=== PATIENT | female | born 2000 | race African-American/Black ===

== ENCOUNTER 2023-05-05 22:08 | Outpatient (REF) | payer OTHER, SELFPAY | END 2023-05-05 22:09 | disposition home or self-care (01) | LOC: LAB 22:08 | PROVIDERS: Visit Provider Physician Assistant | DX: Z34.93 Encounter for supervision of normal pregnancy, unspecified, third trimester (principal) | CPT/HCPCS: 87081 ==

== ENCOUNTER 2023-05-24 00:56 | Observation (INO) | payer OTHER, SELFPAY ==
[2023-05-24 01:47] VITALS: BP 143/87; PULSE 65; RESP 16; TEMP 35.9
[2023-05-24 01:56] LABS: Bilirubin Urine NEGATIVE (NEGATIVE); Blood Urine NEGATIVE (NEGATIVE); Clarity Urine CLEAR (CLEAR); Color Urine LT. YELLOW (YELLOW); Glucose Urine UA NEGATIVE (NEGATIVE); Ketones Urine NEGATIVE (NEGATIVE); Leukocyte Esterase Urine SMALL (NEGATIVE); Nitrite Urine NEGATIVE (NEGATIVE); Protein Urine NEGATIVE (NEG/TRACE); Specific Gravity Urine <=1.005 (1.005-1.025); Urobilinogen Urine 0.2 EU/dL (0.2-1.0); pH Urine 6.5 (5.0-9.0)
[2023-05-24 02:39] LABS: Urine Microscopic Indicated YES
[2023-05-24 02:41] LABS: Bacteria Urine TRACE #/HPF (NONE SEEN); Mucus Urine NONE SEEN (NONE SEEN); RBC Urine 0-2 #/HPF (0-2); Squamous Epithelial Cell Urine FEW #/LPF (NONE/RARE)
[2023-05-24 02:42] LABS: Cast Seen? NONE SEEN #/LPF (NONE SEEN); Crystals Seen? None Seen #/HPF (None Seen); Trichomonas Urine SEEN (NONE SEEN); Urine Culture Indicated YES
[2023-05-24] MEDS: ACETAMINOPHEN 500 MG TABLET 1000 MG PO (03:27)
[2023-05-24 03:29] LABS: Amphetamine Screen Urine NEGATIVE (NEGATIVE); Barbiturates Screen Urine NEGATIVE (NEGATIVE); Benzodiazepines Screen Urine NEGATIVE (NEGATIVE); Buprenorphine Screen Urine NEGATIVE (NEGATIVE); Cannabinoid Screen Urine POSITIVE (NEGATIVE); Cocaine Screen Urine NEGATIVE (NEGATIVE); Methadone Screen Urine NEGATIVE (NEGATIVE); Methamphetamines Screen Urine NEGATIVE (NEGATIVE); Opiate Screen Urine NEGATIVE (NEGATIVE); Oxycodone Screen Urine NEGATIVE (NEGATIVE); Phencyclidine Screen Urine NEGATIVE (NEGATIVE); Tricyclic Antidepressant Urine NEGATIVE (NEGATIVE)
[2023-05-24] MEDS: LACTATED RINGER'S SOLUTION 1,000 ML 1000 ML IV (03:37)
[2023-05-24 04:02] LABS: Basophils Percent Auto 0.3 % (0.2-2.0); Eosinophils Percent Auto 0.2 % (0.9-7.0); Hematocrit 36.6 % (36.0-48.0); Hemoglobin 11.9 g/dL (12.0-16.0); Immature Granulocytes Abs Auto 0.08 10^3/uL (0.00-0.03); Immature Granulocytes Pct Auto 0.7 % (0.0-0.5); Lymphocytes Absolute Auto 2.5 10^3/uL (1.2-3.8); Lymphocytes Percent Auto 22.7 % (20.5-60.0); Mean Corpuscular HGB Conc 32.5 g/dL (29.9-35.2); Mean Corpuscular Hemoglobin 29.3 pg (26.7-34.0); Mean Corpuscular Volume 90.1 fL (81.0-99.0); Mean Platelet Volume 10.2 fL (9.5-13.5); Monocytes Absolute Auto 0.7 10^3/uL (0.3-0.8); Monocytes Percent Auto 6.6 % (1.7-12.0); Neutrophils Absolute Auto 7.5 10^3/uL (1.4-6.5); Neutrophils Percent Auto 69.5 % (43.0-75.0); Platelet Count 347 10^3/uL (150-450); Red Blood Count 4.06 10^6/uL (4.20-5.40); White Blood Count 10.8 10^3/uL (4.0-11.0)
[2023-05-24 04:10] VITALS: BP 127/88; PULSE 98
[2023-05-24] MEDS: METRONIDAZOLE 250 MG TABLET 500 MG PO (04:50)
== END 2023-05-24 05:10 | disposition home or self-care (01) ==
PROVIDERS: Admitting Provider Obstetrics & Gynecology; Visit Provider Obstetrics & Gynecology
DX: O47.9 False labor, unspecified (principal); Z3A.00 Weeks of gestation of pregnancy not specified
CPT/HCPCS: 36415; 80307; 81003; 81015; 85025; 86850; 86900; 86901; 87086; G0378; G0379

== ENCOUNTER 2023-05-25 04:26 | Inpatient (IN) | payer OTHER, SELFPAY ==
[2023-05-25] VITALS (38 sets, daily range): BP systolic 117–174; BP diastolic 58–115; PULSE 52–109; RESP 16–22; TEMP 35.1–37.1
[2023-05-25] MEDS: 0.9 % SODIUM CHLORIDE 500 ML 1000 ML IV (05:15)
[2023-05-25] MEDS: 0.9 % SODIUM CHLORIDE 1,000 ML 125 ML IV ×2 (05:15→15:22)
[2023-05-25 05:24] LABS: Bilirubin Urine NEGATIVE (NEGATIVE); Blood Urine NEGATIVE (NEGATIVE); Clarity Urine CLEAR (CLEAR); Color Urine YELLOW (YELLOW); Glucose Urine UA NEGATIVE (NEGATIVE); Ketones Urine NEGATIVE (NEGATIVE); Leukocyte Esterase Urine NEGATIVE (NEGATIVE); Nitrite Urine NEGATIVE (NEGATIVE); Protein Urine NEGATIVE (NEG/TRACE); Specific Gravity Urine 1.015 (1.005-1.025)
[2023-05-25 05:28] LABS: Urine Microscopic Indicated NO
[2023-05-25] MEDS: NALBUPHINE HCL 10 MG/ML AMPULE IV ×2 (05:52→13:59)
--- NOTE | 2023-05-25 07:36 | W.PC.ACHO ---
Registration Status: ADM NICK Primary Language: Preferred Language: Report given on maternal and status and SVE Active Medications Generic Name Dose Route Start Last Admin Trade Name Freq PRN Reason Stop Dose Admin Sodium Chloride 1,000 mls @ 125 mls/hr 05/25/23 05:00 05/25/23 05:15 Sodium Chloride 0.9% 1,000 Ml IV 125 mls/hr .Q8H DOUGLAS Administration IV Insertion/Site Date of IV Line Insertion [20g 05/25/23 right Wrist] IV Insertion Time [20g right 05:02 Wrist]
--- NOTE | 2023-05-25 10:15 | PC.NURSE ---
[id number]- Dr. Jiang notified at this time on pt.s cervical exam as well as her demeanor. He would like her to stay for now to be sure she is not in active labor. Pt. given birthing ball at her request to deal with pain and squat as she feels better doing this.
[2023-05-25 12:20] LABS: Hemoglobin 11.8 g/dL (12.0-16.0); Mean Corpuscular HGB Conc 33.7 g/dL (29.9-35.2); Mean Corpuscular Hemoglobin 29.6 pg (26.7-34.0); Mean Corpuscular Volume 87.7 fL (81.0-99.0); Mean Platelet Volume 10.5 fL (9.5-13.5); Platelet Count 340 10^3/uL (150-450); Red Blood Count 3.99 10^6/uL (4.20-5.40); Red Cell Distribution Width 14.1 % (11.0-15.0)
[2023-05-25 12:23] LABS: Amphetamine Screen Urine NEGATIVE (NEGATIVE); Barbiturates Screen Urine NEGATIVE (NEGATIVE); Benzodiazepines Screen Urine NEGATIVE (NEGATIVE); Buprenorphine Screen Urine NEGATIVE (NEGATIVE); Cannabinoid Screen Urine POSITIVE (NEGATIVE); Cocaine Screen Urine NEGATIVE (NEGATIVE); Methadone Screen Urine NEGATIVE (NEGATIVE); Methamphetamines Screen Urine NEGATIVE (NEGATIVE); Opiate Screen Urine NEGATIVE (NEGATIVE); Oxycodone Screen Urine NEGATIVE (NEGATIVE); Phencyclidine Screen Urine NEGATIVE (NEGATIVE); Tricyclic Antidepressant Urine NEGATIVE (NEGATIVE)
[2023-05-25] MEDS: 0.9 % SODIUM CHLORIDE 1,000 ML 1000 ML IV (12:47)
[2023-05-25] MEDS: OXYTOCIN 10 UNIT in 0.9 % SODIUM CHLORIDE 500 ML 6.012 UNIT IV (12:52)
[2023-05-25] MEDS: ONDANSETRON 4 MG RAPDIS TABLET SL (13:06)
[2023-05-25] MEDS: ROPIVACAINE HCL/PF 400 MG/200 ML PREMIX 10 MG EPIDURAL (15:28)
--- NOTE | 2023-05-25 17:42 | PM.OBPRCVD ---
Procedure Intrapartal events: None Induction method: none Delivery augmentation: rupture of membranes and pitocin Delivery monitor: external FHT and external uterine Route of delivery: Laceration description: perineal - 1st degree Estimated blood loss (mL): 200 Anesthesia type: Epidural Disposition: floor Delivery date: 05/25/23 Gender: male presentation: vertex Placental delivery description: Spontaneous cord description: 3 Vessels
[2023-05-25] MEDS: KETOROLAC TROMETHAMINE 30 MG/ML VIAL (17:45)
--- NOTE | 2023-05-25 20:15 | W.PC.ACHO ---
Registration Status: ADM IN Primary Language: Jordanian Preferred Language: [place]ian Active Medications Generic Name Dose Route Start Last Admin Trade Name Freq PRN Reason Stop Dose Admin Acetaminophen/Codeine Phosphate 1 each 05/25/23 17:43 Acetaminophen 300 Mg With Codeine 30 Mg Tablet PO Q4H PRN Moderate Pain Acetaminophen/Codeine Phosphate 2 each 05/25/23 17:43 Acetaminophen 300 Mg With Codeine 30 Mg Tablet PO Q4H PRN Severe Pain Al Hydroxide/Mg Hydroxide 2,400 mg 05/25/23 17:43 Magnesium Hydroxide 2,400 Mg/10 Ml Oral.Susp PO Q6H PRN Dyspepsia Benzocaine/Menthol 1 applic 05/25/23 17:43 Benzocaine/Menthol 85 Gram Bottle TOPICAL DIRECTED PRN Pain Carboprost Tromethamine 250 mcg 05/25/23 11:39 Carboprost Tromethamine 250 Mcg/Ml 1 Ml Vial IM Q15M PRN Bleeding Diphenhydramine HCl 25 mg 05/25/23 14:05 Diphenhydramine Hcl 50 Mg/Ml (1ml) Vial IV Q6H PRN Itching Docusate Sodium 100 mg 05/26/23 09:00 Docusate Sodium 100 Mg Capsule PO BID DOUGLAS Ephedrine Sulfate 5 mg 05/25/23 14:05 Ephedrine Sulfate 50 Mg/Ml Vial IV Q5M PRN Blood Pressure - Low Fentanyl Citrate 100 mcg 05/25/23 14:05 Fentanyl Citrate/Pf 100 Mcg/2 Ml Vial EPIDURAL Q4H PRN Pain Sodium Chloride 1,000 mls @ 125 mls/hr 05/25/23 05:00 05/25/23 15:22 Sodium Chloride 0.9% 1,000 Ml IV 125 mls/hr .Q8H DOUGLAS Administration Sodium Chloride 1,000 mls @ 125 mls/hr 05/25/23 11:45 Sodium Chloride 0.9% 1,000 Ml IV .Q8H DOUGLAS Oxytocin 10 unit/ Sodium 501 mls @ 6.012 mls/hr 05/25/23 11:45 05/25/23 12:52 Chloride IV 2 milliunit/min Q24H DOUGLAS 6.012 mls/hr Administration 2 MILLIUNIT/MIN Ropivacaine/Sodium Chloride 400 mg in 200 mls @ 6 mls/hr 05/25/23 14:15 05/25/23 15:28 Naropin 0.2% 400 Mg/200 Ml Bag EPIDURAL 10 mls/hr Q24H DOUGLAS 10 mls/hr Administration Oxytocin 20 unit/ Sodium 1,002 mls @ 125 mls/hr 05/25/23 17:45 05/25/23 18:05 Chloride IV 05/26/23 01:44 125 mls/hr Q8H DOUGLAS 125 mls/hr Administration Ibuprofen 600 mg 05/25/23 17:43 Ibuprofen 600 Mg Tablet PO Q6H PRN Moderate Pain Lidocaine 5 ml 05/25/23 11:39 Lidocaine Viscous 2% 15 Ml Topical Solution TOPICAL ONCE PRN Pain Lidocaine 1 ml 05/25/23 11:39 Lidocaine Hcl 1% 200 Mg/20 Ml Mdv INJ ONCE PRN Pain Lidocaine 5 ml 05/25/23 14:05 Lidocaine Hcl 2% Pf 100 Mg/5 Ml Vial INJ Q1H PRN Pain Methylergonovine Maleate 0.2 mg 05/25/23 11:39 Methylergonovine Maleate 0.2 Mg/Ml Ampule IM ONCE PRN Uterine Contractility/Contract Methylergonovine Maleate 0.2 mg 05/25/23 11:39 Methylergonovine Maleate 0.2 Mg Tablet PO Q4H PRN Uterine Contractility/Contract Metronidazole 500 mg 05/25/23 21:00 Metronidazole 250 Mg Tablet PO BID [facility] Misoprostol 600 mcg 05/25/23 11:39 Misoprostol 100 Mcg Tablet PO ONCE PRN Uterine Bleeding Misoprostol 800 mcg 05/25/23 11:39 Misoprostol 100 Mcg Tablet SL ONCE PRN Uterine Bleeding Misoprostol 1,000 mcg 05/25/23 11:39 Misoprostol 100 Mcg Tablet TN ONCE PRN Uterine Bleeding Nalbuphine HCl 10 mg 05/25/23 11:39 05/25/23 13:59 Nalbuphine Hcl 10 Mg/Ml Ampule IV 10 mg Q3H PRN Administration Pain Naloxone HCl 0.4 mg 05/25/23 14:05 Naloxone Hcl 0.4 Mg/Ml Vial IV ONCE PRN resp depression Ondansetron HCl 4 mg 05/25/23 11:39 Ondansetron Pf 4 Mg/2 Ml Vial IV Q6H PRN Nausea And Vomiting Ondansetron HCl 4 mg 05/25/23 11:39 05/25/23 13:06 Ondansetron 4 Mg Rapdis Tablet SL 4 mg Q6H PRN Administration Nausea And Vomiting Oxytocin 10 unit 05/25/23 11:39 Oxytocin 100 Unit/10 Ml Vial IM ONCE PRN Uterine Bleeding Senna 17.2 mg 05/25/23 20:00 Sennosides 8.6 Mg Tablet PO QHS PRN Constipation Simethicone 80 mg 05/25/23 17:43 Simethicone 80 Mg Tab.Chew PO QID PRN Abdominal Distention Temazepam 15 mg 05/25/23 20:00 Temazepam 15 Mg Capsule PO BEDTIME PRN Sleep Witch Jackie/Glycerin 1 each 05/25/23 17:43 Glycerin/Witch Jackie 1 Each Jar TOPICAL DIRECTED PRN Pain Diet Category Date Time Status Regular Consistency Diet Diet 05/25/23 Dinner Active Consults Category Date Time Status Consult to Anesthesiology Routine Cons 05/25/23 Ordered Consult to Distributor Sales Manager Routine Cons 05/25/23 Ordered IV Insertion/Site Date of IV Line Insertion [20g 05/25/23 right Wrist] IV Insertion Time [20g right 05:02 Wrist] Neurology Patient orientation (short person,place,time list) Melissa coma scale total score 15 Melissa coma scale total score 15 Melissa coma scale total score 15 Respiratory Lung sounds [Bilateral clear Throughout] Oxygen Delivery Method Room Air Bowels Date of Last Bowel Movement 05/24/23 Catheter Urinary Catheter Date of 05/25/23 Insertion [Urethral] Urinary Catheter Time of 16:30 Insertion [Urethral] Date Urinary Catheter Removed 05/25/23
[2023-05-25] MEDS: METRONIDAZOLE 250 MG TABLET 500 MG PO (21:45)
[2023-05-25] MEDS: IBUPROFEN 600 MG TABLET PO (23:37)
[2023-05-26] VITALS (8 sets, daily range): BP systolic 115–137; BP diastolic 68–79; PULSE 45–59; RESP 14–16; TEMP 36.4–36.7
--- NOTE | 2023-05-26 04:39 | PC.NURSE ---
RN has difficulty getting to latch. Nipples were rolled and colostrum was hand expressed multiple times to get nipples to become erect as they are flat and soft. struggled to maintain a latch. Nipple shield is used to encourage to obtain a latch to feed. Hand out was given. latches at 0420 after attempting to obtain a latch for 15 minutes.
[2023-05-26 07:14] LABS: Basophils Percent Auto 0.1 % (0.2-2.0); Eosinophils Percent Auto 0.1 % (0.9-7.0); Hemoglobin 9.9 g/dL (12.0-16.0); Immature Granulocytes Abs Auto 0.07 10^3/uL (0.00-0.03); Immature Granulocytes Pct Auto 0.5 % (0.0-0.5); Lymphocytes Absolute Auto 2.5 10^3/uL (1.2-3.8); Lymphocytes Percent Auto 17.5 % (20.5-60.0); Mean Corpuscular Hemoglobin 29.5 pg (26.7-34.0); Mean Corpuscular Volume 89.3 fL (81.0-99.0); Mean Platelet Volume 10.7 fL (9.5-13.5); Monocytes Absolute Auto 1.1 10^3/uL (0.3-0.8); Monocytes Percent Auto 7.5 % (1.7-12.0); Neutrophils Absolute Auto 10.6 10^3/uL (1.4-6.5); Neutrophils Percent Auto 74.3 % (43.0-75.0); Platelet Count 299 10^3/uL (150-450); Red Blood Count 3.36 10^6/uL (4.20-5.40); Red Cell Distribution Width 14.5 % (11.0-15.0); White Blood Count 14.2 10^3/uL (4.0-11.0)
[2023-05-26] MEDS: DOCUSATE SODIUM 100 MG CAPSULE PO ×2 (08:07→20:14)
[2023-05-26] MEDS: IBUPROFEN 600 MG TABLET PO ×3 (08:07→20:14)
[2023-05-26] MEDS: METRONIDAZOLE 250 MG TABLET 500 MG PO ×2 (08:07→20:14)
--- NOTE | 2023-05-26 08:52 | PM.OBPN ---
OB - PN: Subj Subjective Patient comments: no complaints [place] status: doing well Exam Constitutional Vital Signs - 24 hr 05/25/23 11:56 05/25/23 13:40 05/25/23 14:06 Temperature Pulse Rate 60 64 60 Respiratory Rate Blood Pressure 148/83 H 139/75 H 144/66 H Blood Pressure [Left Arm] Oxygen Delivery Method 05/25/23 15:28 05/25/23 15:36 05/25/23 15:42 Temperature Pulse Rate 80 86 74 Respiratory Rate Blood Pressure 141/82 H 154/115 H 163/115 H Blood Pressure [Left Arm] Oxygen Delivery Method 05/25/23 15:52 05/25/23 15:57 05/25/23 16:01 Temperature Pulse Rate 93 H 99 H 97 H Respiratory Rate Blood Pressure 157/82 H 161/94 H 151/82 H Blood Pressure [Left Arm] Oxygen Delivery Method 05/25/23 16:06 05/25/23 16:14 05/25/23 16:17 Temperature Pulse Rate 94 H 91 H 74 Respiratory Rate Blood Pressure 142/86 H 141/92 H 128/66 H Blood Pressure [Left Arm] Oxygen Delivery Method 05/25/23 16:21 05/25/23 16:26 05/25/23 16:36 Temperature Pulse Rate 77 65 54 L Respiratory Rate Blood Pressure 147/89 H 161/94 H 172/89 H Blood Pressure [Left Arm] Oxygen Delivery Method 05/25/23 16:47 05/25/23 16:52 05/25/23 17:01 Temperature Pulse Rate 59 L 70 65 Respiratory Rate Blood Pressure 130/59 H 173/90 H 145/90 H Blood Pressure [Left Arm] Oxygen Delivery Method 05/25/23 17:15 05/25/23 17:18 05/25/23 17:26 Temperature Pulse Rate 62 68 109 H Respiratory Rate Blood Pressure 159/95 H 174/98 H 130/92 H Blood Pressure [Left Arm] Oxygen Delivery Method 05/25/23 17:36 05/25/23 17:41 05/25/23 18:01 Temperature Pulse Rate 88 98 H 57 L Respiratory Rate Blood Pressure 150/72 H 153/69 H 144/75 H Blood Pressure [Left Arm] Oxygen Delivery Method 05/25/23 18:13 05/25/23 18:28 05/25/23 18:43 Temperature Pulse Rate 67 68 65 Respiratory Rate Blood Pressure 140/72 H 129/73 H 132/78 H Blood Pressure [Left Arm] Oxygen Delivery Method 05/25/23 19:14 05/25/23 19:28 05/25/23 19:44 Temperature Pulse Rate 54 L 74 67 Respiratory Rate Blood Pressure 139/72 H 142/82 H 136/58 H Blood Pressure [Left Arm] Oxygen Delivery Method 05/25/23 19:59 05/25/23 23:30 05/26/23 03:49 Temperature Pulse Rate 52 L 66 47 L Respiratory Rate Blood Pressure 143/78 H 117/65 115/68 Blood Pressure [Left Arm] Oxygen Delivery Method 05/26/23 07:24 05/25/23 15:36 05/25/23 15:37 Temperature 97.8 F 97.9 F Pulse Rate 45 L Respiratory Rate 22 Blood Pressure 120/79 H Blood Pressure [Left Arm] Oxygen Delivery Method Room Air 05/25/23 18:45 05/25/23 18:00 05/25/23 19:31 Temperature 98 F 98.4 F Pulse Rate 74 Respiratory Rate 18 20 18 Blood Pressure Blood Pressure [Left Arm] 142/82 H Oxygen Delivery Method 05/25/23 23:30 05/25/23 23:30 05/26/23 03:50 Temperature 98.7 F 98.0 F Pulse Rate 66 47 L Respiratory Rate 16 16 16 Blood Pressure Blood Pressure [Left Arm] 117/65 115/68 Oxygen Delivery Method Room Air Room Air 05/26/23 07:35 05/26/23 07:35 Temperature 97.7 F Pulse Rate 45 L Respiratory Rate 16 16 Blood Pressure Blood Pressure [Left Arm] 120/79 H Oxygen Delivery Method Documenting provider has reviewed patient's vital signs: yes Respiratory Common normals: normal respiratory effort and clear to auscultation bilaterally Cardio Common normals: regular rate and regular rhythm GI Common normals: Normal to inspection, nondistended, normoactive bowel sounds present Common normals: no CVA tenderness Extremity Common normals: normal to inspection, no clubbing, cyanosis or edema and no calf tenderness Results Labs Labs: Short CBC 05/25/23 05/26/23 Range/Units 12:11 06:25 WBC 10.0 14.2 H (4.0-11.0) 10^3/uL Hgb 11.8 L 9.9 L (12.0-16.0) g/dL Hct 35.0 L 30.0 L (36.0-48.0) % Plt Count 340 299 (150-450) 10^3/uL OB - PN: A/P Plan - Vaginal Delivery day: 1 Plan: routine care Time Spent with Patient Time: Total time spent is greater than 50% in coordination of care (as documented) at patient's floor/unit and/or counseling patient: Total time spent with greater than 50% in coordination of care (as documented) at patient's floor/unit and/or counseling patient: less than 15 minutes
--- NOTE | 2023-05-26 09:08 | PC.NURSE ---
This promotion writer reviewed all entires from Michael and will be overseeing her care today. Po [place] RN
--- NOTE | 2023-05-26 09:46 | AC.NBHP ---
NB H&P: HPI Single Date H&P Date: 05/26/23 History of Delivery method: spontaneous vaginal delivery Delivery Date: 05/25/23 Delivery Time: 17:23 Reason For Visit: CONTRACTIONS /Intrapartal Event Events: Meconium Stained Fluid Intrapartal Events: None Maternal Health Data Maternal Health : 1 Para: 1 Number of Living Children: 1 Hx # pregnancies: 0 care: good care events: Meconium Stained Fluid Intrapartal events: None Amniotic membrane rupture date: 05/25/23 Amniotic membrane rupture time: 13:24 Single Amniotic mebrance fluid description: Green Delivery method: spontaneous vaginal delivery presentation: vertex Labs HIV results: neg Hepatitis B results: neg Chlamydia results: neg Gonorrhea results: neg Group B strep results: negative - Single Citation Becca Hagen. A proposal for a new method of evaluation of the infant. Curr.Res.Anesth.Analg. 1953;32(4): 260-267 PFS PFS Social History Do you think of yourself as: straight/heterosexual Gender Identity: female Assessment and Plan Assessment and Plan (1) Normal (single liveborn): Plan routine nursery care
--- NOTE | 2023-05-26 10:22 | PC.NURSE ---
reassessment of pain after pain medication. patient states that pain has decreased and she is ambulating independently
--- NOTE | 2023-05-26 15:54 | SWNOTE1 ---
SW met with pt in room. Pt's sister in room as well holding baby, sleeping. Pt does live at home with her mother, father, and brother. This is her first baby. Father of the baby is involved. Pt is and does voice it is going alright. Pt does have everything she needs at home for baby and expresses she has a good support system. Pt was positive for marijuana on admission, and was positive at beginning of on 10/20/2022. Pt does admit to eating gummies during to help with her nausea. She attempted to use a zofran pump but it did not help and she continued to lose weight. Pt does not have her medical marijuana card and she does not plan on using marijuana at discharge. SW did let pt know that SW is mandated reported and SW has to call children services. Pt voices understanding, no questions. DICK called and made report to [facility] CPS. HIPPA form filled out and sent to
--- NOTE | 2023-05-26 19:11 | W.PC.ACHO ---
Registration Status: ADM IN Primary Language: Swazi Preferred Language: Swazi Active Medications Generic Name Dose Route Start Last Admin Trade Name Freq PRN Reason Stop Dose Admin Acetaminophen/Codeine Phosphate 1 each 05/25/23 17:43 Acetaminophen 300 Mg With Codeine 30 Mg Tablet PO Q4H PRN Moderate Pain Acetaminophen/Codeine Phosphate 2 each 05/25/23 17:43 Acetaminophen 300 Mg With Codeine 30 Mg Tablet PO Q4H PRN Severe Pain Al Hydroxide/Mg Hydroxide 2,400 mg 05/25/23 17:43 Magnesium Hydroxide 2,400 Mg/10 Ml Oral.Susp PO Q6H PRN Dyspepsia Benzocaine/Menthol 1 applic 05/25/23 17:43 Benzocaine/Menthol 85 Gram Bottle TOPICAL DIRECTED PRN Pain Carboprost Tromethamine 250 mcg 05/25/23 11:39 Carboprost Tromethamine 250 Mcg/Ml 1 Ml Vial IM 05/26/23 18:00 Q15M PRN Bleeding Docusate Sodium 100 mg 05/26/23 09:00 Docusate Sodium 100 Mg Capsule PO BID DOUGLAS Sodium Chloride 1,000 mls @ 125 mls/hr 05/25/23 05:00 05/25/23 15:22 Sodium Chloride 0.9% 1,000 Ml IV 125 mls/hr .Q8H DOUGLAS Administration Sodium Chloride 1,000 mls @ 125 mls/hr 05/25/23 11:45 Sodium Chloride 0.9% 1,000 Ml IV .Q8H DOUGLAS Ibuprofen 600 mg 05/25/23 17:43 05/25/23 23:37 Ibuprofen 600 Mg Tablet PO 600 mg Q6H PRN Administration Moderate Pain Methylergonovine Maleate 0.2 mg 05/25/23 11:39 Methylergonovine Maleate 0.2 Mg/Ml Ampule IM 05/26/23 18:00 ONCE PRN Uterine Contractility/Contract Methylergonovine Maleate 0.2 mg 05/25/23 11:39 Methylergonovine Maleate 0.2 Mg Tablet PO 05/26/23 18:00 Q4H PRN Uterine Contractility/Contract Metronidazole 500 mg 05/25/23 21:00 05/25/23 21:45 Metronidazole 250 Mg Tablet PO 500 mg BID DOUGLAS Administration Misoprostol 600 mcg 05/25/23 11:39 Misoprostol 100 Mcg Tablet PO 05/26/23 18:00 ONCE PRN Uterine Bleeding Misoprostol 800 mcg 05/25/23 11:39 Misoprostol 100 Mcg Tablet SL 05/26/23 18:00 ONCE PRN Uterine Bleeding Misoprostol 1,000 mcg 05/25/23 11:39 Misoprostol 100 Mcg Tablet MI 05/26/23 18:00 ONCE PRN Uterine Bleeding Ondansetron HCl 4 mg 05/25/23 11:39 Ondansetron Pf 4 Mg/2 Ml Vial IV Q6H PRN Nausea And Vomiting Ondansetron HCl 4 mg 05/25/23 11:39 05/25/23 13:06 Ondansetron 4 Mg Rapdis Tablet SL 4 mg Q6H PRN Administration Nausea And Vomiting Oxytocin 10 unit 05/25/23 11:39 Oxytocin 100 Unit/10 Ml Vial IM 05/26/23 18:00 ONCE PRN Uterine Bleeding Senna 17.2 mg 05/25/23 20:00 Sennosides 8.6 Mg Tablet PO QHS PRN Constipation Simethicone 80 mg 05/25/23 17:43 Simethicone 80 Mg Tab.Chew PO QID PRN Abdominal Distention Temazepam 15 mg 05/25/23 20:00 Temazepam 15 Mg Capsule PO BEDTIME PRN Sleep Witch Jackie/Glycerin 1 each 05/25/23 17:43 Glycerin/Witch Jackie 1 Each Jar TOPICAL DIRECTED PRN Pain Diet Category Date Time Status Regular Consistency Diet Diet 05/25/23 Dinner Active Neurology Patient orientation (short person,place,time list) Blain coma scale total score 15 Melissa coma scale total score 15 Melissa coma scale total score 15 Blain coma scale total score 15 Blain coma scale total score 15 Respiratory Lung sounds [Bilateral clear Throughout] Lung sounds [Bilateral clear Throughout] Oxygen Delivery Method Room Air Oxygen Delivery Method Room Air Oxygen Delivery Method Room Air Bowels Date of Last Bowel Movement 05/24/23 Catheter Urinary Catheter Date of 05/25/23 Insertion [Urethral] Urinary Catheter Time of 16:30 Insertion [Urethral] Date Urinary Catheter Removed 05/25/23
[2023-05-27 00:30] VITALS: BP 146/74; PULSE 60; TEMP 37.1
[2023-05-27] MEDS: IBUPROFEN 600 MG TABLET PO (02:26)
[2023-05-27 06:00] VITALS: BP 139/78; PULSE 48; RESP 16
--- NOTE | 2023-05-27 07:13 | W.PC.ACHO ---
Registration Status: ADM IN Primary Language: [place] Preferred Language: [place] Active Medications Generic Name Dose Route Start Last Admin Trade Name Freq PRN Reason Stop Dose Admin Acetaminophen/Codeine Phosphate 1 each 05/25/23 17:43 Acetaminophen 300 Mg With Codeine 30 Mg Tablet PO Q4H PRN Moderate Pain Acetaminophen/Codeine Phosphate 2 each 05/25/23 17:43 Acetaminophen 300 Mg With Codeine 30 Mg Tablet PO Q4H PRN Severe Pain Al Hydroxide/Mg Hydroxide 2,400 mg 05/25/23 17:43 Magnesium Hydroxide 2,400 Mg/10 Ml Oral.Susp PO Q6H PRN Dyspepsia Benzocaine/Menthol 1 applic 05/25/23 17:43 Benzocaine/Menthol 85 Gram Bottle TOPICAL DIRECTED PRN Pain Docusate Sodium 100 mg 05/26/23 09:00 05/26/23 20:14 Docusate Sodium 100 Mg Capsule PO 100 mg BID DOUGLAS Administration Sodium Chloride 1,000 mls @ 125 mls/hr 05/25/23 05:00 05/25/23 15:22 Sodium Chloride 0.9% 1,000 Ml IV 125 mls/hr .Q8H DOUGLAS Administration Sodium Chloride 1,000 mls @ 125 mls/hr 05/25/23 11:45 Sodium Chloride 0.9% 1,000 Ml IV .Q8H DOUGLAS Ibuprofen 600 mg 05/26/23 08:13 05/27/23 02:26 Ibuprofen 600 Mg Tablet PO 600 mg Q6H PRN Administration Moderate Pain Metronidazole 500 mg 05/25/23 21:00 05/26/23 20:14 Metronidazole 250 Mg Tablet PO 500 mg BID DOUGLAS Administration Ondansetron HCl 4 mg 05/25/23 11:39 Ondansetron Pf 4 Mg/2 Ml Vial IV Q6H PRN Nausea And Vomiting Ondansetron HCl 4 mg 05/25/23 11:39 05/25/23 13:06 Ondansetron 4 Mg Rapdis Tablet SL 4 mg Q6H PRN Administration Nausea And Vomiting Senna 17.2 mg 05/25/23 20:00 Sennosides 8.6 Mg Tablet PO QHS PRN Constipation Simethicone 80 mg 05/25/23 17:43 Simethicone 80 Mg Tab.Chew PO QID PRN Abdominal Distention Temazepam 15 mg 05/25/23 20:00 Temazepam 15 Mg Capsule PO BEDTIME PRN Sleep Witch Jackie/Glycerin 1 each 05/25/23 17:43 Glycerin/Witch Jackie 1 Each Jar TOPICAL DIRECTED PRN Pain Neurology [place] coma scale total score 15 [place] coma scale total score 15 Respiratory Lung sounds [Bilateral clear Throughout] Lung sounds [Bilateral clear Throughout]
--- NOTE | 2023-05-27 07:49 | NUTR.NU ---
awake in bed holding . Plan of care reviewed. verbalizes understandng. D/c instrutctions reviewed, of self and infant. Verbalizes understanding. denies pain or needs at this time.
--- NOTE | 2023-05-27 07:49 | PM.OBPN ---
OB - PN: Subj Subjective Patient comments: no complaints [place] status: doing well and well [place] feeding status: exclusively Exam Narrative Exam Narrative: patient laying on her left side enjoying baby, states she is ready to go home today Constitutional Vital Signs - 24 hr 05/26/23 13:23 05/26/23 15:41 05/27/23 00:30 Temperature 98.7 F Pulse Rate 59 L 54 L 60 Respiratory Rate Blood Pressure 133/78 H 137/71 H 146/74 H Blood Pressure [Left Arm] 05/27/23 06:00 05/26/23 13:25 05/26/23 15:46 Temperature 97.6 F 97.8 F Pulse Rate 48 L 59 L 54 L Respiratory Rate 16 16 14 Blood Pressure 139/78 H Blood Pressure [Left Arm] 133/78 H 137/71 H Documenting provider has reviewed patient's vital signs: yes Common normals: no apparent distress and oriented x3 General appearance: cooperative HENMT Common normals: normocephalic Eye Common normals: PERRL Neck & C-Spine Common normals: full ROM Chest Common normals: inspection of chest normal Respiratory Common normals: normal respiratory effort Auscultation: clear to auscultation bilaterally Cardio Common normals: no JVD, regular rate and regular rhythm Rate: regular rate Rhythm: regular rhythm GI Common normals: Normal to inspection, nondistended, normoactive bowel sounds present Inspection: normal to inspection Auscultation: normoactive bowel sounds Palpation: soft Rectal Exam - Female: deferred Common normals: no CVA tenderness Back & Pelvis Common normals: no CVA tenderness Extremity Common normals: normal to inspection Neuro Common normals: oriented x3 Speech: speech normal Psych Common normals: mental status grossly normal, thought process normal and cooperative OB - PN: A/P Assessment and Plan (1) Normal (single liveborn): Assessment and Plan: assessment negative, plan is to send patient home today with her Plan discharge to home Plan - Vaginal Delivery day: 2 Plan: discharge home and follow up 6 weeks Comment: patient should follow up with dr Jiang in 6 weeks patient should continue Flagyl RX until gone Time Spent with Patient Time: Total time spent is greater than 50% in coordination of care (as documented) at patient's floor/unit and/or counseling patient: Total time spent with greater than 50% in coordination of care (as documented) at patient's floor/unit and/or counseling patient: less than 15 minutes
[2023-05-27 09:25] VITALS: BP 128/63; PULSE 58
== END 2023-05-27 11:15 | disposition home or self-care (01) | DRG 560 ==
PROVIDERS: Admitting Provider Obstetrics & Gynecology; Visit Provider Obstetrics & Gynecology
DX: O99.52 Diseases of the respiratory system complicating childbirth (principal); O99.214 Obesity complicating childbirth; O70.0 First degree perineal laceration during delivery; Z3A.39 39 weeks gestation of pregnancy; Z37.0 Single live birth; J45.20 Mild intermittent asthma, uncomplicated
CPT/HCPCS: 36415; 59050; 59410; 80307; 81003; 81015; 85025; 85027; 86850; 86900; 86901; 87086; 96374; 96375; 96376; G0378; G0379; J2300

== ENCOUNTER 2023-06-25 22:31 | Emergency (ER) | payer OTHER, SELFPAY ==
[2023-06-25 22:39] VITALS: BP 134/88; PULSE 80; RESP 20; TEMP 37.5; O2SAT 97; BMI 35.6
--- NOTE | 2023-06-25 23:25 | ED.ABDPAIN1 ---
HPI - Abdominal Pain General Chief Complaint: Abdominal Pain Stated Complaint: Abdominal Pain Time Seen by Provider: 06/25/23 23:16 Source: patient Mode of arrival: walk-in Limitations: no limitations History of Present Illness HPI narrative: vaginal delivery one month ago. Now presents with suprapubic pain that started yesterday and has increased. Pain worsens with cough. She has asthma and has been coughing up clear phlegm. Denies any vaginal bleeding. No urinary symptoms, fever or nausea. MD elicited complaint: Reports abdominal pain Related Data Previous Rx's Medication Instructions Recorded Dermoplast (with menthol) 20 %-0.5 1 spray topical DIRECTED PRN 05/27/23 % topical aerosol Pain 7 days #56 grams (benzocaine-menthol) docusate sodium 100 mg capsule 100 mg PO BID PRN constipation 30 05/27/23 days #60 caps glycerin-witch evelyn 12.5 %-50 % 1 pad topical DIRECTED PRN Pain 05/27/23 topical pads (A.E.R. Witch Evelyn) 14 days #40 ea ibuprofen 800 mg tablet 800 mg PO Q8H PRN Moderate Pain 30 05/27/23 days #60 tabs Allergies Allergy/AdvReac Type Severity Reaction Status Date / Time Penicillins Allergy Severe Verified 05/26/23 06:55 cephalexin [From Keflex] Allergy Intermediate Verified 05/25/23 20:20 iodine Allergy Intermediate Verified 05/25/23 20:20 Review of Systems ROS Status of ROS 10 or more systems reviewed and unremarkable except as noted in history and below PFSH PFSH Social History Smoking status: Never smoker Do you think of yourself as: straight/heterosexual Gender Identity: female Exam Constitutional Vital Signs, click to edit/add: Last Vital Signs Temp 99.5 F 06/25/23 22:39 Pulse 74 06/25/23 23:52 Resp 20 06/25/23 23:52 BP 134/88 06/25/23 22:39 Pulse Ox 98 06/25/23 23:52 O2 Del Method Room Air 06/25/23 22:39 Common normals: no apparent distress, oriented x3, healthy appearing and alert HENMT Common normals: normocephalic and head/scalp atraumatic Eye Common normals: EOMs intact bilaterally and conjunctivae normal Respiratory Auscultation: wheezes Cardio Common normals: regular rate, regular rhythm, S1 normal heart sound and S2 normal heart sound GI Other: suprapubic mild tenderness. no guarding Extremity Common normals: normal to inspection and full ROM Neuro Common normals: oriented x3, CN's II-XII intact bilaterally, moves all extremities, no focal motor deficits and no sensory deficits noted Psych Appearance: grossly normal Course Vital Signs Vital signs: Vital Signs Temperature 99.5 F 06/25/23 22:39 Pulse Rate 80 06/25/23 22:39 Respiratory Rate 20 06/25/23 22:39 Blood Pressure 134/88 06/25/23 22:39 Pulse Oximetry 97 06/25/23 22:39 Oxygen Delivery Method Room Air 06/25/23 22:39 Temperature 99.5 F 06/25/23 22:39 Pulse Rate 74 06/25/23 23:52 Respiratory Rate 20 06/25/23 23:52 Blood Pressure 134/88 06/25/23 22:39 Pulse Oximetry 98 06/25/23 23:52 Oxygen Delivery Method Room Air 06/25/23 22:39 MDM - Abdominal Pain MDM Narrative Medical decision making narrative: presents with suprapubic pain. CT with evidence of cystitis and UA confirms infection. patient treated with Bactrim ds and discharged home to follow up with her doctor Lab Data Labs: Lab Results 06/25/23 06/25/23 Range/Units 22:15 22:45 WBC 7.2 (4.0-11.0) 10^3/uL RBC 4.30 (4.20-5.40) 10^6/uL Hgb 12.2 (12.0-16.0) g/dL Hct 38.3 (36.0-48.0) % MCV 89.1 (81.0-99.0) fL MCH 28.4 (26.7-34.0) pg MCHC 31.9 (29.9-35.2) g/dL RDW 14.2 (11.0-15.0) % Plt Count 347 (150-450) 10^3/uL MPV 10.3 (9.5-13.5) fL Neut % (Auto) 57.0 (43.0-75.0) % Lymph % (Auto) 32.4 (20.5-60.0) % [place] % (Auto) 7.1 (1.7-12.0) % Eos % (Auto) 2.9 (0.9-7.0) % Baso % (Auto) 0.3 (0.2-2.0) % Neut # (Auto) 4.1 (1.4-6.5) 10^3/uL Lymph # (Auto) 2.3 (1.2-3.8) 10^3/uL [place]itus # (Auto) 0.5 (0.3-0.8) 10^3/uL Eos # (Auto) 0.2 (0.0-0.7) 10^3/uL Baso # (Auto) 0.0 (0.0-0.1) 10^3/uL Abs Immat Gran (auto) 0.02 (0.00-0.03) 10^3/uL Imm/Tot Granulo (auto) 0.3 (0.0-0.5) % Urine Color Lt. yellow (YELLOW) Urine Clarity Clear (CLEAR) Urine pH 6.0 (5.0-9.0) Ur Specific [place] 1.025 (1.005-1.025) Urine Protein Negative (NEG/TRACE) mg/dL Urine Glucose (UA) Negative (NEGATIVE) mg/dL Urine Ketones Negative (NEGATIVE) mg/dL Urine Occult Blood Trace-i (NEGATIVE) Urine Nitrite Negative (NEGATIVE) Urine Bilirubin Negative (NEGATIVE) Urine Urobilinogen 0.2 (0.2-1.0) EU/dL Ur Leukocyte Esterase Moderate A (NEGATIVE) Discharge Plan Discharge Chief Complaint: Abdominal Pain Clinical Impression: Acute cystitis Patient Disposition: Home, Self-Care Prescriptions / Home Meds: No Action Dermoplast (with menthol) 20-0.5 % Aerosol 1 spray topical DIRECTED PRN (Reason: Pain) 7 Days Qty: 56 1RF docusate sodium 100 mg Capsule 100 mg PO BID PRN (Reason: constipation) 30 Days Qty: 60 0RF A.E.R. Witch Evelyn 12.5-50 % Pads, Medicated 1 pad topical DIRECTED PRN (Reason: Pain) 14 Days Qty: 40 0RF ibuprofen 800 mg tablet 800 mg PO Q8H PRN (Reason: Moderate Pain) 30 Days Qty: 60 0RF Instructions: Urinary Tract Infection in Women (ED) Stand Alone Forms: Portal Instructions Referrals: Physician,Non-Staff, MD [Primary Care Provider] - 1 week
--- NOTE | 2023-06-25 23:28 | XR_ITS ---
The [address] [address] Patient Name: SURTHI FUNK MRN: [id number] date: 2000 Sex: F Assigned Patient Location: ER Current Patient Location: ER Accession/Order Number: [id number] Exam Date: 06/25/2023 23:59 Report Date: 06/26/2023 00:42 At the request of: DORON CORONEL Procedure: XR chest 2V EXAM: XR chest 2V HISTORY: cough COMPARISON: Chest x-ray 01/22/2016 TECHNIQUE: Single frontal view chest x-ray FINDINGS: No lung consolidation, large pleural effusions, pneumothorax, or acute bony abnormality. Cardiac size is unremarkable. XR/XR chest 2V IMPRESSION: No radiographic evidence for acute chest abnormality. Electronically authenticated by: AHSAN BROWN Date: 06/26/2023 00:42
[2023-06-25 23:36] LABS: Bilirubin Urine NEGATIVE (NEGATIVE); Blood Urine TRACE-I (NEGATIVE); Clarity Urine CLEAR (CLEAR); Color Urine LT. YELLOW (YELLOW); Glucose Urine UA NEGATIVE (NEGATIVE); Ketones Urine NEGATIVE (NEGATIVE); Leukocyte Esterase Urine MODERATE (NEGATIVE); Nitrite Urine NEGATIVE (NEGATIVE); Protein Urine NEGATIVE (NEG/TRACE); Specific Gravity Urine 1.025 (1.005-1.025); Urobilinogen Urine 0.2 EU/dL (0.2-1.0)
[2023-06-25 23:38] LABS: Basophils Percent Auto 0.3 % (0.2-2.0); Eosinophils Absolute Auto 0.2 10^3/uL (0.0-0.7); Eosinophils Percent Auto 2.9 % (0.9-7.0); Hematocrit 38.3 % (36.0-48.0); Hemoglobin 12.2 g/dL (12.0-16.0); Immature Granulocytes Abs Auto 0.02 10^3/uL (0.00-0.03); Immature Granulocytes Pct Auto 0.3 % (0.0-0.5); Lymphocytes Absolute Auto 2.3 10^3/uL (1.2-3.8); Lymphocytes Percent Auto 32.4 % (20.5-60.0); Mean Corpuscular HGB Conc 31.9 g/dL (29.9-35.2); Mean Corpuscular Hemoglobin 28.4 pg (26.7-34.0); Mean Corpuscular Volume 89.1 fL (81.0-99.0); Mean Platelet Volume 10.3 fL (9.5-13.5); Monocytes Absolute Auto 0.5 10^3/uL (0.3-0.8); Monocytes Percent Auto 7.1 % (1.7-12.0); Neutrophils Absolute Auto 4.1 10^3/uL (1.4-6.5); Platelet Count 347 10^3/uL (150-450); Red Cell Distribution Width 14.2 % (11.0-15.0); White Blood Count 7.2 10^3/uL (4.0-11.0)
[2023-06-25] MEDS: 0.9 % SODIUM CHLORIDE 1,000 ML 999 ML IV (23:46)
[2023-06-25 23:47] LABS: Urine Microscopic Indicated YES
--- NOTE | 2023-06-25 23:48 | CT_ITS ---
The [place] [id number] Patient Name: SRUTHI FUNK MRN: [id number] date: 2000 Sex: F Assigned Patient Location: ER Current Patient Location: ER Accession/Order Number: [id number] Exam Date: 06/25/2023 23:59 Report Date: 06/26/2023 00:54 At the request of: DORON CORONEL Procedure: CT abdomen pelvis wo con EXAM: CT abdomen pelvis wo con HISTORY: suprapubic pain post vag. delivery COMPARISON: 08/02/2012 TECHNIQUE: CT of abdomen and pelvis without intravenous contrast. Dose reduction techniques were achieved by using automated exposure control and/or adjustment of mA and/or kV according to patient size and/or use of iterative reconstruction technique. FINDINGS: Limited evaluation of the viscera/organs and vasculature without intravenous contrast. TUBES AND IMPLANTS: None. LOWER CHEST: Small hiatal hernia ABDOMEN and PELVIS ABDOMINAL WALL AND SOFT TISSUES: Unremarkable. BONES: No suspicious lesions. ARTERIES: Incompletely evaluated. VEINS: Incompletely evaluated. LYMPH NODES: Unremarkable. PERITONEUM/ RETROPERITONEUM: Trace pelvic fluid BOWEL: No obstruction APPENDIX: Unremarkable LIVER: Unremarkable. GALLBLADDER: Unremarkable. BILE DUCTS: Not dilated SPLEEN: Unremarkable. PANCREAS: Unremarkable. ADRENALS: Unremarkable. KIDNEYS/ URETERS: Unremarkable. REPRODUCTIVE ORGANS: Unremarkable URINARY BLADDER: Mild wall thickening of the bladder CT/CT abdomen pelvis wo con IMPRESSION: Mild wall thickening of the bladder, correlate for cystitis. Trace pelvic fluid. Small hiatal hernia. Electronically authenticated by: KELLY RICCI Date: 06/26/2023 00:54
[2023-06-25 23:52] VITALS: PULSE 74; RESP 20; O2SAT 98
[2023-06-25 23:52] LABS: Lactate/Lactic Acid 0.6 mmol/L (0.4-2.0)
[2023-06-25] MEDS: ALBUTEROL SULFATE 2.5 MG/3 ML VIAL NEB IH (23:52)
[2023-06-25 23:55] LABS: Alanine Aminotransferase 29 U/L (14-59); Albumin Globulin Ratio 0.9; Albumin Level 3.7 g/dL (3.4-5.0); Alkaline Phosphatase 104 U/L (46-116); Anion Gap 12.2; Aspartate Amino Transferase 25 U/L (15-37); BUN Creatinine Ratio 10.8; Bilirubin Total 0.3 mg/dL (0.2-1.0); Calcium 8.9 mg/dL (8.5-10.1); Carbon Dioxide 27.6 mmol/L (21.0-32.0); Chloride 105 mmol/L (98-107); Estimated GFR (African America >60 (>=60); Estimated GFR (Non-African Ame >60 (>=60); Globulin 3.9 g/dL; Glucose 84 mg/dL (74-106); Potassium 3.8 mmol/L (3.5-5.1); Sodium 141 mmol/L (136-145); Total Protein 7.6 g/dL (6.4-8.2)
[2023-06-26 00:20] LABS: Bacteria Urine TRACE #/HPF (NONE SEEN); Crystals Seen? None Seen #/HPF (None Seen); Mucus Urine NONE SEEN (NONE SEEN); RBC Urine 0-2 #/HPF (0-2); Squamous Epithelial Cell Urine MANY #/LPF (NONE/RARE)
[2023-06-26 00:21] LABS: Cast Seen? NONE SEEN #/LPF (NONE SEEN); Trichomonas Urine SEEN (NONE SEEN); Urine Culture Indicated YES
[2023-06-26] MEDS: KETOROLAC TROMETHAMINE 30 MG/ML VIAL IVP (00:44)
[2023-06-26] MEDS: SULFAMETHOXAZOLE/TRIMETHOPRIM 800-160 MG TABLET 1 TAB PO (01:32)
== END 2023-06-26 01:35 | disposition home or self-care (01) ==
PROVIDERS: Emergency Provider Internal Medicine
DX: O86.22 Infection of bladder following delivery (principal); N30.90 Cystitis, unspecified without hematuria
CPT/HCPCS: 36415; 71046; 74176; 80053; 81001; 81003; 83605; 85025; 87086; 94640; 96374; 99285

== ENCOUNTER 2023-08-25 11:00 | Outpatient (OUT) | payer OTHER, SELFPAY | END 2023-08-25 11:01 | disposition home or self-care (01) | PROVIDERS: Visit Provider Obstetrics & Gynecology | DX: N92.6 Irregular menstruation, unspecified (principal) | CPT/HCPCS: 36415; 84702 ==

== ENCOUNTER 2023-08-31 18:43 | Outpatient (OUT) | payer OTHER, SELFPAY ==
--- NOTE | 2023-08-31 | US_ITS ---
The [place] [id number] Patient Name: SRUTHI FUNK MRN: [id number] date: 2000 Sex: F Assigned Patient Location: US Current Patient Location: LAB Accession/Order Number: [id number] Exam Date: 08/31/2023 19:43 Report Date: 09/01/2023 22:15 At the request of: PAUL HICKEY Procedure: US OB transvaginal EXAMINATION: US OB transvaginal HISTORY: Missed Menses, N92.6 COMPARISON: No relevant comparison available. FINDINGS: GESTATIONAL SAC: Present and normal appearing. YOLK SAC: Present and normal appearing. POLE: Present and normal appearing. CARDIAC: Present. 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 OVARIES: Right: Not seen. Left: Corpus lutein cyst. CERVIX: 3.6 cm in length and closed. CUL-DE-SAC: Normal. OTHER: None. AGE BY LMP: Unknown LMP [place] BY LMP: AGE BY US CRL: 7 weeks 6 days [place] BY US CRL: 04/12/2024 US/US OB transvaginal IMPRESSION: 1. Single live intrauterine . Electronically authenticated by: BENIGNO DIAZ Date: 09/01/2023 22:15
== END 2023-08-31 18:44 | disposition home or self-care (01) ==
LOC: US 18:43
PROVIDERS: Visit Provider Obstetrics & Gynecology
DX: Z34.91 Encounter for supervision of normal pregnancy, unspecified, first trimester (principal)
CPT/HCPCS: 76817

== ENCOUNTER 2023-12-02 13:55 | Outpatient (OUT) | payer OTHER, SELFPAY ==
--- NOTE | 2023-12-02 14:41 | US_ITS ---
[address] [address] Patient Name: SRUTHI FUNK MRN: [id number] date: 2000 Sex: F Assigned Patient Location: US Current Patient Location: US Accession/Order Number: [id number] Exam Date: 12/02/2023 14:42 Report Date: 12/02/2023 16:12 At the request of: PAUL HICKEY Procedure: US OB anatomy EXAMINATION: US OB anatomy, US OB cervical length HISTORY: ANATOMY COMPARISON: No relevant comparison available. TECHNIQUE: Transabdominal sonographic examination was performed for obstetrical and evaluation. FINDINGS: Number: 1 Heart Rate: 150.0 bpm H.B. /min Amniotic Fluid Volume: Subjectively normal position: Cephalic presentation, longitudinal lie Placental Location: Anterior. Placental edge 10 cm from the internal os Cervix Length: 4.7 cm, closed Normal anatomy: Lateral ventricles, cerebellum, posterior fossa, nose, lips, orbits, four-chamber heart, RVOT, LVOT, diaphragm, stomach, kidneys, abdominal cord insertion, bladder, umbilical arteries, three-vessel cord, spine, extremities BIOMETRY: BPD: 4.8 cm 20 weeks 4 days , 28% HC: 17.7 cm 20 weeks 1 days, 8% AC: 16.5 cm 21 weeks 4 days, 57% FL: 3.6 cm 21 weeks 3 days , 52% EFW:416.7 grams; 15 ounces, 55% FL/AC: 21.9 FL/BPD: 74.6 HC/AC: 1.1 GESTATIONAL AGE: Age by EDC: 21 weeks 1 days Age by current US: 21 weeks 0 days [place] by current US: 04/13/2024 [place] by EDC: 04/12/2024 US/US OB anatomy IMPRESSION: Normal anatomy scan Closed cervix measuring 4.7 cm in length *Reference: [employer] Practice Guideline for the performance of Obstetric Ultrasound Examinations, August 22, 2007. Electronically authenticated by: SIMON GAMEZ Date: 12/02/2023 16:12
--- NOTE | 2023-12-02 14:41 | US_ITS ---
[address] [address] Patient Name: SRUTHI FUNK MRN: [id number] date: 2000 Sex: F Assigned Patient Location: US Current Patient Location: US Accession/Order Number: [id number] Exam Date: 12/02/2023 14:42 Report Date: 12/02/2023 16:12 At the request of: PAUL HICKEY Procedure: US OB cervical length EXAMINATION: US OB anatomy, US OB cervical length HISTORY: ANATOMY COMPARISON: No relevant comparison available. TECHNIQUE: Transabdominal sonographic examination was performed for obstetrical and evaluation. FINDINGS: Number: 1 Heart Rate: 150.0 bpm H.B. /min Amniotic Fluid Volume: Subjectively normal position: Cephalic presentation, longitudinal lie Placental Location: Anterior. Placental edge 10 cm from the internal os Cervix Length: 4.7 cm, closed Normal anatomy: Lateral ventricles, cerebellum, posterior fossa, nose, lips, orbits, four-chamber heart, RVOT, LVOT, diaphragm, stomach, kidneys, abdominal cord insertion, bladder, umbilical arteries, three-vessel cord, spine, extremities BIOMETRY: BPD: 4.8 cm 20 weeks 4 days , 28% HC: 17.7 cm 20 weeks 1 days, 8% AC: 16.5 cm 21 weeks 4 days, 57% FL: 3.6 cm 21 weeks 3 days , 52% EFW:416.7 grams; 15 ounces, 55% FL/AC: 21.9 FL/BPD: 74.6 HC/AC: 1.1 GESTATIONAL AGE: Age by EDC: 21 weeks 1 days Age by current US: 21 weeks 0 days [place] by current US: 04/13/2024 [place] by EDC: 04/12/2024 US/US OB cervical length IMPRESSION: Normal anatomy scan Closed cervix measuring 4.7 cm in length *Reference: [employer] Practice Guideline for the performance of Obstetric Ultrasound Examinations, August 22, 2007. Electronically authenticated by: SIMON GAMEZ Date: 12/02/2023 16:12
== END 2023-12-02 13:56 | disposition home or self-care (01) ==
LOC: US 13:55
PROVIDERS: PCP Family Medicine; Visit Provider Obstetrics & Gynecology
DX: Z36.89 Encounter for other specified antenatal screening (principal); Z3A.21 21 weeks gestation of pregnancy
CPT/HCPCS: 76805; 76817

== ENCOUNTER 2024-01-20 19:02 | Outpatient (REF) | payer OTHER, SELFPAY ==
--- OUTSIDE RECORDS SUMMARY | 2024-01-20 19:08 | XMS_ITS | CCD ---
Author Name Unknown Address [address] [place] [address] Organization [facility] Care Team Providers Care Wood Room Hand Name Role Phone DEIDRE ., DR MILLER Consulting Unavailable DEIDRE ., DR MILLER Attending Unavailable MISC, DR YODER Primary Care Unavailable DEIDRE ., DR MILLER Admitting Unavailable DEIDRE ., DR MILLER Attending Unavailable REQUEST, DR NONE LISTED Primary Care Unavaila ble WEST, DR SIMON Hagen Consulting Unavailable DEIDRE ., DR MILLER Admitting Unavailable DEIDRE ., DR MILLER Consulting Unavailable REQUEST, DR CRAFT LISTED Consulting Unavaila ble DEIDRE ., DR MILLER Consulting Unavailable SONALI ., HEAVEN Attending Unavailable REQUEST, DR CRAFT LISTED Primary Care Unavaila ble SONALI ., HEAVEN Admitting Unavailable ZIEBER, DR BENIGNO Cameron Consulting Unavailable BERNA, DORON Consulting Unavailable BERNA, DORON Attending Unavailable BERNA, DORON Admitting Unavailable REQUEST, DR CRAFT LISTED Primary Care Unavaila ble DEIDRE ., DR MILLER Consulting Unavailable MISC, DR YODER Primary Care Unavailable DEIDRE ., DR MILLER Attending Unavailable DEIDRE ., DR MILLER Admitting Unavailable ZIEBER, DR BENIGNO Cameron Consulting Unavailable DEIDRE ., DR MILLER Admitting Unavailable MISC, DR YODER Primary Care Unavailable DEIDRE ., DR MILLER Attending Unavailable DEIDRE ., DR MILLER Consulting Unavailable DEIDRE ., DR MILLER Admitting Unavailable MISC, DR YODER Primary Care Unavailable DEIDRE ., DR MILLER Consulting Unavailable DEIDRE ., DR MILLER Attending Unavailable DEIDRE ., DR MILLER Admitting Unavailable MISC, DR YODER Primary Care Unavailable DEIDRE ., DR MILLER Consulting Unavailable DEIDRE ., DR MILLER Attending Unavailable DEIDRE ., DR MILLER Admitting Unavailable DEIDRE ., DR MILLER Consulting Unavailable DEIDRE ., DR MILLER Attending Unavailable ZIETHAN, DR BENIGNO Cameron Consulting Unavailable DEIDRE ., DR MILLER Consulting Unavailable [facility] [place] Y[place] Primary Care Unavailable DEIDRE ., DR MILLER Attending Unavailable DEIDRE ., DR MILLER Admitting Unavailable FRIES, NICHOLAS Ap[place] Admitting Unavailable FRIES, NICHOLAS S Attending Unavailable KISHA VARGAS Primary Care Unavailable Monica NAVARRO, Oanh Sutherland Unavailable Tawana Brownlee MD Primary Care Provider OANH ANDERSON Attending Unavailab PAUL Dawkins Attending Unavailable Allergies Allergy Classification Reported Allergen(s) Allergy Type Date of Onset Reaction(s) Facility (1 source) Amoxicillin Drug Allergy 3 [facility] Repository (1 source) Azithromycin Drug Allergy 3 [facility] Repository (1 source) Penicillin Drug Allergy 3 [facility] Repository (3 sources) Azithromycin; Translations: [AZITHROMYCIN] Drug Allergy 9 Unknown [facility] Repository (3 sources) Cephalexin; Translations: [CEPHALEXIN] Drug Allergy 2 Hives [facility] Repository (1 source) Penicillins; Translations: [PENICILLINS] Propensity to adverse reactions to drug (disorder) 7 [facility] Repository (3 sources) IODINATED CONTRAST MEDIA; Translations: [IODINATED CONTRAST MEDIA] Propensity to adverse reactions to drug (disorder) 9 [facility] Repository (2 sources) [facility] Medications Current Medications Medication Drug Class(es) Dates Sig (Normalized) Sig (Original) [id number] 200 actuat albuterol 0.09 mg/actuat metered dose inhaler (2 sources) beta2-Adrenergic Agonist Start: 07-04-2022 take 2 puff(s) by inhalation every four hours as needed ProAir HFA 108 (90 Base) MCG/ACT inhaler INHALE 2 PUFFS INTO THE LUNGS EVERY 4 HOURS NEEDED FOR 30 DAYS 0 07/04/2022 Active carbamide peroxide 65 mg/ml otic solution (2 sources) Start: 12-24-2023 Ear Drops 6.5 % otic solution INSTILL 5 DROPS INTO AFFECTED EAR TWICE A DAY 0 12/24/2023 Active docusate sodium 100 mg oral capsule (2 sources) Start: 05-27-2023 take 1 capsule by mouth in the morning docusate sodium (Colace) 100 MG capsule Take 100 mg by mouth in the morning and 100 mg before bedtime. 0 05/27/2023 Active fluticasone propionate 0.05 mg/actuat metered dose nasal spray (2 sources) Corticosteroid Start: 12-20-2023 take 1 spray(s) nasal route in the morning fluticasone (Flonase) 50 MCG/ACT nasal spray Indications: Post-nasal drainage Administer 1 spray into each nostril in the morning. Shake gently. Before first use, prime pump. After use, clean tip and replace cap.. 16 g 2 12/20/2023 Active MV-Min-Fe Fum-FA-DHA ( 1 PO) (2 sources) MV-Min-Fe Fum-FA-DHA ( 1 PO) Take by mouth 0 Active Problems Active Problems Problem Classification Problem Date Documented Da te Episodic/Chronic Abdominal pain (1 source) Abdominal pain Onset: 11-28-2023 Episodic Asthma (6 sources) Exacerbation of asthma; Translations: [Unspecified asthma with (acute) exacerbation] Onset: 04-20-2023 04-20-2023 Chronic Disorders of teeth and jaw (4 sources) Other specified disorders of teeth and supporting structures; Translations: [Periapical abscess without sinus] Onset: 03-25-2023 Episodic Menstrual disorders (8 sources) Irregular menstruation, unspecified; Translations: [Missed period] Onset: 11-03-2022 Chronic Other complications of (4 sources) Maternal care for excessive growth, third trimester, not applicable or unspecified; Translations: [MAT CARE EXCSS FTL GRTH 3RD TRI UNS] Onset: 04-20-2023 Episodic Other nervous system disorders (2 sources) Chronic pain; Translations: [Other chronic pain] Onset: 04-20-2023 04-20-2023 Chronic Other non-traumatic joint disorders (2 sources) Derangement of right shoulder joint; Translations: [Other specific joint derangements of right shoulder, not elsewhere classified] Onset: 04-20-2023 04-20-2023 Chronic Other non-traumatic joint disorders (1 source) Shoulder pain Onset: 11-28-2023 Episodic Other and delivery including normal (15 sources) Encounter for supervision of normal , unspecified, unspecified trimester; Translations: [Encounter for supervision of normal , unspecified, second trimester] Onset: 10-24-2022 Episodic Other screening for suspected conditions (not mental disorders or infectious disease) (9 sources) Encounter for other screening follow-up; Translations: [Encounter for other screening for genetic and chromosomal anomalies] Onset: 11-07-2022 Episodic Residual codes; unclassified (1 source) 34 weeks gestation of ; Translations: [34 WEEKS GESTATION OF ] Onset: 04-21-2023 Episodic Residual codes; unclassified (1 source) Weeks of gestation of not specified; Translations: [WEEKS GESTATION NOT SPEC] Onset: 03-26-2023 Episodic Unclassified (1 source[facility] ; [facility]ations: [facility] ] Onset: 03-26-2023 Past or Other Problems Problem Classification Problem Date Documented Da te Episodic/Chronic Deficiency and other anemia (2 sources) Anemia; Translations: [Anemia, unspecified] Onset: 04-20-2023 04-20-2023 Episodic Diabetes mellitus without complication (6 sources) Other abnormal glucose; Translations: [Abnormal glucose tolerance test] Onset: 03-17-2023 Episodic Other non-traumatic joint disorders (2 sources) Pain in right shoulder; Translations: [Pain in joint, shoulder region] Onset: 04-20-2023 04-20-2023 Episodic Urinary tract infections (2 sources) Pyelonephritis; Translations: [Tubulo-interstit ial nephritis, not specified as acute or chronic] Onset: 02-09-2019 04-20-2023 Episodic Results Test Name Value Interpretation Reference Range Facility Urinalysis macro (dipstick) panel (U)on 01-06-2024 Bilirubin, UA Negative Negative - 4(70) +++ mg/dL [facility] Blood, UA Negative Negative - 50 Parker/mcL [facility] Clarity, UA Clear [facility] Color, UA Yellow [facility] Glucose, UA Negative Negative - 2000(110) ++++ mg/dL [facility] Interpretation and review of laboratory results Normal [facility] Ketones, UA Negative Negative - 160(16) ++++ mg/dL [facility] Leukocytes, UA Negative Negative - 500+++ Aicha/mcL [facility] Nitrite, UA Negative Negative - Positive [facility] pH, UA 7.5 5 - 9 [facility] Protein, UA Negative Negative - 2000(20) ++++ mg/dL [facility] Spec Grav, UA 1.025 1 - 1.03 [facility] Urobilinogen, UA 0.2 0.2 - 12 mg/dL [facility] US PREG GROWTHon 04-20-2023 US PREG GROWTH EXAMINATION: US PREG GROWTH HISTORY: Large for gestation age fetus COMPARISON: No relevant comparison available. FINDINGS: Heart Rate: 136.0 bpm Amniotic Fluid Volume: 13.7 cm Number: 1.0 Position: Cephalic Maximum Vertical Pocket: 3.3 cm cm 2.8 cm cm 3.6 cm cm 4.0 cm cm BIOMETRY: BPD: 8.5 cm cm; 34 weeks 2 days; 42% HC: 31.4 cmcm; 35 weeks 1 days 29% AC: 30.9 cm cm; 34 weeks 6 days 64% FL: 7.0 cm cm; 35 weeks 5 days; 72.8 % % EFW: 2587.3 grams, 5 lbs. 11 oz., 61% FL/AC: 22.5 FL/BPD: 81.9 HC/AC: 1.0 GESTATIONAL AGE: Age by EDC: 34 weeks 4 days [place] by EDC: 05/28/2023 Age by US: 35 weeks 0 days [place] by US: 05/25/2023 IMPRESSION: Normal interval growth Electronically authenticated by: SIMON GAMEZ Date: 2023-04-20 15:39 Normal [facility] GTT 3 HR PREGon 03-17-2023 Glucose [Mass/Vol] 81 mg/dL Normal 74-[address] [facility] Comment on above: Performed By: #### G TT3P #### [facility] [address] [place] [address] Dr. Makayla Dugan Glucose [Mass/Vol] 159 mg/dL Normal [facility] Comment on above: Performed By: #### G TT3P #### [facility] [address] [address] [address] Makayla Dugan Glucose [Mass/Vol] 127 mg/dL Normal [facility] Comment on above: Performed By: #### G TT3P #### [facility] [address] [address] [address] Makayla Dugan Glucose [Mass/Vol] 100 mg/dL Normal [facility] Comment on above: Performed By: #### G TT3P #### [facility] [address] [place] [address] Dr. Makayla Dugan CBC AUTO DIFFon 02-09-2023 BASO # 0.0 103/ul Normal 0.0-0.1 [facility] Comment on above: Performed By: #### C BC #### [facility] [address] [place] [address] Dr. Makayla Dugan Basophils/100 WBC (Bld) 0.2 % Normal 0.2-2.0 [facility] Comment on above: Performed By: #### C BC #### [facility] [address] [place] [address] Dr. Makayla Dugan EO # 0.1 103/ul Normal 0.0-0.7 [facility] Comment on above: Performed By: #### C BC #### [facility] [address] [place] [address] Dr. Makayla Dugan Eosinophils/100 WBC (Bld) 0.5 % Critically low 0.9-7.0 [facility] Comment on above: Performed By: #### C BC #### [facility] [address] [place] [address] Dr. Makayla Dugan Erythrocyte distribution width (RBC) [Ratio] 13.2 % Normal 11.0-15.0 [facility] Comment on above: Performed By: #### C BC #### [facility] [address] [place] [address] Dr. Makayla Dugan Hematocrit (Bld) [Volume fraction] 32.7 % Critically low 36.0-48.0 [facility] Comment on above: Performed By: #### C BC #### [facility] [address] [place] [address] Dr. Makayla Dugan Hemoglobin (Bld) [Mass/Vol] 10.5 g/dL Critically low 12.0-16.0 [facility] Comment on above: Performed By: #### C BC #### [facility] [address] [place] [address] Dr. Makayla Dugan IG # 0.09 10e3/ul Critically high 0.00-0.03 [facility] Comment on above: Performed By: #### C BC #### [facility] [address] [place] [address] Dr. Makayla Dugan IG % 0.9 % Critically high 0.0-0.5 [facility] Comment on above: Performed By: #### C BC #### [facility] [address] [place] [address] Dr. Makayla Dugan LYMPH # 1.7 103/ul Normal 1.2-3.8 [facility] Comment on above: Performed By: #### C BC #### [facility] [address] [place] [address] Dr. Makayla Dugan Lymphocytes/100 WBC (Bld) 16.6 % Critically low 20.5-60.0 [facility] Comment on above: Performed By: #### C BC #### [facility] [address] [place] [address] Dr. Makayla Dugan MANUAL DIFF REQ NO Normal [facility] Comment on above: Performed By: #### C BC #### [facility] [address] [place] [address] Dr. Makayla Dugan MCH (RBC) [Entitic mass] 29.7 pg Normal 26.7-34.0 [facility] Comment on above: Performed By: #### C BC #### [facility] [address] [place] [address] Dr. Makayla Dugan MCHC (RBC) [Mass/Vol] 32.1 g/dL Normal 29.9-35.2 [facility] Comment on above: Performed By: #### C BC #### [facility] [address] [place] [address] Dr. Makayla Dugan MCV (RBC) [Entitic vol] 92.6 fL Normal 81.0-99.0 [facility] Comment on above: Performed By: #### C BC #### [facility] [address] [place] [address] Dr. Makayla Dugan MONO # 0.5 103/ul Normal 0.3-0.8 [facility] Comment on above: Performed By: #### C BC #### [facility] [address] [place] [address] Dr. Makayla Dugan Monocytes/100 WBC (Bld) 4.8 % Normal 1.7-12.0 [facility] Comment on above: Performed By: #### C BC #### [facility] [address] [place] [address] Dr. Makayla Dugan NEUT # 7.8 103/ul Critically high 1.4-6.5 [facility] Comment on above: Performed By: #### C BC #### [facility] [address] [place] [address] Dr. Makayla Dugan Neutrophils/100 WBC (Bld) 77.0 % Critically high 43.0-75.0 [facility] Comment on above: Performed By: #### C BC #### [facility] [address] [place] [address] Dr. Makayla Dugan Platelet mean volume (Bld) [Entitic vol] 10.7 fL Normal 9.5-13.5 [facility] Comment on above: Performed By: #### C BC #### [facility] [address] [place] [address] Dr. Makayla Dugan PLT 337 103/ul Normal 150-450 [facility] Comment on above: Performed By: #### C BC #### [facility] [address] [place] [address] Dr. Makayla Dugan RBC 3.53 106/ul Critically low 4.20-5.40 [facility] Comment on above: Performed By: #### C BC #### [facility] [address] [place] [address] Dr. Makayla Dugan WBC 10.1 103/ul Normal 4.0-11.0 [facility] Comment on above: Performed By: #### C BC #### [facility] [address] [place], [place] [address] Dr. Makayla Dugan GLUCOSE - 1HRon 02-09-2023 Glucose [Mass/Vol] 153 mg/dL Critically high 74-106 [facility] Comment on above: Performed By: #### G LU1HR #### [facility] [id number] Makayla Dugan US PREG INCOMPLETE ANATOMYon 01-15-2023 US PREG INCOMPLETE ANATOMY EXAMINATION: US PREG INCOMPLETE ANATOMY HISTORY: screening COMPARISON: Ultrasound anatomy 01/05/2023 FINDINGS: Presentation: Breech Placenta: Posterior with lower margin 1.8 cm from os. Heart rate: 147 bpm Cervix: 5.0 cm in length, closed. Anatomy: Questional hypoechoic line within the upper lip/cleft lip. Suboptimal visualization of the four-chamber heart and cardiac outflow tracts due to position. GA: 21 weeks 0 days [place]: 05/28/2023 IMPRESSION: 1. Single live intrauterine 21 weeks, 0 days. 2. Possible cleft lip. Follow-up recommended. 3. Suboptimal evaluation of the four-chamber heart and outflow tracts, due to position. Electronically authenticated by: BENIGNO DIAZ Date: 2023-01-15 15:27 Normal [facility] US PREG ANATOMY SINGLEon US PREG ANATOMY SINGLE EXAMINATION: US PREG ANATOMY SINGLE HISTORY: screening COMPARISON: No relevant comparison available. TECHNIQUE: Transabdominal sonographic examination was performed for obstetrical and evaluation. FINDINGS: Number: 1 Heart Rate: 148.0 bpm H.B. /min Amniotic Fluid Volume: Subjectively normal Placental Location: Posterior with lower margin 0.9 cm from os. Cervix Length: 6 cm , closed. ANATOMY: Normal Structures -cerebellum, choroid plexus, cisterna magna, lateral cerebral ventricles, orbits, midline falx, stomach, kidneys, bladder, umbilical cord insertion into abdomen, three-vessel cord, cervical spine, thoracic spine, lumbar spine, sacral spine, right upper extremity, left upper extremity, right lower extremity, left lower extremity. SUBOPTIMALLY SEEN: Hard palate, four-chamber heart, cardiac outflow tracts. ABNORMALITIES: None BIOMETRY: BPD: 4.7 cm 20 weeks 2 days HC: 17.3 cm 19 weeks 6 days AC: 14.4 cm 19 weeks 5 days FL: 3.5 cm 21 weeks 0 days EFW:341.3 grams; 83% FL/AC: 24.1 FL/BPD: 73.5 HC/AC: 1.2 GESTATIONAL AGE: Age by EDC: 19 weeks 4 days [place] by EDC: 05/28/2023 Age by current US: 20 weeks 2 days [place] by current US: 05/23/2023 IMPRESSION: 1. Single live intrauterine with growth detailed above. 2. Suboptimal visualization of the hard palate, four-chamber heart, cardiac outflow tracts due to position. 3. Low-lying posterior placenta. Electronically authenticated by: BENIGNO DIAZ Date: 2023-01-05 15:19 [facility] PAP ACOG PANEL 2: 21 to 29on 01-04-2023 . . Normal [facility] Comment on above: Performed By: #### [id number] #### [facility] [address] [place] [address] Dr. Makayla Dugan Age Gdln ACOG Testing 22- [facility] Comment on above: Performed By: #### [id number] #### [facility] [address] [address] [address] Makayla Dugan DIAGNOSIS: Comment [facility] Comment on above: Result Comment: NEGA TIVE FOR INTRAEPITHELIAL LESION OR MALIGNANCY. Performed By: #### [id number] #### [facility] [address] [address] [address] Makayla Dugan Methodology: Comment [facility] Comment on above: Result Comment: This liquid based ThinPrep(R) pap test was screened with the use of an image guided system. Performed By: #### [id number] #### [facility] [address] [place] [address] Dr. Makayla Dugan Note: Comment [facility] Comment on above: Result Comment: The Pap smear is a screening test designed to aid in the detection of premalignant and malignant conditions of the uterine cervix. It is not a diagnostic procedure and should not be used as the sole means of detecting cervical cancer. Both false-positive and false-negative reports do occur. . Performed By: #### [id number] #### [facility] [address] [address] [address] Makayla Dugan Performed by: Comment Normal [facility] Comment on above: Result Comment: Odalys Dillard, Tip Cementer (ASCP) Performed By: #### [id number] #### [facility] [address] [place] [address] Dr. Makayla Dugan Reflex Criteria: Comment Normal [facility] Comment on above: Result Comment: The HPV DNA reflex criteria were not met with this specimen result therefore, no HPV testing was performed. . Performed By: #### [id number] #### [facility] [address] [place] [address] Dr. Makayla Dugan Specimen adequacy: Comment Normal [facility] Comment on above: Result Comment: Sati sfactory for evaluation. No endocervical component is identified. Performed By: #### [id number] #### [facility] [address] [place] [address] Dr. Makayla Dugan AFP MATERNAL FOR SPINA BIFID Aon 12-31-2022 AFP MoM 1.30 Normal [facility] Comment on above: Performed By: #### A FPMAT #### [facility] [address] [place] [address] Dr. Makayla Dugan AFP Value 52.2 ng/mL Normal [facility] Comment on above: Performed By: #### A FPMAT #### [facility] [address] [address] [address] Makayla Dugan AFP, Serum for Spina Bifida Report Normal [facility] Comment on above: Performed By: #### A FPMAT #### [facility] [address] [place] [address] Dr. Makayla Dugan Comment Comment [facility] Comment on above: Result Comment: Leonardo Lechuga, Ph.D., [facility] Director . References: Available Upon Request. . Multiples Of Median Cutoffs For AFP Elevations Ruiz 2.5 Black 2.8 IDD 2.0 Twins 4.5 Abbreviation Definitions IDD - Insulin Dep Diabetes OSBR - Open Spina Bifida Risk . For further inquiries contact [facility] at [phone]. . This test was developed and its performance characteristics determined by [employer]. It has not been cleared or approved by the Food and Drug Administration. Performed By: #### A FPMAT #### [facility] [address] [address] [address] Makayla Melton Age Collection Date 18.6 weeks Normal [facility] Comment on above: Performed By: #### A FPMAT #### [facility] [id number] Makayla Dugan Gestat, Age Based on Ultrasound Normal [facility] Comment on above: Result Comment: 18.6 on 12/29/2022 Recalculations are not recommended when gestational dating by LMP and ultrasound are within 10 days. Performed By: #### A FPMAT #### [facility] [address] [place] [address] Dr. Makayla Dugan Insulin Dep Diabetes No Normal [facility] Comment on above: Performed By: #### A FPMAT #### [facility] [address] [place] [address] Dr. Makayla Dugan Interpretation Comment Normal [facility] Comment on above: Result Comment: Inte rpretation: Screen Negative . This result is screen negative for OSB. The AFP MoM calculated is based on the gestational age provided. MS-AFP can identify up to 80% of open neural tube defects. Closed neural tube defects and some open defects may not be detected by this test. This test does not screen for Down Syndrome or Trisomy 18. If screening for Down Syndrome or Trisomy 18 is desired, contact [employer] to discuss available options. The [employer] [employer] recommends amniocentesis be offered to women age 35 and older. Performed By: #### A FPMAT #### [facility] [address] [place] [address] [id number] [address] Makayla Dugan [age] [place] [age] Normal [facility] Comment on above: Performed By: #### A FPMAT #### [facility] [address] [place] [address] Dr. Makayla Dugan Multiple Gestation No Normal [facility] Comment on above: Performed By: #### A FPMAT #### [facility] [address] [place] [address] Dr. Makayla Dugan OSBR Risk 1 [place] [address] Normal [facility] Comment on above: Performed By: #### A FPMAT #### [facility] [address] [place] [address] Dr. Makayla Dugan PDF . Normal [facility] Comment on above: Performed By: #### A FPMAT #### [facility] [address] [place] [address] Dr. Makayla Dugan Race Black [facility] Comment on above: Performed By: #### A FPMAT #### [facility] [address] [place] [address] Dr. Makayla Dugan Test Results: Negative Normal [facility] Comment on above: Performed By: #### A FPMAT #### [facility] [address] [place] [address] Dr. Makayla Dugan CHLAMYDIA/GONOCOCCUS DOMINIC (SW AB/URINE/PAPon 12-31-2022 Chlamydia trachomatis, DOMINIC Negative Normal Negative [facility] Comment on above: Performed By: #### A FPMAT #### [facility] [address] [place] [address] Dr. Makayla Dugan Neisseria gonorrhoeae, DOMINIC Negative Normal Negative [facility] Comment on above: Performed By: #### A FPMAT #### [facility] [address] [place] [address] Dr. Makayla Dugan VAGINITIS/VAGINOSIS DNA PROB Jack 12-30-2022 Tatiana species Negative Normal Negative [facility] Comment on above: Performed By: #### A FPMAT #### [facility] [address] [place] [address] Dr. Makayla Dugan Gardnerella vaginalis Negative Normal Negative [facility] Comment on above: Performed By: #### A FPMAT #### [facility] [address] [place] [address] Dr. Makayla Dugan Trichomonas vaginalis Negative Normal Negative [facility] Comment on above: Performed By: #### A FPMAT #### [facility] [address] [address] [address] Makayla Dugan HEP B SURFACE ANTIGEN SCREEN on 11-04-2022 HBsAg Screen Negative Normal Negative [facility] Comment on above: Performed By: #### H BSANS #### [facility] [address] [address] [address] Makayla Dugan HEPATITIS C VIRUS AB W/ REFL EX QUANTon 11-04-2022 HCV AB <0.1 Normal 0.0-0.9 [facility] Comment on above: Performed By: #### H CVPCRR #### [facility] [address] [place] [address] Dr. Makayla Dugan Interpretation: Comment Normal [facility] Comment on above: Result Comment: Nega tive Not infected with HCV, unless recent infection is suspected or other evidence exists to indicate HCV infection. Performed By: #### H CVPCRR #### [facility] [address] [place] [address] Dr. Makayla Dugan HIV 1 AND 2 WITH REFLEXon HIV Screen 4th Generation wRfx Non-Reactive Normal Non Reactive [facility] Comment on above: Result Comment: HIV Negative HIV-1/HIV-2 antibodies and HIV-1 p24 antigen were NOT detected. There is no laboratory evidence of HIV infection. Performed By: #### A FPMAT #### [facility] [address] [place] [address] Dr. Makayla Dugan RPR QUANTon 11-04-2022 Rapid Plasma Reagin, Quant Non-Reactive Normal NonRea<1:1 [facility] Comment on above: Result Comment: Plea se Note: This test does not meet current guidelines for screening and diagnosis of syphilis. This test is intended for following treatment response in patients being treated for syphilis infection. To screen for syphilis infection, a reflex cascade that includes both RPR and a treponema-specific assay should be utilized, such as Treponema pallidum (Syphilis) Screening Floris (367942) or Rapid Plasma Reagin (RPR) Test With Reflex to Quantitative RPR and Confirmatory Treponema pallidum Antibodies (157649). Performed By: #### R PRQ #### [facility] [address] [place] [address] Dr. Makayla Dugan RUBELLA AB IGGon 11-04-2022 Rubella Antibodies, IgG 1.35 index Normal Immune >0.99 [facility] Comment on above: Result Comment: Non- immune <0.90 Equivocal 0.90 - 0.99 Immune >0.99 Performed By: #### R UBIGG #### [facility] [address] [place] [address] Dr. Makayla Dugan CBC AUTO DIFFon 11-03-2022 BASO # 0.0 103/ul Normal 0.0-0.1 [facility] Comment on above: Performed By: #### C BC #### [facility] [address] [place] [address] Dr. Makayla Dugan Basophils/100 WBC (Bld) 0.3 % Normal 0.2-2.0 [facility] Comment on above: Performed By: #### C BC #### [facility] [address] [place] [address] Dr. Makayla Dugan EO # 0.1 103/ul Normal 0.0-0.7 [facility] Comment on above: Performed By: #### C BC #### [facility] [address] [place] [address] Dr. Makayla Dugan Eosinophils/100 WBC (Bld) 0.9 % Normal 0.9-7.0 [facility] Comment on above: Performed By: #### C BC #### [facility] [address] [place] [address] Dr. Makayla Dugan Erythrocyte distribution width (RBC) [Ratio] 13.1 % Normal 11.0-15.0 [facility] Comment on above: Performed By: #### C BC #### [facility] [address] [place] [address] Dr. Makayla Dugan Hematocrit (Bld) [Volume fraction] 38.8 % Normal 36.0-48.0 [facility] Comment on above: Performed By: #### C BC #### [facility] [address] [address] [address] Makayla Dugan Hemoglobin (Bld) [Mass/Vol] 12.7 g/dL Normal 12.0-16.0 [facility] Comment on above: Performed By: #### C BC #### [facility] [address] [address] [address] Makayla Dugan IG # 0.04 10e3/ul Critically high 0.00-0.03 [facility] Comment on above: Performed By: #### C BC #### [facility] [address] [address] [address] Makayla Dugan IG % 0.6 % Critically high 0.0-0.5 [facility] Comment on above: Performed By: #### C BC #### [facility] [address] [address] [address] Makayla Dugan LYMPH # 1.9 103/ul Normal 1.2-3.8 [facility] Comment on above: Performed By: #### C BC #### [facility] [address] [address] [address] Makayla Dugan Lymphocytes/100 WBC (Bld) 29.8 % Normal 20.5-60.0 [facility] Comment on above: Performed By: #### C BC #### [facility] [address] [address] [address] Makayla Dugan MANUAL DIFF REQ NO Normal [facility] Comment on above: Performed By: #### C BC #### [facility] [address] [address] [address] Makayla Dugan MCH (RBC) [Entitic mass] 29.5 pg Normal 26.7-34.0 [facility] Comment on above: Performed By: #### C BC #### [facility] [address] [address] [address] Makayla Dugan MCHC (RBC) [Mass/Vol] 32.7 g/dL Normal 29.9-35.2 [facility] Comment on above: Performed By: #### C BC #### [facility] [address] [address] [address] Makayla Dugan MCV (RBC) [Entitic vol] 90.2 fL Normal 81.0-99.0 [facility] Comment on above: Performed By: #### C BC #### [facility] [address] [address] [address] Makayla Dugan MONO # 0.4 103/ul Normal 0.3-0.8 [facility] Comment on above: Performed By: #### C BC #### [facility] [address] [place] [address] Dr. Makayla Dugan Monocytes/100 WBC (Bld) 6.3 % Normal 1.7-12.0 [facility] Comment on above: Performed By: #### C BC #### [facility] [address] [place] [address] Dr. Makayla Dugan NEUT # 3.9 103/ul Normal 1.4-6.5 [facility] Comment on above: Performed By: #### C BC #### [facility] [address] [place] [address] Dr. Makayla Dugan Neutrophils/100 WBC (Bld) 62.1 % Normal 43.0-75.0 [facility] Comment on above: Performed By: #### C BC #### [facility] [address] [place] [address] Dr. Makayla Dugan Platelet mean volume (Bld) [Entitic vol] 10.4 fL Normal 9.5-13.5 [facility] Comment on above: Performed By: #### C BC #### [facility] [address] [place] [address] Dr. Makayla Dugan PLT 276 103/ul Normal 150-450 [facility] Comment on above: Performed By: #### C BC #### [facility] [address] [place] [address] Dr. Makayla Dugan RBC 4.30 106/ul Normal 4.20-5.40 [facility] Comment on above: Performed By: #### C BC #### [facility] [address] [place] [address] Dr. Makayla Dugan WBC 6.3 103/ul Normal 4.0-11.0 [facility] Comment on above: Performed By: #### C BC #### [facility] [address] [place] [address] Dr. Makayla Dugan CULTURE URINEon 11-03-2022 CULTURE URINE Culture Observations : MODERATE GROWTH OF MIXED GENITAL MAYKEL. NO POTENTIAL PATHOGENS SEEN. Normal [facility] Comment on above: Performed By: #### A FPMAT #### [facility] [address] [place] [address] Dr. Makayla Dugan GLYCOHEMOGLOBIN A1Con 2021 ADA RECOMMENDATION SEE BELOW Normal [facility] Comment on above: Result Comment: ADA RECOMMENDED LIMIT 4.0 - 6.0 ADA THERAPEUTIC TARGET < 7.0 ACTION SUGGESTED > 7.0 Performed By: #### A FPMAT #### [facility] [address] [place] [address] Dr. Makayla Dugan Glucose [Mass/Vol] 97 mg/dL Normal [facility] Comment on above: Performed By: #### A FPMAT #### [facility] [address] [place] [address] Dr. Makayla Dugan HbA1c (Bld) [Mass fraction] 5.0 % Normal 4.5-6.2 [facility] Comment on above: Performed By: #### A FPMAT #### [facility] [address] [place] [address] Dr. Makayla Dugan LEIA BOX TEST PT SEND OUTo n 11-03-2022 SENT TO REF LAB 11/03/2022 Normal [facility] Comment on above: Performed By: #### G LU1HR #### [facility] [address] [place] [address] Dr. Makayla Dugan TYPE AND SCREENon 11-03-2022 TYPE AND SCREEN Negative Normal [facility] Comment on above: Performed By: #### A FPMAT #### [facility] [address] [place] [address] Dr. Makayla Dugan US PREG TVon 10-20-2022 US PREG TV EXAMINATION: US PREG TV HISTORY: Irregular periods ; positive test COMPARISON: No relevant comparison available. FINDINGS: GESTATIONAL SAC: Present and normal appearing. YOLK SAC: Present and normal appearing. POLE: Present and normal appearing. CARDIAC: Present. UTERUS: Normal size and appearance. OVARIES: Right: Normal. Left: Normal. CERVIX: 4.1 cm in length and closed. CUL-DE-SAC: Normal. OTHER: None. AGE BY LMP: 9 weeks 4 days [place] BY LMP: 05/21/[birth year]23 AGE BY US CRL: 8 weeks 4 days [place] BY US CRL: 05/28/2023 IMPRESSION: 1. Single live intrauterine . Electronically authenticated by: BENIGNO DIAZ Date: 2022-10-20 16:29 Normal [facility] Vital Signs Date Time Vital Sign Value Performing Clinician Facility 01-06-2024 10:04-0500 Body mass index (BMI) [Ratio] 35.51 kg/m2 [employer] Work Phone: [facility] 01-06-2024 10:04-0500 Body weight 107.5 kg [employer] Work Phone: [facility] 01-06-2024 10:04-0500 Diastolic blood pressure 72 mm[Hg] [employer] Work Phone: [facility] 01-06-2024 10:04-0500 Systolic blood pressure 120 mm[Hg] [employer] DO Work Phone: [facility] 12-31-2022 04:06-0500 Body weight 112.[address] PAUL JIANG . [facility] Comment on above: Performed By: #### AFPMAT #### [facility] [address] [place] [address] Dr. Makayla Dugan Encounters Encounter Date Encounter Type Care Provider Facility Start: 01-06-2024 End: 01-06-2024 ambulatory PAUL JIANG Not Available Start: 01-06-2024 End: 01-06-2024 Office outpatient visit 15 minutes Paul Jiang [employer] Work Phone: [facility] Comment on above: Second trimester pre gnancy; Diabetes mellitus screening Start: 12-20-2023 End: 12-21-2023 ambulatory OANH ANDERSON Not Available Start: 12-02-2023 End: 12-02-2023 ambulatory OANH ANDERSON Not Available Start: 11-28-2023 End: 11-28-2023 [facility] Start: 04-20-2023 End: 04-21-[address] PAUL JIANG . Facility:[facility] Start: 03-25-2023 End: 03-25-2023 ambulatory DORON CORONEL Facility:[facility] Start: 03-17-2023 End: 03-18-[address] PAUL JIANG . Facility:[facility] Start: 02-09-2023 End: 02-10-[address] PAUL JIANG . Facility:[facility] Start: 01-15-2023 End: 01-16-[address] PAUL JIANG . Facility:[facility] Start: 01-05-2023 End: 01-06-[address] PAUL JIANG . Facility:[facility] Start: 12-29-2022 End: 12-30-[address] PAUL JIANG . Facility:[facility] Start: 11-03-2022 End: 11-04-[address] PAUL JIANG . Facility:[facility] Start: 10-20-2022 End: 10-21-[address] PAUL JIANG . Facility: Procedures Date Procedure Procedure Detail Performing Clinician Start: 01-06-2024 Urnls dip stick/tabl et rgnt non-auto w/o micrscp Paul Jiang DO Work Phone: Plan of Treatment Date Care Activity Detail Author Start: 01-20-2024 End: 01-20-2024 Patient encounter procedure 01/20/2024 2:30 PM EST Routine [facility] [address] [place] [id number] Heaven Pleitez [facility] [address] [place] [address] [facility] Start: 01-06-2024 End: 01-06-2025 CBC panel - Blood by Automated count CBC Lab Routine Diabetes mellitus screening Expected: 01/06/2024 (Approximate), Expires: 01/06/2025 [facility] Work Phone: Comment on above: Expected: 01/06/2024 (Approximate), Expires: 01/06/2025 Start: 01-06-2024 End: 01-06-2025 Measurement of glucose 1 hour after glucose challenge for glucose tolerance test Glucose tolerance, 1 hour Lab Routine Diabetes mellitus screening Expected: 01/06/2024 (Approximate), Expires: 01/06/2025 [facility] Comment on above: Expected: 01/06/2024 (Approximate), Expires: 01/06/2025 Start: 07-23-2023 Influenza vaccination Influenz a Vaccine (#1) [facility] Immunizations Immunization Date Immunization Notes Care Provider [facility] 08-15-2018 Meningococcal, MCV4, unspecified conjugate formulation(groups A, C, Y and W-135) [facility] [employer] Work Phone: [facility] 08-15-2018 tuberculin skin test ; purified protein derivative solution, intradermal [facility] [employer] Work Phone: [facility] 08-14-2013 tetanus toxoid, redu niurka diphtheria toxoid, and acellular pertussis vaccine, adsorbed Paul Deidre [employer] Work Phone: [facility] 05-19-2005 Diphtheria, tetanus toxoids and acellular pertussis vaccine, and poliovirus vaccine, inactivated [facility] [employer] Work Phone: [facility] 05-19-2005 DTaP-hepatitis B and poliovirus vaccine Paul Deidre [employer] Work Phone: [facility] 05-19-2005 measles, mumps and rubella virus vaccine Paul Deidre [employer] Work Phone: [facility] 05-19-2005 pneumococcal conjuga te vaccine, 7 valent [employer] Work Phone: [facility] 06-28-2002 diphtheria, tetanus toxoids and acellular pertussis vaccine, unspecified formulation Paul [employer] Work Phone: [facility] 06-28-2002 tetanus toxoid, redu niurka diphtheria toxoid, and acellular pertussis vaccine, adsorbed Paul Deidre DO Work Phone: [facility] 06-28-2002 varicella virus vaccine Core y Deidre DO Work Phone: [facility] 02-10-2002 haemophilus influenz ae type b vaccine, conjugate unspecified formulation Paul Deidre DO Work Phone: [facility] 02-10-2002 measles, mumps and rubella virus vaccine Paul Deidre DO Work Phone: [facility] 02-03-2002 measles, mumps and rubella virus vaccine Paul Deidre DO Work Phone: [facility] 2001 hepatitis B vaccine, pediatric or pediatric/adolescent dosage Paul Deidre DO Work Phone: [facility] 2001 pneumococcal conjuga te vaccine, 7 valent Paul Deidre DO Work Phone: [facility] 2001 diphtheria, tetanus toxoids and acellular pertussis vaccine, Haemophilus influenzae type b conjugate, and poliovirus vaccine, inactivated ([id number]) Paul Deidre DO Work Phone: [facility] 2001 diphtheria, tetanus toxoids and acellular pertussis vaccine, unspecified formulation Paul Deidre DO Work Phone: [facility] 2001 haemophilus influenz ae type b vaccine, conjugate unspecified formulation Paul Deidre DO Work Phone: [facility] 2001 pneumococcal conjuga te vaccine, 7 valent Paul Deidre DO Work Phone: [facility] 2001 poliovirus vaccine, unspecified formulation Paul Deidre DO Work Phone: [facility] 2001 diphtheria, tetanus toxoids and acellular pertussis vaccine, Haemophilus influenzae type b conjugate, and poliovirus vaccine, inactivated ([id number]) Paul Deidre DO Work Phone: [facility] 2001 diphtheria, tetanus toxoids and acellular pertussis vaccine, unspecified formulation Paul Deidre DO Work Phone: [facility] 2001 haemophilus influenz ae type b vaccine, conjugate unspecified formulation Paul Deidre DO Work Phone: [facility] 2001 poliovirus vaccine, unspecified formulation Paul Deidre DO Work Phone: [facility] 2001 Diphtheria, tetanus toxoids and acellular pertussis vaccine, and poliovirus vaccine, inactivated Paul Deidre DO Work Phone: [facility] 2001 diphtheria, tetanus toxoids and acellular pertussis vaccine, unspecified formulation Paul Deidre DO Work Phone: [facility] 2001 hepatitis B vaccine, pediatric or pediatric/adolescent dosage Paul Deidre DO Work Phone: [facility] 2001 poliovirus vaccine, inactivated Paul Deidre DO Work Phone: [facility] 2001 diphtheria, tetanus toxoids and acellular pertussis vaccine, Haemophilus influenzae type b conjugate, and poliovirus vaccine, inactivated ([id number]) Paul Deidre DO Work Phone: [facility] 2001 diphtheria, tetanus toxoids and acellular pertussis vaccine, unspecified formulation Paul Deidre DO Work Phone: [facility] 2001 haemophilus influenz ae type b vaccine, conjugate unspecified formulation Paul Deidre DO Work Phone: [facility] 2001 hepatitis B vaccine, pediatric or pediatric/adolescent dosage Paul Deidre DO Work Phone: [facility] 2001 poliovirus vaccine, unspecified formulation Paul Deidre DO Work Phone: [facility] 2001 hepatitis B vaccine, pediatric or pediatric/adolescent dosage Paul Deidre DO Work Phone: [facility] Payers Date Payer Category Payer Medicaid [facility] MEDICAID [facility] MEDICAID [id number] 2023-Present [address] [place] [address] [id number] 2001 Unknown [id number] 2001 Unknown [id number] 2001 Unknown [id number] 2001 Unknown [id number] 2001 Unknown [id number] 2001 Unknown [id number] 2001 Unknown [id number] 2001 Unknown [id number] 2001 Unknown [id number] 2001 Unknown [id number] [id number] 2001 Unknown [id number] [id number] 2001 Unknown [id number] [id number] 2001 Unknown [id number] 1959 Unknown [id number] Unknown [id number] Social History Date Type Detail Facility Start: 08-17-2023 Tobacco smoking stat [facility] Never smoked tobacco [facility] Start: 08-17-2023 Tobacco use and exposure Smokeless t obacco non-user [facility] Start: 01-06-2024 Alcohol intake Lifetime non-d yordy (finding) [facility] Start: 12-20-2023 History of Social function [facility] Start: 12-20-2023 Tobacco use panel [facility] Start: 05-06-2023 Alcohol Comment Caffeine intak e: none, occasional soda [facility] Start: 07-21-2023 [facility] Start: 2001 Sex Assigned At Not on file [facility] History of Present illness Narrative 01-06-2024 Deisi Landa MA - 01/06/2024 9:30 AM EST Note Date & Type Note Facility 01-06-2024 History of Presen t illness Narrative Reason for Appointment: Patient ID: Sruthi Funk is a 23 y.o. female who presents for Routine Visit Patient presents today for Return OB appointment. Current Medications: has a current medication list which includes the following prescription(s): ear drops, docusate sodium, fluticasone, mv-min-fe fum-fa-dha, and proair hfa. Medical History: Active Ambulatory Problems Diagnosis Date Noted Anemia 04/20/2023 Chronic pain 04/20/2023 Acute pain of right shoulder 04/20/2023 Elevated glucose tolerance test 04/20/2023 Encounter for observation of suspected anomaly not found 01/28/2023 Exacerbation of asthma ([facility]/HCC) 04/20/2023 Mild persistent asthma with acute exacerbation ([facility]) 04/20/2023 Internal derangement of right shoulder 04/20/2023 Missed period 04/20/2023 Moderate persistent allergic asthma (CMS/HCC) 04/20/2023 Painful menstrual periods 04/20/2023 Pyelonephritis 02/09/2019 Resolved Ambulatory Problems Diagnosis Date Noted No Resolved Ambulatory Problems Past Medical History: Diagnosis Date Allergic rhinitis Asthma (CMS/[facility]) Bronchitis Neck pain Pneumonia 2014 Tinea pedis, left Family History Problem Relation Name Age of Onset Hypertension Mother No Known Problems Father Social History Tobacco Use Smoking status: Never Smokeless tobacco: Never Substance Use Topics Alcohol use: Never Comment: Caffeine intake: none, occasional soda Drug use: Never Past Surgical History: Procedure Laterality Date [place] GUIDED INJECTION SHOULDER RIGHT Right 11/03/2018 [place] GUIDED INJECTION SHOULDER RIGHT 11/03/2018 MR SHOULDER ARTHROGRAM RIGHT W FL GUIDED INJECTION Right 11/03/2018 MR SHOULDER ARTHROGRAM RIGHT W FL GUIDED INJECTION 11/03/2018 SHOULDER SURGERY Right 12/23/2018 shoulder scope with loose body removal Allergies Allergen Reactions Azithromycin Unknown Cephalexin Hives Iodinated Contrast Media Hives Penicillin G Hives Review of Systems: Review of Systems Objective OBGyn Exam Patient presents today for a routine obstetrics appointment. Patient is currently 26w1d . Patient states she is doing well but has complaints of being tired due to current . Patient has verbalizes frequent movement. labor precautions was discussed/given and patient was instructed to perform kick counts three times a day. Pt has not had her labs done at this time. Pt stated she will have them done and requested the order. Pt was given her 1 hour glucose order to do as well. Pt has no complaints at this time. Follow Up: Patient is to return to office in 4 week for routine OB appointment. Vitals: Estimated body mass index is 35.51 kg/m as calculated from the following: Height as of 03/30/23: 5' 8.5 . Weight as of this encounter: 237 lb. BP: 120/72 No LMP recorded (lmp unknown). Patient is . Assessment/Plan Encounter Diagnoses Name Primary? Second trimester Diabetes mellitus screening Patient presents today for a routine obstetrics appointment. Patient is currently 26w1d . Patient states she is doing well but has complaints of being tired due to current . Patient has verbalizes frequent movement. labor precautions was discussed/given and patient was instructed to perform kick counts three times a day. Follow Up: Patient is to return to office in 2 week for routine OB appointment. Documented by Deisi Landa MA on behalf of: Paul Jiang DO documented in this encounter [facility] Evaluation note Note Date & Type Note Facility Evaluation note Diagnosis Second trimester state, incidental Diabetes mellitus screening Screening for diabetes mellitus documented in this encounter [facility] Summary Purpose Family History No Family History Records FoundNo Family History Records FoundNo Family History Records Found Advance Directives No Advanced Directives Records FoundNo Advanced Directives Records FoundNo Advanced Directives Records Found Additional Source Comments INFORMATION SOURCE (unrecogn ized section and content) DATE CREATED AUTHOR 04/30/2023 [facility] DATE CREATED AUTHOR AUTHOR'S ORGANIZ ATION 11/28/2023 [facility] DATE CREATED AUTHOR AUTHOR'S ORGANIZ ATION 01/08/2024 [facility] EPIC Reason for Visit (unrecogniz ed section and content) Reason Comments Routine Visit Care Teams (unrecognized sec tion and content) [facility] Hand Relationship Specialty Start Date End Date Oanh Anderson NP [address] [place] [address] PCP - [facility] 05/22/23 Tawana Brownlee MD [address] [place] [address] PCP - General Family Medicine 03/30/23 FOR RECORDS PERTAINING TO PATIENTS WHO ARE OR HAVE BEEN ENROLLED IN A CHEMICAL DEPENDENCY/SUBSTANCEABUSE PROGRAM, SOME INFORMATION MAY BE OMITTED. This clinical summary was aggregated from multiple sources. Caution should be exercised in using it in the provision of clinical care. This summary normalizes information from multiple sources, and as a consequence, information in this document may materially change the coding, format and clinical context of patient data. In addition, data may be omitted in some cases. CLINICAL DECISIONS SHOULD BE BASED ON THE PRIMARY CLINICAL RECORDS. [facility] [employer] provides no warranty or guarantee of the accuracy or completeness of information in this document.
[2024-01-26 13:08] LABS: Age Gdln ACOG Testing Note (.); IGP, rfx Aptima HPV ASCU Note (.)
== END 2024-01-20 19:03 | disposition home or self-care (01) ==
LOC: LAB 19:02
PROVIDERS: PCP Family Medicine; Visit Provider Physician Assistant
DX: Z01.419 Encounter for gynecological examination (general) (routine) without abnormal findings (principal)
CPT/HCPCS: G0145

== ENCOUNTER 2024-03-15 20:33 | Outpatient (REF) | payer OTHER, SELFPAY ==
--- OUTSIDE RECORDS SUMMARY | 2024-03-15 20:38 | XMS_ITS | CCD ---
Author Organization [facility] Care Team Providers Care Weatherization Installer Name Role Phone DEIDRE ., DR MILLER Consulting Unavailable DEIDRE ., DR MILLER Attending Unavailable MISC, DR YODER Primary Care Unavailable DEIDRE ., DR MILLER Admitting Unavailable DEIDRE ., DR MILLER Attending Unavailable REQUEST, DR CRAFT LISTED Primary Care Unavaila ble WEST, DR [...] DR MILLER Consulting Unavailable DEIDRE ., DR MLILER Admitting Unavailable MISC, DR YODER Primary Care Unavailable DEIDRE ., DR MILLER Consulting Unavailable DEIDRE ., DR MILLER Attending Unavailable DEIDRE ., DR MILLER Admitting Unavailable MISC, DR YODER Primary Care Unavailable DEIDRE ., DR MILLER Consulting Unavailable DEIDRE ., DR MILLER Attending Unavailable DEIDRE ., DR MILLER Admitting Unavailable DEIDRE ., DR MILLER Consulting Unavailable DEIDRE ., DR MILLER Attending Unavailable ZIEBER, DR BENIGNO Cameron Consulting Unavailable DEIDRE ., DR MILLER Consulting [place]available [facility] [place] Y[place] Primary Care Unavailable DEIDRE ., DR MILLER Attending Unavailable DEIDRE ., DR MILLER Admitting Unavailable Monica GAUGE AND WEIGH MACHINE ADJUSTER, Oanh Sutherland Unavailable Tawana Brownlee MD Primary Care Provider KISHA VARGAS Referring Unavailable KISHA VARGAS Primary Care Unavailable NICHOLAS MONTENEGRO Admitting Unavailable NICHOLAS MONTENEGRO Attending Unavailable KISHA VARGAS Primary Care Unavailable MONICA, OANH Sutherland Attending Unavailab PAUL Dawkins Attending Unavailable HEAVEN LYON Attending Unavailable DEIDRE, PAUL Attending Unavailable HEAVEN LYON Attending Unavailable PAUL JIANG Attending Unavailable Allergies Allergy Classification Reported Allergen(s) Allergy Type Date of Onset Reaction(s) Facility (1 source) Amoxicillin Drug Allergy 3 Repository (1 source) Azithromycin Drug Allergy 3 Repository (1 source) Penicillin Drug Allergy 3 Repository (3 sources) Azithromycin; Translations: [AZITHROMYCIN] Drug Allergy 9 [facility] (3 sources) Cephalexin; Translations: [CEPHALEXIN] Drug Allergy 2 [facility] (2 sources) Penicillin G Drug Allergy 3 [facility] (3 sources) Iodinated Contrast Media; Translations: [IODINATED CONTRAST MEDIA] Drug Allergy 9 [facility] (1 source) Penicillins; Translations: [PENICILLINS] Propensity to adverse reactions to drug (disorder) 7 [facility] Repository Medications Current Medications Medication Drug Class(es) Dates Sig (Normalized) Sig (Original) [id number] 200 actuat albuterol 0.09 mg/actuat metered dose [...] without sinus] Onset: 03-25-2023 Episodic Menstrual disorders (9 sources) Irregular menstruation, unspecified; Translations: [Missed period] Onset: 11-03-2022 Chronic Other complications of (4 sources) Maternal care for excessive growth, third trimester, not applicable or unspecified; Translations: [MAT CARE EXCSS FT GRTH 3RD TRI UNS] Onset: 04-20-2023 Episodic [...] conditions (not mental disorders or infectious disease) (10 sources) Encounter for other screening follow-up; Translations: [Encounter for other screening for genetic and chromosomal anomalies] Onset: 11-07-2022 Episodic Residual codes; unclassified (1 source) 34 weeks gestation of ; Translations: [34 WEEKS GESTATION OF ] Onset: 04-21-2023 Episodic Residual codes; unclassified (1 source) Weeks of gestation of not specified; Translations: [WEEKS GESTATION NOT SPEC] Onset: 03-26-2023 Episodic Unclassified (1 source) [facility] SPCF DIS/COND COMPL ; Translations: [OT SPCF DIS/COND COMPL ] Onset: 03-26-2023 Past or [...] Test Name Value Interpretation Reference Range Facility CBC AND AUTO DIFFon 02-01-20 24 ABSOLUTE BASOPHIL 0.0 X10E9/L Normal 0.0-0.[address] [facility] Comment on above: Performed By: #### C BCA, 1504-0, 5196-1, 78884-3, 38596-2, 8014-3, 00140-2 #### [facility] ([id number]) [address], [address] [place] [address] ABSOLUTE NEUTROPHIL 6.0 X10E9/L Normal 1.5-6.6 [facility] Comment on above: Performed By: #### C BCA, 1504-0, 5196-1, 75472-8, 09372-3, 8014-3, 22420-3 #### [facility] ([id number]) [address], [address] [place] [address] Basophils/100 WBC (Bld) 0.3 % Normal [facility] Comment on above: Performed By: #### C BCA, 1504-0, 5196-1, 25100-3, 70564-8, 4-3, 70633-9 #### [facility] ([id number]) [address], [address] [place] [address] Eosinophils (Bld) [#/Vol] 0.0 10*3/uL Normal 0.0-0.4 [facility] Comment on above: Performed By: #### C BCA, 1504-0, 5196-1, 18480-1, 50797-8, 4-3, 78520-3 #### [facility] ([id number]) [address], [address] [place] [address] Eosinophils/100 WBC (Bld) 0.5 % Normal [facility] Comment on above: Performed By: #### C BCA, 1504-0, 5196-1, 90265-7, 76955-6, 8014-3, 43606-1 #### [facility] ([id number]) [address], [facility] [address] [place] [address] Erythrocyte distribution width (RBC) [Ratio] 13.9 % Normal 11.5-15.0 [facility] Comment on above: Performed By: #### C BCA, 1504-0, 5196-1, 82299-2, 50802-5, 8014-3, 97240-4 #### [facility] ([id number]) [address], [address] [place] [address] Hematocrit (Bld) [Volume fraction] 30.7 % Low 35-47 [facility] Comment on above: Performed By: #### C BCA, 1504-0, 5196-1, 72645-5, 30732-5, 8014-3, 40981-6 #### [facility] ([id number]) [address], [address] [place] [address] Hemoglobin (Bld) [Mass/Vol] 10.4 g/dL Low 11.7-15.5 [facility] Comment on above: Performed By: #### C BCA, 1504-0, 5196-1, 20771-5, 03382-5, 8014-3, 19189-7 #### [facility] ([id number]) [address], [address] [place] [address] Lymphocytes (Bld) [#/Vol] 1.9 10*3/uL Normal 1.0-3.5 [facility] Comment on above: Performed By: #### C BCA, 1504-0, 5196-1, 04910-7, 26660-1, 8014-3, 94899-3 #### [facility] ([id number]) [address], [address] [place] [address] Lymphocytes/100 WBC (Bld) 22.7 % Normal [facility] Comment on above: Performed By: #### Layton BCA, 1504-0, 5196-1, 97291-2, 51706-2, 8014-3, 92972-0 #### [facility] ([id number]) [address] [address] [place] [address] MCH (RBC) [Entitic mass] 30.3 pg Normal 27-34 [facility] Comment on above: Performed By: #### C BCA, 1504-0, 5196-1, 41783-0, 42208-7, 8014-3, 53036-4 #### [facility] ([id number]) [address], [address] [place] [address] MCHC (RBC) [Mass/Vol] 33.8 g/dL Normal 32-36 [facility] Comment on above: Performed By: #### Layton GARDUNO, 1504-0, 5196-1, 37420-8, 22965-6, 8014-3, 74777-2 #### [facility] ([id number]) [address], [facility] [address] [place] [address] MCV (RBC) [Entitic vol] 90 fL Normal 80-100 [facility] Comment on above: Performed By: #### Layton GARDUNO, 1504-0, 5196-1, 77899-3, 52963-5, 8014-3, 80489-1 #### [facility] ([id number]) [address], [address] [place] [address] Monocytes (Bld) [#/Vol] 0.3 10*3/uL Normal 0-0.9 [facility] Comment on above: Performed By: #### Layton BCA, 1504-0, 5196-1, 07924-6, 23882-4, 8014-3, 29103-3 #### [facility] ([id number]) [address], [address] [place] [address] Monocytes/100 WBC (Bld) 4.1 % Normal [facility] Comment on above: Performed By: #### C BCA, 1504-0, 5196-1, 35201-6, 80190-3, 8014-3, 89271-0 #### [facility] ([id number]) [address], [address] [place] [address] Neutrophils/100 WBC (Bld) 72.4 % Normal [facility] Comment on above: Performed By: #### Layton BCA, 1504-0, 5196-1, 39350-4, 16096-4, 8014-3, 34436-8 #### [facility] ([id number]) [address], [address] [place] [address] Platelet mean volume (Bld) [Entitic vol] 8.7 fL Normal 7-12 [facility] Comment on above: Performed By: #### C LAUREEN, 1504-0, 5196-1, 81452-4, 71897-7, 8014-3, 46165-4 #### [facility] ([id number]) [address] [address] [place] [address] Platelets (Bld) [#/Vol] 334 10*3/uL Normal 150-450 [facility] Comment on above: Performed By: #### Layton GARDUNO, 1504-0, 5196-1, 94107-6, 00015-9, 8014-3, 66055-5 #### [facility] ([id number]) [address] [address] [place] [address] RBC COUNT 3.43 X10E12/L Low 3.80-5.20 [facility] Comment on above: Performed By: #### Layton GARDUNO, 1504-0, 5196-1, 57745-4, 87068-2, 8014-3, 78884-7 #### [facility] ([id number]) [address] [address] [place] [address] WBC (Bld) [#/Vol] 8.2 10*3/uL Normal 4.0-11.0 [facility] Comment on above: Performed By: #### Layton BCA, 1504-0, 5196-1, 81975-5, 58666-6, 8014-3, 12326-8 #### [facility] ([id number]) [address] [address] [place] [address] Glucose 1 Hr post 50 g gluco se PO [Mass/Vol]on 03-12-2024 GLU 1H POST 50G LOAD 112 mg/dL Normal 65-139 [facility] Comment on above: Performed By: #### C BCA, 1504-0, 5196-1, 66769-5, 13707-0, 8014-3, 74386-6 #### [facility] ([id number]) [address], [address] [place] [address] HBV surface Ag IA Qlon 01-31 HEPATITIS B SURF AG Negative Normal NEG [facility] Comment on above: Performed By: #### C BCA, 1504-0, 5196-1, 11814-2, 21723-5, 8014-3, 64345-1 #### [facility] ([id number]) [address], [address] [place] [address] HCV Ab IA Qlon 02-01-2024 ANTI HCV W/PCR REFLX Non-Reactive Normal NRCT [facility] Comment on above: Result Comment: If recent infection suspected, recommend repeat testing (>2 months). Srivse-vn-vyrvne ratio is <0.80. Performed By: #### C BCA, 1504-0, 5196-1, 67797-9, 84085-5, 8014-3, 78073-6 #### [facility] ([id number]) [address], [address] [place] [address] HGB A1C (GLYCO-HGB)on 2023 Glucose [Mass/Vol] 94 mg/dL Normal [facility] Comment on above: Performed By: #### C BCA, 1504-0, 5196-1, 66161-2, 09627-2, 8014-3, 13179-4 #### [facility] ([id number]) [address], [address] [place] [address] HbA1c (Bld) [Mass fraction] 4.9 % Normal 4.4-5.6 [facility] Comment on above: Result Comment: NOTE ADA Guidelines Result HgbA1c Normal : less than 5.7 % Prediabetes : 5.7 % to 6.4 % Diabetes : > 6.4 % Use with caution in patients with abnormal hemoglobin variants as the half-life of red blood cells and in vivo glycation rates are affected. Performed By: #### Layton BCA, 1504-0, 5196-1, 92018-1, 95420-3, 8014-3, 53835-6 #### [facility] ([id number]) [address] [facility], [address] [place] [address] HIV 1+2 Ab+HIV1 p24 Ag IA Ql on 02-01-2024 HIV 1 and 2 Ab/Ag Screen Non-Reactive Normal NRCT [facility] Comment on above: Result Comment: This information has been disclosed to you from confidential records protected from disclosure by state law. You shall make no further disclosure of this information without the specific, written and informed release of the individual to whom it pertains, or as otherwise permitted by state law. A general authorization for the release of medical or other information is not sufficient for the purpose of the release of HIV test results or diagnoses. Performed By: #### Layton BCA, 1504-0, 5196-1, 45769-9, 45760-7, 8014-3, 27254-6 #### [facility] ([id number]) [address] [facility], [address] [place] [address] Rubella virus IgG Qn (S)on 0 02-01-2024 RUBELLA IgG 11 IU/mL Normal [facility] Comment on above: Result Comment: Interpretation-------- <8 NEGATIVE-considered Not Immune 8-9 EQUIVOCAL-consider retesting with new specimen >9 POSITIVE-considered Immune Performed By: #### C BCA, 1504-0, 5196-1, 34277-0, 86588-3, 8014-3, 95740-6 #### [facility] ([id number]) [address], [address] [place] [address] T. pallidum IgG+IgM IA Ql (S )on 02-01-2024 Syphilis Total <0.2 Normal 0.0-0.8 [facility] Comment on above: Result Comment: NON REACTIVE No serologic evidence of infection to Treponema pallidum (syphilis). Repeat testing may be considered in patients with suspected acute or primary syphilis in 2 to 4 weeks. Performed By: #### C BCA, 1504-0, 5196-1, 66726-0, 89214-6, 8014-3, 01170-3 #### [facility] ([id number]) [facility], [address] [place] [address] URINE CULTUREon 02-01-2024 Bacteria identified Cx Nom (U) CULTURE RESULTS 10-50,000 ORGANISMS/mL NORMAL UROGENITAL MAYKEL Normal [facility] Comment on above: Performed By: #### 6 30-4 #### [facility] ([id number]) [address] [facility], [address] [address] Urinalysis macro (dipstick) panel (U)on 01-06-2024 Bilirubin, UA Negative Negative - 4(70) +++ mg/dL [facility] Blood, UA Negative Negative - 50 Parker/mcL [facility] Clarity, UA Clear [facility] Color, UA Yellow [facility] Glucose, UA Negative Negative - 2000(110) ++++ mg/dL [facility] Interpretation and review of laboratory results Normal [facility] Ketones, UA Negative Negative - 160(16) ++++ mg/dL [facility] Leukocytes, UA Negative Negative - 500+++ Aicha/mcL [facility] Nitrite, UA Negative Negative - Positive [facility] pH, UA 7.5 5 - 9 [facility] Protein, UA Negative Negative - 2000(20) ++++ mg/dL [facility] Spec Grav, UA 1.025 1 - 1.03 [facility] Urobilinogen, UA 0.2 0.2 - 12 mg/dL [facility] US PREG GROWTHon 04-20-2023 US PREG GROWTH [...] SIMON GAMEZ Date: 2023-04-20 15:[address] [facility] GTT 3 HR PREGon 03-17-2023 Glucose [Mass/Vol] 81 mg/dL Normal 74-106 [facility] Comment on above: Performed By: #### G TT3P #### [facility] [address] [address] [address] Makayla Dugan Glucose [Mass/Vol] 159 mg/dL Normal [facility] Comment on above: Performed By: #### G TT3P #### [facility] [address] [address] [address] Makayla Dugan Glucose [Mass/Vol] 127 mg/dL Normal [facility] Comment on above: Performed By: #### G TT3P #### [facility] [address] [address] [address] Makayla Dugan Glucose [Mass/Vol] 100 mg/dL Normal [facility] Comment on above: Performed By: #### G TT3P #### [facility] [address] [place] [address] Dr. Makayla Dugan CBC AUTO DIFFon 02-09-2023 BASO # 0.0 103/ul Normal 0.0-0.1 Comment on above: Performed By: #### C BC #### [facility] [address] [place] [address] Dr. Makayla Dugna Basophils/100 WBC (Bld) 0.2 % Normal 0.2-2.0 Comment on above: Performed By: #### C BC #### [facility] [address] [place] [address] Dr. Makayla Dugan EO # 0.1 103/ul Normal 0.0-0.7 Comment on above: Performed By: #### C BC #### [facility] [address] [place] [address] Dr. Makayla Dugan Eosinophils/100 WBC (Bld) 0.5 % Critically low 0.9-7.0 Comment on above: Performed By: #### C BC #### [facility] [address] [place] [address] Dr. Makayla Dugan Erythrocyte distribution width (RBC) [Ratio] 13.2 % Normal 11.0-15.0 Comment on above: Performed By: #### C BC #### [facility] [address] [place] [address] Dr. Makayla Dugan Hematocrit (Bld) [Volume fraction] 32.7 % Critically low 36.0-48.0 Comment on above: Performed By: #### C BC #### [facility] [address] [place] [address] Dr. Makayla Dugan Hemoglobin (Bld) [Mass/Vol] 10.5 g/dL Critically low 12.0-16.0 Comment on above: Performed By: #### C BC #### [facility] [address] [place] [address] Dr. Makayla Dugan IG # 0.09 10e3/ul Critically high 0.00-0.03 [facility] Comment on above: Performed By: #### C BC #### [facility] [address] [place] [address] Dr. Makayla Dugan IG % 0.9 % Critically high 0.0-0.5 [facility] Comment on above: Performed By: #### C BC #### [facility] [address] [place] [address] Dr. Makayla Dugan LYMPH # 1.7 103/ul Normal 1.2-3.8 Comment on above: Performed By: #### C BC #### [facility] [address] [place] [address] Dr. Makayla Dugan Lymphocytes/100 WBC (Bld) 16.6 % Critically low 20.5-60.0 Comment on above: Performed By: #### C BC #### [facility] [address] [place] [address] Dr. Makayla Dugan MANUAL DIFF REQ NO Normal [facility] Comment on above: Performed By: #### C BC #### [facility] [address] [place] [address] Dr. Makayla Dugan MCH (RBC) [Entitic mass] 29.7 pg Normal 26.7-34.0 Comment on above: Performed By: #### C BC #### [facility] [address] [place] [address] Dr. Makayla Dugan MCHC (RBC) [Mass/Vol] 32.1 g/dL Normal 29.9-35.2 Comment on above: Performed By: #### C BC #### [facility] [address] [place] [address] Dr. Makayla Dugan MCV (RBC) [Entitic vol] 92.6 fL Normal 81.0-99.0 Comment on above: Performed By: #### C BC #### [facility] [address] [place] [address] Dr. Makayla Dugan MONO # 0.5 103/ul Normal 0.3-0.8 Comment on above: Performed By: #### C BC #### [facility] [address] [address] [address] Makayla Dugan Monocytes/100 WBC (Bld) 4.8 % Normal 1.7-12.0 Comment on above: Performed By: #### C BC #### [facility] [address] [address] [address] Makayla Dugan NEUT # 7.8 103/ul Critically high 1.4-6.5 [facility] Comment on above: Performed By: #### C BC #### [facility] [address] [address] [address] Makayla Dugan Neutrophils/100 WBC (Bld) 77.0 % Critically high 43.0-75.0 Comment on above: Performed By: #### C BC #### [facility] [address] [place] [address] Dr. Makayla Dugan Platelet mean volume (Bld) [Entitic vol] 10.7 fL Normal 9.5-13.5 Comment on above: Performed By: #### C BC #### [facility] [address] [place] [address] Dr. Makayla Dugan PLT 337 103/ul Normal 150-450 Comment on above: Performed By: #### C BC #### [facility] [address] [address] [address] Makayla Dugan RBC 3.53 106/ul Critically low 4.20-5.40 [facility] Comment on above: Performed By: #### C BC #### [facility] [address] [address] [address] Makayla Dugan WBC 10.1 103/ul Normal 4.0-11.0 Comment on above: Performed By: #### C BC #### [facility] [address] [place] [address] Dr. Makayla Dugan GLUCOSE - 1HRon 02-09-2023 Glucose [Mass/Vol] 153 mg/dL Critically high 74-106 [facility] Comment on above: Performed By: #### G LU1 #### [facility] [address] [address] [address] Makayla Dugan US PREG INCOMPLETE ANATOMYon [...] by: BENIGNO DIAZ Date: 2023-01-15 15:27 Normal US PREG ANATOMY SINGLEon US PREG ANATOMY [...] authenticated by: BENIGNO DIAZ Date: 2023-01-05 15:19 [facility] PAP ACOG PANEL 2: 21 to 29on 01-04-2023 . . Normal Comment on above: Performed By: #### 4 [id number] #### [facility] [address] [place] [address] Dr. Makayla Dugan Age Gdln ACOG Testing - [facility] Comment on above: Performed By: #### 4 [id number] #### [facility] [address] [place] [address] Dr. Makayla Dugan DIAGNOSIS: Comment [facility] Comment on above: Result Comment: NEGA TIVE FOR INTRAEPITHELIAL LESION OR MALIGNANCY. Performed By: #### 4 [id number] #### [facility] [address] [place] [address] Dr. Makayla Dugan Methodology: Comment [facility] Comment on above: Result Comment: This liquid based ThinPrep(R) pap test was screened with the use of an image guided system. Performed By: #### 4 [id number] #### [facility] [address] [place] [address] Dr. Makayla Dugan Note: Comment [facility] Comment on above: Result Comment: The Pap smear is a screening test designed to aid in the detection of premalignant and malignant conditions of the uterine cervix. It is not a diagnostic procedure and should not be used as the sole means of detecting cervical cancer. Both false-positive and false-negative reports do occur. . Performed By: #### 4 [id number] #### [facility] [address] [place] [address] Dr. Makayla Dugan Performed by: Comment [facility] Comment on above: Result Comment: Odalys Dillard, Customer Relations Specialist (ASCP) Performed By: #### 4 [id number] #### [facility] [address] [place] [address] Dr. Makayla Dugan Reflex Criteria: Comment Normal [facility] Comment on above: Result Comment: The HPV DNA reflex criteria were not met with this specimen result therefore, no HPV testing was performed. . Performed By: #### 4 [id number] #### [facility] [address] [place] [address] Dr. Makayla Dugan Specimen adequacy: Comment Normal [facility] Comment on above: Result Comment: Sati sfactory for evaluation. No endocervical component is identified. Performed By: #### 4 [id number] #### [facility] [address] [place] [address] Dr. Makayla Dugan AFP MATERNAL FOR SPINA BIFID Aon 12-31-2022 AFP MoM 1.30 Normal Comment on above: Performed By: #### A FPMAT #### [facility] [address] [place] [address] Dr. Makayla Dugan AFP Value 52.2 ng/mL Normal Comment on above: Performed By: #### A FPMAT #### [facility] [address] [place] [address] Dr. Makayla Dugan AFP, Serum for Spina Bifida Report Normal Comment on above: Performed By: #### A FPMAT #### [facility] [address] [place] [address] Dr. Makayla Dugan Comment Comment Normal Comment on above: Result Comment: Leonardo Lechuga, Ph.D., [facility] Director . References: Available Upon Request. . Multiples Of Median Cutoffs For AFP Elevations Ruiz 2.5 Black 2.8 IDD 2.0 Twins 4.5 Abbreviation Definitions IDD - Insulin Dep Diabetes OSBR - Open Spina Bifida Risk . For further inquiries contact [facility] [facility] at [phone]. . This test was developed and its performance characteristics determined by [employer]. It has not been cleared or approved by the Food and Drug Administration. Performed By: #### A FPMAT #### [facility] [address] [address] [address] Makayla Dugan Gest Age Collection Date 18.6 weeks Normal Comment on above: Performed By: #### A FPMAT #### [facility] [address] [address] [address] Makayla Dugan Gestat, Age Based on Ultrasound Normal Comment on above: Result Comment: 18.6 on 12/29/2022 Recalculations are not recommended when gestational dating by LMP and ultrasound are within 10 days. Performed By: #### A FPMAT #### [facility] [address] [address] [address] Makayla Dugan Insulin Dep Diabetes No Normal Comment on above: Performed By: #### A FPMAT #### [facility] [address] [address] [address] Makayla Dugan Interpretation Comment Normal [facility] Comment on above: Result Comment: Inte rpretation: [...] Customer Services to discuss available options. The [employer] recommends amniocentesis be offered to women age 35 and older. Performed By: #### A FPMAT #### [facility] [address] [address] [address] Makayla Dugan [age] [place] [age] Normal [facility] Comment on above: Performed By: #### A FPMAT #### [facility] [address] [address] [address] Makayla Dugan Multiple Gestation No Normal [facility] Comment on above: Performed By: #### A FPMAT #### [facility] [address] [address] [address] Makayla Dugan OSBR Risk 1 [place] 9606 Normal [facility] Comment on above: Performed By: #### A FPMAT #### [facility] [address] [address] [address] Makayla Dugan PDF . Normal [facility] Comment on above: Performed By: #### A FPMAT #### [facility] [address] [place] [address] Dr. Makayla Dugan Race Black Normal Comment on above: Performed By: #### A FPMAT #### [facility] [address] [place] [address] Dr. Makayla Dugan Test Results: Negative Normal [facility] Comment on above: Performed By: #### A FPMAT #### [facility] [address] [place] [address] Dr. Makayla Dugan CHLAMYDIA/GONOCOCCUS DOMINIC ( AB/URINE/PAPon 12-31-2022 Chlamydia trachomatis, DOMINIC Negative Normal Negative Comment on above: Performed By: #### A FPMAT #### [facility] [address] [place] [address] Dr. Makayla Dugan Neisseria gonorrhoeae, DOMINIC Negative Normal Negative Comment on above: Performed By: #### A FPMAT #### [facility] [address] [place] [address] Dr. Makayla Dugan VAGINITIS/VAGINOSIS DNA PROB Jack 12-30-2022 Tatiana species Negative Normal Negative [facility] Comment on above: Performed By: #### A FPMAT #### [facility] [address] [place] [address] Dr. Makayla Dugan Gardnerella vaginalis Negative Normal Negative Comment on above: Performed By: #### A FPMAT #### [facility] [address] [place] [address] Dr. Makayla Dugan Trichomonas vaginalis Negative Normal Negative Comment on above: Performed By: #### A FPMAT #### [facility] [address] [place] [address] Dr. Makayla Dugan HEP B SURFACE ANTIGEN SCREEN on 11-04-2022 HBsAg Screen Negative Normal Negative Comment on above: Performed By: #### H BSANS #### [facility] [address] [place] [address] Dr. Makayla Dugan HEPATITIS C VIRUS AB W/ REFL EX QUANTon 11-04-2022 HCV AB <0.1 Normal 0.0-0.9 Comment on above: Performed By: #### H CVPCRR #### [facility] [address] [place] [address] Dr. Makayla Dugan Interpretation: Comment Normal [facility] Comment on above: Result Comment: Nega tive Not infected with HCV, unless recent infection is suspected or other evidence exists to indicate HCV infection. Performed By: #### H CVPCRR #### [facility] [address] [place] [address] Dr. Makayla Dugan HIV 1 AND 2 WITH REFLEXon HIV Screen 4th Generation wRfx Non-Reactive Normal Non Reactive [facility] Comment on above: Result Comment: HIV Negative HIV-1/HIV-2 antibodies and HIV-1 p24 antigen were NOT detected. There is no laboratory evidence of HIV infection. Performed By: #### A FPMAT #### [facility] [address] [place] [address] Dr. Makayla Dugan RPR QUANTon 11-04-2022 Rapid Plasma Reagin, Quant Non-Reactive Normal NonRea<1:1 Comment on above: Result Comment: Plea se Note: This test does not meet current guidelines for screening and diagnosis of syphilis. This test is intended for following treatment response in patients being treated for syphilis infection. To screen for syphilis infection, a reflex cascade that includes both RPR and a treponema-specific assay should be utilized, such as Treponema pallidum (Syphilis) Screening [place] (697417) or Rapid Plasma Reagin (RPR) Test With Reflex to Quantitative RPR and Confirmatory Treponema pallidum Antibodies (882888). Performed By: #### R PRQ #### [facility] [address] [place] [address] Dr. Makayla Dugan RUBELLA AB IGGon 11-04-2022 Rubella Antibodies, IgG 1.35 index Normal Immune >0.99 Comment on above: Result Comment: Non- immune <0.90 Equivocal 0.90 - 0.99 Immune >0.99 Performed By: #### R UBIGG #### [facility] [address] [place] [address] Dr. Makayla Dugan CBC AUTO DIFFon 11-03-2022 BASO # 0.0 103/ul Normal 0.0-0.1 Comment on above: Performed By: #### C BC #### [facility] [address] [place] [address] Dr. Makayla Dugan Basophils/100 WBC (Bld) 0.3 % Normal 0.2-2.0 Comment on above: Performed By: #### C BC #### [facility] [address] [place] [address] Dr. Makayla Dugan EO # 0.1 103/ul Normal 0.0-0.7 Comment on above: Performed By: #### C BC #### [facility] [address] [place] [address] Dr. Makayla Dugan Eosinophils/100 WBC (Bld) 0.9 % Normal 0.9-7.0 Comment on above: Performed By: #### C BC #### [facility] [address] [place] [address] Dr. Makayla Dugan Erythrocyte distribution width (RBC) [Ratio] 13.1 % Normal 11.0-15.0 Comment on above: Performed By: #### C BC #### [facility] [address] [place] [address] Dr. Makayla Dugan Hematocrit (Bld) [Volume fraction] 38.8 % Normal 36.0-48.0 Comment on above: Performed By: #### C BC #### [facility] [address] [place] [address] Dr. Makayla Dugan Hemoglobin (Bld) [Mass/Vol] 12.7 g/dL Normal 12.0-16.0 Comment on above: Performed By: #### C BC #### [facility] [address] [address] [address] Makayla Dugan IG # 0.04 10e3/ul Critically high 0.00-0.03 [facility] Comment on above: Performed By: #### C BC #### [facility] [address] [address] [address] Makayla Dugan IG % 0.6 % Critically high 0.0-0.5 [facility] Comment on above: Performed By: #### C BC #### [facility] [address] [place] [address] Dr. Makayla Dugan LYMPH # 1.9 103/ul Normal 1.2-3.8 Comment on above: Performed By: #### C BC #### [facility] [address] [place] [address] Dr. Makayla Dugan Lymphocytes/100 WBC (Bld) 29.8 % Normal 20.5-60.0 Comment on above: Performed By: #### C BC #### [facility] [address] [place] [address] Dr. Makayla Dugan MANUAL DIFF REQ NO Normal [facility] Comment on above: Performed By: #### C BC #### [facility] [address] [place] [address] Dr. Makayla Dugan MCH (RBC) [Entitic mass] 29.5 pg Normal 26.7-34.0 Comment on above: Performed By: #### C BC #### [facility] [address] [place] [address] Dr. Makayla Dugan MCHC (RBC) [Mass/Vol] 32.7 g/dL Normal 29.9-35.2 Comment on above: Performed By: #### C BC #### [facility] [address] [place] [address] Dr. Makayla Dugan MCV (RBC) [Entitic vol] 90.2 fL Normal 81.0-99.0 Comment on above: Performed By: #### C BC #### [facility] [address] [place] [address] Dr. Makayla Dugan MONO # 0.4 103/ul Normal 0.3-0.[address] [facility] Comment on above: Performed By: #### C BC #### [facility] [address] [place] [address] Dr. Makayla Dugan Monocytes/100 WBC (Bld) 6.3 % Normal 1.7-12.[address] [facility] Comment on above: Performed By: #### C BC #### [facility] [address] [place] [address] Dr. Makayla Dugan NEUT # 3.9 103/ul Normal 1.4-6.[address] [facility] Comment on above: Performed By: #### C BC #### [facility] [address] [place] [address] Dr. Makayla Dugan Neutrophils/100 WBC (Bld) 62.1 % Normal 43.0-75.[address] [facility] Comment on above: Performed By: #### C BC #### [facility] [address] [place] [address] Dr. Makayla Dugan Platelet mean volume (Bld) [Entitic vol] 10.4 fL Normal 9.5-13.[address] [facility] Comment on above: Performed By: #### C BC #### [facility] [address] [place] [address] Dr. Makayla Dugan PLT 276 103/ul Normal 150-[address] [facility] Comment on above: Performed By: #### C BC #### [facility] [address] [place] [address] Dr. Makayla Dugan RBC 4.30 106/ul Normal 4.20-5.[address] [facility] Comment on above: Performed By: #### C BC #### [facility] [address] [place] [address] Dr. Makayla Dugan WBC 6.3 103/ul Normal 4.0-11.[address] [facility] Comment on above: Performed By: #### C BC #### [facility] [address] [place] [address] Dr. Makayla Dugan CULTURE URINEon 11-03-2022 CULTURE URINE Culture Observations : MODERATE GROWTH OF MIXED GENITAL MAYKEL. NO POTENTIAL PATHOGENS SEEN. Normal [facility] Comment on above: Performed By: #### A FPMAT #### [facility] [address] [address] [address] Makayla Dugan GLYCOHEMOGLOBIN A1Con 2021 ADA RECOMMENDATION SEE BELOW Normal [facility] Comment on above: Result Comment: ADA RECOMMENDED LIMIT 4.0 - 6.0 ADA THERAPEUTIC TARGET < 7.0 ACTION SUGGESTED > 7.0 Performed By: #### A FPMAT #### [facility] [address] [address] [address] Makayla Dugan Glucose [Mass/Vol] 97 mg/dL Normal [facility] Comment on above: Performed By: #### A FPMAT #### [facility] [address] [place] [address] Dr. Makayla Dugan HbA1c (Bld) [Mass fraction] 5.0 % Normal 4.5-6.2 Comment on above: Performed By: #### A FPMAT #### [facility] [address] [address] [address] Maakyla Dugan LEIA BOX TEST PT SEND OUTo n 11-03-2022 SENT TO REF LAB 11/03/2022 Normal [facility] Comment on above: Performed By: #### G LU1HR #### [facility] [address] [place] [address] Dr. Makayla Dugan TYPE AND SCREENon 11-03-2022 TYPE AND SCREEN Negative Normal [facility] Comment on above: Performed By: #### A FPMAT #### [facility] [address] [place] [address] Dr. Makayla Dugan US PREG TVon 10-20-2022 [...] by: BENIGNO DIAZ Date: 2022-10-20 16:29 Normal Vital Signs Date Time Vital Sign Value Performing Clinician Facility 01-06-2024 10:04-0500 Body mass index (BMI) [Ratio] 35.51 kg/m2 Paul Deidre DO Work Phone: [facility] 01-06-2024 10:04-0500 Body weight 107.5 kg Paul Deidre DO Work Phone: [facility] 01-06-2024 10:04-0500 Diastolic blood pressure 72 mm[Hg] Paul Deidre DO Work Phone: [facility] 01-06-2024 10:04-0500 Systolic blood pressure 120 mm[Hg] Paul Deidre DO Work Phone: [facility] 12-31-2022 04:06-0500 Body weight 112.[address] PAUL JIANG . [facility] Comment on above: Performed By: #### AFPMAT #### [facility] [address] [place] [address] Dr. Makayla Dugan Encounters Encounter Date Encounter Type Care Provider Facility Start: 03-08-2024 End: 03-08-2024 ambulatory PAUL DEIDRE Not Available Start: 02-23-2024 End: 02-23-2024 ambulatory HEAVEN LYON Not Available Start: 02-09-2024 End: 02-09-2024 ambulatory PAUL DEIDRE Not Available Start: 02-01-2024 End: 2024 ambulatory KISHAMEGHAN VARGAS [facility] Start: 01-20-2024 End: 01-20-2024 ambulatory HEAVEN LYON Not Available Start: 01-06-2024 End: 01-06-2024 ambulatory PAUL DEIDRE Not Available Start: 01-06-2024 End: 01-06-2024 Office outpatient visit 15 minutes Paul Jinag DO Work Phone: [facility] Comment on above: Second trimester pre gnancy; Diabetes mellitus screening Start: 12-20-2023 End: 12-21-2023 ambulatory OANH ANDERSON Not Available Start: 12-02-2023 End: 12-02-2023 ambulatory OANH ANDERSON Not Available Start: 11-28-2023 End: 11-28-2023 ambulatory NICHOLAS MONTENEGRO [facility] Start: 04-20-2023 End: 04-21-[address] [...] End: 12-30-[address] PAUL JIANG . Facility: Start: 11-03-2022 End: 11-04-[address] PAUL [...] Routine [facility] [address] [place] [id number] Heaven Lyon, [place] [address] [place] [address] [facility] Start: 01-06-2024 End: 01-06-2025 CBC panel [...] Immunization Date Immunization Notes Care Provider [facility] 08-15-2018 Meningococcal, MCV4, unspecified conjugate formulation(groups A, C, Y and W-135) [facility] DO Work Phone: [facility] 08-15-2018 tuberculin skin test ; purified protein derivative solution, intradermal [facility] DO Work Phone: [facility] 08-14-2013 tetanus toxoid, redu niurka diphtheria toxoid, and acellular pertussis vaccine, adsorbed [facility] DO Work Phone: [facility] 05-19-2005 Diphtheria, tetanus toxoids and acellular pertussis vaccine, and poliovirus vaccine, inactivated [facility] DO Work Phone: [facility] 05-19-2005 DTaP-hepatitis B and poliovirus vaccine [facility] DO Work Phone: [facility] 05-19-2005 measles, mumps and rubella virus [facility] 05-19-2005 pneumococcal conjuga te vaccine, 7 valent Paul [...] type b conjugate, and poliovirus vaccine, inactivated (EXsO-Mgt-EOX) Paul Deidre DO Work Phone: [facility] [...] type b conjugate, and poliovirus vaccine, inactivated (VBgL-Tlp-AFN) Paul Deidre DO Work Phone: [facility] [...] type b conjugate, and poliovirus vaccine, inactivated (DCaC-Oqx-TYT) Paul Deidre DO Work Phone: [facility] [...] unspecified formulation Paul Deidre DO Work Phone: [facility] 2001 hepatitis B vaccine, pediatric or pediatric/adolescent dosage Paul Jiagn DO Work Phone: [facility] Payers Date Payer Category Payer Medicaid [employer] [place] [employer] [id number] 2023-Present [address] [place] [address] [id number] 2001 Unknown [id number] [id number]3 2001 Unknown [id number] 2.16.840.1.738058.3.579.2.593 2001 Unknown [id number] 2.16.840.1.133491.3.579.2.593 2001 Unknown [id number] 2.16.840.1.878393.3.579.2.593 2001 Unknown [id number] 2.16.840.1.367882.3.579.2.593 2001 Unknown [id number] 2.16.840.1.429240.3.579.2.593 2001 Unknown [id number] 2.16.840.1.912873.3.579.2.593 2001 Unknown [id number] 2.16.840.1.526620.3.579.2.593 2001 Unknown [id number] 2.16.840.1.433086.3.579.2.593 2001 Unknown [id number] 2.16.840.1.218417.3.579.2.1286 2001 Unknown [id number] 2.16.840.1.911095.3.579.2.1286 2001 Unknown [id number] 2.16.840.1.966786.3.579.2.1259 2001 Unknown [id number] 2.16.840.1.076782.3.579.2.9 2001 Unknown [id number] 2.16.840.1.899163.3.579.2.9 2001 Unknown [id number] 2.16.840.1.551578.3.579.2.1258 2001 Unknown [id number] 2.16.840.1.161675.3.579.2.9 2001 Unknown [id number] 2.16.840.1.890589.3.579.2.9 2001 Unknown [id number] 2.16.840.1.874495.3.579.2.1259 1959 Unknown [id number] Unknown [id number] 2.16.840.1.226669.3.579.2.593 Social History Date Type Detail Facility Start: 08-17-2023 Tobacco smoking stat [facility] Never smoked tobacco [facility] Start: 08-17-2023 [...] anomaly not found 01/28/2023 Exacerbation of asthma ([facility]) 04/20/2023 Mild persistent asthma with acute exacerbation ([facility]) 04/20/2023 Internal derangement of right shoulder 04/20/2023 Missed period 04/20/2023 Moderate persistent allergic asthma ([facility]) 04/20/2023 Painful menstrual periods 04/20/2023 Pyelonephritis 02/09/2019 Resolved Ambulatory Problems Diagnosis Date Noted No Resolved Ambulatory Problems Past Medical History: Diagnosis Date Allergic rhinitis Asthma ([facility]) Bronchitis Neck pain Pneumonia 2014 Tinea [...] section and content) DATE CREATED AUTHOR 04/30/2023 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 [facility] [employer] [facility]. provides no warranty or guarantee of the accuracy or completeness of information in this document.
== END 2024-03-15 20:34 | disposition home or self-care (01) ==
LOC: LAB 20:33
PROVIDERS: PCP Family Medicine; Visit Provider Physician Assistant
DX: Z34.93 Encounter for supervision of normal pregnancy, unspecified, third trimester (principal)
CPT/HCPCS: 87081

== ENCOUNTER 2024-03-22 10:18 | Outpatient (OUT) | payer OTHER, SELFPAY ==
--- NOTE | 2024-03-22 10:21 | US_ITS ---
[address] [address] Patient Name: SRUTHI FUNK MRN: [id number] date: 2000 Sex: F Assigned Patient Location: [facility] Current Patient Location: [facility] Accession/Order Number: [id number] Exam Date: 03/22/2024 10:21 Report Date: 03/22/2024 10:52 At the request of: PAUL HICKEY Procedure: US OB growth EXAMINATION: US OB growth HISTORY: LGA COMPARISON: 12/02/2023 FINDINGS: Heart Rate: 138.0 bpm Amniotic Fluid Volume: 10.2 cm Number: 1.0 Position: cephalic presentation, longitudinal lie Maximum Vertical Pocket: 2.2 cm cm 3.8 cm cm 2.1 cm cm 2.1 cm cm BIOMETRY: BPD: 8.2 cm cm; 33 weeks 0 days; less than 3% HC: 31.1 cmcm; 34 weeks 5 days , less than 3% AC: 31.6 cm cm; 35 weeks 4 days, 22% FL: 6.8 cm cm; 35 weeks 0 days; 8.4 % % EFW: 2573.1 grams, 5 lbs. 11 oz., 12% FL/AC: 21.6 FL/BPD: 83.2 HC/AC: 1.0 GESTATIONAL AGE: Age by EDC: 37 weeks 0 days [place] by EDC: 04/12/2024 Age by US: 34 weeks 4 days [place] by US: 04/29/2024 US/US OB growth IMPRESSION: BPD and head circumference less than the 3rd percentile Estimated weight at the 12th percentile Electronically authenticated by: SIMON GAMEZ Date: 03/22/2024 10:52
== END 2024-03-22 10:19 | disposition home or self-care (01) ==
LOC: NOMS 10:18
PROVIDERS: PCP Family Medicine; Visit Provider Obstetrics & Gynecology
DX: O36.63X0 Maternal care for excessive fetal growth, third trimester, not applicable or unspecified (principal); Z3A.34 34 weeks gestation of pregnancy
CPT/HCPCS: 76816

== ENCOUNTER 2024-03-27 07:05 | Outpatient (OUT) | payer OTHER, SELFPAY ==
--- OUTSIDE RECORDS SUMMARY | 2024-03-27 07:08 | XMS_ITS | CCD ---
Author Organization [facility] Care Team Providers Care Card Scraper Name Role Phone DEIDRE ., DR MILLER [...] ZIEBER, DR BENIGNO Cameron Consulting Unavailable BERNA, DROON Consulting Unavailable BERNA, DORON Attending Unavailable BERNA, [...] YODER Primary Care Unavailable DEIDRE ., DR MILELR Consulting Unavailable DEIDRE ., DR MILLER Attending Unavailable DEIDRE ., DR MILLER Admitting Unavailable MISC, DR YODER Primary Care Unavailable DEIDRE ., DR MILLER Consulting Unavailable DEIDRE ., DR MILLER Attending Unavailable DEIDRE ., DR MILLER Admitting Unavailable DEIDRE ., DR MILLER Consulting Unavailable DEIDRE ., DR MILLER Attending Unavailable ZIEBER, DR BENIGNO Cameron Consulting Unavailable DEIDRE ., DR MILLER Consulting Unavailable [facility], DR YODER Primary Care Unavailable DEIDRE ., DR MILLER Attending Unavailable DEIDRE ., DR MILLER Admitting Unavailable Monica ELECTRONIC SPECIALIST, Oanh A Unavailable Tawana Brownlee MD Primary Care Provider KISHA VARGAS Referring Unavailable KISHA VARGAS Primary Care Unavailable NICHOLAS MONTENEGRO Admitting Unavailable ROSSY MONTENEGROHLLUIS [place] Attending Unavailable KISHA VARGAS Primary Care Unavailable MONICA, OANH Sutherland Attending Unavailab le DEIDRE, PAUL Attending Unavailable SONALI, HEAVEN Attending Unavailable DEIDRE, PAUL Attending Unavailable SONALI, HEAVEN Attending Unavailable DEIDRE, PAUL Attending Unavailable SONALI, HEAVEN Attending Unavailable DEIDRE, PAUL Attending Unavailable Allergies Allergy Classification Reported Allergen(s) Allergy Type Date of Onset Reaction(s) Facility (1 source) Amoxicillin Drug Allergy 3 [facility]ository (1 source) Azithromycin Drug Allergy 3 [facility] (1 source) Penicillin Drug Allergy 3 [facility] (3 sources) Azithromycin; Translations: [AZITHROMYCIN] Drug Allergy 9 [facility] (3 sources) Cephalexin; Translations: [CEPHALEXIN] Drug Allergy 2 [facility] (2 sources) Penicillin G Drug Allergy 3 [facility] (3 sources) Iodinated Contrast Media; Translations: [IODINATED CONTRAST MEDIA] Drug Allergy 9 [facility] (1 source) Penicillins; Translations: [PENICILLINS] Propensity to adverse reactions to drug (disorder) 7 [facility] Repository Medications Current Medications Medication Drug Class(es) Dates Sig (Normalized) Sig (Original) [id number] 200 actuat albuterol 0.09 mg/actuat metered dose [...] SPEC] Onset: 03-26-2023 Episodic [facility] (1 [facility] ; Translations: [facility] ] Onset: 03-26-2023 Past or [...] ABSOLUTE BASOPHIL 0.0 X10E9/L Normal 0.0-0.2 [facility] Comment on above: Performed By: #### C BCA, 1504-0, 5196-1, 47909-9, 99365-6, 8014-3, 48288-2 #### [facility] ([id number]) [address], [address] [place] [address] ABSOLUTE NEUTROPHIL 6.0 X10E9/L Normal 1.5-6.6 [facility] Comment on above: Performed By: #### Layton GARDUNO, 1504-0, 5196-1, 00940-0, 71877-0, 8014-3, 75162-4 #### [facility] ([id number]) [address], [address] [place] [address] Basophils/100 WBC (Bld) 0.3 % Normal [facility] Comment on above: Performed By: #### C LAUREEN, 1504-0, 5196-1, 04310-5, 89499-0, 8014-3, 67302-1 #### [facility] ([id number]) [address], [address] [place] [address] Eosinophils (Bld) [#/Vol] 0.0 10*3/uL Normal 0.0-0.4 [facility] Comment on above: Performed By: #### C LAUREEN, 1504-0, 5196-1, 69621-5, 64086-8, 8014-3, 41130-9 #### [facility] ([id number]) [address], [address] [place] [address] Eosinophils/100 WBC (Bld) 0.5 % Normal [facility] Comment on above: Performed By: #### C BCA, 1504-0, 5196-1, 55741-8, 39040-4, 8014-3, 47635-9 #### [facility] ([id number]) [address], [address] [place] [address] Erythrocyte distribution width (RBC) [Ratio] 13.9 % Normal 11.5-15.0 [facility] Comment on above: Performed By: #### Layton BCA, 1504-0, 5196-1, 32375-6, 84768-0, 8014-3, 39309-0 #### [facility] ([id number]) [address], [facility] [address] [place] [address] Hematocrit (Bld) [Volume fraction] 30.7 % Low 35-47 [facility] Comment on above: Performed By: #### Layton BCA, 1504-0, 5196-1, 17733-1, 61986-8, 8014-3, 94028-7 #### [facility] ([id number]) [address], [facility] [address] [place] [address] Hemoglobin (Bld) [Mass/Vol] 10.4 g/dL Low 11.7-15.5 [facility] Comment on above: Performed By: #### Layton BCA, 1504-0, 5196-1, 01651-7, 60529-8, 8014-3, 13710-6 #### [facility] ([id number]) [address] [address] [place] [address] Lymphocytes (Bld) [#/Vol] 1.9 10*3/uL Normal 1.0-3.5 [facility] Comment on above: Performed By: #### C BCA, 1504-0, 5196-1, 24299-7, 16414-8, 8014-3, 51194-6 #### [facility] ([id number]) [address], [facility] [address] [place] [address] Lymphocytes/100 WBC (Bld) 22.7 % Normal [facility] Comment on above: Performed By: #### C BCA, 1504-0, 5196-1, 04255-4, 07969-0, 8014-3, 23809-5 #### [facility] ([id number]) [address] [address] [place] [address] MCH (RBC) [Entitic mass] 30.3 pg Normal 27-34 [facility] Comment on above: Performed By: #### Layton GARDUNO, 1504-0, 5196-1, 12210-3, 09021-8, 8014-3, 89270-7 #### [facility] ([id number]) [address], [address] [place] [address] MCHC (RBC) [Mass/Vol] 33.8 g/dL Normal 32-36 [facility] Comment on above: Performed By: #### Layton BCA, 1504-0, 5196-1, 54764-5, 14704-0, 8014-3, 44723-3 #### [facility] ([id number]) [address], [facility] [address] [place] [address] MCV (RBC) [Entitic vol] 90 fL Normal 80-100 [facility] Comment on above: Performed By: #### Layton GARDUNO, 1504-0, 5196-1, 44860-7, 76575-9, 8014-3, 93170-7 #### [facility] ([id number]) [address], [address] [place] [address] Monocytes (Bld) [#/Vol] 0.3 10*3/uL Normal 0-0.9 [facility] Comment on above: Performed By: #### Layton BCA, 1504-0, 5196-1, 93875-3, 27537-2, 8014-3, 99050-1 #### [facility] ([id number]) [address], [address] [place] [address] Monocytes/100 WBC (Bld) 4.1 % Normal [facility] Comment on above: Performed By: #### Layton BCA, 1504-0, 5196-1, 50766-7, 76321-6, 8014-3, 35098-5 #### [facility] ([id number]) [address], [address] [place] [address] Neutrophils/100 WBC (Bld) 72.4 % Normal [facility] Comment on above: Performed By: #### Layton GARDUNO, 1504-0, 5196-1, 11454-8, 06839-8, 8014-3, 49355-0 #### [facility] ([id number]) [address], [address] [place] [address] Platelet mean volume (Bld) [Entitic vol] 8.7 fL Normal 7-12 [facility] Comment on above: Performed By: #### Layton GARDUNO, 1504-0, 5196-1, 10574-0, 04211-6, 8014-3, 72923-8 #### [facility] ([id number]) [address], [facility] [address] [place] [address] Platelets (Bld) [#/Vol] 334 10*3/uL Normal 150-450 [facility] Comment on above: Performed By: #### Layton GARDUNO, 1504-0, 5196-1, 70724-5, 66807-4, 8014-3, 39167-8 #### [facility] ([id number]) [address], [address] [place] [address] RBC COUNT 3.43 X10E12/L Low 3.80-5.20 [facility] Comment on above: Performed By: #### Layton GARDUNO, 1504-0, 5196-1, 52429-4, 20801-4, 8014-3, 96174-1 #### [facility] ([id number]) [address], [address] [place] [address] WBC (Bld) [#/Vol] 8.2 10*3/uL Normal 4.0-11.0 [facility] Comment on above: Performed By: #### Layton GARDUNO, 1504-0, 5196-1, 56505-6, 96193-9, 8014-3, 28988-8 #### [facility] ([id number]) [address] [place] [address] Glucose 1 Hr post 50 g gluco se PO [Mass/Vol]on 02-01-2024 GLU 1H POST 50G LOAD 112 mg/dL Normal 65-139 [facility] Comment on above: Performed By: #### C BCA, 1504-0, 5196-1, 90953-7, 04571-8, 8014-3, 37903-1 #### [facility] ([id number]) [address], [address] [place] [address] HBV surface Ag IA Qlon 01-31 HEPATITIS B SURF AG Negative Normal NEG [facility] Comment on above: Performed By: #### C LAUREEN, 1504-0, 5196-1, 94763-7, 00206-9, 8014-3, 02278-7 #### [facility] ([id number]) [address], [address] [place] [address] HCV Ab IA Qlon 02-01-2024 ANTI HCV W/PCR REFLX Non-Reactive Normal NRCT Pr [facility] Comment on above: Result Comment: If recent infection suspected, recommend repeat testing (>2 months). Hesuzl-dh-ywcmqj ratio is <0.80. Performed By: #### C BCA, 1504-0, 5196-1, 00924-5, 31382-4, 8014-3, 81272-9 #### [facility] ([id number]) [address], [address] [place] [address] HGB A1C (GLYCO-HGB)on 2023 Glucose [Mass/Vol] 94 mg/dL Normal [facility] Comment on above: Performed By: #### C BCA, 1504-0, 5196-1, 07783-4, 97360-9, 8014-3, 12026-2 #### [facility] ([id number]) [address], [address] [place] [address] HbA1c (Bld) [Mass fraction] 4.9 % Normal 4.4-5.6 [facility] Comment on above: Result Comment: NOTE ADA Guidelines Result HgbA1c Normal : less than 5.7 % Prediabetes : 5.7 % to 6.4 % Diabetes : > 6.4 % Use with caution in patients with abnormal hemoglobin variants as the half-life of red blood cells and in vivo glycation rates are affected. Performed By: #### C BCA, 1504-0, 5196-1, 14285-5, 93805-8, 8014-3, 82414-9 #### [facility] ([id number]) [address] [place] [address], [address] [place] [address] HIV 1+2 Ab+HIV1 p24 Ag IA Ql on 02-01-2024 HIV 1 and 2 Ab/Ag Screen Non-Reactive Normal NRCT [facility] Comment on above: Result Comment: This information [...] Performed By: #### Layton BCA, 1504-0, 5196-1, 82245-6, 81899-2, 8014-3, 32800-3 #### [facility] ([id number]) [address] [place] [address], [address] [place] [address] Rubella virus IgG Qn (S)on 0 02-01-2024 RUBELLA IgG 11 IU/mL Normal [facility] Comment on above: Result Comment: Interpretation-------- <8 NEGATIVE-considered Not Immune 8-9 EQUIVOCAL-consider retesting with new specimen >9 POSITIVE-considered Immune Performed By: #### C BCA, 1504-0, 5196-1, 12630-4, 64587-4, 8014-3, 61113-9 #### [facility] ([id number]) [address], [address] [place] [address] T. pallidum IgG+IgM IA Ql (S )on 02-01-2024 Syphilis Total <0.2 Normal 0.0-0.8 [facility] Comment on above: Result Comment: NON REACTIVE No serologic evidence of infection to Treponema pallidum (syphilis). Repeat testing may be considered in patients with suspected acute or primary syphilis in 2 to 4 weeks. Performed By: #### C LAUREEN, 1504-0, 5196-1, 61222-4, 06014-6, 8014-3, 17767-0 #### [facility] ([id number]) [address], [address] [place] [address] URINE CULTUREon 02-01-2024 Bacteria identified Cx Nom (U) CULTURE RESULTS 10-50,000 ORGANISMS/mL NORMAL UROGENITAL MAYKEL Normal [facility] Comment on above: Performed By: #### 6 30-4 #### [facility] ([id number]) [address], [address] [place] [address] Urinalysis macro (dipstick) panel (U)on 01-06-2024 Bilirubin, UA Negative Negative - 4(70) +++ mg/dL [facility] Blood, UA Negative Negative - 50 Parker/mcL [facility] Clarity, UA Clear [facility] Color, UA Yellow [facility] Glucose, UA Negative Negative - 2000(110) ++++ mg/dL [facility] Interpretation and review of laboratory results Normal [facility] Ketones, UA Negative Negative - 160(16) ++++ mg/dL [facility] Leukocytes, UA Negative Negative - 500+++ Aicha/mcL [facility] Nitrite, UA Negative Negative - Positive [facility] pH, UA 7.5 5 - 9 [facility] Protein, UA Negative Negative - 1999(20) ++++ mg/dL [facility] Spec Grav, UA 1.025 1 - 1.03 [facility] Urobilinogen, UA 0.2 0.2 - 12 mg/dL [facility] US PREG GROWTHon 04-20-2023 US PREG GROWTH [...] SIMON GAMEZ Date: 2023-04-20 15:39 Normal [facility] GTT 3 HR PREGon 03-17-2023 Glucose [Mass/Vol] 81 mg/dL Normal 74-106 [facility] Comment on above: Performed By: #### G TT3P #### [facility] [address] [place] [address] Dr. Makayla Dugan Glucose [Mass/Vol] 159 mg/dL Normal [facility] Comment on above: Performed By: #### G TT3P #### [facility] [address] [address] [address] Makayla Dugan Glucose [Mass/Vol] 127 mg/dL Normal [facility] Comment on above: Performed By: #### G TT3P #### [facility] [address] [address] [address] Makayla Dugan Glucose [Mass/Vol] 100 mg/dL Normal [facility] Comment on above: Performed By: #### G TT3P #### [facility] [address] [place] [address] Dr. Makayla Dugan CBC AUTO DIFFon 02-09-2023 BASO # 0.0 103/ul Normal 0.0-0.1 [facility] Comment on above: Performed By: #### C BC #### [facility] [address] [place] [address] Dr. Makayla Dugan Basophils/100 WBC (Bld) 0.2 % Normal 0.2-2.0 [facility] Comment on above: Performed By: #### C BC #### [facility] [address] [place] [address] Dr. Makayla Dugan EO # 0.1 103/ul Normal 0.0-0.7 [facility] Comment on above: Performed By: #### C BC #### [facility] [address] [place] [address] Dr. Makayla Dugan Eosinophils/100 WBC (Bld) 0.5 % Critically low 0.9-7.0 [facility] Comment on above: Performed By: #### C BC #### [facility] [address] [place] [address] Dr. Makayla Dugan Erythrocyte distribution width (RBC) [Ratio] 13.2 % Normal 11.0-15.0 [facility] Comment on above: Performed By: #### C BC #### [facility] [address] [place] [address] Dr. Makayla Dugan Hematocrit (Bld) [Volume fraction] 32.7 % Critically low 36.0-48.0 [facility] Comment on above: Performed By: #### C BC #### [facility] [address] [place] [address] Dr. Makayla Dugan Hemoglobin (Bld) [Mass/Vol] 10.5 g/dL Critically low 12.0-16.0 [facility] Comment on above: Performed By: #### C BC #### [facility] [address] [place] [address] Dr. Makayla Dugan IG # 0.09 10e3/ul Critically high 0.00-0.03 [facility] Comment on above: Performed By: #### C BC #### [facility] [address] [place] [address] Dr. Makayla Dugan IG % 0.9 % Critically high 0.0-0.5 [facility] Comment on above: Performed By: #### C BC #### [facility] [address] [place] [address] Dr. Makayla Dugan LYMPH # 1.7 103/ul Normal 1.2-3.8 [facility] Comment on above: Performed By: #### C BC #### [facility] [address] [place] [address] Dr. Makayla Dugan Lymphocytes/100 WBC (Bld) 16.6 % Critically low 20.5-60.0 [facility] Comment on above: Performed By: #### C BC #### [facility] [address] [place] [address] Dr. Makayla Dugan MANUAL DIFF REQ NO Normal [facility] Comment on above: Performed By: #### C BC #### [facility] [address] [place] [address] Dr. Makayla Dugan MCH (RBC) [Entitic mass] 29.7 pg Normal 26.7-34.0 [facility] Comment on above: Performed By: #### C BC #### [facility] [address] [place] [address] Dr. Makayla Dugan MCHC (RBC) [Mass/Vol] 32.1 g/dL Normal 29.9-35.2 [facility] Comment on above: Performed By: #### C BC #### [facility] [address] [place] [address] Dr. Makayla Dugan MCV (RBC) [Entitic vol] 92.6 fL Normal 81.0-99.0 [facility] Comment on above: Performed By: #### C BC #### [facility] [address] [place] [address] Dr. Makayla Dugan MONO # 0.5 103/ul Normal 0.3-0.8 [facility] Comment on above: Performed By: #### C BC #### [facility] [address] [place] [address] Dr. Makayla Dugan Monocytes/100 WBC (Bld) 4.8 % Normal 1.7-12.0 [facility] Comment on above: Performed By: #### C BC #### [facility] [address] [place] [address] Dr. Makayla Dugan NEUT # 7.8 103/ul Critically high 1.4-6.5 [facility] Comment on above: Performed By: #### C BC #### [facility] [address] [place] [address] Dr. Makayla Dugan Neutrophils/100 WBC (Bld) 77.0 % Critically high 43.0-75.0 [facility] Comment on above: Performed By: #### C BC #### [facility] [address] [place] [address] Dr. Makayla Dugan Platelet mean volume (Bld) [Entitic vol] 10.7 fL Normal 9.5-13.5 [facility] Comment on above: Performed By: #### C BC #### [facility] [address] [place] [address] Dr. Makayla Dugan PLT 337 103/ul Normal 150-450 [facility] Comment on above: Performed By: #### C BC #### [facility] [address] [place] [address] Dr. Makayla Dugan RBC 3.53 106/ul Critically low 4.20-5.40 [facility] Comment on above: Performed By: #### C BC #### [facility] [address] [place] [address] Dr. Makayla Dugan WBC 10.1 103/ul Normal 4.0-11.0 [facility] Comment on above: Performed By: #### C BC #### [facility] [address] [place] [address] Dr. Makayla Dugan GLUCOSE - 1HRon 03-21-2023 Glucose [Mass/Vol] 153 mg/dL Critically high 74-106 [facility] Comment on above: Performed By: #### G [facility] #### [facility] [address] [place] [address] Dr. Makayla Dugan US PREG INCOMPLETE ANATOMYon [...] by: BENIGNO DIAZ Date: 2023-01-15 15:27 Normal [facility] US PREG ANATOMY SINGLEon US PREG ANATOMY [...] authenticated by: BENIGNO DIAZ Date: 2023-01-05 15:19 [facility] PAP ACOG PANEL 2: 21 to 29on 01-04-2023 . . Normal [facility] Comment on above: Performed By: #### [id number] #### [facility] [address] [place] [address] Dr. Makayla Dugan Age Gdln ACOG Testing - [facility] Comment on above: Performed By: #### 4 [id number] #### [facility] [address] [place] [address] Dr. Makayla Dugan DIAGNOSIS: Comment [facility] Comment on above: Result Comment: NEGA TIVE FOR INTRAEPITHELIAL LESION OR MALIGNANCY. Performed By: #### 4 [id number] #### [facility] [address] [place] [address] Dr. Makayla Dugan Methodology: Comment [facility] Comment on above: Result Comment: This liquid based ThinPrep(R) pap test was screened with the use of an image guided system. Performed By: #### 4 [id number] #### [facility] [address] [place] [address] Dr. Makayla Dugan Note: Comment [facility] Comment on above: Result Comment: The Pap smear is a screening test designed to aid in the detection of premalignant and malignant conditions of the uterine cervix. It is not a diagnostic procedure and should not be used as the sole means of detecting cervical cancer. Both false-positive and false-negative reports do occur. . Performed By: #### 4 [id number] #### [facility] [address] [place] [address] Dr. Makayla Dugan Performed by: Comment [facility] Comment on above: Result Comment: Odalys Dillard, Proposal Manager (ASCP) Performed By: #### 4 [id number] #### [facility] [address] [place] [address] Dr. Makayla Dugan Reflex Criteria: Comment Normal [facility] Comment on above: Result Comment: The HPV DNA reflex criteria were not met with this specimen result therefore, no HPV testing was performed. . Performed By: #### 4 [id number] #### [facility] [address] [address] [address] Makayla Dugan Specimen adequacy: Comment Normal [facility] Comment on above: Result Comment: Sati sfactory for evaluation. No endocervical component is identified. Performed By: #### 4 [id number] #### [facility] [address] [place] [address] Dr. Makayla Dugan AFP MATERNAL FOR SPINA BIFID Aon 12-31-2022 AFP MoM 1.30 Normal [facility] Comment on above: Performed By: #### A FPMAT #### [facility] [address] [place] [address] Dr. Makayla Dugan AFP Value 52.2 ng/mL Normal [facility] Comment on above: Performed By: #### A FPMAT #### [facility] [address] [place] [address] Dr. Makayla Dugan AFP, Serum for Spina Bifida Report Normal [facility] Comment on above: Performed By: #### A FPMAT #### [facility] [address] [place] [address] Dr. Makayla Dugan Comment Comment Normal [facility] Comment on above: Result Comment: Leonardo Lechuga, Ph.D., [facility] Director . References: Available Upon Request. . Multiples Of Median Cutoffs For AFP Elevations Ruiz 2.5 Black 2.8 IDD 2.0 Twins 4.5 Abbreviation Definitions IDD - Insulin Dep Diabetes OSBR - Open Spina Bifida Risk . For further inquiries contact [employer] at [phone]. . This test was developed and its performance characteristics determined by [email or web address]. It has not been cleared or approved by the Food and Drug Administration. Performed By: #### A FPMAT #### [facility] [address] [address] [address] Makayla Dugan Gest Age Collection Date 18.6 weeks Normal [facility] Comment on above: Performed By: #### A FPMAT #### [facility] [address] [place] [address] Dr. Makayla Dugan Gestat, Age Based on Ultrasound Normal [facility] Comment on above: Result Comment: 18.6 on 12/29/2022 Recalculations are not recommended when gestational dating by LMP and ultrasound are within 10 days. Performed By: #### A FPMAT #### [facility] [address] [place] [address] Dr. Makayla Dugan Insulin Dep Diabetes No Normal [facility] Comment on above: Performed By: #### A FPMAT #### [facility] [address] [place] [address] Dr. Makayla Dugan Interpretation Comment Normal [facility] Comment on above: Result Comment: Inte [...] Customer Services to discuss available options. The [employer] recommends amniocentesis be offered to women age 35 and older. Performed By: #### A FPMAT #### [facility] [address] [place] [address] Dr. Makayla Dugan [age] Normal [facility] Comment on above: Performed By: #### A FPMAT #### [facility] [address] [place] [address] Dr. Makayla Dugan Multiple Gestation No Normal [facility] Comment on above: Performed By: #### A FPMAT #### [facility] [address] [place] [address] Dr. Makayla Dugan OSBR Risk 1 [place] [address] Normal [facility] Comment on above: Performed By: #### A FPMAT #### [facility] [address] [place] [address] Dr. Makayla Dugan PDF . Normal [facility] Comment on above: Performed By: #### A FPMAT #### [facility] [address] [place] [address] Dr. Makayla Dugan Race Black Normal [facility] Comment on above: Performed By: #### A FPMAT #### [facility] [address] [place] [address] Dr. Makayla Dugan Test Results: Negative Normal [facility] Comment on above: Performed By: #### A FPMAT #### [facility] [address] [place] [address] Dr. Makayla Dugan CHLAMYDIA/GONOCOCCUS DOMINIC (SW AB/URINE/PAPon 12-31-2022 Chlamydia trachomatis, DOMINIC Negative Normal Negative [facility] Comment on above: Performed By: #### A FPMAT #### [facility] [address] [place] [address] Dr. Makayla Dugan Neisseria gonorrhoeae, DOMINIC Negative Normal Negative [facility] Comment on above: Performed By: #### A FPMAT #### [facility] [address] [place] [address] Dr. Makayla Dugan VAGINITIS/VAGINOSIS DNA PROB Jack 12-30-2022 Tatiana species Negative Normal Negative [facility] Comment on above: Performed By: #### A FPMAT #### [facility] [address] [place] [address] Dr. Makayla Dugan Gardnerella vaginalis Negative Normal Negative [facility] Comment on above: Performed By: #### A FPMAT #### [facility] [address] [place] [address] Dr. Makayla Dugan Trichomonas vaginalis Negative Normal Negative [facility] Comment on above: Performed By: #### A FPMAT #### [facility] [address] [place] [address] Dr. Makayla Dugan HEP B SURFACE ANTIGEN SCREEN on 11-04-2022 HBsAg Screen Negative Normal Negative [facility] Comment on above: Performed By: #### H BSANS #### [facility] [address] [place] [address] Dr. Makayla Dugan HEPATITIS C VIRUS AB W/ REFL EX QUANTon 11-04-2022 HCV AB <0.1 Normal 0.0-0.9 [facility] Comment on above: Performed By: #### H CVPCRR #### [facility] [address] [place] [address] Dr. Makayla Dugan Interpretation: Comment Normal [facility] Comment on above: Result Comment: Nega tive Not infected with HCV, unless recent infection is suspected or other evidence exists to indicate HCV infection. Performed By: #### H CVPCRR #### [facility] [address] [place] [address] Dr. Makayla Dugan HIV 1 AND 2 WITH REFLEXon HIV Screen 4th Generation wRfx Non-Reactive Normal Non Reactive [facility] Comment on above: Result Comment: HIV Negative HIV-1/HIV-2 antibodies and HIV-1 p24 antigen were NOT detected. There is no laboratory evidence of HIV infection. Performed By: #### A FPMAT #### [facility] [address] [place] [address] Dr. Makayla Dugan RPR QUANTon 11-04-2022 Rapid Plasma Reagin, Quant Non-Reactive Normal NonRea<1:1 [facility] Comment on above: Result Comment: Plea se Note: This test does not meet current guidelines for screening and diagnosis of syphilis. This test is intended for following treatment response in patients being treated for syphilis infection. To screen for syphilis infection, a reflex cascade that includes both RPR and a treponema-specific assay should be utilized, such as Treponema pallidum (Syphilis) Screening [place] (393333) or Rapid Plasma Reagin (RPR) Test With Reflex to Quantitative RPR and Confirmatory Treponema pallidum Antibodies (622908). Performed By: #### R PRQ #### [facility] [address] [place] [address] Dr. Makayla Dugan RUBELLA AB IGGon 11-04-2022 Rubella Antibodies, IgG 1.35 index Normal Immune >0.99 [facility] Comment on above: Result Comment: Non- immune <0.90 Equivocal 0.90 - 0.99 Immune >0.99 Performed By: #### R UBIGG #### [facility] [address] [place] [address] Dr. Makayla Dugan CBC AUTO DIFFon 11-03-2022 BASO # 0.0 103/ul Normal 0.0-0.1 [facility] Comment on above: Performed By: #### C BC #### [facility] [address] [place] [address] Dr. Makayla Dugan Basophils/100 WBC (Bld) 0.3 % Normal 0.2-2.0 [facility] Comment on above: Performed By: #### C BC #### [facility] [address] [place] [address] Dr. Makayla Dugan EO # 0.1 103/ul Normal 0.0-0.7 [facility] Comment on above: Performed By: #### C BC #### [facility] [address] [place] [address] Dr. Makayla Dugan Eosinophils/100 WBC (Bld) 0.9 % Normal 0.9-7.0 [facility] Comment on above: Performed By: #### C BC #### [facility] [address] [place] [address] Dr. Makayla Dugan Erythrocyte distribution width (RBC) [Ratio] 13.1 % Normal 11.0-15.0 [facility] Comment on above: Performed By: #### C BC #### [facility] [address] [place] [address] Dr. Makayla Dugan Hematocrit (Bld) [Volume fraction] 38.8 % Normal 36.0-48.0 [facility] Comment on above: Performed By: #### C BC #### [facility] [address] [place] [address] Dr. Makayla Dugan Hemoglobin (Bld) [Mass/Vol] 12.7 g/dL Normal 12.0-16.0 [facility] Comment on above: Performed By: #### C BC #### [facility] [address] [address] [address] Makayla Dugan IG # 0.04 10e3/ul Critically high 0.00-0.03 [facility] Comment on above: Performed By: #### C BC #### [facility] [address] [address] [address] Makayla Dugan IG % 0.6 % Critically high 0.0-0.5 [facility] Comment on above: Performed By: #### C BC #### [facility] [address] [address] [address] Makayla Dugan LYMPH # 1.9 103/ul Normal 1.2-3.8 [facility] Comment on above: Performed By: #### C BC #### [facility] [address] [place] [address] Dr. Makayla Dugan Lymphocytes/100 WBC (Bld) 29.8 % Normal 20.5-60.0 [facility] Comment on above: Performed By: #### C BC #### [facility] [address] [place] [address] Dr. Makayla Dugan MANUAL DIFF REQ NO Normal [facility] Comment on above: Performed By: #### C BC #### [facility] [address] [place] [address] Dr. Makayla Dugan MCH (RBC) [Entitic mass] 29.5 pg Normal 26.7-34.0 [facility] Comment on above: Performed By: #### C BC #### [facility] [address] [place] [address] Dr. Makayla Dugan MCHC (RBC) [Mass/Vol] 32.7 g/dL Normal 29.9-35.2 [facility] Comment on above: Performed By: #### C BC #### [facility] [address] [place] [address] Dr. Makayla Dugan MCV (RBC) [Entitic vol] 90.2 fL Normal 81.0-99.0 [facility] Comment on above: Performed By: #### C BC #### [facility] [address] [place] [address] Dr. Makayla Dugan MONO # 0.4 103/ul Normal 0.3-0.8 [facility] Comment on above: Performed By: #### C BC #### [facility] [address] [place] [address] Dr. Makayla Dugan Monocytes/100 WBC (Bld) 6.3 % Normal 1.7-12.0 [facility] Comment on above: Performed By: #### C BC #### [facility] [address] [place] [address] Dr. Makayla Dugan NEUT # 3.9 103/ul Normal 1.4-6.5 [facility] Comment on above: Performed By: #### C BC #### [facility] [address] [place] [address] Dr. Makayla Dugan Neutrophils/100 WBC (Bld) 62.1 % Normal 43.0-75.0 [facility] Comment on above: Performed By: #### C BC #### [facility] [address] [place] [address] Dr. Makayla Dugan Platelet mean volume (Bld) [Entitic vol] 10.4 fL Normal 9.5-13.5 [facility] Comment on above: Performed By: #### C BC #### [facility] [address] [place] [address] Dr. Makayla Dugan PLT 276 103/ul Normal 150-450 [facility] Comment on above: Performed By: #### C BC #### [facility] [address] [place] [address] Dr. Makayla Dugan RBC 4.30 106/ul Normal 4.20-5.40 [facility] Comment on above: Performed By: #### C BC #### [facility] [address] [place] [address] Dr. Makayla Dugan WBC 6.3 103/ul Normal 4.0-11.0 [facility] Comment on above: Performed By: #### C BC #### [facility] [address] [place] [address] Dr. Makayla Dugan CULTURE URINEon 11-03-2022 CULTURE URINE Culture Observations : MODERATE GROWTH OF MIXED GENITAL MAYKEL. NO POTENTIAL PATHOGENS SEEN. Normal [facility] Comment on above: Performed By: #### A FPMAT #### [facility] [address] [place] [address] Dr. Makayla Dugan GLYCOHEMOGLOBIN A1Con 2021 ADA RECOMMENDATION SEE BELOW Normal [facility] Comment on above: Result Comment: ADA RECOMMENDED LIMIT 4.0 - 6.0 ADA THERAPEUTIC TARGET < 7.0 ACTION SUGGESTED > 7.0 Performed By: #### A FPMAT #### [facility] [address] [place] [address] Dr. Makayla Dugan Glucose [Mass/Vol] 97 mg/dL Normal [facility] Comment on above: Performed By: #### A FPMAT #### [facility] [address] [place] [address] Dr. Makayla Dugan HbA1c (Bld) [Mass fraction] 5.0 % Normal 4.5-6.2 [facility] Comment on above: Performed By: #### A FPMAT #### [facility] [address] [place] [address] Dr. Makayla Dugan LEIA BOX TEST PT SEND OUTo n 11-03-2022 SENT TO REF LAB 11/03/2022 Normal [facility] Comment on above: Performed By: #### G LU1HR #### [facility] [address] [place] [address] Dr. Makayla Dugan TYPE AND SCREENon 11-03-2022 TYPE AND SCREEN Negative Normal [facility] Comment on above: Performed By: #### A FPMAT #### [facility] [address] [place] [address] Dr. Makayla Dugan US PREG TVon 10-20-2022 [...] by: BENIGNO DIAZ Date: 2022-10-20 16:29 Normal [facility] Vital Signs Date Time Vital Sign Value Performing Clinician Facility 01-06-2024 10:04-0500 Body mass index (BMI) [Ratio] 35.51 kg/m2 Paul Deidre DO Work Phone: [facility] 01-06-2024 10:04-0500 Body weight 107.5 kg Paul Deidre DO Work Phone: [facility] 01-06-2024 10:04-0500 Diastolic blood pressure 72 mm[Hg] Paul Deidre DO Work Phone: [facility] 01-06-2024 10:04-0500 Systolic blood pressure 120 mm[Hg] Paul Deidre DO Work Phone: [facility] 12-31-2022 04:06-0500 Body weight 112.[address] PAUL JIANG . [facility] Comment on above: Performed By: #### AFPMAT #### [facility] [address] [place] [address] Dr. Makayla Dugan Encounters Encounter Date Encounter Type Care Provider Facility Start: 03-22-2024 End: 03-22-2024 ambulatory PAUL DEIDRE Not Available Start: 03-15-2024 End: 03-15-2024 ambulatory HEAVEN LYON Not Available Start: 03-08-2024 End: 03-08-2024 ambulatory PAUL DEIDRE Not Available Start: 02-23-2024 End: 02-23-2024 ambulatory HEAVEN SONALI Not Available Start: 02-09-2024 End: 02-09-2024 ambulatory PAUL DEIDRE Not Available Start: 02-01-2024 End: 2024 ambulatory [facility] Start: 01-20-2024 End: 01-20-2024 ambulatory HEAVEN LYON Not Available Start: 01-06-2024 End: 01-06-2024 ambulatory PAUL JIANG Not Available Start: 01-06-2024 End: 01-06-2024 Office outpatient visit 15 minutes Paul Jiang DO Work Phone: [facility] Comment on above: Second trimester pre gnancy; Diabetes mellitus screening Start: 12-20-2023 End: 12-21-2023 ambulatory OANH ANDERSON Not Available Start: 12-02-2023 End: 12-02-2023 ambulatory OANH ANDERSON Not Available Start: 11-28-2023 End: 11-28-2023 ambulatory NICHOLAS MONTENEGRO [facility] Start: 04-20-2023 End: 04-21-[address] PAUL JIANG . Facility: Start: 03-25-2023 End: 03-25-2023 ambulatory DORON CORONEL Facility:[facility] Start: 03-17-2023 End: 03-18-[address] PAUL JIANG . Facility:[facility] Start: 02-09-2023 End: 02-10-[address] PAUL JIANG . Facility: Start: 01-15-2023 End: 01-16-[address] PAUL [...] encounter procedure 01/20/2024 2:30 PM EST Routine [facility] [address] [place] [address] Heaven Lyon PA [address] [place] [address] [facility] Start: 01-06-2024 End: 01-06-2025 CBC panel - Blood by Automated count CBC Lab Routine Diabetes mellitus screening Expected: 01/06/2024 (Approximate), Expires: 01/06/2025 [facility] Work Phone: Comment on above: Expected: 01/06/2024 (Approximate), Expires: 01/06/2025 Start: 01-06-2024 End: 01-06-2025 Measurement of glucose 1 hour after glucose challenge for glucose tolerance test Glucose tolerance, 1 hour Lab Routine Diabetes mellitus screening Expected: 01/06/2024 (Approximate), Expires: 01/06/2025 [facility] Comment on above: Expected: 01/06/2024 (Approximate), Expires: 01/06/2025 Start: 07-23-2023 Influenza vaccination Influenz a Vaccine (#1) [facility] Immunizations Immunization Date Immunization Notes Care Provider [facility] 08-15-2018 Meningococcal, MCV4, unspecified conjugate formulation(groups A, C, Y and W-135) [employer] Work Phone: [facility] 08-15-2018 tuberculin skin test ; purified protein derivative [facility], [facility]radermal [facility] 08-14-2013 tetanus toxoid, redu niurka diphtheria toxoid, and acellular pertussis vaccine, adsorbed [employer] Work Phone: [facility] 05-19-2005 Diphtheria, tetanus toxoids and acellular pertussis vaccine, and poliovirus vaccine, inactivated Paul [employer] DO Work Phone: [facility] 05-19-2005 DTaP-hepatitis B and poliovirus vaccine [employer] Work Phone: [facility] 05-19-2005 measles, mumps and rubella virus vaccine Paul Deidre DO Work Phone: [facility] 05-19-2005 pneumococcal conjuga te vaccine, 7 valent Paul Deidre DO Work Phone: [facility] 06-28-2002 diphtheria, tetanus toxoids and acellular pertussis vaccine, unspecified formulation Paul Deidre DO Work Phone: [facility] 06-28-2002 tetanus toxoid, redu niurka diphtheria toxoid, and acellular pertussis vaccine, adsorbed Paul Deidre DO Work Phone: [facility] 06-28-2002 varicella virus vaccine Core y Deidre DO Work Phone: [facility] 02-10-2002 haemophilus influenz ae type b vaccine, conjugate unspecified formulation Paul Deidre DO Work Phone: [facility] 02-10-2002 measles, mumps and rubella virus vaccine Paul Deidre DO Work Phone: [facility] 02-03-2002 measles, mumps and rubella virus vaccine Paul Deidre DO Work Phone: [facility] 2001 hepatitis B vaccine, pediatric or pediatric/adolescent dosage Paul Deidre DO Work Phone: [facility] 2001 pneumococcal conjuga te vaccine, 7 valent Paul Deidre DO Work Phone: [facility] 2001 diphtheria, tetanus toxoids and acellular pertussis vaccine, Haemophilus influenzae type b conjugate, and poliovirus vaccine, inactivated ([id number]) Paul Deidre DO Work Phone: [facility] 2001 diphtheria, tetanus toxoids and acellular pertussis vaccine, unspecified formulation Paul Deidre DO Work Phone: [facility] 2001 haemophilus influenz ae type b vaccine, conjugate unspecified formulation Paul Deidre DO Work Phone: [facility] 2001 pneumococcal conjuga te vaccine, 7 valent Paul Deidre DO Work Phone: [facility] 2001 poliovirus vaccine, unspecified formulation Palu Deidre DO Work Phone: [facility] 2001 diphtheria, tetanus toxoids and acellular pertussis vaccine, Haemophilus influenzae type b conjugate, and poliovirus vaccine, inactivated ([id number]) Paul Deidre DO Work Phone: [facility] 2001 diphtheria, tetanus toxoids and acellular pertussis vaccine, unspecified formulation Paul Deidre DO Work Phone: [facility] 2001 haemophilus influenz ae type b vaccine, conjugate unspecified formulation Paul Deidre DO Work Phone: [facility] 2001 poliovirus vaccine, unspecified formulation Paul Deidre DO Work Phone: [facility] 2001 Diphtheria, tetanus toxoids and acellular pertussis vaccine, and poliovirus vaccine, inactivated Paul Deidre DO Work Phone: [facility] 2001 diphtheria, tetanus toxoids and acellular pertussis vaccine, unspecified formulation Paul Deidre DO Work Phone: [facility] 2001 hepatitis B vaccine, pediatric or pediatric/adolescent dosage Paul Deidre DO Work Phone: [facility] 2001 poliovirus vaccine, inactivated Paul Deidre DO Work Phone: [facility] 2001 diphtheria, tetanus toxoids and acellular pertussis vaccine, Haemophilus influenzae type b conjugate, and poliovirus vaccine, inactivated ([id number]) Paul Deidre DO Work Phone: [facility] 2001 diphtheria, tetanus toxoids and acellular pertussis vaccine, unspecified formulation Paul Deidre DO Work Phone: [facility] 2001 haemophilus influenz ae type b vaccine, conjugate unspecified formulation Paul Deidre DO Work Phone: [facility] 2001 hepatitis B vaccine, pediatric or pediatric/adolescent dosage Paul Deidre DO Work Phone: [facility] 2001 poliovirus vaccine, unspecified formulation Paul Deidre DO Work Phone: [facility] 2001 hepatitis B vaccine, pediatric or pediatric/adolescent dosage Paul Deidre DO Work Phone: [facility] Healthcare Payers Date Payer Category Payer Medicaid [employer] [place] [employer] [id number] 2023-Present [address] [place] [address] [id number] 2001 Unknown [id number] 2001 Unknown [id number] [id number]3 2001 Unknown [id number] 2.16.840.1.591043.3.579.2.593 2001 Unknown [id number] 2.16.840.1.364195.3.579.2.593 2001 Unknown [id number] 2.16.840.1.209633.3.579.2.593 2001 Unknown [id number] 2.16.840.1.413796.3.579.2.593 2001 Unknown [id number] 2.16.840.1.366756.3.579.2.593 2001 Unknown [id number] 2.16.840.1.192411.3.579.2.593 2001 Unknown [id number] 2.16.840.1.523551.3.579.2.593 2001 Unknown [id number] 2.16.840.1.368858.3.579.2.1286 2001 Unknown [id number] 2.16.840.1.931893.3.579.2.1286 2001 Unknown [id number] 2.16.840.1.112666.3.579.2.1259 2001 Unknown [id number] 2.16.840.1.152803.3.579.2.9 2001 Unknown [id number] 2.16.840.1.925916.3.579.2.9 2001 Unknown [id number] 2.16.840.1.255341.3.579.2.9 2001 Unknown [id number] 2.16.840.1.511533.3.579.2.9 2001 Unknown [id number] 2.16.840.1.364572.3.579.2.9 2001 Unknown [id number] 2.16.840.1.523527.3.579.2.9 2001 Unknown [id number] 2.16.840.1.854916.3.579.2.9 2001 Unknown [id number] 2.16.840.1.753137.3.579.2.1259 1959 Unknown [id number] Unknown [id number] 2.16.840.1.978862.3.579.2.593 Social History Date Type Detail Facility Start: 08-17-2023 Tobacco smoking stat [facility] Never smoked tobacco [facility] Start: 08-17-2023 Tobacco use and exposure Smokeless t obacco non-user [facility] Start: 01-06-2024 Alcohol intake Lifetime non-d yordy (finding) [facility] Start: 12-20-2023 History of Social function [facility] Start: 12-20-2023 Tobacco use panel [facility] Start: 05-06-2023 Alcohol Comment Caffeine intak e: none, occasional soda [facility] Start: 08-30-2023 [facility] Start: 2000 Sex Assigned [...] anomaly not found 01/28/2023 Exacerbation of asthma ([facility]) 04/20/2023 Mild persistent asthma with acute exacerbation ([facility]) 04/20/2023 Internal derangement of right shoulder 04/20/2023 Missed period 04/20/2023 Moderate persistent allergic asthma (CMS/HCC) 04/20/2023 Painful menstrual periods 04/20/2023 Pyelonephritis 02/09/2019 Resolved Ambulatory Problems Diagnosis Date Noted No Resolved Ambulatory Problems Past Medical History: Diagnosis Date Allergic rhinitis Asthma ([facility]) Bronchitis Neck pain Pneumonia 2014 Tinea pedis, [...] and content) DATE CREATED AUTHOR 04/30/2023 [facility] DATE CREATED AUTHOR AUTHOR'S ORGANIZ ATION 2024 [facility] DATE CREATED AUTHOR AUTHOR'S ORGANIZ ATION 03/23/2024 [facility] EPIC Reason for Visit (unrecogniz ed section and content) Reason Comments Routine Visit Care Teams (unrecognized sec tion and content) 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 [facility] Content Syndicate: [employer] provides no warranty or guarantee of the accuracy or completeness of information in this document.
--- NOTE | 2024-03-27 11:05 | US_ITS ---
[address] [address] Patient Name: SRUTHI FUNK MRN: [id number] date: 2000 Sex: F Assigned Patient Location: [facility] Current Patient Location: Accession/Order Number: [id number] Exam Date: 03/27/2024 11:09 Report Date: 03/27/2024 12:21 At the request of: PAUL HICKEY Procedure: US OB BPP w non-stress EXAMINATION: US OB BPP w non-stress HISTORY: SGA P05.10 COMPARISON: 03/22/2024 TECHNIQUE: Ultrasound biophysical profile was performed in the radiology department. FINDINGS: BREATHING MOVEMENTS: 2.0 GROSS BODY MOVEMENTS: 2.0 TONE: 2.0 QUALITATIVE AMNIOTIC FLUID VOLUME: 2.0 PRESENTATION: CEPHALIC HEART RATE: 136.4 bpm H.B./min AMNIOTIC FLUID VOLUME: 17.5 cm cm GESTATIONAL AGE: 37 weeks 5 days CONCLUSION: Total biophysical profile score: 8.0 Electronically authenticated by: SIMON GAMEZ Date: 03/27/2024 12:21
[2024-03-27 11:35] VITALS: BP 124/68; PULSE 64
== END 2024-03-27 12:01 | disposition home or self-care (01) ==
LOC: US 07:05 → FBC 11:04
PROVIDERS: PCP Family Medicine; Visit Provider Obstetrics & Gynecology
DX: O26.843 Uterine size-date discrepancy, third trimester (principal); Z3A.37 37 weeks gestation of pregnancy
CPT/HCPCS: 76818

== ENCOUNTER 2024-03-30 07:20 | Outpatient (OUT) | payer OTHER, SELFPAY ==
--- OUTSIDE RECORDS SUMMARY | 2024-03-30 07:42 | XMS_ITS | CCD ---
Author Organization [facility] Care Team Providers Care Wastewater Project Manager Name Role Phone DEIDRE ., DR MILLER [...] Unavailable DEIDRE ., DR MILLER Consulting Unavailable [facility] [place] YODER Primary Care Unavailable DEIDRE ., DR MILLER Attending Unavailable DEIDRE ., DR MILLER Admitting Unavailable Monica SERVICE REPRESENTATIVE, Oanh A Unavailable Tawana Brownlee MD Primary [...] (1 source) Amoxicillin Drug Allergy 3 [facility]ository (1 source) Azithromycin Drug Allergy 3 [facility] (1 source) Penicillin Drug Allergy 3 [facility] (3 sources) Azithromycin; Translations: [AZITHROMYCIN] Drug Allergy 9 [facility] (3 sources) Cephalexin; Translations: [CEPHALEXIN] Drug Allergy 2 [facility] (2 sources) Penicillin G Drug Allergy 3 [facility] (3 sources) Iodinated Contrast Media; Translations: [IODINATED CONTRAST MEDIA] Drug Allergy 9 [facility] (1 source) Penicillins; Translations: [PENICILLINS] Propensity to adverse reactions to drug (disorder) 7 [facility] Repository Medications Current Medications Medication Drug Class(es) Dates Sig (Normalized) Sig (Original) [id number] 200 actuat albuterol 0.09 mg/actuat metered dose [...] SPEC] Onset: 03-26-2023 Episodic Unclassified (1 source) [facility] ; Translations: [[facility] ] Onset: 03-26-2023 Past or [...] ABSOLUTE BASOPHIL 0.0 X10E9/L Normal 0.0-0.2 [facility] Comment on above: Performed By: #### C BCA, 1504-0, 5196-1, 44074-6, 39241-1, 8014-3, 78658-7 #### [facility] ([id number]) [address], [address] [place] [address] ABSOLUTE NEUTROPHIL 6.0 X10E9/L Normal 1.5-6.6 [facility] Comment on above: Performed By: #### Layton GARDUNO, 1504-0, 5196-1, 47968-3, 60325-1, 8014-3, 14206-1 #### [facility] ([id number]) [address], [address] [place] [address] Basophils/100 WBC (Bld) 0.3 % Normal [facility] Comment on above: Performed By: #### C LAUREEN, 1504-0, 5196-1, 84732-9, 46227-7, 8014-3, 84322-1 #### [facility] ([id number]) [address], [address] [place] [address] Eosinophils (Bld) [#/Vol] 0.0 10*3/uL Normal 0.0-0.4 [facility] Comment on above: Performed By: #### C LAUREEN, 1504-0, 5196-1, 33605-2, 30483-2, 8014-3, 37617-7 #### [facility] ([id number]) [address], [address] [place] [address] Eosinophils/100 WBC (Bld) 0.5 % Normal [facility] Comment on above: Performed By: #### C BCA, 1504-0, 5196-1, 41392-1, 06432-2, 8014-3, 99346-9 #### [facility] ([id number]) [address], [address] [place] [address] Erythrocyte distribution width (RBC) [Ratio] 13.9 % Normal 11.5-15.0 [facility] Comment on above: Performed By: #### Layton BCA, 1504-0, 5196-1, 57126-0, 08564-6, 8014-3, 78205-6 #### [facility] ([id number]) [address], [facility] [address] [place] [address] Hematocrit (Bld) [Volume fraction] 30.7 % Low 35-47 [facility] Comment on above: Performed By: #### Layton BCA, 1504-0, 5196-1, 60066-7, 81106-4, 8014-3, 17511-0 #### [facility] ([id number]) [address], [facility] [address] [place] [address] Hemoglobin (Bld) [Mass/Vol] 10.4 g/dL Low 11.7-15.5 [facility] Comment on above: Performed By: #### Layton BCA, 1504-0, 5196-1, 19144-6, 54897-7, 8014-3, 29459-7 #### [facility] ([id number]) [address] [address] [place] [address] Lymphocytes (Bld) [#/Vol] 1.9 10*3/uL Normal 1.0-3.5 [facility] Comment on above: Performed By: #### C BCA, 1504-0, 5196-1, 69176-1, 63071-6, 8014-3, 48239-2 #### [facility] ([id number]) [address], [facility] [address] [place] [address] Lymphocytes/100 WBC (Bld) 22.7 % Normal [facility] Comment on above: Performed By: #### C BCA, 1504-0, 5196-1, 39693-2, 13593-2, 8014-3, 74606-0 #### [facility] ([id number]) [address] [address] [place] [address] MCH (RBC) [Entitic mass] 30.3 pg Normal 27-34 [facility] Comment on above: Performed By: #### Layton GARDUNO, 1504-0, 5196-1, 50366-2, 36795-1, 8014-3, 58275-6 #### [facility] ([id number]) [address], [address] [place] [address] MCHC (RBC) [Mass/Vol] 33.8 g/dL Normal 32-36 [facility] Comment on above: Performed By: #### Layton BCA, 1504-0, 5196-1, 64502-2, 19109-7, 8014-3, 24223-9 #### [facility] ([id number]) [address], [facility] [address] [place] [address] MCV (RBC) [Entitic vol] 90 fL Normal 80-100 [facility] Comment on above: Performed By: #### Layton GARDUNO, 1504-0, 5196-1, 23557-8, 55155-6, 8014-3, 90272-5 #### [facility] ([id number]) [address], [address] [place] [address] Monocytes (Bld) [#/Vol] 0.3 10*3/uL Normal 0-0.9 [facility] Comment on above: Performed By: #### Layton BCA, 1504-0, 5196-1, 50493-2, 77020-1, 8014-3, 22607-2 #### [facility] ([id number]) [address], [address] [place] [address] Monocytes/100 WBC (Bld) 4.1 % Normal [facility] Comment on above: Performed By: #### Layton BCA, 1504-0, 5196-1, 82776-2, 76440-1, 8014-3, 19995-1 #### [facility] ([id number]) [address], [address] [place] [address] Neutrophils/100 WBC (Bld) 72.4 % Normal [facility] Comment on above: Performed By: #### Layton GARDUNO, 1504-0, 5196-1, 66231-4, 77804-2, 8014-3, 97469-9 #### [facility] ([id number]) [address], [address] [place] [address] Platelet mean volume (Bld) [Entitic vol] 8.7 fL Normal 7-12 [facility] Comment on above: Performed By: #### Layton GARDUNO, 1504-0, 5196-1, 45249-1, 18427-4, 8014-3, 67092-3 #### [facility] ([id number]) [address], [facility] [address] [place] [address] Platelets (Bld) [#/Vol] 334 10*3/uL Normal 150-450 [facility] Comment on above: Performed By: #### Layton GARDUNO, 1504-0, 5196-1, 54325-3, 83144-6, 8014-3, 41766-5 #### [facility] ([id number]) [address], [address] [place] [address] RBC COUNT 3.43 X10E12/L Low 3.80-5.20 [facility] Comment on above: Performed By: #### Layton GARDUNO, 1504-0, 5196-1, 79559-6, 93695-3, 8014-3, 27029-0 #### [facility] ([id number]) [address], [address] [place] [address] WBC (Bld) [#/Vol] 8.2 10*3/uL Normal 4.0-11.0 [facility] Comment on above: Performed By: #### Layton GARDUNO, 1504-0, 5196-1, 64262-2, 80890-4, 8014-3, 89124-8 #### [facility] ([id number]) [address], [address] [place] [address] Glucose 1 Hr post 50 g gluco se PO [Mass/Vol]on 02-01-2024 GLU 1H POST 50G LOAD 112 mg/dL Normal 65-139 [facility] Comment on above: Performed By: #### C BCA, 1504-0, 5196-1, 63785-6, 41559-1, 8014-3, 94592-1 #### [facility] ([id number]) [address], [address] [place] [address] HBV surface Ag IA Qlon 01-31 HEPATITIS B SURF AG Negative Normal NEG [facility] Comment on above: Performed By: #### C LAUREEN, 1504-0, 5196-1, 15600-0, 59451-9, 8014-3, 67303-6 #### [facility] ([id number]) [address], [address] [place] [address] HCV Ab IA Qlon 02-01-2024 ANTI HCV W/PCR REFLX Non-Reactive Normal NRCT Pr [facility] Comment on above: Result Comment: If recent infection suspected, recommend repeat testing (>2 months). Nkaelv-kf-gbntrv ratio is <0.80. Performed By: #### C BCA, 1504-0, 5196-1, 98456-4, 87419-3, 8014-3, 97249-5 #### [facility] ([id number]) [address], [address] [place] [address] HGB A1C (GLYCO-HGB)on 2023 Glucose [Mass/Vol] 94 mg/dL Normal [facility] Comment on above: Performed By: #### C BCA, 1504-0, 5196-1, 84667-0, 86671-9, 8014-3, 57831-0 #### [facility] ([id number]) [address], [address] [place] [address] HbA1c (Bld) [Mass fraction] 4.9 % Normal 4.4-5.6 [facility] Comment on above: Result Comment: NOTE ADA Guidelines Result HgbA1c Normal : less than 5.7 % Prediabetes : 5.7 % to 6.4 % Diabetes : > 6.4 % Use with caution in patients with abnormal hemoglobin variants as the half-life of red blood cells and in vivo glycation rates are affected. Performed By: #### C BCA, 1504-0, 5196-1, 18879-8, 60883-9, 8014-3, 32120-5 #### [facility] ([id number]) [address] [place] [address], [address] [place] [address] HIV 1+2 Ab+HIV1 p24 Ag IA Ql on 02-01-2024 HIV 1 and 2 Ab/Ag Screen Non-Reactive Normal NRCT [facility] Comment on above: Result Comment: This information [...] Performed By: #### Layton BCA, 1504-0, 5196-1, 16309-0, 44463-7, 8014-3, 40075-5 #### [facility] ([id number]) [address] [place] [address], [address] [place] [address] Rubella virus IgG Qn (S)on 0 02-01-2024 RUBELLA IgG 11 IU/mL Normal [facility] Comment on above: Result Comment: Interpretation-------- <8 NEGATIVE-considered Not Immune 8-9 EQUIVOCAL-consider retesting with new specimen >9 POSITIVE-considered Immune Performed By: #### C BCA, 1504-0, 5196-1, 89676-5, 08158-2, 8014-3, 51157-8 #### [facility] ([id number]) [address], [address] [place] [address] T. pallidum IgG+IgM IA Ql (S )on 02-01-2024 Syphilis Total <0.2 Normal 0.0-0.8 [facility] Comment on above: Result Comment: NON REACTIVE No serologic evidence of infection to Treponema pallidum (syphilis). Repeat testing may be considered in patients with suspected acute or primary syphilis in 2 to 4 weeks. Performed By: #### C LAUREEN, 1504-0, 5196-1, 43752-9, 33353-7, 8014-3, 54043-9 #### [facility] ([id number]) [address], [address] [place] [address] URINE CULTUREon 02-01-2024 Bacteria identified Cx Nom (U) CULTURE RESULTS 10-50,000 ORGANISMS/mL NORMAL UROGENITAL MAYKEL Normal [facility] Comment on above: Performed By: #### 6 30-4 #### [facility] ([id number]) [address], [address] [place] [address] Urinalysis macro (dipstick) panel (U)on 01-06-2024 Bilirubin, UA Negative Negative - 4(70) +++ mg/dL [facility] Blood, UA Negative Negative - 50 Parker/mcL [facility] Clarity, UA Clear [facility] Color, UA Yellow [facility] Glucose, UA Negative Negative - 2000(110) ++++ mg/dL [facility] Interpretation and review of laboratory results Normal [facility] Ketones, UA Negative Negative - 160(16) ++++ mg/dL [facility] Leukocytes, UA Negative Negative - 500+++ Aicha/mcL [facility] Nitrite, UA Negative Negative - Positive [facility] pH, UA 7.5 5 - 9 [facility] Protein, UA Negative Negative - 1999(20) ++++ mg/dL [facility] Spec Grav, UA 1.025 1 - 1.03 [facility] Urobilinogen, UA 0.2 0.2 - 12 mg/dL [facility] US PREG GROWTHon 04-20-2023 US PREG GROWTH [...] SIMON GAMEZ Date: 2023-04-20 15:39 Normal [facility] GTT 3 HR PREGon 03-17-2023 Glucose [Mass/Vol] 81 mg/dL Normal 74-[address] [facility] Comment on above: Performed By: #### G TT3P #### [facility] [address] [place] [address] Dr. Makayla Dugan Glucose [Mass/Vol] 159 mg/dL Normal [facility] Comment on above: Performed By: #### G TT3P #### [facility] [address] [address] [address] Makayla Dugan Glucose [Mass/Vol] 127 mg/dL Normal [facility] Comment on above: Performed By: #### G TT3P #### [facility] [address] [address] [address] Makayla Dugan Glucose [Mass/Vol] 100 mg/dL Normal [facility] Comment on above: Performed By: #### G TT3P #### [facility] [address] [place] [address] Dr. Makayla Dugan CBC AUTO DIFFon 02-09-2023 BASO # 0.0 103/ul Normal 0.0-0.1 [facility] Comment on above: Performed By: #### C BC #### [facility] [address] [place] [address] Dr. Makayla Dugan Basophils/100 WBC (Bld) 0.2 % Normal 0.2-2.0 [facility] Comment on above: Performed By: #### C BC #### [facility] [address] [place] [address] Dr. Makayla Dugan EO # 0.1 103/ul Normal 0.0-0.7 [facility] Comment on above: Performed By: #### C BC #### [facility] [address] [place] [address] Dr. Makayla Dugan Eosinophils/100 WBC (Bld) 0.5 % Critically low 0.9-7.0 [facility] Comment on above: Performed By: #### C BC #### [facility] [address] [place] [address] Dr. Makayla Dugan Erythrocyte distribution width (RBC) [Ratio] 13.2 % Normal 11.0-15.0 [facility] Comment on above: Performed By: #### C BC #### [facility] [address] [place] [address] Dr. Makayla Dugan Hematocrit (Bld) [Volume fraction] 32.7 % Critically low 36.0-48.0 [facility] Comment on above: Performed By: #### C BC #### [facility] [address] [place] [address] Dr. Makayla Dugan Hemoglobin (Bld) [Mass/Vol] 10.5 g/dL Critically low 12.0-16.0 [facility] Comment on above: Performed By: #### C BC #### [facility] [address] [place] [address] Dr. Makayla Dugan IG # 0.09 10e3/ul Critically high 0.00-0.03 [facility] Comment on above: Performed By: #### C BC #### [facility] [address] [place] [address] Dr. Makayla Dugan IG % 0.9 % Critically high 0.0-0.5 [facility] Comment on above: Performed By: #### C BC #### [facility] [address] [place] [address] Dr. Makayla Dugan LYMPH # 1.7 103/ul Normal 1.2-3.8 [facility] Comment on above: Performed By: #### C BC #### [facility] [address] [place] [address] Dr. Makayla Dugan Lymphocytes/100 WBC (Bld) 16.6 % Critically low 20.5-60.0 [facility] Comment on above: Performed By: #### C BC #### [facility] [address] [place] [address] Dr. Makayla Dugan MANUAL DIFF REQ NO Normal [facility] Comment on above: Performed By: #### C BC #### [facility] [address] [place] [address] Dr. Makayla Dugan MCH (RBC) [Entitic mass] 29.7 pg Normal 26.7-34.0 [facility] Comment on above: Performed By: #### C BC #### [facility] [address] [place] [address] Dr. Makayla Dugan MCHC (RBC) [Mass/Vol] 32.1 g/dL Normal 29.9-35.2 [facility] Comment on above: Performed By: #### C BC #### [facility] [address] [place] [address] Dr. Makayla Dugan MCV (RBC) [Entitic vol] 92.6 fL Normal 81.0-99.0 [facility] Comment on above: Performed By: #### C BC #### [facility] [address] [place] [address] Dr. Makayla Dugan MONO # 0.5 103/ul Normal 0.3-0.8 [facility] Comment on above: Performed By: #### C BC #### [facility] [address] [place] [address] Dr. Makayla Dugan Monocytes/100 WBC (Bld) 4.8 % Normal 1.7-12.0 [facility] Comment on above: Performed By: #### C BC #### [facility] [address] [place] [address] Dr. Makayla Dugan NEUT # 7.8 103/ul Critically high 1.4-6.5 [facility] Comment on above: Performed By: #### C BC #### [facility] [address] [place] [address] Dr. Makayla Dugan Neutrophils/100 WBC (Bld) 77.0 % Critically high 43.0-75.0 [facility] Comment on above: Performed By: #### C BC #### [facility] [address] [place] [address] Dr. Makayla Dugan Platelet mean volume (Bld) [Entitic vol] 10.7 fL Normal 9.5-13.5 [facility] Comment on above: Performed By: #### C BC #### [facility] [address] [place] [address] Dr. Makayla Dugan PLT 337 103/ul Normal 150-450 [facility] Comment on above: Performed By: #### C BC #### [facility] [address] [place] [address] Dr. Makayla Dugan RBC 3.53 106/ul Critically low 4.20-5.40 [facility] Comment on above: Performed By: #### C BC #### [facility] [address] [place] [address] Dr. Makayla Dugan WBC 10.1 103/ul Normal 4.0-11.0 [facility] Comment on above: Performed By: #### C BC #### [facility] [address] [place] [address] Dr. Makayla Dugan GLUCOSE - 1HRon 03-21-2023 Glucose [Mass/Vol] 153 mg/dL Critically high 74-106 [facility] Comment on above: Performed By: #### G [facility] #### [facility] [address] [place] [address] Dr. Makayla Dugan US PREG INCOMPLETE ANATOMYon [...] by: BENIGNO DIAZ Date: 2023-01-15 15:27 Normal [facility] US PREG ANATOMY SINGLEon US PREG ANATOMY [...] authenticated by: BENIGNO DIAZ Date: 2023-01-05 15:19 [facility] PAP ACOG PANEL 2: 21 to 29on 01-04-2023 . . Normal [facility] Comment on above: Performed By: #### 4 [id number] #### [facility] [address] [place] [address] Dr. Makayla Dugan Age Gdln ACOG Testing - [facility] Comment on above: Performed By: #### 4 [id number] #### [facility] [address] [place] [address] Dr. Makayla Dugan DIAGNOSIS: Comment [facility] Comment on above: Result Comment: NEGA TIVE FOR INTRAEPITHELIAL LESION OR MALIGNANCY. Performed By: #### 4 [id number] #### [facility] [address] [place] [address] Dr. Makayla Dugan Methodology: Comment [facility] Comment on above: Result Comment: This liquid based ThinPrep(R) pap test was screened with the use of an image guided system. Performed By: #### 4 [id number] #### [facility] [address] [place] [address] Dr. Makayla Dugan Note: Comment [facility] Comment on above: Result Comment: The Pap smear is a screening test designed to aid in the detection of premalignant and malignant conditions of the uterine cervix. It is not a diagnostic procedure and should not be used as the sole means of detecting cervical cancer. Both false-positive and false-negative reports do occur. . Performed By: #### 4 [id number] #### [facility] [address] [place] [address] Dr. Makayla Dugan Performed by: Comment [facility] Comment on above: Result Comment: Odalys Dillard, Adapted Physical Education Aide (ASCP) Performed By: #### 4 [id number] #### [facility] [address] [place] [address] Dr. Makayla Dugan Reflex Criteria: Comment Normal [facility] Comment on above: Result Comment: The HPV DNA reflex criteria were not met with this specimen result therefore, no HPV testing was performed. . Performed By: #### 4 [id number] #### [facility] [address] [address] [address] Makayla Dugan Specimen adequacy: Comment Normal [facility] Comment on above: Result Comment: Sati sfactory for evaluation. No endocervical component is identified. Performed By: #### 4 [id number] #### [facility] [address] [place] [address] Dr. Makayla Dugan AFP MATERNAL FOR SPINA BIFID Aon 12-31-2022 AFP MoM 1.30 Normal [facility] Comment on above: Performed By: #### A FPMAT #### [facility] [address] [place] [address] Dr. Makayla Dugan AFP Value 52.2 ng/mL Normal [facility] Comment on above: Performed By: #### A FPMAT #### [facility] [address] [place] [address] Dr. Makayla Dugan AFP, Serum for Spina Bifida Report Normal [facility] Comment on above: Performed By: #### A FPMAT #### [facility] [address] [place] [address] Dr. Makayla Dugan Comment Comment Normal [facility] Comment on above: Result Comment: Leonardo Lechuga, Ph.D., [facility] Director . References: Available Upon Request. . Multiples Of Median Cutoffs For AFP Elevations Ruiz 2.5 Black 2.8 IDD 2.0 Twins 4.5 Abbreviation Definitions IDD - Insulin Dep Diabetes OSBR - Open Spina Bifida Risk . For further inquiries contact [employer] at [phone]. . This test was developed and its performance characteristics determined by [employer]. It has not been cleared or approved by the Food and Drug Administration. Performed By: #### A FPMAT #### [facility] [address] [address] [address] Makayla Dugan Gest Age Collection Date 18.6 weeks Normal [facility] Comment on above: Performed By: #### A FPMAT #### [facility] [address] [place] [address] Dr. Makayla Dugan Gestat, Age Based on Ultrasound Normal [facility] Comment on above: Result Comment: 18.6 on 12/29/2022 Recalculations are not recommended when gestational dating by LMP and ultrasound are within 10 days. Performed By: #### A FPMAT #### [facility] [address] [place] [address] Dr. Makayla Dugan Insulin Dep Diabetes No Normal [facility] Comment on above: Performed By: #### A FPMAT #### [facility] [address] [place] [address] Dr. Makayla Dugan Interpretation Comment Normal [facility] Comment on above: Result Comment: Inte rpretation: [...] Customer Services to discuss available options. The [employer] recommends amniocentesis be offered to women age 35 and older. Performed By: #### A FPMAT #### [facility] [address] [place] [address] Dr. Makayla Dugan [age][place] [age] Normal [facility] Comment on above: Performed By: #### A FPMAT #### [facility] [address] [place] [address] Dr. Makayla Dugan Multiple Gestation No Normal [facility] Comment on above: Performed By: #### A FPMAT #### [facility] [address] [place] [address] Dr. Makayla Dugan OSBR Risk 1 [place] [id number] Normal [facility] Comment on above: Performed By: #### A FPMAT #### [facility] [address] [place] [address] Dr. Makayla Dugan PDF . Normal [facility] Comment on above: Performed By: #### A FPMAT #### [facility] [address] [place] [address] Dr. Makayla Dugan Race Black Normal [facility] Comment on above: Performed By: #### A FPMAT #### [facility] [address] [place] [address] Dr. Makayla Dugan Test Results: Negative Normal [facility] Comment on above: Performed By: #### A FPMAT #### [facility] [address] [place] [address] Dr. Makayla Dugan CHLAMYDIA/GONOCOCCUS DOMINIC (SW AB/URINE/PAPon 12-31-2022 Chlamydia trachomatis, DOMINIC Negative Normal Negative [facility] Comment on above: Performed By: #### A FPMAT #### [facility] [address] [place] [address] Dr. Makayla Dugan Neisseria gonorrhoeae, DOMINIC Negative Normal Negative [facility] Comment on above: Performed By: #### A FPMAT #### [facility] [address] [place] [address] Dr. Makayla Dugan VAGINITIS/VAGINOSIS DNA PROB Jack 12-30-2022 Tatiana species Negative Normal Negative [facility] Comment on above: Performed By: #### A FPMAT #### [facility] [address] [place] [address] Dr. Makayla Dugan Gardnerella vaginalis Negative Normal Negative [facility] Comment on above: Performed By: #### A FPMAT #### [facility] [address] [place] [address] Dr. Makayla Dugan Trichomonas vaginalis Negative Normal Negative [facility] Comment on above: Performed By: #### A FPMAT #### [facility] [address] [place] [address] Dr. Makayla Dugan HEP B SURFACE ANTIGEN SCREEN on 11-04-2022 HBsAg Screen Negative Normal Negative [facility] Comment on above: Performed By: #### H BSANS #### [facility] [address] [place] [address] Dr. Makayla Dugan HEPATITIS C VIRUS AB W/ REFL EX QUANTon 11-04-2022 HCV AB <0.1 Normal 0.0-0.9 [facility] Comment on above: Performed By: #### H CVPCRR #### [facility] [address] [place] [address] Dr. Makayla Dugan Interpretation: Comment Normal [facility] Comment on above: Result Comment: Nega tive Not infected with HCV, unless recent infection is suspected or other evidence exists to indicate HCV infection. Performed By: #### H CVPCRR #### [facility] [address] [place] [address] Dr. Makayla Dugan HIV 1 AND 2 WITH REFLEXon HIV Screen 4th Generation wRfx Non-Reactive Normal Non Reactive [facility] Comment on above: Result Comment: HIV Negative HIV-1/HIV-2 antibodies and HIV-1 p24 antigen were NOT detected. There is no laboratory evidence of HIV infection. Performed By: #### A FPMAT #### [facility] [address] [place] [address] Dr. Makayla Dugan RPR QUANTon 11-04-2022 Rapid Plasma Reagin, Quant Non-Reactive Normal NonRea<1:1 [facility] Comment on above: Result Comment: Plea se Note: This test does not meet current guidelines for screening and diagnosis of syphilis. This test is intended for following treatment response in patients being treated for syphilis infection. To screen for syphilis infection, a reflex cascade that includes both RPR and a treponema-specific assay should be utilized, such as Treponema pallidum (Syphilis) Screening [place] (375868) or Rapid Plasma Reagin (RPR) Test With Reflex to Quantitative RPR and Confirmatory Treponema pallidum Antibodies (562748). Performed By: #### R PRQ #### [facility] [address] [place] [address] Dr. Makayla Dugan RUBELLA AB IGGon 11-04-2022 Rubella Antibodies, IgG 1.35 index Normal Immune >0.99 [facility] Comment on above: Result Comment: Non- immune <0.90 Equivocal 0.90 - 0.99 Immune >0.99 Performed By: #### R UBIGG #### [facility] [address] [place] [address] Dr. Makayla Dugan CBC AUTO DIFFon 11-03-2022 BASO # 0.0 103/ul Normal 0.0-0.1 [facility] Comment on above: Performed By: #### C BC #### [facility] [address] [place] [address] Dr. Makayla Dugan Basophils/100 WBC (Bld) 0.3 % Normal 0.2-2.0 [facility] Comment on above: Performed By: #### C BC #### [facility] [address] [place] [address] Dr. Makayla Dugan EO # 0.1 103/ul Normal 0.0-0.7 [facility] Comment on above: Performed By: #### C BC #### [facility] [address] [place] [address] Dr. Makayla Dugan Eosinophils/100 WBC (Bld) 0.9 % Normal 0.9-7.0 [facility] Comment on above: Performed By: #### C BC #### [facility] [address] [place] [address] Dr. Makayla Dugan Erythrocyte distribution width (RBC) [Ratio] 13.1 % Normal 11.0-15.0 [facility] Comment on above: Performed By: #### C BC #### [facility] [address] [place] [address] Dr. Makayla Dugan Hematocrit (Bld) [Volume fraction] 38.8 % Normal 36.0-48.0 [facility] Comment on above: Performed By: #### C BC #### [facility] [address] [place] [address] Dr. Makayla Dugan Hemoglobin (Bld) [Mass/Vol] 12.7 g/dL Normal 12.0-16.0 [facility] Comment on above: Performed By: #### C BC #### [facility] [address] [address] [address] Makayla Dugan IG # 0.04 10e3/ul Critically high 0.00-0.03 [facility] Comment on above: Performed By: #### C BC #### [facility] [address] [address] [address] Makayla Dugan IG % 0.6 % Critically high 0.0-0.5 [facility] Comment on above: Performed By: #### C BC #### [facility] [address] [address] [address] Makayla Dugan LYMPH # 1.9 103/ul Normal 1.2-3.8 [facility] Comment on above: Performed By: #### C BC #### [facility] [address] [place] [address] Dr. Makayla Dugan Lymphocytes/100 WBC (Bld) 29.8 % Normal 20.5-60.0 [facility] Comment on above: Performed By: #### C BC #### [facility] [address] [place] [address] Dr. Makayla Dugan MANUAL DIFF REQ NO Normal [facility] Comment on above: Performed By: #### C BC #### [facility] [address] [place] [address] Dr. Makayla Dugan MCH (RBC) [Entitic mass] 29.5 pg Normal 26.7-34.0 [facility] Comment on above: Performed By: #### C BC #### [facility] [address] [place] [address] Dr. Makayla Dugan MCHC (RBC) [Mass/Vol] 32.7 g/dL Normal 29.9-35.2 [facility] Comment on above: Performed By: #### C BC #### [facility] [address] [place] [address] Dr. Makayla Dugan MCV (RBC) [Entitic vol] 90.2 fL Normal 81.0-99.0 [facility] Comment on above: Performed By: #### C BC #### [facility] [address] [place] [address] Dr. Makayla Dugan MONO # 0.4 103/ul Normal 0.3-0.8 [facility] Comment on above: Performed By: #### C BC #### [facility] [address] [place] [address] Dr. Makayla Dugan Monocytes/100 WBC (Bld) 6.3 % Normal 1.7-12.0 [facility] Comment on above: Performed By: #### C BC #### [facility] [address] [place] [address] Dr. Makayla Dugan NEUT # 3.9 103/ul Normal 1.4-6.5 [facility] Comment on above: Performed By: #### C BC #### [facility] [address] [place] [address] Dr. Makayla Dugan Neutrophils/100 WBC (Bld) 62.1 % Normal 43.0-75.0 [facility] Comment on above: Performed By: #### C BC #### [facility] [address] [place] [address] Dr. Makayla Dugan Platelet mean volume (Bld) [Entitic vol] 10.4 fL Normal 9.5-13.5 [facility] Comment on above: Performed By: #### C BC #### [facility] [address] [place] [address] Dr. Makayla Dugan PLT 276 103/ul Normal 150-450 [facility] Comment on above: Performed By: #### C BC #### [facility] [address] [place] [address] Dr. Makayla Dugan RBC 4.30 106/ul Normal 4.20-5.40 [facility] Comment on above: Performed By: #### C BC #### [facility] [address] [place] [address] Dr. Makayla Dugan WBC 6.3 103/ul Normal 4.0-11.0 [facility] Comment on above: Performed By: #### C BC #### [facility] [address] [place] [address] Dr. Makayla Dugan CULTURE URINEon 11-03-2022 CULTURE URINE Culture Observations : MODERATE GROWTH OF MIXED GENITAL MAYKEL. NO POTENTIAL PATHOGENS SEEN. Normal [facility] Comment on above: Performed By: #### A FPMAT #### [facility] [address] [place] [address] Dr. Makayla Dugan GLYCOHEMOGLOBIN A1Con 2021 ADA RECOMMENDATION SEE BELOW Normal [facility] Comment on above: Result Comment: ADA RECOMMENDED LIMIT 4.0 - 6.0 ADA THERAPEUTIC TARGET < 7.0 ACTION SUGGESTED > 7.0 Performed By: #### A FPMAT #### [facility] [address] [place] [address] Dr. Makayla Dugan Glucose [Mass/Vol] 97 mg/dL Normal [facility] Comment on above: Performed By: #### A FPMAT #### [facility] [address] [place] [address] Dr. Makayla Dugan HbA1c (Bld) [Mass fraction] 5.0 % Normal 4.5-6.2 [facility] Comment on above: Performed By: #### A FPMAT #### [facility] [address] [place] [address] Dr. Makayla Dugan LEIA BOX TEST PT SEND OUTo n 11-03-2022 SENT TO REF LAB 11/03/2022 Normal [facility] Comment on above: Performed By: #### G LU1HR #### [facility] [address] [place] [address] Dr. Makayla Dugan TYPE AND SCREENon 11-03-2022 TYPE AND SCREEN Negative Normal [facility] Comment on above: Performed By: #### A FPMAT #### [facility] [address] [place] [address] Dr. Makayla Dugan US PREG TVon 10-20-2022 [...] by: BENIGNO DIAZ Date: 2022-10-20 16:29 Normal [facility] Vital Signs Date Time Vital Sign Value Performing Clinician Facility 01-06-2024 10:04-0500 Body mass index (BMI) [Ratio] 35.51 kg/m2 Paul Deidre DO Work Phone: [facility] 01-06-2024 10:04-0500 Body weight 107.5 kg Paul Deidre DO Work Phone: [facility] 01-06-2024 10:04-0500 Diastolic blood pressure 72 mm[Hg] Paul Deidre DO Work Phone: [facility] 01-06-2024 10:04-0500 Systolic blood pressure 120 mm[Hg] Paul Deidre DO Work Phone: [facility] 12-31-2022 04:06-0500 Body weight 112.[address] PAUL JIANG . [facility] Comment on above: Performed By: #### AFPMAT #### [facility] [address] [place] [address] Dr. Makayla Dugan Encounters Encounter Date Encounter [...] Start: 11-28-2023 End: 11-28-2023 ambulatory NICHOLAS MONTENEGRO [facility] Start: 04-20-2023 End: 04-21-[address] PAUL [...] encounter procedure 01/20/2024 2:30 PM EST Routine [facility] [address] [place] [address] [place] [address] [place] [address] [facility] Start: 01-06-2024 End: 01-06-2025 CBC panel - Blood by Automated count CBC Lab Routine Diabetes mellitus screening Expected: 01/06/2024 (Approximate), Expires: 01/06/2025 [facility] Work Phone: Comment on above: Expected: 01/06/2024 (Approximate), Expires: 01/06/2025 Start: 01-06-2024 End: 01-06-2025 Measurement of glucose 1 hour after glucose challenge for glucose tolerance test Glucose tolerance, 1 hour Lab Routine Diabetes mellitus screening Expected: 01/06/2024 (Approximate), Expires: 01/06/2025 [facility] Comment on above: Expected: 01/06/2024 (Approximate), Expires: 01/06/2025 Start: 07-23-2023 Influenza vaccination Influenz a Vaccine (#1) [facility] Immunizations Immunization Date Immunization Notes Care Provider Fa [facility] 08-15-2018 Meningococcal, MCV4, unspecified conjugate formulation(groups A, C, Y and W-135) [employer] Work Phone: [facility] 08-15-2018 tuberculin skin test ; purified protein derivative solution, [facility]rad[facility] 08-14-2013 tetanus toxoid, redu niurka diphtheria toxoid, and acellular pertussis vaccine, adsorbed [employer] Work Phone: [facility] 05-19-2005 Diphtheria, tetanus toxoids and acellular pertussis vaccine, and poliovirus vaccine, inactivated Paul [employer] DO Work Phone: [facility] 05-19-2005 DTaP-hepatitis B and poliovirus vaccine Paul [employer] Work Phone: [facility] 05-19-2005 measles, mumps and rubella virus vaccine Paul Deidre DO Work Phone: [facility] 05-19-2005 pneumococcal conjuga te vaccine, 7 valent Paul Deidre DO Work Phone: [facility] 06-28-2002 diphtheria, tetanus toxoids and acellular pertussis vaccine, unspecified formulation Paul Deidre DO Work Phone: [facility] 06-28-2002 tetanus toxoid, redu niurka diphtheria toxoid, and acellular pertussis vaccine, adsorbed Paul Deidre DO Work Phone: [facility] 06-28-2002 varicella virus vaccine [employer] Deidre DO Work Phone: [facility] 02-10-2002 haemophilus influenz ae type b vaccine, conjugate unspecified formulation Paul Deidre DO Work Phone: [facility] 02-10-2002 measles, mumps and rubella virus vaccine Paul Deidre DO Work Phone: [facility] 02-03-2002 measles, mumps and rubella virus vaccine Paul Deidre DO Work Phone: [facility] 2001 hepatitis B vaccine, pediatric or pediatric/adolescent dosage Paul Edidre DO Work Phone: [facility] 2001 pneumococcal conjuga te vaccine, 7 valent Paul Deidre DO Work Phone: [facility] 2001 diphtheria, tetanus toxoids and acellular pertussis vaccine, Haemophilus influenzae type b conjugate, and poliovirus vaccine, inactivated ([id number]) Paul Deidre DO Work Phone: [facility] 2001 diphtheria, tetanus toxoids and acellular pertussis vaccine, unspecified formulation Paul Deidre DO Work Phone: [facility] 2001 haemophilus influenz ae type b vaccine, conjugate unspecified formulation Paul Deidre DO Work Phone: [facility] 2001 pneumococcal conjuga te vaccine, 7 valent Paul Deidre DO Work Phone: [facility] 2001 poliovirus vaccine, unspecified formulation Paul Deidre DO Work Phone: [facility] 2001 diphtheria, tetanus toxoids and acellular pertussis vaccine, Haemophilus influenzae type b conjugate, and poliovirus vaccine, inactivated ([id number]) Paul Deidre DO Work Phone: [facility] 2001 diphtheria, tetanus toxoids and acellular pertussis vaccine, unspecified formulation Paul Deidre DO Work Phone: [facility] 2001 haemophilus influenz ae type b vaccine, conjugate unspecified formulation Paul Deidre DO Work Phone: [facility] 2001 poliovirus vaccine, unspecified formulation Paul Deidre DO Work Phone: [facility] 2001 Diphtheria, tetanus toxoids and acellular pertussis vaccine, and poliovirus vaccine, inactivated Paul Deidre DO Work Phone: [facility] 2001 diphtheria, tetanus toxoids and acellular pertussis vaccine, unspecified formulation Paul Deidre DO Work Phone: [facility] 2001 hepatitis B vaccine, pediatric or pediatric/adolescent dosage Paul Deidre DO Work Phone: [facility] 2001 poliovirus vaccine, inactivated Paul Deidre DO Work Phone: [facility] 2001 diphtheria, tetanus toxoids and acellular pertussis vaccine, Haemophilus influenzae type b conjugate, and poliovirus vaccine, inactivated ([id number]) Paul Deidre DO Work Phone: [facility] 2001 diphtheria, tetanus toxoids and acellular pertussis vaccine, unspecified formulation Paul Deidre DO Work Phone: [facility] 2001 haemophilus influenz ae type b vaccine, conjugate unspecified formulation Paul Deidre DO Work Phone: [facility] 2001 hepatitis B vaccine, pediatric or pediatric/adolescent dosage Paul Deidre DO Work Phone: [facility] 2001 poliovirus vaccine, unspecified formulation Paul Deidre DO Work Phone: [facility] 2001 hepatitis B vaccine, pediatric or pediatric/adolescent dosage Paul Deidre DO Work Phone: [facility] Payers Date Payer Category Payer Medicaid [employer] [place] [employer] [id number] 2023-Present [address] [place] [address] [id number] 2001 Unknown [id number] 2001 Unknown [id number] 2.16.840.1.710212.3.579.2.593 2001 Unknown [id number] 2.16.840.1.821529.3.579.2.593 2001 Unknown [id number] 2.16.840.1.121132.3.579.2.593 2001 Unknown [id number] 2.16.840.1.023795.3.579.2.593 2001 Unknown [id number] 2.16.840.1.305419.3.579.2.593 2001 Unknown [id number] 2.16.840.1.739494.3.579.2.593 2001 Unknown [id number] 2.16.840.1.076351.3.579.2.593 2001 Unknown [id number] 2.16.840.1.559775.3.579.2.593 2001 Unknown [id number] 2.16.840.1.628983.3.579.2.1286 2001 Unknown [id number] 2.16.840.1.690851.3.579.2.1286 2001 Unknown [id number] 2.16.840.1.813606.3.579.2.1259 2001 Unknown [id number] 2.16.840.1.658164.3.579.2.9 2001 Unknown [id number] 2.16.840.1.501807.3.579.2.9 2001 Unknown [id number] 2.16.840.1.113259.3.579.2.9 2001 Unknown [id number] 2.16.840.1.659787.3.579.2.9 2001 Unknown [id number] 2.16.840.1.907789.3.579.2.9 2001 Unknown [id number] 2.16.840.1.357061.3.579.2.9 2001 Unknown [id number] 2.16.840.1.669919.3.579.2.9 2001 Unknown [id number] 2.16.840.1.901548.3.579.2.1259 1959 Unknown [id number] Unknown [id number] 2.16.840.1.028514.3.579.2.593 Social History Date Type Detail Facility Start: 08-17-2023 Tobacco smoking stat [facility] Never smoked tobacco [facility] Start: [...] anomaly not found 01/28/2023 Exacerbation of asthma ([facility]) 04/20/2023 Mild persistent asthma with acute exacerbation ([facility]) 04/20/2023 Internal derangement of right shoulder 04/20/2023 Missed period 04/20/2023 Moderate persistent allergic asthma (CMS/HCC) 04/20/2023 Painful menstrual periods 04/20/2023 Pyelonephritis 02/09/2019 Resolved Ambulatory Problems Diagnosis Date Noted No Resolved Ambulatory Problems Past Medical History: Diagnosis Date Allergic rhinitis Asthma ([facility]) Bronchitis Neck pain Pneumonia [...] and content) DATE CREATED AUTHOR 04/30/2023 [facility] DATE CREATED AUTHOR AUTHOR'S ORGANIZ ATION 2024 [facility] DATE CREATED AUTHOR AUTHOR'S ORGANIZ ATION 03/23/2024 [facility] EPIC Reason for Visit (unrecogniz ed section and content) Reason Comments Routine Visit Care Teams (unrecognized sec tion and content) Waste[employer] 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 [facility] [employer] provides no warranty or guarantee of the accuracy or completeness of information in this document.
[2024-03-30 18:46] VITALS: BP 120/63; PULSE 63
== END 2024-03-30 20:05 | disposition home or self-care (01) ==
LOC: FBCO 07:40 → FBC 18:38
PROVIDERS: PCP Family Medicine; Visit Provider Obstetrics & Gynecology
DX: O36.5930 Maternal care for other known or suspected poor fetal growth, third trimester, not applicable or unspecified (principal)
CPT/HCPCS: 59025

== ENCOUNTER 2024-04-10 07:04 | Inpatient (IN) | payer OTHER, SELFPAY ==
[2024-04-10] VITALS (37 sets, daily range): BP systolic 111–140; BP diastolic 55–90; PULSE 48–148; TEMP 36.2–37.2
--- OUTSIDE RECORDS SUMMARY | 2024-04-10 07:07 | XMS_ITS | CCD ---
Author Organization [facility] Care Team Providers [employer] Sales Consultant Name Role Phone DEIDRE ., DR MILLER [...] Unavailable DEIDRE ., DR MILLER Consulting Unavailable [facility] [place] Primary Care Unavailable DEIDRE ., DR MILLER Attending Unavailable DEIDRE ., DR MILLER Admitting Unavailable Monica INSURANCE SALESMAN, Oanh A Unavailable Tawana Brownlee MD Primary Care Provider KISHA VARGAS Referring Unavailable KISHA VARGAS Primary Care Unavailable NICHOLAS MONTENEGRO Admitting Unavailable ROSSY MONTENEGROHLLUIS [place] Attending Unavailable KISHA VARGAS Primary Care Unavailable MONICA, OANH Sutherland Attending Unavailab le DEIDRE, APUL Attending Unavailable SONALI, HEAVEN Attending Unavailable DEIDRE, PAUL Attending Unavailable SONALI, HAEVEN Attending Unavailable DEIDRE, PAUL Attending Unavailable SONALI, HEAVEN Attending Unavailable DEIDRE, PAUL Attending Unavailable Allergies Allergy Classification Reported Allergen(s) Allergy Type Date of Onset Reaction(s) Facility (1 source) Amoxicillin Drug Allergy 3 [facility] (1 source) Azithromycin Drug Allergy 3 [facility] (1 source) Penicillin Drug Allergy 3 [facility] (3 sources) Azithromycin; Translations: [AZITHROMYCIN] Drug Allergy 9 [facility] (3 sources) Cephalexin; Translations: [CEPHALEXIN] Drug Allergy 2 [facility] (2 sources) Penicillin G Drug Allergy 3 [facility] (3 sources) Iodinated Contrast Media; Translations: [IODINATED CONTRAST MEDIA] Drug Allergy 9 [facility] (1 source) Penicillins; Translations: [PENICILLINS] Propensity to adverse reactions to drug (disorder) 7 [facility] Medications Current Medications Medication Drug Class(es) Dates Sig (Normalized) Sig (Original) [id number] 200 actuat albuterol 0.09 mg/actuat metered dose [...] SPEC] Onset: 03-26-2023 Episodic Unclassified (1 source[facility] ; [facility]ations: [facility] ] Onset: 03-26-2023 Past [...] ABSOLUTE BASOPHIL 0.0 X10E9/L Normal 0.0-0.2 [facility] Comment on above: Performed By: #### C BCA, 1504-0, 5196-1, 31260-9, 35181-0, 8014-3, 37022-3 #### [facility] ([id number]) [address], [address] [place] [address] ABSOLUTE NEUTROPHIL 6.0 X10E9/L Normal 1.5-6.6 [facility] Comment on above: Performed By: #### Layton GARDUNO, 1504-0, 5196-1, 01907-4, 09635-8, 8014-3, 13163-3 #### [facility] ([id number]) [address], [address] [place] [address] Basophils/100 WBC (Bld) 0.3 % Normal [facility] Comment on above: Performed By: #### C LAUREEN, 1504-0, 5196-1, 58452-9, 58822-5, 8014-3, 47152-2 #### [facility] ([id number]) [address], [address] [place] [address] Eosinophils (Bld) [#/Vol] 0.0 10*3/uL Normal 0.0-0.4 [facility] Comment on above: Performed By: #### C LAUREEN, 1504-0, 5196-1, 19363-1, 56728-5, 8014-3, 20026-4 #### [facility] ([id number]) [address], [address] [place] [address] Eosinophils/100 WBC (Bld) 0.5 % Normal [facility] Comment on above: Performed By: #### C BCA, 1504-0, 5196-1, 53388-5, 40728-5, 8014-3, 29801-1 #### [facility] ([id number]) [address], [address] [place] [address] Erythrocyte distribution width (RBC) [Ratio] 13.9 % Normal 11.5-15.0 [facility] Comment on above: Performed By: #### Layton BCA, 1504-0, 5196-1, 84316-9, 52556-0, 8014-3, 25042-5 #### [facility] ([id number]) [address], [facility] [address] [place] [address] Hematocrit (Bld) [Volume fraction] 30.7 % Low 35-47 [facility] Comment on above: Performed By: #### Layton BCA, 1504-0, 5196-1, 20875-1, 55058-9, 8014-3, 05188-4 #### [facility] ([id number]) [address], [facility] [address] [place] [address] Hemoglobin (Bld) [Mass/Vol] 10.4 g/dL Low 11.7-15.5 [facility] Comment on above: Performed By: #### Layton BCA, 1504-0, 5196-1, 67091-6, 57993-0, 8014-3, 19524-2 #### [facility] ([id number]) [address] [address] [place] [address] Lymphocytes (Bld) [#/Vol] 1.9 10*3/uL Normal 1.0-3.5 [facility] Comment on above: Performed By: #### C BCA, 1504-0, 5196-1, 83629-1, 05626-6, 8014-3, 39279-7 #### [facility] ([id number]) [address], [facility] [address] [place] [address] Lymphocytes/100 WBC (Bld) 22.7 % Normal [facility] Comment on above: Performed By: #### C BCA, 1504-0, 5196-1, 97072-5, 41021-6, 8014-3, 42218-9 #### [facility] ([id number]) [address] [address] [place] [address] MCH (RBC) [Entitic mass] 30.3 pg Normal 27-34 [facility] Comment on above: Performed By: #### Layton GARDUNO, 1504-0, 5196-1, 41839-1, 65866-5, 8014-3, 65464-4 #### [facility] ([id number]) [address], [address] [place] [address] MCHC (RBC) [Mass/Vol] 33.8 g/dL Normal 32-36 [facility] Comment on above: Performed By: #### Layton BCA, 1504-0, 5196-1, 62829-8, 65369-8, 8014-3, 08980-9 #### [facility] ([id number]) [address], [facility] [address] [place] [address] MCV (RBC) [Entitic vol] 90 fL Normal 80-100 [facility] Comment on above: Performed By: #### Layton GARDUNO, 1504-0, 5196-1, 49291-6, 86700-6, 8014-3, 47893-1 #### [facility] ([id number]) [address], [address] [place] [address] Monocytes (Bld) [#/Vol] 0.3 10*3/uL Normal 0-0.9 [facility] Comment on above: Performed By: #### Layton BCA, 1504-0, 5196-1, 69628-7, 22902-4, 8014-3, 57090-7 #### [facility] ([id number]) [address], [address] [place] [address] Monocytes/100 WBC (Bld) 4.1 % Normal [facility] Comment on above: Performed By: #### Layton BCA, 1504-0, 5196-1, 50534-7, 47768-5, 8014-3, 59371-9 #### [facility] ([id number]) [address] [place] [address] Neutrophils/100 WBC (Bld) 72.4 % Normal [facility] Comment on above: Performed By: #### Layton GARDUNO, 1504-0, 5196-1, 60160-4, 79170-2, 8014-3, 09616-3 #### [facility] ([id number]) [address], [address] [place] [address] Platelet mean volume (Bld) [Entitic vol] 8.7 fL Normal 7-12 [facility] Comment on above: Performed By: #### Layton GARDUNO, 1504-0, 5196-1, 74792-0, 66494-6, 8014-3, 03008-7 #### [facility] ([id number]) [address], [facility] [address] [place] [address] Platelets (Bld) [#/Vol] 334 10*3/uL Normal 150-450 [facility] Comment on above: Performed By: #### Layton GARDUNO, 1504-0, 5196-1, 85840-1, 09373-0, 8014-3, 86946-9 #### [facility] ([id number]) [address], [address] [place] [address] RBC COUNT 3.43 X10E12/L Low 3.80-5.20 [facility] Comment on above: Performed By: #### Layton GARDUNO, 1504-0, 5196-1, 21686-9, 18967-9, 8014-3, 62369-3 #### [facility] ([id number]) [address] [place] [address] WBC (Bld) [#/Vol] 8.2 10*3/uL Normal 4.0-11.0 [facility] Comment on above: Performed By: #### Layton GARDUNO, 1504-0, 5196-1, 41972-1, 53088-4, 8014-3, 48937-5 #### [facility] ([id number]) [address] [place] [address] Glucose 1 Hr post 50 g gluco se PO [Mass/Vol]on 02-01-2024 GLU 1H POST 50G LOAD 112 mg/dL Normal 65-139 [facility] Comment on above: Performed By: #### C BCA, 1504-0, 5196-1, 64035-1, 12238-7, 8014-3, 77688-7 #### [facility] ([id number]) [address] [place] [address] HBV surface Ag IA Qlon 01-31 HEPATITIS B SURF AG Negative Normal NEG [facility] Comment on above: Performed By: #### C LAUREEN, 1504-0, 5196-1, 73273-5, 73834-0, 8014-3, 06125-9 #### [facility] ([id number]) [address] [place] [address] HCV Ab IA Qlon 02-01-2024 ANTI HCV W/PCR REFLX Non-Reactive Normal NRCT [facility] Comment on above: Result Comment: If recent infection suspected, recommend repeat testing (>2 months). Rgktay-lr-ssaavb ratio is <0.80. Performed By: #### C BCA, 1504-0, 5196-1, 45320-9, 90040-7, 8014-3, 11534-3 #### [facility] ([id number]) [address] [place] [address] HGB A1C (GLYCO-HGB)on 2023 Glucose [Mass/Vol] 94 mg/dL Normal [facility] Comment on above: Performed By: #### C BCA, 1504-0, 5196-1, 61559-9, 07901-2, 8014-3, 67903-8 #### [facility] ([id number]) [address] [place] [address] HbA1c (Bld) [Mass fraction] 4.9 % Normal 4.4-5.6 [facility] Comment on above: Result Comment: NOTE ADA Guidelines Result HgbA1c Normal : less than 5.7 % Prediabetes : 5.7 % to 6.4 % Diabetes : > 6.4 % Use with caution in patients with abnormal hemoglobin variants as the half-life of red blood cells and in vivo glycation rates are affected. Performed By: #### C BCA, 1504-0, 5196-1, 85867-3, 61157-5, 8014-3, 55574-5 #### [facility] ([id number]) [address] [place] [address], [address] [place] [address] HIV 1+2 Ab+HIV1 p24 Ag IA Ql on 02-01-2024 HIV 1 and 2 Ab/Ag Screen Non-Reactive Normal NRCT [facility] Comment on above: Result Comment: This [...] Performed By: #### Layton BCA, 1504-0, 5196-1, 20164-2, 08453-4, 8014-3, 94277-3 #### [facility] ([id number]) [address] [place] [address], [address] [place] [address] Rubella virus IgG Qn (S)on 0 02-01-2024 RUBELLA IgG 11 IU/mL Normal [facility] Comment on above: Result Comment: Interpretation-------- <8 NEGATIVE-considered Not Immune 8-9 EQUIVOCAL-consider retesting with new specimen >9 POSITIVE-considered Immune Performed By: #### C BCA, 1504-0, 5196-1, 85405-7, 91366-0, 8014-3, 89519-7 #### [facility] ([id number]) [address] [place] [address] T. pallidum IgG+IgM IA Ql (S )on 02-01-2024 Syphilis Total <0.2 Normal 0.0-0.8 [facility] Comment on above: Result Comment: NON REACTIVE No serologic evidence of infection to Treponema pallidum (syphilis). Repeat testing may be considered in patients with suspected acute or primary syphilis in 2 to 4 weeks. Performed By: #### C LAUREEN, 1504-0, 5196-1, 35967-8, 46479-5, 8014-3, 17092-7 #### [facility] ([id number]) [address] [place] [address] URINE CULTUREon 02-01-2024 Bacteria identified Cx Nom (U) CULTURE RESULTS 10-50,000 ORGANISMS/mL NORMAL UROGENITAL MAYKEL Normal [facility] Comment on above: Performed By: #### 6 30-4 #### [facility] ([id number]) [address] [place] [address] Urinalysis macro (dipstick) panel (U)on 01-06-2024 Bilirubin, UA Negative Negative - 4(70) +++ mg/dL [facility] Blood, UA Negative Negative - 50 Parker/mcL [facility] Clarity, UA Clear [facility] Color, UA Yellow [facility] Glucose, UA Negative Negative - 2000(110) ++++ mg/dL [facility] Interpretation and review of laboratory results Normal [facility] Ketones, UA Negative Negative - 160(16) ++++ mg/dL [facility] Leukocytes, UA Negative Negative - 500+++ Aicha/mcL [facility] Nitrite, UA Negative Negative - Positive [facility] pH, UA 7.5 5 - 9 [facility] Protein, UA Negative Negative - 1999(20) ++++ mg/dL [facility] Spec Grav, UA 1.025 1 - 1.03 [facility] Urobilinogen, UA 0.2 0.2 - 12 mg/dL [facility] US PREG GROWTHon 04-20-2023 US PREG GROWTH [...] SIMON GAMEZ Date: 2023-04-20 15:39 Normal [facility] GTT 3 HR PREGon 03-17-2023 Glucose [Mass/Vol] 81 mg/dL Normal 74-106 [facility] Comment on above: Performed By: #### G TT3P #### [facility] [address] [place] [address] Dr. Makayla Dugan Glucose [Mass/Vol] 159 mg/dL Normal [facility] Comment on above: Performed By: #### G TT3P #### [facility] [address] [address] [address] Makayla Dugan Glucose [Mass/Vol] 127 mg/dL Normal [facility] Comment on above: Performed By: #### G TT3P #### [facility] [address] [address] [address] Makayla Dugan Glucose [Mass/Vol] 100 mg/dL Normal [facility] Comment on above: Performed By: #### G TT3P #### [facility] [address] [place] [address] Dr. Makayla Dugan CBC AUTO DIFFon 02-09-2023 BASO # 0.0 103/ul Normal 0.0-0.1 [facility] Comment on above: Performed By: #### C BC #### [facility] [address] [place] [address] Dr. Makayla Dugan Basophils/100 WBC (Bld) 0.2 % Normal 0.2-2.0 [facility] Comment on above: Performed By: #### C BC #### [facility] [address] [place] [address] Dr. Makayla Dugan EO # 0.1 103/ul Normal 0.0-0.7 [facility] Comment on above: Performed By: #### C BC #### [facility] [address] [place] [address] Dr. Makayla Dugan Eosinophils/100 WBC (Bld) 0.5 % Critically low 0.9-7.0 [facility] Comment on above: Performed By: #### C BC #### [facility] [address] [place] [address] Dr. Makayla Dugan Erythrocyte distribution width (RBC) [Ratio] 13.2 % Normal 11.0-15.0 [facility] Comment on above: Performed By: #### C BC #### [facility] [address] [place] [address] Dr. Makayla Dugan Hematocrit (Bld) [Volume fraction] 32.7 % Critically low 36.0-48.0 [facility] Comment on above: Performed By: #### C BC #### [facility] [address] [place] [address] Dr. Makayla Dugan Hemoglobin (Bld) [Mass/Vol] 10.5 g/dL Critically low 12.0-16.0 [facility] Comment on above: Performed By: #### C BC #### [facility] [address] [place] [address] Dr. Makayla Dugan IG # 0.09 10e3/ul Critically high 0.00-0.03 [facility] Comment on above: Performed By: #### C BC #### [facility] [address] [place] [address] Dr. Makayla Dugan IG % 0.9 % Critically high 0.0-0.5 [facility] Comment on above: Performed By: #### C BC #### [facility] [address] [place] [address] Dr. Makayla Dugan LYMPH # 1.7 103/ul Normal 1.2-3.8 [facility] Comment on above: Performed By: #### C BC #### [facility] [address] [place] [address] Dr. Makayla Dugan Lymphocytes/100 WBC (Bld) 16.6 % Critically low 20.5-60.0 [facility] Comment on above: Performed By: #### C BC #### [facility] [address] [place] [address] Dr. Makayla Dugan MANUAL DIFF REQ NO Normal [facility] Comment on above: Performed By: #### C BC #### [facility] [address] [place] [address] Dr. Makayla Dugan MCH (RBC) [Entitic mass] 29.7 pg Normal 26.7-34.0 [facility] Comment on above: Performed By: #### C BC #### [facility] [address] [place] [address] Dr. Makayla Dugan MCHC (RBC) [Mass/Vol] 32.1 g/dL Normal 29.9-35.2 [facility] Comment on above: Performed By: #### C BC #### [facility] [address] [place] [address] Dr. Makayla Dugan MCV (RBC) [Entitic vol] 92.6 fL Normal 81.0-99.0 [facility] Comment on above: Performed By: #### C BC #### [facility] [address] [place] [address] Dr. Makayla Dugan MONO # 0.5 103/ul Normal 0.3-0.8 [facility] Comment on above: Performed By: #### C BC #### [facility] [address] [place] [address] Dr. Makayla Dugan Monocytes/100 WBC (Bld) 4.8 % Normal 1.7-12.0 [facility] Comment on above: Performed By: #### C BC #### [facility] [address] [place] [address] Dr. Makayla Dugan NEUT # 7.8 103/ul Critically high 1.4-6.5 [facility] Comment on above: Performed By: #### C BC #### [facility] [address] [place] [address] Dr. Makayla Dugan Neutrophils/100 WBC (Bld) 77.0 % Critically high 43.0-75.0 [facility] Comment on above: Performed By: #### C BC #### [facility] [address] [place] [address] Dr. Makayla Dugan Platelet mean volume (Bld) [Entitic vol] 10.7 fL Normal 9.5-13.5 [facility] Comment on above: Performed By: #### C BC #### [facility] [address] [place] [address] Dr. Makayla Dugan PLT 337 103/ul Normal 150-450 [facility] Comment on above: Performed By: #### C BC #### [facility] [address] [place] [address] Dr. Makayla Dugan RBC 3.53 106/ul Critically low 4.20-5.40 [facility] Comment on above: Performed By: #### C BC #### [facility] [address] [place] [address] Dr. Makayla Dugan WBC 10.1 103/ul Normal 4.0-11.0 [facility] Comment on above: Performed By: #### C BC #### [facility] [address] [place] [address] Dr. Makayla Dugan GLUCOSE - 1HRon 03-21-2023 Glucose [Mass/Vol] 153 mg/dL Critically high 74-106 T [facility] Comment on above: Performed By: #### G [facility] #### [facility] [address] [place] [address] Dr. Makayla Dugan US PREG INCOMPLETE ANATOMYon [...] by: BENIGNO DIAZ Date: 2023-01-15 15:27 Normal [facility] US PREG ANATOMY SINGLEon US [...] authenticated by: BENIGNO DIAZ Date: 2023-01-05 15:19 [facility] PAP ACOG PANEL 2: 21 to 29on 01-04-2023 . . Normal [facility] Comment on above: Performed By: #### 4 [id number] #### [facility] [address] [place] [address] Dr. Makayla Dugan Age Gdln ACOG Testing - [facility] Comment on above: Performed By: #### 4 [id number] #### [facility] [address] [place] [address] Dr. Makayla Dugan DIAGNOSIS: Comment [facility] Comment on above: Result Comment: NEGA TIVE FOR INTRAEPITHELIAL LESION OR MALIGNANCY. Performed By: #### 4 [id number] #### [facility] [address] [place] [address] Dr. Makayla Dugan Methodology: Comment [facility] Comment on above: Result Comment: This liquid based ThinPrep(R) pap test was screened with the use of an image guided system. Performed By: #### 4 [id number] #### [facility] [address] [place] [address] Dr. Makayla Dugan Note: Comment [facility] Comment on above: Result Comment: The Pap smear is a screening test designed to aid in the detection of premalignant and malignant conditions of the uterine cervix. It is not a diagnostic procedure and should not be used as the sole means of detecting cervical cancer. Both false-positive and false-negative reports do occur. . Performed By: #### 4 [id number] #### [facility] [address] [place] [address] Dr. Makayla Dugan Performed by: Comment [facility] Comment on above: Result Comment: Odalys Dillard, Supervisor Elementary Education (ASCP) Performed By: #### 4 [id number] #### [facility] [address] [place] [address] Dr. Makayla Dugan Reflex Criteria: Comment Normal [facility] Comment on above: Result Comment: The HPV DNA reflex criteria were not met with this specimen result therefore, no HPV testing was performed. . Performed By: #### 4 [id number] #### [facility] [address] [address] [address] Makayla Dugan Specimen adequacy: Comment Normal [facility] Comment on above: Result Comment: Sati sfactory for evaluation. No endocervical component is identified. Performed By: #### 4 [id number] #### [facility] [address] [place] [address] Dr. Makayla Dugan AFP MATERNAL FOR SPINA BIFID Aon 12-31-2022 AFP MoM 1.30 Normal [facility] Comment on above: Performed By: #### A FPMAT #### [facility] [address] [place] [address] Dr. Makayla Dugan AFP Value 52.2 ng/mL Normal [facility] Comment on above: Performed By: #### A FPMAT #### [facility] [address] [place] [address] Dr. Makayla Dugan AFP, Serum for Spina Bifida Report Normal [facility] Comment on above: Performed By: #### A FPMAT #### [facility] [address] [place] [address] Dr. Makayla Dugan Comment Comment Normal [facility] Comment on above: Result Comment: Leonardo Lechuga, Ph.D., [facility] Director . References: Available Upon Request. . Multiples Of Median Cutoffs For AFP Elevations Ruiz 2.5 Black 2.8 IDD 2.0 Twins 4.5 Abbreviation Definitions IDD - Insulin Dep Diabetes OSBR - Open Spina Bifida Risk . For further inquiries contact [employer] [employer] at [phone]. . This test was developed and its performance characteristics determined by [facility]. It has not been cleared or approved by the Food and Drug Administration. Performed By: #### A FPMAT #### [facility] [address] [address] [address] Makayla Dugan Gest Age Collection Date 18.6 weeks Normal [facility] Comment on above: Performed By: #### A FPMAT #### [facility] [address] [place] [address] Dr. Makayla Dugan Gestat, Age Based on Ultrasound Normal [facility] Comment on above: Result Comment: 18.6 on 12/29/2022 Recalculations are not recommended when gestational dating by LMP and ultrasound are within 10 days. Performed By: #### A FPMAT #### [facility] [address] [place] [address] Dr. Makayla Dugan Insulin Dep Diabetes No Normal [facility] Comment on above: Performed By: #### A FPMAT #### [facility] [address] [place] [address] Dr. Makayla Dugan Interpretation Comment Normal [facility] Comment on above: Result Comment: Inte [...] Customer Services to discuss available options. The [employer] recommends amniocentesis be offered to women age 35 and older. Performed By: #### A FPMAT #### [facility] [address] [place] [address] Dr. Makayla Dugan [age] [place] [age] Normal [facility] Comment on above: Performed By: #### A FPMAT #### [facility] [address] [place] [address] Dr. Makayla Dugan Multiple Gestation No Normal [facility] Comment on above: Performed By: #### A FPMAT #### [facility] [address] [place] [address] Dr. Makayla Dugan OSBR Risk 1 [place] [address] [facility] Comment on above: Performed By: #### A FPMAT #### [facility] [address] [place] [address] Dr. Makayla Dugan PDF . Normal [facility] Comment on above: Performed By: #### A FPMAT #### [facility] [address] [place] [address] Dr. Makayla Dugan Race Black Normal [facility] Comment on above: Performed By: #### A FPMAT #### [facility] [address] [place] [address] Dr. Makayla Dugan Test Results: Negative Normal [facility] Comment on above: Performed By: #### A FPMAT #### [facility] [address] [place] [address] Dr. Makayla Dugan CHLAMYDIA/GONOCOCCUS DOMINIC (SW AB/URINE/PAPon 12-31-2022 Chlamydia trachomatis, DOMINIC Negative Normal Negative [facility] Comment on above: Performed By: #### A FPMAT #### [facility] [address] [place] [address] Dr. Makayla Dugan Neisseria gonorrhoeae, DOMINIC Negative Normal Negative [facility] Comment on above: Performed By: #### A FPMAT #### [facility] [address] [place] [address] Dr. Makayla Dugan VAGINITIS/VAGINOSIS DNA PROB Jack 12-30-2022 Tatiana species Negative Normal Negative [facility] Comment on above: Performed By: #### A FPMAT #### [facility] [address] [place] [address] Dr. Makayla Dugan Gardnerella vaginalis Negative Normal Negative [facility] Comment on above: Performed By: #### A FPMAT #### [facility] [address] [place] [address] Dr. Makayla Dugan Trichomonas vaginalis Negative Normal Negative [facility] Comment on above: Performed By: #### A FPMAT #### [facility] [address] [place] [address] Dr. Makayla Dugan HEP B SURFACE ANTIGEN SCREEN on 11-04-2022 HBsAg Screen Negative Normal Negative [facility] Comment on above: Performed By: #### H BSANS #### [facility] [address] [place] [address] Dr. Makayla Dugan HEPATITIS C VIRUS AB W/ REFL EX QUANTon 11-04-2022 HCV AB <0.1 Normal 0.0-0.9 [facility] Comment on above: Performed By: #### H CVPCRR #### [facility] [address] [place] [address] Dr. Makayla Dugan Interpretation: Comment Normal [facility] Comment on above: Result Comment: Nega tive Not infected with HCV, unless recent infection is suspected or other evidence exists to indicate HCV infection. Performed By: #### H CVPCRR #### [facility] [address] [place] [address] Dr. Makayla Dugan HIV 1 AND 2 WITH REFLEXon HIV Screen 4th Generation wRfx Non-Reactive Normal Non Reactive [facility] Comment on above: Result Comment: HIV Negative HIV-1/HIV-2 antibodies and HIV-1 p24 antigen were NOT detected. There is no laboratory evidence of HIV infection. Performed By: #### A FPMAT #### [facility] [address] [place] [address] Dr. Makayla Dugan RPR QUANTon 11-04-2022 Rapid Plasma Reagin, Quant Non-Reactive Normal NonRea<1:1 [facility] Comment on above: Result Comment: Plea se Note: This test does not meet current guidelines for screening and diagnosis of syphilis. This test is intended for following treatment response in patients being treated for syphilis infection. To screen for syphilis infection, a reflex cascade that includes both RPR and a treponema-specific assay should be utilized, such as Treponema pallidum (Syphilis) Screening [place] (122380) or Rapid Plasma Reagin (RPR) Test With Reflex to Quantitative RPR and Confirmatory Treponema pallidum Antibodies (498145). Performed By: #### R PRQ #### [facility] [address] [place] [address] Dr. Makayla Dugan RUBELLA AB IGGon 11-04-2022 Rubella Antibodies, IgG 1.35 index Normal Immune >0.99 [facility] Comment on above: Result Comment: Non- immune <0.90 Equivocal 0.90 - 0.99 Immune >0.99 Performed By: #### R UBIGG #### [facility] [address] [place] [address] Dr. Makayla Dugan CBC AUTO DIFFon 11-03-2022 BASO # 0.0 103/ul Normal 0.0-0.1 [facility] Comment on above: Performed By: #### C BC #### [facility] [address] [place] [address] Dr. Makayla Dugan Basophils/100 WBC (Bld) 0.3 % Normal 0.2-2.0 [facility] Comment on above: Performed By: #### C BC #### [facility] [address] [place] [address] Dr. Mkaayla Dugan EO # 0.1 103/ul Normal 0.0-0.7 [facility] Comment on above: Performed By: #### C BC #### [facility] [address] [place] [address] Dr. Makayla Dugan Eosinophils/100 WBC (Bld) 0.9 % Normal 0.9-7.0 [facility] Comment on above: Performed By: #### C BC #### [facility] [address] [place] [address] Dr. Makayla Dugan Erythrocyte distribution width (RBC) [Ratio] 13.1 % Normal 11.0-15.0 [facility] Comment on above: Performed By: #### C BC #### [facility] [address] [place] [address] Dr. Makayla Dugan Hematocrit (Bld) [Volume fraction] 38.8 % Normal 36.0-48.0 [facility] Comment on above: Performed By: #### C BC #### [facility] [address] [place] [address] Dr. Makayla Dugan Hemoglobin (Bld) [Mass/Vol] 12.7 g/dL Normal 12.0-16.0 [facility] Comment on above: Performed By: #### C BC #### [facility] [address] [address] [address] Makayla Dugan IG # 0.04 10e3/ul Critically high 0.00-0.03 [facility] Comment on above: Performed By: #### C BC #### [facility] [address] [address] [address] Makayla Dugan IG % 0.6 % Critically high 0.0-0.5 [facility] Comment on above: Performed By: #### C BC #### [facility] [address] [address] [address] Makayla Dugan LYMPH # 1.9 103/ul Normal 1.2-3.8 [facility] Comment on above: Performed By: #### C BC #### [facility] [address] [place] [address] Dr. Makayla Dugan Lymphocytes/100 WBC (Bld) 29.8 % Normal 20.5-60.0 [facility] Comment on above: Performed By: #### C BC #### [facility] [address] [place] [address] Dr. Makayla Dugan MANUAL DIFF REQ NO Normal [facility] Comment on above: Performed By: #### C BC #### [facility] [address] [place] [address] Dr. Makayla Dugan MCH (RBC) [Entitic mass] 29.5 pg Normal 26.7-34.0 [facility] Comment on above: Performed By: #### C BC #### [facility] [address] [place] [address] Dr. Makayla Dugan MCHC (RBC) [Mass/Vol] 32.7 g/dL Normal 29.9-35.2 [facility] Comment on above: Performed By: #### C BC #### [facility] [address] [place] [address] Dr. Makayla Dugan MCV (RBC) [Entitic vol] 90.2 fL Normal 81.0-99.0 [facility] Comment on above: Performed By: #### C BC #### [facility] [address] [place] [address] Dr. Makayla Dugan MONO # 0.4 103/ul Normal 0.3-0.8 [facility] Comment on above: Performed By: #### C BC #### [facility] [address] [place] [address] Dr. Makayla Dugan Monocytes/100 WBC (Bld) 6.3 % Normal 1.7-12.0 [facility] Comment on above: Performed By: #### C BC #### [facility] [address] [place] [address] Dr. Makayla Dugan NEUT # 3.9 103/ul Normal 1.4-6.5 [facility] Comment on above: Performed By: #### C BC #### [facility] [address] [place] [address] Dr. Makayla Dugan Neutrophils/100 WBC (Bld) 62.1 % Normal 43.0-75.0 [facility] Comment on above: Performed By: #### C BC #### [facility] [address] [place] [address] Dr. Makayla Dugan Platelet mean volume (Bld) [Entitic vol] 10.4 fL Normal 9.5-13.5 [facility] Comment on above: Performed By: #### C BC #### [facility] [address] [place] [address] Dr. Makayla Dugan PLT 276 103/ul Normal 150-450 [facility] Comment on above: Performed By: #### C BC #### [facility] [address] [place] [address] Dr. Makayla Dugan RBC 4.30 106/ul Normal 4.20-5.40 [facility] Comment on above: Performed By: #### C BC #### [facility] [address] [place] [address] Dr. Makayla Dugan WBC 6.3 103/ul Normal 4.0-11.0 [facility] Comment on above: Performed By: #### C BC #### [facility] [address] [place] [address] Dr. Makayla Dguan CULTURE URINEon 11-03-2022 CULTURE URINE Culture Observations : MODERATE GROWTH OF MIXED GENITAL MAYKEL. NO POTENTIAL PATHOGENS SEEN. Normal [facility] Comment on above: Performed By: #### A FPMAT #### [facility] [address] [place] [address] Dr. Makayla Dugan GLYCOHEMOGLOBIN A1Con 2021 ADA RECOMMENDATION SEE BELOW Normal [facility] Comment on above: Result Comment: ADA RECOMMENDED LIMIT 4.0 - 6.0 ADA THERAPEUTIC TARGET < 7.0 ACTION SUGGESTED > 7.0 Performed By: #### A FPMAT #### [facility] [address] [place] [address] Dr. Makayla Dugan Glucose [Mass/Vol] 97 mg/dL Normal [facility] Comment on above: Performed By: #### A FPMAT #### [facility] [address] [place] [address] Dr. Makayla Dugan HbA1c (Bld) [Mass fraction] 5.0 % Normal 4.5-6.2 [facility] Comment on above: Performed By: #### A FPMAT #### [facility] [address] [place] [address] Dr. Makayla Dugan LEIA BOX TEST PT SEND OUTo n 11-03-2022 SENT TO REF LAB 11/03/2022 Normal [facility] Comment on above: Performed By: #### G LU1HR #### [facility] [address] [place] [address] Dr. Makayla Dugan TYPE AND SCREENon 11-03-2022 TYPE AND SCREEN Negative Normal [facility] Comment on above: Performed By: #### A FPMAT #### [facility] [address] [place] [address] Dr. Makayla Dugan US PREG TVon 10-20-2022 [...] by: BENIGNO DIAZ Date: 2022-10-20 16:29 Normal [facility] Vital Signs Date Time Vital Sign Value Performing Clinician Facility 01-06-2024 10:04-0500 Body mass index (BMI) [Ratio] 35.51 kg/m2 Paul Deidre DO Work Phone: [facility] 01-06-2024 10:04-0500 Body weight 107.5 kg Paul Deidre DO Work Phone: [facility] 01-06-2024 10:04-0500 Diastolic blood pressure 72 mm[Hg] Paul Deidre DO Work Phone: [facility] 01-06-2024 10:04-0500 Systolic blood pressure 120 mm[Hg] Paul Deidre DO Work Phone: [facility] 12-31-2022 04:06-0500 Body weight 112.[address] PAUL JIANG . [facility] Comment on above: Performed By: #### AFPMAT #### [facility] [address] [place] [address] Dr. Makayla Dugan Encounters Encounter Date Encounter Type Care Provider Facility Start: 03-22-2024 End: 03-22-2024 ambulatory PAUL DEIDRE Not Available Start: 03-15-2024 End: 03-15-2024 ambulatory HEAVEN LYON Not Available Start: 03-08-2024 End: 03-08-2024 ambulatory PAUL DEIDRE Not Available Start: 02-23-2024 End: 02-23-2024 ambulatory HEAVEN SONALI Not Available Start: 02-09-2024 End: 02-09-2024 ambulatory PAUL DEIDRE Not Available Start: 02-01-2024 End: 2024 ambulatory [facility] Start: 01-20-2024 End: 01-20-2024 ambulatory [...] Start: 11-28-2023 End: 11-28-2023 ambulatory NICHOLAS MONTENEGRO [facility] Start: 04-20-2023 End: 04-21-[address] [...] encounter procedure 01/20/2024 2:30 PM EST Routine [facility] [address] [place] [address] Heaven Lyon PA [address] [place] [address] [facility] Start: 01-06-2024 End: 01-06-2025 CBC panel - Blood by Automated count CBC Lab Routine Diabetes mellitus screening Expected: 01/06/2024 (Approximate), Expires: 01/06/2025 [facility] Work Phone: Comment on above: Expected: 01/06/2024 (Approximate), Expires: 01/06/2025 Start: 01-06-2024 End: 01-06-2025 Measurement of glucose 1 hour after glucose challenge for glucose tolerance test Glucose tolerance, 1 hour Lab Routine Diabetes mellitus screening Expected: 01/06/2024 (Approximate), Expires: 01/06/2025 [facility] Comment on above: Expected: 01/06/2024 (Approximate), Expires: 01/06/2025 Start: 07-23-2023 Influenza vaccination Influenz a Vaccine (#1) [facility] Immunizations Immunization Date Immunization Notes Care Provider [facility] 08-15-2018 Meningococcal, MCV4, unspecified conjugate formulation(groups A, C, Y and W-135) [employer] Work Phone: [facility] 08-15-2018 tuberculin skin test ; purified protein derivative [facility], [facility] 08-14-2013 tetanus toxoid, redu niurka diphtheria toxoid, and acellular pertussis vaccine, adsorbed [employer] Work Phone: [facility] 05-19-2005 Diphtheria, tetanus toxoids and acellular pertussis vaccine, and poliovirus vaccine, inactivated Paul [employer] DO Work Phone: [facility] 05-19-2005 DTaP-hepatitis B and poliovirus vaccine Paul [employer] Work Phone: [facility] 05-19-2005 measles, mumps and rubella virus vaccine Apul Deidre DO Work Phone: [facility] 05-19-2005 pneumococcal conjuga te vaccine, 7 valent Paul Deidre DO Work Phone: [facility] 06-28-2002 diphtheria, tetanus toxoids and acellular pertussis vaccine, unspecified formulation Paul Deidre DO Work Phone: [facility] 06-28-2002 tetanus toxoid, redu niurka diphtheria toxoid, and acellular pertussis vaccine, adsorbed Paul Deidre DO Work Phone: [facility] 06-28-2002 varicella virus vaccine Core y Deidre DO Work Phone: [facility] 02-10-2002 haemophilus influenz ae type b vaccine, conjugate unspecified formulation Paul Deidre DO Work Phone: [facility] 02-10-2002 measles, mumps and rubella virus vaccine Paul Deidre DO Work Phone: [facility] 02-03-2002 measles, mumps and rubella virus vaccine Paul Deidre DO Work Phone: [facility] 2001 hepatitis B vaccine, pediatric or pediatric/adolescent dosage Paul Deidre DO Work Phone: [facility] 2001 pneumococcal conjuga te vaccine, 7 valent Paul Deidre DO Work Phone: [facility] 2001 diphtheria, tetanus toxoids and acellular pertussis vaccine, Haemophilus influenzae type b conjugate, and poliovirus vaccine, inactivated ([id number]) Paul Deidre DO Work Phone: [facility] 2001 diphtheria, tetanus toxoids and acellular pertussis vaccine, unspecified formulation Paul Deidre DO Work Phone: [facility] 2001 haemophilus influenz ae type b vaccine, conjugate unspecified formulation Paul Deidre DO Work Phone: [facility] 2001 pneumococcal conjuga te vaccine, 7 valent Paul Deidre DO Work Phone: [facility] 2001 poliovirus vaccine, unspecified formulation Paul Deidre DO Work Phone: [facility] 2001 diphtheria, tetanus toxoids and acellular pertussis vaccine, Haemophilus influenzae type b conjugate, and poliovirus vaccine, inactivated ([id number]) Paul Deidre DO Work Phone: [facility] 2001 diphtheria, tetanus toxoids and acellular pertussis vaccine, unspecified formulation Paul Deidre DO Work Phone: [facility] 2001 haemophilus influenz ae type b vaccine, conjugate unspecified formulation Paul Deidre DO Work Phone: [facility] 2001 poliovirus vaccine, unspecified formulation Paul Deidre DO Work Phone: [facility] 2001 Diphtheria, tetanus toxoids and acellular pertussis vaccine, and poliovirus vaccine, inactivated Paul Deidre DO Work Phone: [facility] 2001 diphtheria, tetanus toxoids and acellular pertussis vaccine, unspecified formulation Paul Deidre DO Work Phone: [facility] 2001 hepatitis B vaccine, pediatric or pediatric/adolescent dosage Paul Deidre DO Work Phone: [facility] 2001 poliovirus vaccine, inactivated Paul Deidre DO Work Phone: [facility] 2001 diphtheria, tetanus toxoids and acellular pertussis vaccine, Haemophilus influenzae type b conjugate, and poliovirus vaccine, inactivated ([id number]) Paul Deidre DO Work Phone: [facility] 2001 diphtheria, tetanus toxoids and acellular pertussis vaccine, unspecified formulation Paul Deidre DO Work Phone: [facility] 2001 haemophilus influenz ae type b vaccine, conjugate unspecified formulation Paul Deidre DO Work Phone: [facility] 2001 hepatitis B vaccine, pediatric or pediatric/adolescent dosage Paul Deidre DO Work Phone: [facility] 2001 poliovirus vaccine, unspecified formulation Paul Deidre DO Work Phone: [facility] 2001 hepatitis B vaccine, pediatric or pediatric/adolescent dosage Paul Deidre DO Work Phone: [facility] Healthcare Payers Date Payer Category Payer Medicaid [employer] [place] [employer] [id number] 2023-Present [address] [place] [address] [id number] 2001 Unknown [id number] 2001 Unknown [id number] 2.16.840.1.767679.3.579.2.593 2001 Unknown [id number] 2.16.840.1.792972.3.579.2.593 2001 Unknown [id number] 2.16.840.1.059442.3.579.2.593 2001 Unknown [id number] 2.16.840.1.717245.3.579.2.593 2001 Unknown [id number] 2.16.840.1.362420.3.579.2.593 2001 Unknown [id number] 2.16.840.1.726908.3.579.2.593 2001 Unknown [id number] 2.16.840.1.177299.3.579.2.593 2001 Unknown [id number] 2.16.840.1.777372.3.579.2.593 2001 Unknown [id number] 2.16.840.1.794705.3.579.2.1286 2001 Unknown [id number] 2.16.840.1.029508.3.579.2.1286 2001 Unknown [id number] 2.16.840.1.547939.3.579.2.1259 2001 Unknown [id number] 2.16.840.1.691500.3.579.2.9 2001 Unknown [id number] 2.16.840.1.587295.3.579.2.9 2001 Unknown [id number] 2.16.840.1.081469.3.579.2.9 2001 Unknown [id number] 2.16.840.1.521959.3.579.2.9 2001 Unknown [id number] 2.16.840.1.273326.3.579.2.9 2001 Unknown [id number] 2.16.840.1.853851.3.579.2.9 2001 Unknown [id number] 2.16.840.1.986460.3.579.2.9 2001 Unknown [id number] 2.16.840.1.928727.3.579.2.1259 1959 Unknown [id number] Unknown [id number] 2.16.840.1.765871.3.579.2.593 Social History Date Type Detail Facility Start: 08-17-2023 Tobacco smoking stat [facility] Never smoked tobacco [facility] Start: [...] anomaly not found 01/28/2023 Exacerbation of asthma ([facility]) 04/20/2023 Mild persistent asthma with acute exacerbation ([facility]) 04/20/2023 Internal derangement of right shoulder 04/20/2023 Missed period 04/20/2023 Moderate persistent allergic asthma (CMS/HCC) 04/20/2023 Painful menstrual periods 04/20/2023 Pyelonephritis 02/09/2019 Resolved Ambulatory Problems Diagnosis Date Noted No Resolved Ambulatory Problems Past Medical History: Diagnosis Date Allergic rhinitis Asthma ([facility]) Bronchitis Neck pain Pneumonia 2014 Tinea [...] and content) DATE CREATED AUTHOR 04/30/2023 [facility] DATE CREATED AUTHOR AUTHOR'S ORGANIZ ATION 2024 [facility] DATE CREATED AUTHOR AUTHOR'S ORGANIZ ATION 03/23/2024 [facility] EPIC Reason for Visit (unrecogniz ed section and content) Reason Comments Routine Visit Care Teams (unrecognized sec tion and content) Solutions Sales Consultant Relationship Specialty Start Date End Date Oanh Anderson NP [address] [facility] [place] [address] PCP - [facility] 05/22/23 Tawana Brownlee MD [address] [place], [place] [id number] PCP - General Family Medicine 03/30/23 FOR [...] BE BASED ON THE PRIMARY CLINICAL RECORDS. [facility] [employer] provides no warranty or guarantee of the accuracy or completeness of information in this document.
[2024-04-10 08:24] LABS: Hematocrit 33.4 % (36.0-48.0); Hemoglobin 10.7 g/dL (12.0-16.0); Mean Corpuscular Hemoglobin 28.3 pg (26.7-34.0); Mean Corpuscular Volume 88.4 fL (81.0-99.0); Mean Platelet Volume 10.5 fL (9.5-13.5); Platelet Count 324 10^3/uL (150-450); Red Blood Count 3.78 10^6/uL (4.20-5.40); Red Cell Distribution Width 14.6 % (11.0-15.0); White Blood Count 9.8 10^3/uL (4.0-11.0)
[2024-04-10 08:35] LABS: Amphetamine Screen Urine NEGATIVE (NEGATIVE); Barbiturates Screen Urine NEGATIVE (NEGATIVE); Benzodiazepines Screen Urine NEGATIVE (NEGATIVE); Buprenorphine Screen Urine NEGATIVE (NEGATIVE); Cannabinoid Screen Urine POSITIVE (NEGATIVE); Cocaine Screen Urine NEGATIVE (NEGATIVE); Methadone Screen Urine NEGATIVE (NEGATIVE); Methamphetamines Screen Urine NEGATIVE (NEGATIVE); Opiate Screen Urine NEGATIVE (NEGATIVE); Oxycodone Screen Urine NEGATIVE (NEGATIVE); Phencyclidine Screen Urine NEGATIVE (NEGATIVE); Tricyclic Antidepressant Urine NEGATIVE (NEGATIVE)
[2024-04-10] MEDS: OXYTOCIN/0.9 % SODIUM CHLORIDE 10 UNITS/500 ML PLAST..BAG 6 UNIT IV (10:00)
[2024-04-10] MEDS: 0.9 % SODIUM CHLORIDE 1,000 ML 125 ML IV (12:44)
[2024-04-10] MEDS: ROPIVACAINE HCL/PF 400 MG/200 ML PREMIX 9 MG EPIDURAL (13:34)
--- NOTE | 2024-04-10 15:28 | PC.NURSE ---
pitocin 20units in 1000ml NS started at 999ml/hr for 500ml bolus
--- NOTE | 2024-04-10 15:36 | PM.OBPRCVD ---
Procedure Intrapartal events: None Induction method: none Delivery augmentation: pitocin Delivery monitor: external FHT and external uterine Route of delivery: Episiotomy Description: none L&D Laceration Description: none Estimated blood loss (mL): 200 Anesthesia type: None Disposition: floor Delivery date: 04/10/24 Gender: female presentation: vertex Placental delivery description: Manual Removal cord description: 3 Vessels cord description comment: cord avulsion
[2024-04-10] MEDS: BENZOCAINE/MENTHOL 85 GRAM SPRAY BOTTLE 1 APPLIC TOPICAL (18:30)
[2024-04-10] MEDS: GLYCERIN/WITCH HAZEL PADS 1 PAD TOPICAL (18:30)
[2024-04-11 06:01] LABS: Basophils Percent Auto 0.3 % (0.2-2.0); Eosinophils Percent Auto 0.1 % (0.9-7.0); Immature Granulocytes Abs Auto 0.06 10^3/uL (0.00-0.03); Immature Granulocytes Pct Auto 0.4 % (0.0-0.5); Lymphocytes Percent Auto 20.4 % (20.5-60.0); Mean Corpuscular HGB Conc 32.3 g/dL (29.9-35.2); Mean Corpuscular Hemoglobin 28.6 pg (26.7-34.0); Mean Corpuscular Volume 88.6 fL (81.0-99.0); Mean Platelet Volume 10.4 fL (9.5-13.5); Neutrophils Absolute Auto 10.7 10^3/uL (1.4-6.5); Neutrophils Percent Auto 71.8 % (43.0-75.0); Platelet Count 266 10^3/uL (150-450); Red Cell Distribution Width 14.8 % (11.0-15.0); White Blood Count 14.9 10^3/uL (4.0-11.0)
[2024-04-11 07:10] VITALS: TEMP 36.7
[2024-04-11] MEDS: IBUPROFEN 600 MG TABLET PO ×2 (07:10→21:55)
[2024-04-11 07:12] VITALS: BP 124/80; PULSE 48
--- NOTE | 2024-04-11 08:46 | P.OBPN_ITS ---
OB - PN: Subj Subjective Patient comments: no complaints [place] status: doing well feeding status: breast and bottle feeding Exam Constitutional Vital Signs, click to edit/add: Last Vital Signs Temp 98.0 F 04/11/24 07:10 Pulse 48 L 04/11/24 07:12 Resp 16 04/11/24 07:10 BP 124/80 04/11/24 07:12 O2 Del Method Room Air 04/11/24 07:10 Common normals: no apparent distress General appearance: cooperative Orientation/consciousness: Yes awake, Yes oriented to person, Yes oriented to place and Yes oriented to time HENMT Common normals: normocephalic Eye General eye: normal appearance of both eyes Neck & C-Spine Common normals: full ROM Lymph Lymphatic: no lymphadenopathy noted Chest Common normals: inspection of chest normal Respiratory Common normals: normal respiratory effort Cardio Common normals: regular rate and regular rhythm Rate: regular rate Rhythm: regular rhythm GI Common normals: Normal to inspection, nondistended, normoactive bowel sounds present Inspection: normal to inspection Auscultation: normoactive bowel sounds Palpation: soft Percussion: normal to percussion Common normals: no CVA tenderness Back & Pelvis Common normals: no CVA tenderness Thoracic spine/upper back: normal to inspection Extremity Common normals: normal to inspection Neuro Common normals: oriented x3 Sensorium/orientation: awake, alert, oriented to person, oriented to place and oriented to time Psych Common normals: mental status grossly normal Results Labs Labs: Short CBC 04/11/24 Range/Units 05:56 WBC 14.9 H (4.0-11.0) 10^3/uL Hgb 10.0 L (12.0-16.0) g/dL Hct 31.0 L (36.0-48.0) % Plt Count 266 (150-450) 10^3/uL OB - PN: A/P Plan - Vaginal Delivery day: 1 Plan: discharge home Time Spent with Patient Time: Total time spent is greater than 50% in coordination of care (as documented) at patient's floor/unit and/or counseling patient: Total time spent with greater than 50% in coordination of care (as documented) at patient's floor/unit and/or counseling patient: less than 15 minutes
--- NOTE | 2024-04-11 10:22 | SWNOTE1 ---
Pt was positive for THC on admission. DICK spoke with nursing and the only concern was positive for THC. DICK reviewed chart as well. SW spoke with pt in room. Pt has a 10 month old as well. She was positive for THC in her last as well. Father of baby is same for both children and he is involved with children. Pt voices she has good support with father of baby and her family as well. She does have everything she needs for baby at home. Pt voiced baby is pretty tiny, but her friend does have some premie clothes that she can borrow. Pt is bottle feeding. SW addressed pt being positive for marijuana. Pt voiced she tried Zofran and she tried a vitamin, but this did not help her. She voiced THC helped with her nausea and allowed her to keep her appetite. During she was not hungry at all and the THC helped. She does not plan on continuing use once home. SW advised pt if she does to not do it around children. SW spoke with patient about post depression, she voiced understanding. Pt did not voice any other questions/concerns at this time. SW to follow as needed. DICK called report to [facility] CPS. DICK filled out HIPAA form and sent to
[2024-04-11 11:40] VITALS: TEMP 36.9
[2024-04-11 11:41] VITALS: BP 121/59; PULSE 62
[2024-04-11] MEDS: DOCUSATE SODIUM 100 MG CAPSULE PO (21:54)
[2024-04-11 22:55] VITALS: BP 131/90; PULSE 53; TEMP 36.7
[2024-04-11 22:56] VITALS: BP 131/90; PULSE 53
--- NOTE | 2024-04-12 07:58 | P.OBPN_ITS ---
OB - PN: Subj Subjective Patient comments: no complaints and pain well controlled [place] status: doing well Exam Constitutional Vital Signs, click to edit/add: Last Vital Signs Temp 98.1 F 04/11/24 22:55 Pulse 53 L 04/11/24 22:56 Resp 12 04/11/24 22:55 BP 131/90 04/11/24 22:56 O2 Del Method Room Air 04/11/24 22:55 Documenting provider has reviewed patient's vital signs: yes Common normals: no apparent distress Respiratory Common normals: normal respiratory effort and clear to auscultation bilaterally Cardio Common normals: regular rate and regular rhythm GI Common normals: Normal to inspection, nondistended, normoactive bowel sounds present Extremity Common normals: no clubbing, cyanosis or edema and no calf tenderness OB - PN: A/P Plan - Vaginal Delivery day: 2 Plan: routine care, discharge home and follow up 6 weeks Time Spent with Patient Time: Total time spent is greater than 50% in coordination of care (as documented) at patient's floor/unit and/or counseling patient: Total time spent with greater than 50% in coordination of care (as documented) at patient's floor/unit and/or counseling patient: less than 15 minutes
[2024-04-12 08:02] VITALS: BP 136/83; PULSE 53
[2024-04-12] MEDS: IBUPROFEN 600 MG TABLET PO (08:05)
[2024-04-12] MEDS: DOCUSATE SODIUM 100 MG CAPSULE PO (08:05)
[2024-04-12 08:08] VITALS: BP 136/83; PULSE 53; TEMP 36.8
[2024-04-13 22:07] LABS: Cannabinoid Positive (.); Carboxy THC Conf, MS, UR 150 ng/mL (Cutoff=10)
== END 2024-04-12 10:30 | disposition home or self-care (01) | DRG 560 ==
PROVIDERS: Admitting Provider Obstetrics & Gynecology; PCP Family Medicine; Visit Provider Obstetrics & Gynecology
DX: O34.03 Maternal care for unspecified congenital malformation of uterus, third trimester (principal); Q51.3 Bicornate uterus; O99.52 Diseases of the respiratory system complicating childbirth; O69.89X0 Labor and delivery complicated by other cord complications, not applicable or unspecified; Z3A.39 39 weeks gestation of pregnancy; Z37.0 Single live birth; J45.30 Mild persistent asthma, uncomplicated; Z87.01 Personal history of pneumonia (recurrent); O99.324 Drug use complicating childbirth; F12.90 Cannabis use, unspecified, uncomplicated
CPT/HCPCS: 36415; 59050; 59410; 80307; 80349; 85025; 85027; 86850; 86900; 86901; 88307; 96374

== ENCOUNTER 2024-07-04 22:58 | Observation (INO) | payer OTHER, SELFPAY ==
[2024-07-04 22:59] VITALS: BP 129/84; PULSE 78; TEMP 37.1; O2SAT 99; BMI 36.3
--- OUTSIDE RECORDS SUMMARY | 2024-07-04 23:06 | XMS_ITS | CCD ---
Author Organization [facility] Care Team Providers Care Nurses' Registry Director Name Role Phone DEIDRE ., DR MILLER [...] Unavailable DEIDRE ., DR MILLER Consulting Unavailable [facility] [place], DR YODER Primary Care Unavailable DEIDER ., DR MILLER Attending Unavailable DEIDRE ., DR MILLER Admitting Unavailable Monica CANINE ENFORCEMENT OFFICER, Oanh A Unavailable Tawana Brownlee MD Primary Care Provider KISHA VARGAS Referring Unavailable KISHA VARGAS Primary Care Unavailable NICHOLAS MONTENEGRO Admitting Unavailable NICHOLAS MONTENEGRO Attending Unavailable KISHA VARGAS Primary Care Unavailable MD Stiven Pollard Primary Care Provider Deidre, Paul Attending Provider [phone] Deidre, Paul Admitting Unavailable Deidre, Paul Attending Unavailable Stiven Pollard Primary Care Unavailable MONICA, OANH Sutherland Attending Unavailab le DEIDRE, PAUL Attending Unavailable SONALI, HEAVEN Attending Unavailable DEIDRE, PAUL Attending Unavailable SONALI, HEAVEN Attending Unavailable DEIDRE, PAUL Attending Unavailable SONALI, HEAVEN Attending Unavailable DEIDRE, PALU Attending Unavailable DEIDRE, PAUL Attending Unavailable DEIDRE, PAUL Attending Unavailable Allergies Allergy Classification Reported Allergen(s) Allergy Type Date of Onset Reaction(s) Facility (1 source) Amoxicillin Drug Allergy 3 [facility] (1 source) Azithromycin Drug Allergy 3 [facility] (1 source) Penicillin Drug Allergy 3 [facility] (3 sources) Azithromycin; Translations: [AZITHROMYCIN] Drug Allergy 9 [facility] (3 sources) Cephalexin; Translations: [CEPHALEXIN] Drug Allergy 2 [facility] (2 sources) Penicillin G Drug Allergy 3 [facility] (3 sources) Iodinated Contrast Media; Translations: [IODINATED CONTRAST MEDIA] Drug Allergy 9 [facility] (1 source) Penicillins; Translations: [PENICILLINS] Propensity to adverse reactions to drug (disorder) 7 [facility] Repository Medications Current Medications Medication Drug Class(es) Dates Sig (Normalized) Sig (Original) [id number] 200 actuat albuterol 0.09 mg/actuat metered dose [...] SPEC] Onset: 03-26-2023 Episodic Unclassified (1 source) [facility] SPCF DIS/COND COMPL ; Translations: [OT SPCF [...] Test Name Value Interpretation Reference Range Facility [facility] 04-10-2024 L Specimen: [id number] Received: 04/11/24 Status: CHANDLER Arauz Num: [id number] Spec Type: Surgical Subm Dr: Paul Jiang Tissues: A Placenta - 3rd Trimester (Greater than 28 weeks) (PLACENTA) Procedures: HE/5, Gross/Micro L5 Age/ Patient Sex Location Account Attending Physician Sruthi Funk 24/F LABELL [id number] Paul Jiang SPEC NUM: [id number] RECD: 04/11/24 STATUS: CHANDLER ARAUZ NUM: [id number] CHELESY: 04/10/24- SUBM DR: Paul Jiang ENTERED: 04/11/[address] [facility] [address]: Baljeet,Lab SPEC TYPE: Surgical DEPT: CAITY MONTALVO ORDERED: HE/5, Gross/Micro L5 ORDERED: HE/5, Gross/Micro L5 Pathological Diagnosis Placenta removal: -Mature third trimester placenta with three-vessel cord, small for gestational age (318 g, less than 3 percentile) -No evidence of acute chorioamnionitis, funisitis, or villitis -Incidental mild decidual hyalinization of the membrane with rare small foci of mildly associated acute inflammation and nonspecific chronic inflammation -Incidental mild hypercoiling rotations of the umbilical cord with focal imminent cord hematoma -Incidental prominent amniotic epithelial cell at the surface suspecting mild meconium effect -Incidental 2 large chronic infarction nodules due to marked perivillous fibrinoid degenerations (focally also noted in A3) -Incidental mild subchorionic fibrinoid degeneration in A2 Clinical Information GA: 39. Small placenta, cord avulsion. P:1. 9-1 9-5. +BV trich. -------- Specimen: [id number] Received: 04/11/24 Status: CHANDLER Arauz Num: [id number] Spec Type: Surgical Subm Dr: Paul Jiang Tissues: A Placenta - 3rd Trimester (Greater than 28 weeks) (PLACENTA) Procedures: Cinthia BANDA/Amaris L5 -------- Patient: Sofia Funklyn [id number] (Continued) -------- Specimen: [id number] Received: 04/11/24 (Continued) Signed (signature on file) Leroy Dugan MD 04/13/242053 -------- Specimen: [id number] Received: 04/11/24 Status: CHANDLER Arauz Num: [id number] Spec Type: Surgical Subm Dr: Paul Jiang Tissues: A Placenta - 3rd Trimester (Greater than 28 weeks) (PLACENTA) Procedures: AIYANACinthia Wu/Amaris L5 -------- Patient: Sruthi Funk [id number] (Continued) -------- Specimen: [id number] Received: 04/11/24-1216 (Continued) Gross Description Received in formalin is a lyles placental disc with attached membranes, and detached umbilical cord. The 12.2 x 1.4 cm, three-vessel, jeffries umbilical cord inserts eccentrically into the chorionic plate, 1.9 cm from the placental disc margin. The cord has increased spiraling (7 total spirals) with no knots or lesions present. The marginally inserted, complete membranes are jeffries-pink, slippery and opaque, with the point of rupture 12.2 cm from the disc margin. Intramembranous blood vessels are absent. The chorionic plate is segovia-blue with patent vessels that span out magistrally over the surface. The maternal surface has intact, lobulated cotyledons. No loose or adherent blood clot is attached to the placental disc. Sectioning into the disc reveals 2 firm jeffries-yellow nodules measuring 1.5 x 1.5 cm and 2.1 x 1.4 cm, comprising of less than 5% of the total placental disc. The remaining parenchyma is pink-red and spongiform. The 18.6 x 13.2 x 2.2 cm placental disc, devoid of membranes and cord, has a trimmed weight of 318 grams. Summary of sections: A1: umbilical cord and membrane roll including possible site of rupture A2: umbilical cord and parenchyma adjacent to cord insertion site A3: random mid-zonal section A4?A5: jeffries-yellow nodules TW CPT Codes 54912 -------- -------- Specimen: [id number] Received: 04/11/24 Status: CHANDLER Arauz Num: [id number] Spec Type: Surgical Subm Dr: Paul Jiang Tissues: A Placenta - 3rd Trimester (Greater than 28 weeks) (PLACENTA) Procedures: HE/Jazmin, Gross/Micro L5 -------- Patient: Sruthi Funk [id number] (Continued) -------- Signed (signature on fi (more content not included)... Normal [facility] CBC AND AUTO DIFFon 02-01-20 ABSOLUTE BASOPHIL 0.0 X10E9/L Normal 0.0-0.2 [facility] Comment on above: Performed By: #### C BCA, 1504-0, 5196-1, 84677-6, 97320-5, 8014-3, 85264-7 #### [facility] ([id number]) [address], [address] [place] [address] ABSOLUTE NEUTROPHIL 6.0 X10E9/L Normal 1.5-6.6 [facility] Comment on above: Performed By: #### C BCA, 1504-0, 5196-1, 76347-9, 64912-6, 8014-3, 74540-5 #### [facility] ([id number]) [address], [address] [place] [address] Basophils/100 WBC (Bld) 0.3 % Normal [facility] Comment on above: Performed By: #### C LAUREEN, 1504-0, 5196-1, 76313-0, 15229-9, 8014-3, 33462-3 #### [facility] ([id number]) [address], [address] [place] [address] Eosinophils (Bld) [#/Vol] 0.0 10*3/uL Normal 0.0-0.4 [facility] Comment on above: Performed By: #### C LAUREEN, 1504-0, 5196-1, 50911-9, 16597-2, 8014-3, 00387-6 #### [facility] ([id number]) [address], [address] [place] [address] Eosinophils/100 WBC (Bld) 0.5 % Normal [facility] Comment on above: Performed By: #### C BCA, 1504-0, 5196-1, 07003-0, 56403-7, 8014-3, 31552-1 #### [facility] ([id number]) [address], [address] [place] [address] Erythrocyte distribution width (RBC) [Ratio] 13.9 % Normal 11.5-15.0 [facility] Comment on above: Performed By: #### C LAUREEN, 1504-0, 5196-1, 80020-9, 56760-8, 8014-3, 56880-3 #### [facility] ([id number]) [address], [address] [place] [address] Hematocrit (Bld) [Volume fraction] 30.7 % Low 35-47 [facility] Comment on above: Performed By: #### Layton GARDUNO, 1504-0, 5196-1, 52555-4, 44040-3, 8014-3, 68466-1 #### [facility] ([id number]) [address], [facility] [address] [place] [address] Hemoglobin (Bld) [Mass/Vol] 10.4 g/dL Low 11.7-15.5 [facility] Comment on above: Performed By: #### C LAUREEN, 1504-0, 5196-1, 83013-4, 22130-3, 8014-3, 40292-5 #### [facility] ([id number]) [address] [address] [place] [address] Lymphocytes (Bld) [#/Vol] 1.9 10*3/uL Normal 1.0-3.5 [facility] Comment on above: Performed By: #### Layton GARDUNO, 1504-0, 5196-1, 30808-2, 52779-7, 8014-3, 86902-6 #### [facility] ([id number]) [address] [address] [place] [address] Lymphocytes/100 WBC (Bld) 22.7 % Normal [facility] Comment on above: Performed By: #### Layton BCA, 1504-0, 5196-1, 42915-1, 05302-4, 8014-3, 61071-5 #### [facility] ([id number]) [address], [facility] [address] [place] [address] MCH (RBC) [Entitic mass] 30.3 pg Normal 27-34 [facility] Comment on above: Performed By: #### C LAUREEN, 1504-0, 5196-1, 92637-0, 81420-1, 8014-3, 87623-3 #### [facility] ([id number]) [address], [address] [place] [address] MCHC (RBC) [Mass/Vol] 33.8 g/dL Normal 32-36 [facility] Comment on above: Performed By: #### C LAUREEN, 1504-0, 5196-1, 81040-6, 71269-6, 8014-3, 57287-9 #### [facility] ([id number]) [address], [facility] [address] [place] [address] MCV (RBC) [Entitic vol] 90 fL Normal 80-100 [facility] Comment on above: Performed By: #### Layton GARDUNO, 1504-0, 5196-1, 94844-2, 44516-5, 8014-3, 71102-5 #### [facility] ([id number]) [address], [facility] [address] [place] [address] Monocytes (Bld) [#/Vol] 0.3 10*3/uL Normal 0-0.9 [facility] Comment on above: Performed By: #### Layton BCA, 1504-0, 5196-1, 64611-4, 71088-6, 8014-3, 62995-5 #### [facility] ([id number]) [address] [address] [place] [address] Monocytes/100 WBC (Bld) 4.1 % Normal [facility] Comment on above: Performed By: #### Layton BCA, 1504-0, 5196-1, 89724-2, 33635-4, 8014-3, 42752-2 #### [facility] ([id number]) [address], [address] [place] [address] Neutrophils/100 WBC (Bld) 72.4 % Normal [facility] Comment on above: Performed By: #### Layton BCA, 1504-0, 5196-1, 11095-9, 04347-9, 8014-3, 61785-7 #### [facility] ([id number]) [address], [address] [place] [address] Platelet mean volume (Bld) [Entitic vol] 8.7 fL Normal 7-12 [facility] Comment on above: Performed By: #### Layton GARDUNO, 1504-0, 5196-1, 01814-6, 35301-0, 8014-3, 92834-2 #### [facility] ([id number]) [address], [address] [place] [address] Platelets (Bld) [#/Vol] 334 10*3/uL Normal 150-450 [facility] Comment on above: Performed By: #### Layton GARDUNO, 1504-0, 5196-1, 62486-0, 53047-8, 8014-3, 21148-7 #### [facility] ([id number]) [address], [address] [place] [address] RBC COUNT 3.43 X10E12/L Low 3.80-5.20 [facility] Comment on above: Performed By: #### Layton BCA, 1504-0, 5196-1, 23950-8, 36512-6, 8014-3, 16051-5 #### [facility] ([id number]) [address], [address] [place] [address] WBC (Bld) [#/Vol] 8.2 10*3/uL Normal 4.0-11.0 [facility] Comment on above: Performed By: #### Layton BCA, 1504-0, 5196-1, 58550-8, 32852-0, 8014-3, 24933-2 #### [facility] ([id number]) [address] [address], [address] [place] [address] Glucose 1 Hr post 50 g gluco se PO [Mass/Vol]on 02-01-2024 GLU 1H POST 50G LOAD 112 mg/dL Normal 65-139 [facility] Comment on above: Performed By: #### C BCA, 1504-0, 5196-1, 34016-0, 35610-4, 8014-3, 76328-0 #### [facility] ([id number]) [address], [address] [place] [address] HBV surface Ag IA Qlon 01-31 HEPATITIS B SURF AG Negative Normal NEG [facility] Comment on above: Performed By: #### C BCA, 1504-0, 5196-1, 44061-3, 47564-9, 8014-3, 72467-9 #### [facility] ([id number]) [address], [address] [place] [address] HCV Ab IA on 02-01-2024 ANTI HCV W/PCR REFLX Non-Reactive Normal NRCT Pr [facility] Comment on above: Result Comment: If recent infection suspected, recommend repeat testing (>2 months). Fpfflr-wq-cslzth ratio is <0.80. Performed By: #### C BCA, 1504-0, 5196-1, 55850-4, 45587-1, 8014-3, 22776-8 #### [facility] ([id number]) [address] [address], [address] [place] [address] HGB A1C (GLYCO-HGB)on 2023 Glucose [Mass/Vol] 94 mg/dL Normal [facility] Comment on above: Performed By: #### C BCA, 1504-0, 5196-1, 24836-9, 98185-1, 8014-3, 81471-1 #### [facility] ([id number]) [address] [address], [address] [place] [address] HbA1c (Bld) [Mass fraction] 4.9 % Normal 4.4-5.6 [facility] Comment on above: Result Comment: NOTE ADA Guidelines Result HgbA1c Normal : less than 5.7 % Prediabetes : 5.7 % to 6.4 % Diabetes : > 6.4 % Use with caution in patients with abnormal hemoglobin variants as the half-life of red blood cells and in vivo glycation rates are affected. Performed By: #### C BCA, 1504-0, 5196-1, 34879-8, 40781-4, 8014-3, 28648-4 #### [facility] ([id number]) [address] [place] [address], [address] [place] [address] HIV 1+2 Ab+HIV1 p24 Ag IA Ql on 02-01-2024 HIV 1 and 2 Ab/Ag Screen Non-Reactive Normal NRCT [facility] Comment on above: Result Comment: This information [...] test results or diagnoses. Performed By: #### C BCA, 1504-0, 5196-1, 09555-9, 04871-7, 8014-3, 53516-1 #### [facility] ([id number]) [address] [place] [address], [address] [place] [address] Rubella virus IgG Qn (S)on 0 02-01-2024 RUBELLA IgG 11 IU/mL Normal [facility] Comment on above: Result Comment: Interpretation-------- <8 NEGATIVE-considered Not Immune 8-9 EQUIVOCAL-consider retesting with new specimen >9 POSITIVE-considered Immune Performed By: #### C BCA, 1504-0, 5196-1, 10411-0, 67417-3, 8014-3, 67381-4 #### [facility] ([id number]) [address], [facility] [address] [place] [address] T. pallidum IgG+IgM IA Ql (S )on 02-01-2024 Syphilis Total <0.2 Normal 0.0-0.8 [facility] Comment on above: Result Comment: NON REACTIVE No serologic evidence of infection to Treponema pallidum (syphilis). Repeat testing may be considered in patients with suspected acute or primary syphilis in 2 to 4 weeks. Performed By: #### C BCA, 1504-0, 5196-1, 63462-4, 11553-3, 8014-3, 42491-6 #### [facility] ([id number]) [address] [facility] [facility] [address] [place] [address] URINE CULTUREon 02-01-2024 Bacteria identified Cx Nom (U) CULTURE RESULTS 10-50,000 ORGANISMS/mL NORMAL UROGENITAL MAYKEL Normal [facility] Comment on above: Performed By: #### 6 30-4 #### [facility] ([id number]) [address], [address] [place] [address] Urinalysis macro (dipstick) panel (U)on 01-06-2024 Bilirubin, UA Negative Negative - 4(70) +++ mg/dL [facility] Blood, UA Negative Negative - 50 Parker/mcL [facility] Clarity, UA Clear [facility] Color, UA Yellow [facility] Glucose, UA Negative Negative - 2000(110) ++++ mg/dL [facility] Interpretation and review of laboratory results Normal [facility] Ketones, UA Negative Negative - 160(16) ++++ mg/dL [facility] Leukocytes, UA Negative Negative - 500+++ Aicha/mcL [facility] Nitrite, UA Negative Negative - Positive [facility] pH, UA 7.5 5 - 9 [facility] Protein, UA Negative Negative - 1999(20) ++++ mg/dL [facility] Spec Grav, UA 1.025 1 - 1.03 [facility] Urobilinogen, UA 0.2 0.2 - 12 mg/dL [facility] US PREG GROWTHon 04-20-2023 US PREG GROWTH [...] SIMON GAMEZ Date: 2023-04-20 15:39 Normal [facility] GTT 3 HR PREGon 03-17-2023 Glucose [Mass/Vol] 81 mg/dL Normal 74-106 [facility] Comment on above: Performed By: #### G TT3P #### [facility] [address] [address] [address] Makayla Dugan Glucose [Mass/Vol] 159 mg/dL Normal [facility] Comment on above: Performed By: #### G TT3P #### [facility] [address] [address] [address] Makayla Dugan Glucose [Mass/Vol] 127 mg/dL Normal [facility] Comment on above: Performed By: #### G TT3P #### [facility] [address] [address] [address] Makayla Dugan Glucose [Mass/Vol] 100 mg/dL Normal [facility] Comment on above: Performed By: #### G TT3P #### [facility] [address] [address] [address] Makayla Dugan CBC AUTO DIFFon 02-09-2023 BASO # 0.0 103/ul Normal 0.0-0.1 [facility] Comment on above: Performed By: #### C BC #### [facility] [address] [place] [address] Dr. Makayla Dugan Basophils/100 WBC (Bld) 0.2 % Normal 0.2-2.0 [facility] Comment on above: Performed By: #### C BC #### [facility] [address] [place] [address] Dr. Makayla Dugan EO # 0.1 103/ul Normal 0.0-0.7 [facility] Comment on above: Performed By: #### C BC #### [facility] [address] [place] [address] Dr. Makayla Dugan Eosinophils/100 WBC (Bld) 0.5 % Critically low 0.9-7.0 [facility] Comment on above: Performed By: #### C BC #### [facility] [address] [place] [address] Dr. Makayla Dugan Erythrocyte distribution width (RBC) [Ratio] 13.2 % Normal 11.0-15.0 [facility] Comment on above: Performed By: #### C BC #### [facility] [address] [place] [address] Dr. Makayla Dugan Hematocrit (Bld) [Volume fraction] 32.7 % Critically low 36.0-48.0 [facility] Comment on above: Performed By: #### C BC #### [facility] [address] [place] [address] Dr. Makayla Dugan Hemoglobin (Bld) [Mass/Vol] 10.5 g/dL Critically low 12.0-16.0 [facility] Comment on above: Performed By: #### C BC #### [facility] [address] [place] [address] Dr. Makayla Dugan IG # 0.09 10e3/ul Critically high 0.00-0.03 [facility] Comment on above: Performed By: #### C BC #### [facility] [address] [place] [address] Dr. Makayla Dugan IG % 0.9 % Critically high 0.0-0.5 [facility] Comment on above: Performed By: #### C BC #### [facility] [address] [place] [address] Dr. Makayla Dugan LYMPH # 1.7 103/ul Normal 1.2-3.8 [facility] Comment on above: Performed By: #### C BC #### [facility] [address] [place] [address] Dr. Makayla Dugan Lymphocytes/100 WBC (Bld) 16.6 % Critically low 20.5-60.0 [facility] Comment on above: Performed By: #### C BC #### [facility] [address] [place] [address] Dr. Makayla Dugan MANUAL DIFF REQ NO Normal [facility] Comment on above: Performed By: #### C BC #### [facility] [address] [place] [address] Dr. Makayla Dugan MCH (RBC) [Entitic mass] 29.7 pg Normal 26.7-34.0 [facility] Comment on above: Performed By: #### C BC #### [facility] [address] [place] [address] Dr. Makayla Dugan MCHC (RBC) [Mass/Vol] 32.1 g/dL Normal 29.9-35.2 [facility] Comment on above: Performed By: #### C BC #### [facility] [address] [place] [address] Dr. Makayla Dugan MCV (RBC) [Entitic vol] 92.6 fL Normal 81.0-99.0 [facility] Comment on above: Performed By: #### C BC #### [facility] [address] [address] [address] Makayla Dugan MONO # 0.5 103/ul Normal 0.3-0.8 [facility] Comment on above: Performed By: #### C BC #### [facility] [address] [address] [address] Makayla Dugan Monocytes/100 WBC (Bld) 4.8 % Normal 1.7-12.0 [facility] Comment on above: Performed By: #### C BC #### [facility] [address] [place] [address] Dr. Makayla Dugan NEUT # 7.8 103/ul Critically high 1.4-6.5 [facility] Comment on above: Performed By: #### C BC #### [facility] [address] [place] [address] Dr. Makayla Dugan Neutrophils/100 WBC (Bld) 77.0 % Critically high 43.0-75.0 [facility] Comment on above: Performed By: #### C BC #### [facility] [address] [place] [address] Dr. Makayla Dugan Platelet mean volume (Bld) [Entitic vol] 10.7 fL Normal 9.5-13.5 [facility] Comment on above: Performed By: #### C BC #### [facility] [address] [place] [address] Dr. Makayla Dugan PLT 337 103/ul Normal 150-450 [facility] Comment on above: Performed By: #### C BC #### [facility] [address] [place] [address] Dr. Makayla Dugan RBC 3.53 106/ul Critically low 4.20-5.40 [facility] Comment on above: Performed By: #### C BC #### [facility] [address] [place] [address] Dr. Makayla Dugan WBC 10.1 103/ul Normal 4.0-11.0 [facility] Comment on above: Performed By: #### C BC #### [facility] [address] [place] [address] Dr. Makayla Dugan GLUCOSE - 1HRon 02-09-2023 Glucose [Mass/Vol] 153 mg/dL Critically high 74-106 [facility] Comment on above: Performed By: #### G LU1HR #### [facility] [address] [address] [address] Makayla Dugan US PREG INCOMPLETE ANATOMYon [...] by: BENIGNO DIAZ Date: 2023-01-15 15:27 Normal [facility] US PREG ANATOMY SINGLEon US PREG [...] authenticated by: BENIGNO DIAZ Date: 2023-01-05 15:19 [facility] PAP ACOG PANEL 2: 21 to 29on 01-04-2023 . . Normal [facility] Comment on above: Performed By: #### [id number] #### [facility] [address] [place] [address] Dr. Makayla Dugan Age Gdln ACOG Testing - [facility] Comment on above: Performed By: #### 4 [id number] #### [facility] [address] [place] [address] Dr. Makayla Dugan DIAGNOSIS: Comment [facility] Comment on above: Result Comment: NEGA TIVE FOR INTRAEPITHELIAL LESION OR MALIGNANCY. Performed By: #### 4 [id number] #### [facility] [address] [place] [address] Dr. Makayla Dugan Methodology: Comment [facility] Comment on above: Result Comment: This liquid based ThinPrep(R) pap test was screened with the use of an image guided system. Performed By: #### [id number] #### [facility] [address] [place] [address] Dr. Makayla Dugan Note: Comment [facility] Comment on above: Result Comment: The Pap smear is a screening test designed to aid in the detection of premalignant and malignant conditions of the uterine cervix. It is not a diagnostic procedure and should not be used as the sole means of detecting cervical cancer. Both false-positive and false-negative reports do occur. . Performed By: #### [id number] #### [facility] [address] [place] [address] Dr. Makayla Dugan Performed by: Comment Normal [facility] Comment on above: Result Comment: Odalys Dillard, Manager Operations Research (ASCP) Performed By: #### [id number] #### [facility] [address] [address] [address] Makayla Dugan Reflex Criteria: Comment Normal [facility] Comment on above: Result Comment: The HPV DNA reflex criteria were not met with this specimen result therefore, no HPV testing was performed. . Performed By: #### [id number] #### [facility] [address] [address] [address] Makayla Dugan Specimen adequacy: Comment Normal [facility] Comment on above: Result Comment: Sati sfactory for evaluation. No endocervical component is identified. Performed By: #### [id number] #### [facility] [address] [address] [address] Makayla Dugan AFP MATERNAL FOR SPINA BIFID Aon 12-31-2022 AFP MoM 1.30 Normal [facility] Comment on above: Performed By: #### A FPMAT #### [facility] [address] [address] [address] Makayla Dugan AFP Value 52.2 ng/mL Normal [facility] Comment on above: Performed By: #### A FPMAT #### [facility] [address] [address] [address] Makayla Dugan AFP, Serum for Spina Bifida Report Normal [facility] Comment on above: Performed By: #### A FPMAT #### [facility] [address] [address] [address] Makayla Dugan Comment Comment Normal [facility] Comment on above: Result Comment: Leonardo Lechuga, Ph.D., [facility] Director . References: Available Upon Request. . Multiples Of Median Cutoffs For AFP Elevations Lyles 2.5 Black 2.8 IDD 2.0 Twins 4.5 Abbreviation Definitions IDD - Insulin Dep Diabetes OSBR - Open Spina Bifida Risk . For further inquiries contact [employer] at [phone]. . This test was developed and its performance characteristics determined by [facility]. It has not been cleared or approved by the Food and Drug Administration. Performed By: #### A FPMAT #### [facility] [address] [place] [address] Dr. Makayla Melton Age Collection Date 18.6 weeks Normal [facility] Comment on above: Performed By: #### A FPMAT #### [facility] [address] [place] [address] Dr. Makayla Dugan Gestat, Age Based on Ultrasound Normal [facility] Comment on above: Result Comment: 18.6 on 12/29/2022 Recalculations are not recommended when gestational dating by LMP and ultrasound are within 10 days. Performed By: #### A FPMAT #### [facility] [address] [place] [address] Dr. Makayla Dugan Insulin Dep Diabetes No Normal [facility] Comment on above: Performed By: #### A FPMAT #### [facility] [address] [place] [address] Dr. Makayla Dugan Interpretation Comment Normal [facility] Comment on above: Result Comment: Inte [...] Customer Services to discuss available options. The [employer] recommends amniocentesis be offered to women age 35 and older. Performed By: #### A FPMAT #### [facility] [address] [place] [address] Dr. Makayla Dugan [age][place] [age] Normal [facility] Comment on above: Performed By: #### A FPMAT #### [facility] [address] [place] [address] Dr. Makayla Dugan Multiple Gestation No Normal [facility] Comment on above: Performed By: #### A FPMAT #### [facility] [address] [address] [address] Makayla Dugan OSBR Risk 1 [place] [address] Normal [facility] Comment on above: Performed By: #### A FPMAT #### [facility] [address] [address] [address] Makayla Dugan PDF . Normal [facility] Comment on above: Performed By: #### A FPMAT #### [facility] [address] [address] [address] Makayla Dugan Race Black Normal [facility] Comment on above: Performed By: #### A FPMAT #### [facility] [address] [place] [address] Dr. Makayla Dugan Test Results: Negative Normal [facility] Comment on above: Performed By: #### A FPMAT #### [facility] [address] [place] [address] Dr. Makayla Dugan CHLAMYDIA/GONOCOCCUS DOMINIC ( AB/URINE/PAPon 12-31-2022 Chlamydia trachomatis, DOMINIC Negative Normal Negative [facility] Comment on above: Performed By: #### A FPMAT #### [facility] [address] [place] [address] Dr. Makayla Dugan Neisseria gonorrhoeae, DOMINIC Negative Normal Negative [facility] Comment on above: Performed By: #### A FPMAT #### [facility] [address] [place] [address] Dr. Makayla Dugan VAGINITIS/VAGINOSIS DNA PROB Jack 12-30-2022 Tatiana species Negative Normal Negative [facility] Comment on above: Performed By: #### A FPMAT #### [facility] [address] [place] [address] Dr. Makayla Dugan Gardnerella vaginalis Negative Normal Negative [facility] Comment on above: Performed By: #### A FPMAT #### [facility] [address] [place] [address] Dr. Makayla Dugan Trichomonas vaginalis Negative Normal Negative [facility] Comment on above: Performed By: #### A FPMAT #### [facility] [address] [place] [address] Dr. Makayla Dugan HEP B SURFACE ANTIGEN SCREEN on 11-04-2022 HBsAg Screen Negative Normal Negative [facility] Comment on above: Performed By: #### H BSANS #### [facility] [address] [place] [address] Dr. Makayla Dugan HEPATITIS C VIRUS AB W/ REFL EX QUANTon 11-04-2022 HCV AB <0.1 Normal 0.0-0.9 [facility] Comment on above: Performed By: #### H CVPCRR #### [facility] [address] [place] [address] Dr. Makayla Dugan Interpretation: Comment Normal [facility] Comment on above: Result Comment: Nega tive Not infected with HCV, unless recent infection is suspected or other evidence exists to indicate HCV infection. Performed By: #### H CVPCRR #### [facility] [address] [place] [address] Dr. Makayla Dugan HIV 1 AND 2 WITH REFLEXon HIV Screen 4th Generation wRfx Non-Reactive Normal Non Reactive [facility] Comment on above: Result Comment: HIV Negative HIV-1/HIV-2 antibodies and HIV-1 p24 antigen were NOT detected. There is no laboratory evidence of HIV infection. Performed By: #### A FPMAT #### [facility] [address] [place] [address] Dr. Makayla Dugan RPR QUANTon 11-04-2022 Rapid Plasma Reagin, Quant Non-Reactive Normal NonRea<1:1 [facility] Comment on above: Result Comment: Plea se Note: This test does not meet current guidelines for screening and diagnosis of syphilis. This test is intended for following treatment response in patients being treated for syphilis infection. To screen for syphilis infection, a reflex cascade that includes both RPR and a treponema-specific assay should be utilized, such as Treponema pallidum (Syphilis) Screening [place] (408779) or Rapid Plasma Reagin (RPR) Test With Reflex to Quantitative RPR and Confirmatory Treponema pallidum Antibodies (155633). Performed By: #### R PRQ #### [facility] [address] [place] [address] Dr. Makayla Dugan RUBELLA AB IGGon 11-04-2022 Rubella Antibodies, IgG 1.35 index Normal Immune >0.99 [facility] Comment on above: Result Comment: Non- immune <0.90 Equivocal 0.90 - 0.99 Immune >0.99 Performed By: #### R UBIGG #### [facility] [address] [place] [address] Dr. Makayla Dugan CBC AUTO DIFFon 11-03-2022 BASO # 0.0 103/ul Normal 0.0-0.1 [facility] Comment on above: Performed By: #### C BC #### [facility] [address] [place] [address] Dr. Makayla Dugan Basophils/100 WBC (Bld) 0.3 % Normal 0.2-2.0 [facility] Comment on above: Performed By: #### C BC #### [facility] [address] [place] [address] Dr. Makayla Dugan EO # 0.1 103/ul Normal 0.0-0.7 [facility] Comment on above: Performed By: #### C BC #### [facility] [address] [place] [address] Dr. Makayla Dugan Eosinophils/100 WBC (Bld) 0.9 % Normal 0.9-7.0 [facility] Comment on above: Performed By: #### C BC #### [facility] [address] [place] [address] Dr. Makayla Dugan Erythrocyte distribution width (RBC) [Ratio] 13.1 % Normal 11.0-15.0 [facility] Comment on above: Performed By: #### C BC #### [facility] [address] [place] [address] Dr. Makayla Dugan Hematocrit (Bld) [Volume fraction] 38.8 % Normal 36.0-48.0 [facility] Comment on above: Performed By: #### C BC #### [facility] [address] [place] [address] Dr. Makayla Dugan Hemoglobin (Bld) [Mass/Vol] 12.7 g/dL Normal 12.0-16.0 [facility] Comment on above: Performed By: #### C BC #### [facility] [address] [place] [address] Dr. Makayla Dugan IG # 0.04 10e3/ul Critically high 0.00-0.03 [facility] Comment on above: Performed By: #### C BC #### [facility] [address] [place] [address] Dr. Makayla Dugan IG % 0.6 % Critically high 0.0-0.5 [facility] Comment on above: Performed By: #### C BC #### [facility] [address] [place] [address] Dr. Makayla Dugan LYMPH # 1.9 103/ul Normal 1.2-3.8 [facility] Comment on above: Performed By: #### C BC #### [facility] [address] [place] [address] Dr. Makayla Dugan Lymphocytes/100 WBC (Bld) 29.8 % Normal 20.5-60.0 [facility] Comment on above: Performed By: #### C BC #### [facility] [address] [place] [address] Dr. Makayla Dugan MANUAL DIFF REQ NO Normal [facility] Comment on above: Performed By: #### C BC #### [facility] [address] [place] [address] Dr. Makayla Dugan MCH (RBC) [Entitic mass] 29.5 pg Normal 26.7-34.0 [facility] Comment on above: Performed By: #### C BC #### [facility] [address] [place] [address] Dr. Makayla Dugan MCHC (RBC) [Mass/Vol] 32.7 g/dL Normal 29.9-35.2 [facility] Comment on above: Performed By: #### C BC #### [facility] [address] [place] [address] Dr. Makayla Dugan MCV (RBC) [Entitic vol] 90.2 fL Normal 81.0-99.0 [facility] Comment on above: Performed By: #### C BC #### [facility] [address] [place] [address] Dr. Makayla Dugan MONO # 0.4 103/ul Normal 0.3-0.8 [facility] Comment on above: Performed By: #### C BC #### [facility] [address] [place] [address] Dr. Makayla Dugan Monocytes/100 WBC (Bld) 6.3 % Normal 1.7-12.0 [facility] Comment on above: Performed By: #### C BC #### [facility] [address] [place] [address] Dr. Makayla Dugan NEUT # 3.9 103/ul Normal 1.4-6.5 [facility] Comment on above: Performed By: #### C BC #### [facility] [address] [place] [address] Dr. Makayla Dugan Neutrophils/100 WBC (Bld) 62.1 % Normal 43.0-75.0 [facility] Comment on above: Performed By: #### C BC #### [facility] [address] [place] [address] Dr. Makayla Dugan Platelet mean volume (Bld) [Entitic vol] 10.4 fL Normal 9.5-13.5 [facility] Comment on above: Performed By: #### C BC #### [facility] [address] [place] [address] Dr. Makayla Dugan PLT 276 103/ul Normal 150-450 [facility] Comment on above: Performed By: #### C BC #### [facility] [address] [place] [address] Dr. Makayla Dugan RBC 4.30 106/ul Normal 4.20-5.40 [facility] Comment on above: Performed By: #### C BC #### [facility] [address] [place] [address] Dr. Makayla Dugan WBC 6.3 103/ul Normal 4.0-11.0 [facility] Comment on above: Performed By: #### C BC #### [facility] [address] [address] [address] Makayla Dugan CULTURE URINEon 11-03-2022 CULTURE URINE Culture Observations : MODERATE GROWTH OF MIXED GENITAL MAYKEL. NO POTENTIAL PATHOGENS SEEN. Normal [facility] Comment on above: Performed By: #### A FPMAT #### [facility] [address] [place] [address] Dr. Makayla Dugan GLYCOHEMOGLOBIN A1Con 2021 ADA RECOMMENDATION SEE BELOW Normal [facility] Comment on above: Result Comment: ADA RECOMMENDED LIMIT 4.0 - 6.0 ADA THERAPEUTIC TARGET < 7.0 ACTION SUGGESTED > 7.0 Performed By: #### A FPMAT #### [facility] [address] [place] [address] Dr. Makayla Dugan Glucose [Mass/Vol] 97 mg/dL Normal [facility] Comment on above: Performed By: #### A FPMAT #### [facility] [address] [place] [address] Dr. Makayla Dugan HbA1c (Bld) [Mass fraction] 5.0 % Normal 4.5-6.2 [facility] Comment on above: Performed By: #### A FPMAT #### [facility] [address] [place] [address] Dr. Makayla Dugan LEIA BOX TEST PT SEND OUTo n 11-03-2022 SENT TO REF LAB 11/03/2022 Normal [facility] Comment on above: Performed By: #### G LU1HR #### [facility] [address] [place] [address] Dr. Makayla Dugan TYPE AND SCREENon 11-03-2022 TYPE AND SCREEN Negative Normal [facility] Comment on above: Performed By: #### A FPMAT #### [facility] [address] [place] [address] Dr. Makayla Dugan US PREG TVon 10-20-2022 [...] by: BENIGNO DIAZ Date: 2022-10-20 16:29 Normal [facility] Vital Signs Date Time Vital Sign Value Performing Clinician Facility 01-06-2024 10:04-0500 Body mass index (BMI) [Ratio] 35.51 kg/m2 Paul Deidre DO Work Phone: [facility] 01-06-2024 10:04-0500 Body weight 107.5 kg Paul Deidre DO Work Phone: [facility] 01-06-2024 10:04-0500 Diastolic blood pressure 72 mm[Hg] Paul Deidre DO Work Phone: [facility] 01-06-2024 10:04-0500 Systolic blood pressure 120 mm[Hg] Paul Deidre DO Work Phone: [facility] 12-31-2022 04:06-0500 Body weight 112.[address] PAUL JIANG . [facility] Comment on above: Performed By: #### AFPMAT #### [facility] [address] [place] [address] Dr. Makayla Dugan Encounters Encounter Date Encounter Type Care Provider Facility Start: 05-23-2024 End: 05-23-2024 ambulatory PAUL DEIDRE Not Available Start: 05-09-2024 End: 05-09-2024 ambulatory PAUL DEIDRE Not Available Start: 04-10-2024 End: 04-10-2024 ambulatory Paul Deidre Facility:[facility] Start: 04-10-2024 End: 04-10-2024 ambulatory MD Stiven Pollard Work Phone: [facility] Work Phone: Start: 04-10-2024 End: 04-10-2024 Departed Referred MD Stiven Pollard Work Phone: [facility] Start: 03-22-2024 End: 03-22-2024 ambulatory PAUL DEIDRE Not Available Start: 03-15-2024 End: 03-15-2024 ambulatory HEAVEN SONALI Not Available Start: 03-08-2024 End: 03-08-2024 ambulatory PAUL DEIDRE Not Available Start: 02-23-2024 End: 02-23-2024 ambulatory HEAVEN SONALI Not Available Start: 02-09-2024 End: 02-09-2024 ambulatory PAUL DEIDRE Not Available Start: 02-01-2024 End: 2024 ambulatory [facility] Start: 01-20-2024 End: 01-20-2024 ambulatory HEAVEN SONALI Not Available Start: 01-06-2024 End: 01-06-2024 ambulatory PAUL DEIDRE Not Available Start: 01-06-2024 End: 01-06-2024 Office outpatient visit 15 minutes Paul Deidre DO Work Phone: [facility] Comment on above: Second trimester pre gnancy; Diabetes mellitus screening Start: 12-20-2023 End: 12-20-2023 ambulatory OANHBUBBA ANDERSON Not Available Start: 12-02-2023 End: 12-02-2023 ambulatory OANH RAMIREZBURG Not Available Start: 11-28-2023 End: 11-28-2023 ambulatory NICHOLAS MONTENEGRO [facility] Start: 04-20-2023 End: 04-21-[address] PAUL [...] encounter procedure 01/20/2024 2:30 PM EST Routine [facility] [address] [place] [id number] Heaven Pleitez PA [address] [place] [address] [facility] Start: 01-06-2024 End: 01-06-2025 CBC panel - Blood by Automated count CBC Lab Routine Diabetes mellitus screening Expected: 01/06/2024 (Approximate), Expires: 01/06/2025 [facility] Work Phone: Comment on above: Expected: 01/06/2024 (Approximate), Expires: 01/06/2025 Start: 01-06-2024 End: 01-06-2025 Measurement of glucose 1 hour after glucose challenge for glucose tolerance test Glucose tolerance, 1 hour Lab Routine Diabetes mellitus screening Expected: 01/06/2024 (Approximate), Expires: 01/06/2025 [facility] Comment on above: Expected: 01/06/2024 (Approximate), Expires: 01/06/2025 Start: 07-23-2023 Influenza vaccination Influenz a Vaccine (#1) [facility] Immunizations Immunization Date Immunization Notes Care Provider Fa verena 08-15-2018 Meningococcal, MCV4, unspecified conjugate formulation(groups A, C, Y and W-135) Paul Deidre DO Work Phone: [facility] 08-15-2018 tuberculin skin test ; purified protein derivative solution, intradermal [facility] DO Work Phone: [facility] 08-14-2013 tetanus toxoid, redu niurka diphtheria toxoid, and acellular pertussis vaccine, adsorbed [facility] DO Work Phone: [facility] 05-19-2005 Diphtheria, tetanus toxoids and acellular pertussis vaccine, and poliovirus vaccine, inactivated Paul Deidre DO Work Phone: [facility] 05-19-2005 DTaP-hepatitis B and poliovirus vaccine Paul Deidre DO Work Phone: [facility] 05-19-2005 measles, mumps and rubella virus vaccine Paul Deidre DO Work Phone: [facility] 05-19-2005 pneumococcal conjuga te vaccine, 7 valent [facility] DO Work Phone: [facility] 06-28-2002 diphtheria, tetanus toxoids and acellular pertussis vaccine, unspecified formulation Paul Deidre DO Work Phone: [facility] 06-28-2002 tetanus toxoid, redu niurka diphtheria toxoid, and acellular pertussis vaccine, adsorbed [facility] DO Work Phone: [facility] 06-28-2002 varicella virus vaccine [facility] y Deidre DO Work Phone: [facility] 02-10-2002 haemophilus influenz ae type b vaccine, conjugate unspecified formulation Paul Deidre DO Work Phone: [facility] 02-10-2002 measles, mumps and rubella virus vaccine Paul Deidre DO Work Phone: [facility] 02-03-2002 measles, mumps and rubella virus vaccine Paul Deidre DO Work Phone: [facility] 2001 hepatitis B vaccine, pediatric or pediatric/adolescent dosage Paul Deidre DO Work Phone: [facility] 2001 pneumococcal conjuga te vaccine, 7 valent Paul Deidre DO Work Phone: [facility] 2001 diphtheria, tetanus toxoids and acellular pertussis vaccine, Haemophilus influenzae type b conjugate, and poliovirus vaccine, inactivated ([id number]) Paul Deidre DO Work Phone: [facility] 2001 diphtheria, tetanus toxoids and acellular pertussis vaccine, unspecified formulation Paul Deidre DO Work Phone: [facility] 2001 haemophilus influenz ae type b vaccine, conjugate unspecified formulation Paul Deidre DO Work Phone: [facility] 2001 pneumococcal conjuga te vaccine, 7 valent Paul Deidre DO Work Phone: [facility] 2001 poliovirus vaccine, unspecified formulation Paul Deidre DO Work Phone: [facility] 2001 diphtheria, tetanus toxoids and acellular pertussis vaccine, Haemophilus influenzae type b conjugate, and poliovirus vaccine, inactivated ([id number]) Paul Deidre DO Work Phone: [facility] 2001 diphtheria, tetanus toxoids and acellular pertussis vaccine, unspecified formulation Paul Deidre DO Work Phone: [facility] 2001 haemophilus influenz ae type b vaccine, conjugate unspecified formulation Paul Deidre DO Work Phone: [facility] 2001 poliovirus vaccine, unspecified formulation Paul Deidre DO Work Phone: [facility] 2001 Diphtheria, tetanus toxoids and acellular pertussis vaccine, and poliovirus vaccine, inactivated Paul Deidre DO Work Phone: [facility] 2001 diphtheria, tetanus toxoids and acellular pertussis vaccine, unspecified formulation Paul Deidre DO Work Phone: [facility] 2001 hepatitis B vaccine, pediatric or pediatric/adolescent dosage Paul Deidre DO Work Phone: [facility] 2001 poliovirus vaccine, inactivated Paul Deidre DO Work Phone: [facility] 2001 diphtheria, tetanus toxoids and acellular pertussis vaccine, Haemophilus influenzae type b conjugate, and poliovirus vaccine, inactivated ([id number]) Paul Deidre DO Work Phone: [facility] 2001 diphtheria, tetanus toxoids and acellular pertussis vaccine, unspecified formulation Paul Deidre DO Work Phone: [facility] 2001 haemophilus influenz ae type b vaccine, conjugate unspecified formulation Paul Deidre DO Work Phone: [facility] 2001 hepatitis B vaccine, pediatric or pediatric/adolescent dosage Paul Deidre DO Work Phone: [facility] 2001 poliovirus vaccine, unspecified formulation Paul Deidre DO Work Phone: [facility] 2001 hepatitis B vaccine, pediatric or pediatric/adolescent dosage Paul Deidre DO Work Phone: [facility] Payers Date Payer Category Payer Self-pay 2023 Medicaid [id number] 2001 Unknown [id number] 2.16.84 [id number] 2001 Unknown [id number] 2.16.84 0.1.380644.3.579.2.593 2001 Unknown [id number] 2.16.84 0.1.384302.3.579.2.593 2001 Unknown [id number] 2.16.84 0.1.948038.3.579.2.593 2001 Unknown [id number] 2.16.84 0.1.680813.3.579.2.593 2001 Unknown [id number] 2.16.84 0.1.577508.3.579.2.593 2001 Unknown [id number] 2.16.84 0.1.130414.3.579.2.593 2001 Unknown [id number] 2.16.84 0.1.630352.3.579.2.593 2001 Unknown [id number] 2.16.84 0.1.578954.3.579.2.593 2001 Unknown [id number] 2.16.8 40.1.461039.3.579.2.1286 2001 Unknown [id number] 2.16.84 0.1.034863.3.579.2.1286 2001 Unknown [id number] 2.16.84 0.1.131204.3.579.2.1259 2001 Unknown [id number] 2.16.84 0.1.480029.3.579.2.1259 2001 Unknown [id number] 2.16.84 0.1.249225.3.579.2.1259 2001 Unknown [id number] 2.16.84 0.1.019443.3.579.2.1259 2001 Unknown [id number] 2.16.84 0.1.566984.3.579.2.1259 2001 Unknown [id number] 2.16.84 0.1.614423.3.579.2.1259 2001 Unknown [id number] 2.16.84 0.1.060912.3.579.2.1258 2001 Unknown [id number] 2.16.84 0.1.337263.3.579.2.1259 2001 Unknown [id number] 2.16.84 [id number] 2001 Unknown [id number] 2.16.84 [id number] 2001 Unknown [id number] 2.16.84 [id number] 1959 Unknown [id number] Unknown [id number] 2.16.84 [id number] Social History Date Type Detail Facility Start: 08-17-2023 Tobacco smoking status NHIS Never smoked tobacco [facility] Start: 08-17-2023 Tobacco use and exposure Smokeless tobacco non-user [facility] Start: 01-06-2024 Alcohol intake Lifetime non-d yordy (finding) [facility] Start: 12-20-2023 History of Social function [facility] Start: 12-20-2023 Tobacco use panel [facility] Start: 05-06-2023 Alcohol Comment Caffeine intak e: none, occasional soda [facility] Start: 07-21-2023 [facility] Start: 2001 Sex Assigned At Not on file [facility] Start: 2001 Sex Assigned At Female F [facility] History of Present illness Narrative 01-06-2024 Deisi [...] anomaly not found 01/28/2023 Exacerbation of asthma (CMS/HCC) 04/20/2023 Mild persistent asthma with acute exacerbation (CMS/HCC) 04/20/2023 Internal derangement of right shoulder 04/20/2023 Missed period 04/20/2023 Moderate persistent allergic asthma (CMS/HCC) 04/20/2023 Painful menstrual periods 04/20/2023 Pyelonephritis 02/09/2019 Resolved Ambulatory Problems Diagnosis Date Noted No Resolved Ambulatory Problems Past Medical History: Diagnosis Date Allergic rhinitis Asthma (CMS/HCC) Bronchitis Neck pain Pneumonia 2014 Tinea pedis, [...] mellitus documented in this encounter [facility] Evaluation note Note Date & Type Note Facility Evaluation note No assessment information availa [facility] Work Phone: Summary Purpose Family History No Family History Records Found Relationship Condition Age at Onset Recorded Date/T beti Not Specified Hypertension Unknown Advance Directives No Advanced Directives Records FoundNo Advanced Directives Records FoundNo Advanced Directives Records FoundNo Advanced Directives Records Found Additional Source Comments INFORMATION SOURCE (unrecogn ized section and content) DATE CREATED AUTHOR 04/30/2023 [facility] DATE CREATED AUTHOR AUTHOR'S ORGANIZ ATION 2024 [facility] DATE CREATED AUTHOR AUTHOR'S ORGANIZ ATION 04/16/2024 [facility] DATE CREATED AUTHOR AUTHOR'S ORGANIZ ATION 05/24/2024 [facility] EPIC Reason for Visit (unrecogniz ed section and content) Reason Comments Routine Visit Care Teams (unrecognized sec tion and content) Nurses' Registry Director Relationship Specialty Start Date End Date Oanh Anderson NP [address] [place] [address] PCP - [facility] 05/22/23 Tawana Brownlee MD [address] [place] [address] PCP - General Family Medicine 03/30/23 Team Status: Active Member Role Status Dates Stiven Pollard MD Primary Care Provider Active Team Status: Inactive Member Role Status Dates Stiven Pollard MD Primary Care Provider Active S tart: April 10, 2024 End: April 10, 2024 Paul Jiang Attending Provider Active Start: Adan alicea 2023 End: April 10, 2024 Goals (unrecognized section and content) Goals may be documented in a n alternate section FOR RECORDS PERTAINING TO PATIENTS WHO ARE [...] BE BASED ON THE PRIMARY CLINICAL RECORDS. [facility] [employer] [facility]. provides no warranty or guarantee of the accuracy or completeness of information in this document.
[2024-07-04] MEDS: CLINDAMYCIN PHOSPHATE/D5W 900 MG/50 ML PREMIX 100 MG IV (23:31)
[2024-07-04] MEDS: ONDANSETRON PF 4 MG/2 ML VIAL IV (23:31)
[2024-07-05] VITALS (11 sets, daily range): BP systolic 102–139; BP diastolic 63–77; PULSE 56–84; TEMP 36.3–37.2; O2SAT 94–99; BMI 36.4
--- NOTE | 2024-07-05 00:03 | CT_ITS ---
The [address] [address] Patient Name: SRUTHI FUNK MRN: [id number] date: 2000 Sex: F Assigned Patient Location: ER Current Patient Location: ER Accession/Order Number: [id number] Exam Date: 07/05/2024 00:32 Report Date: 07/05/2024 01:24 At the request of: BEATRIS MARKER Procedure: CT abdomen pelvis wo con EXAM: CT abdomen pelvis wo con HISTORY: LLQ injury due to dog bite COMPARISON: 06/26/2023 TECHNIQUE: Unenhanced CT imaging of the abdomen and pelvis. This CT exam was performed using one or more of the following dose reduction techniques: Automated exposure control, adjustment of the mA and/or KV according to patient size, or use of iterative reconstruction technique. Unless otherwise stated, incidental findings do not require dedicated follow-up imaging. FINDINGS: The lung bases are clear. The heart size is normal. The liver, spleen, pancreas, adrenal glands, and kidneys have a normal noncontrast enhanced appearance. The bowel is unobstructed. The appendix is normal. The bladder is distended. There is an IUD in uterus. There is a small amount of free fluid in the pelvic cul-de-sac which is likely functional. There is subcutaneous gas and stranding of the adjacent subcutaneous fat along the left lateral flank corresponding with penetrating trauma. There is no radiopaque foreign body. The bones are intact without acute abnormality. CT/CT abdomen pelvis wo con IMPRESSION: 1. Subcutaneous gas and fat stranding to the left lateral flank corresponding with soft tissue laceration and injury. 2. No other acute abnormality of the abdomen or pelvis. Electronically authenticated by: AHSAN MENDEZ Date: 07/05/2024 01:24
--- NOTE | 2024-07-05 00:03 | XR_ITS ---
The [address] [address] Patient Name: SRUTHI FUNK MRN: [id number] date: 2000 Sex: F Assigned Patient Location: ER Current Patient Location: ER Accession/Order Number: [id number] Exam Date: 07/05/2024 00:42 Report Date: 07/05/2024 02:03 At the request of: BEATRIS MARKER Procedure: XR forearm SERJIO 2V EXAM: XR forearm SERJIO 2V HISTORY: dog bite COMPARISON: None. TECHNIQUE: AP and lateral left forearm x-rays. FINDINGS: No acute or intrinsic osseous or articular abnormality is seen. Mild inhomogeneous soft tissue density in the volar soft tissues of the distal half of the forearm may be related to dog bite injury. No soft tissue gas or foreign body is seen. XR/XR forearm SERJIO 2V IMPRESSION: No foreign body or acute fracture. Electronically authenticated by: DANE GILL Date: 07/05/2024 02:03
--- NOTE | 2024-07-05 00:03 | XR_ITS ---
The [place] [id number] Patient Name: SRUTHI FUNK MRN: [id number] date: 2000 Sex: F Assigned Patient Location: ER Current Patient Location: ER Accession/Order Number: [id number] Exam Date: 07/05/2024 00:42 Report Date: 07/05/2024 02:04 At the request of: BEATRIS MARKER Procedure: XR tibia fibula LT 2V EXAM: XR tibia fibula LT 2V HISTORY: dog bite COMPARISON: None. TECHNIQUE: AP and lateral left tibia-fibula x-rays. FINDINGS: No acute or intrinsic osseous or articular abnormality is seen. There is soft tissue gas in the proximal half of the left lower leg most notably in the medial calf region. No foreign body is seen. XR/XR tibia fibula LT 2V IMPRESSION: Soft tissue gas without foreign body or acute fracture. Electronically authenticated by: DANE GILL Date: 07/05/2024 02:04
--- NOTE | 2024-07-05 00:45 | ED.ANIMALBI1 ---
HPI - Animal Bite General Chief Complaint: Animal Bite Stated Complaint: DOG BITE Time Seen by Provider: 07/04/24 23:22 Mode of arrival: ambulance History of Present Illness HPI narrative: This 24-year-old female with no significant medical history is brought to the emergency department by EMS after she was attacked by her family dog. The patient states that the dog was locked in her room and she went to let the dog out because it was barking, she states that she hit her foot on the door when she opened the door and yelled ouch. She thinks that that stimulated the dog and a fearful way and the dog attacked her. The dog grabbed her by the left flank and knocked her down. She has a deep wound in her left mid to lateral flank region with active bleeding. She have multiple lacerations, contusions and puncture wounds to the bilateral upper and lower extremities. The dog did not attack her face. The patient's boyfriend attempted to get the dog off of the patient and the police were called. The patient was then asked to put a leash on the dog and the dog was taken by the police. The patient states the dog's immunizations are not up-to-date but it does not go to dog urbano or interact with other animals except to go out in the yard to use the bathroom. The patient does not know the date of her last tetanus shot. Related Data Previous Rx's ?Medication ?Instructions ?Recorded ibuprofen 800 mg tablet 800 mg PO Q8H PRN Moderate Pain 30 04/11/24 days #60 tabs Allergies Allergy/AdvReac Type Severity Reaction Status Date / Time Penicillins Allergy Severe Hives Verified 07/04/24 23:06 cephalexin [From Keflex] Allergy Intermediate Hives Verified 07/04/24 23:06 iodine Allergy Intermediate Swelling Verified 07/04/24 23:06 of Lip/Tongue/Throat amoxicillin AdvReac Mild Hives Verified 07/04/24 23:06 Review of Systems ROS Status of ROS 10 or more systems reviewed and unremarkable except as noted in history and below PFSH PFSH Social History Smoking status: Never smoker Highest level of school completed/degree received: some college, no degree Do you think of yourself as: straight/heterosexual Gender Identity: female Exam Narrative Exam Narrative: Vital signs and Nursing Notes reviewed: Patient is afebrile with a normal pulse, normal blood pressure, she is not hypoxic with pulse ox of 99% on room air General: Awake, alert, anxious -Bhut[place] female, no respiratory distress HEENT: Normocephalic atraumatic, mucous membranes are moist and pink, eyes are clear, normal conjunctiva, vision is grossly intact Neck: Uninjured Chest: Lungs are clear to auscultation with good air entry, there is no wheezing rhonchi or rales appreciated no accessory muscle use, patient is speaking in complete sentences-no chest wall tenderness to palpation CVS: Regular rate and rhythm S1-S2, no murmurs rubs or gallops, pulses are brisk and equal bilaterally ABD: Obese, soft, there are 2 deep lacerations in the left lateral lower flank region just above the ASIS. There is a moderate amount of tissue destruction with fatty tissue exuding from the laceration sites. Extremities: Right upper extremity: There is a 1 cm laceration on the medial aspect of the right forearm as well as a 0.5 cm puncture wound laceration on the medial aspect of the right forearm, there are 2 contusions to the right shoulder blade area 1 is ovoid approximately 8 cm x 3 cm 1 is circular approximately 2 x 3 cm, there is no skin tear or laceration at the side. At the mid back there is some superficial abrasion/bruising Right lower extremity: There are two 1 cm puncture wounds to the right inner thigh with associated tissue bruising swelling and puncture wounds Left upper extremity. There are 5 puncture wounds in the left forearm with associated tissue bruising, swelling and puncture wounds Left lower extremity, there are 3 puncture wounds at the medial left thigh Left lower leg, there is a 2 cm puncture wound/laceration at the medial aspect of the left lower leg and at the left lateral posterior leg there is a 6 cm laceration with extensive tissue damage with adjacent 2 cm laceration and 1.5 cm laceration with associated tissue bruising swelling and puncture wounds Skin: Multiple lacerations, contusions, puncture wounds and skin tears on upper and lower extremities bilaterally Neuro: No focal deficits Constitutional Vital Signs, click to edit/add: Last Vital Signs Temp 98.7 F 07/04/24 22:59 Pulse 78 07/04/24 22:59 Resp 24 H 07/04/24 22:59 BP 129/84 07/04/24 22:59 Pulse Ox 99 07/04/24 22:59 O2 Del Method Room Air 07/04/24 22:59 Course Vital Signs Vital signs: Vital Signs Temperature 98.7 F 07/04/24 22:59 Pulse Rate 78 07/04/24 22:59 Respiratory Rate 24 H 07/04/24 22:59 Blood Pressure 129/84 07/04/24 22:59 Pulse Oximetry 99 07/04/24 22:59 Oxygen Delivery Method Room Air 07/04/24 22:59 Temperature 98.7 F 07/04/24 22:59 Pulse Rate 78 07/04/24 22:59 Respiratory Rate 24 H 07/04/24 22:59 Blood Pressure 129/84 07/04/24 22:59 Pulse Oximetry 99 07/04/24 22:59 Oxygen Delivery Method Room Air 07/04/24 22:59 MDM - Animal Bite MDM Narrative Medical decision making narrative: Please see description of injury in HPI, this 24-year-old female sustained multiple lacerations when her dog attacked her earlier in the evening. She did not lose consciousness. She had no head or neck injury. She does have a deep laceration with copious blood and tissue in the left lower flank region. CT scan of this area shows subcutaneous fat stranding and air in the tissue. This is too deep for me to irrigate or debride and I discussed this case with Dr. Almazan who has agreed to see the patient in consult. The remainder of her lacerations were irrigated with copious normal saline and Betadine and approximated to the best of my ability. She was medicated with multiple doses of Dilaudid for pain, Ativan for her anxiety, tetanus was updated and she was given IV clindamycin and IV Cipro as she is allergic to penicillin. She was accepted for admission to [facility] for observation for surgical consultation, additional IV antibiotics and treatment as deemed necessary. Although the dog was not up-to-date on his shots there is no concern for rabies in this animal as it does not interact with other animals and is strictly a house pet. The animal was picked up by the police and is allegedly being euthanized later today. Medical Records Medical records narrative: The [address] [address] [address] Scan Report Signed Patient: SRUTHI FUNK MR#: [id number] : 2000 Acct:[id number] Age/Sex: 24 / F ADM Date: 07/04/24 Loc: ER Attending Dr: Ordering Physician: Chasity Raman Date of Service: 07/05/24 Procedure(s): CT abdomen pelvis wo con Accession Number(s): [id number] cc: HUYENKOMAL ~ The [place] [id number] Patient Name: SRUTHI FUNK MRN: [facility]:[id number] date: 2000 Sex: F Assigned Patient Location: ER Current Patient Location: ER Accession/Order Number: [id number] Exam Date: 07/05/2024 00:32 Report Date: 07/05/2024 01:24 At the request of: CHASITY RAMAN Procedure: CT abdomen pelvis wo con EXAM: CT abdomen pelvis wo con HISTORY: LLQ injury due to dog bite COMPARISON: 06/26/2023 TECHNIQUE: Unenhanced CT imaging of the abdomen and pelvis. This CT exam was performed using one or more of the following dose reduction techniques: Automated exposure control, adjustment of the mA and/or KV according to patient size, or use of iterative reconstruction technique. Unless otherwise stated, incidental findings do not require dedicated follow-up imaging. FINDINGS: The lung bases are clear. The heart size is normal. The liver, spleen, pancreas, adrenal glands, and kidneys have a normal noncontrast enhanced appearance. The bowel is unobstructed. The appendix is normal. The bladder is distended. There is an IUD in uterus. There is a small amount of free fluid in the pelvic cul-de-sac which is likely functional. There is subcutaneous gas and stranding of the adjacent subcutaneous fat along the left lateral flank corresponding with penetrating trauma. There is no radiopaque foreign body. The bones are intact without acute abnormality. CT/CT abdomen pelvis wo con IMPRESSION: 1. Subcutaneous gas and fat stranding to the left lateral flank corresponding with soft tissue laceration and injury. 2. No other acute abnormality of the abdomen or pelvis. Electronically authenticated by: AHSAN MENDEZ Date: 07/05/2024 01:24 Critical Care Time Critical Care Time Total Critical Care Time: 45 Attestation: Attention to this patient's injuries provided by myself encompassed at least 2-1/2 hours for assessment, irrigation, debridement, wound closure, consultation with general surgery and admission Discharge Plan Discharge Chief Complaint: Animal Bite Clinical Impression: Bite by animal, Laceration of multiple sites Patient Disposition: Admitted as Observation Time of Disposition Decision: 04:54 Condition: Fair Prescriptions / Home Meds: No Action ibuprofen 800 mg tablet 800 mg PO Q8H PRN (Reason: Moderate Pain) 30 Days Qty: 60 0RF Print Language: Nepali Referrals: KOMAL MATSON [Primary Care Provider] - 1 week Procedures ED Procedure Instructions Procedures Procedures: Procedure note: Dog bite laceration repair; all lacerations were infiltrated with 1% lidocaine and irrigated with copious normal saline and Betadine and debrided as required. Right forearm: 1 cm laceration was closed with 3, 3-0 Ethilon sutures., 0.5 cm laceration was closed with one 3-0 Ethilon suture. Right inner thigh puncture wounds, 1 was closed with two 3-0 Ethilon sutures and 1 was closed with three 3-0 Ethilon sutures. Left upper extremity; 2 lacerations on the medial forearm; 1 was closed with two 3-0 Ethilon sutures 1 was closed with three 3-0 Ethilon sutures, t Left lower extremity lacerations, there were a total of 5 in the medial lower leg 1 was closed with one 3-0 Ethilon suture, one was closed with one 3-0 Ethilon suture, one was closed with four 3-0 Ethilon sutures and another 1 was closed with one 3-0 Ethilon sutures, the laceration at the left medial lower leg was closed with five 3-0 Ethilon sutures, the large laceration at the lateral aspect of the left posterior leg was debrided and closed with ten 3-0 Ethilon sutures, the adjacent lacerations were closed with four 3-0 Ethilon sutures and two 3-0 Ethilon sutures The laceration on the medial left flank was debrided of fat and subcutaneous tissue and cleaned with normal saline and Betadine and a dry ABD pad was placed over the laceration site Patient tolerated procedure well
[2024-07-05] MEDS: HYDROMORPHONE HCL 2 MG/ML VIAL IV (00:48)
[2024-07-05] MEDS: CIPROFLOXACIN IN 5 % DEXTROSE 400 MG/200 ML PREMIX 200 MG IV (01:51)
[2024-07-05] MEDS: HYDROMORPHONE HCL 1 MG/ML CARTRIDGE IV ×2 (01:51→03:27)
[2024-07-05] MEDS: LORAZEPAM 2 MG/ML VIAL 1 MG IV (01:52)
[2024-07-05] MEDS: LIDOCAINE HCL 1% 200 MG/20 ML MDV INJ ×3 (01:53→03:28)
--- OUTSIDE RECORDS SUMMARY | 2024-07-05 05:05 | XMS_ITS | CCD ---
Author Organization [facility] Care Team Providers Care Administrative Personal Assistant Name Role Phone DEIDRE ., DR MILLER [...] ., DR MILLER Consulting Unavailable [facility] [place] Primary Care Unavailable DEIDRE ., DR MILLER Attending Unavailable DEIDRE ., DR MILLER Admitting Unavailable Monica SMASH HAND, Oanh A Unavailable Tawana Brownlee MD Primary Care Provider KISHA VARGAS Referring Unavailable KISHA VARGAS Primary Care Unavailable NICHOLAS MONTENEGRO Admitting Unavailable NICHOLAS MONTENEGRO Attending Unavailable KISHA VARGAS Primary Care Unavailable MD Stiven Pollard Primary Care Provider Deidre, Paul Attending Provider Deidre, Paul Admitting Unavailable Deidre, Paul Attending Unavailable Stiven Pollard Primary Care Unavailable MONICA, OANH Sutherland Attending Unavailab le DEIDRE, PAUL Attending Unavailable SONALI, HEAVEN Attending Unavailable DEIDRE, PAUL Attending Unavailable SONALI, HEAVEN Attending Unavailable DEIDRE, PAUL Attending Unavailable SONALI, HEAVEN Attending Unavailable DEIDRE, PAUL Attending Unavailable DEIDRE, PAUL Attending Unavailable DEIDRE, PAUL Attending Unavailable Allergies Allergy Classification Reported Allergen(s) Allergy Type Date of Onset Reaction(s) Facility (1 source) Amoxicillin Drug Allergy 3 [facility] (1 source) Azithromycin Drug Allergy 3 [facility] (1 source) Penicillin Drug Allergy 3 [facility] (3 sources) Azithromycin; Translations: [AZITHROMYCIN] Drug Allergy 9 [facility] (3 sources) Cephalexin; Translations: [CEPHALEXIN] Drug Allergy 2 [facility] (2 sources) Penicillin G Drug Allergy 3 [facility] (3 sources) Iodinated Contrast Media; Translations: [IODINATED CONTRAST MEDIA] Drug Allergy 9 [facility] (1 source) Penicillins; Translations: [PENICILLINS] Propensity to adverse reactions to drug (disorder) 7 [facility] Medications Current Medications Medication Drug Class(es) Dates Sig (Normalized) Sig (Original) [id number] 200 actuat albuterol 0.09 mg/actuat metered dose [...] SPEC] Onset: 03-26-2023 Episodic Unclassified (1 source) [facility] DIS/COND COMPL ; Translations: [OT [...] Test Name Value Interpretation Reference Range Facility [facility] 04-10-2024 L Specimen: [id number] Received: 04/11/24 Status: CHANDLER Arauz Num: [id number] Spec Type: Surgical Subm Dr: Paul Jiang Tissues: A Placenta - 3rd Trimester (Greater than 28 weeks) (PLACENTA) Procedures: HE/5, Gross/Micro L5 Age/ Patient Sex Location Account Attending Physician Sruthi Funk 24/F LABELL [id number] Paul Jiang SPEC NUM: [id number] RECD: 04/11/24 STATUS: CHANDLER ARAUZ NUM: [id number] CHELSEY: 04/10/24- SUBM DR: Paul Jiang ENTERED: 04/11/[address] [facility] [address]: Baljeet,Lab SPEC TYPE: Surgical DEPT: [...] P:1. 9-1 9-5. +BV trich. -------- Specimen: [id number] Received: 04/11/24 Status: CHANDLER Arauz Num: [id number] Spec Type: Surgical Subm Dr: Paul Jiang Tissues: A Placenta - 3rd Trimester (Greater than 28 weeks) (PLACENTA) Procedures: Cinthia BANDA/Amaris L5 -------- Patient: Sofia Funklyn [id number] (Continued) -------- Specimen: [id number] Received: 04/11/24 (Continued) Signed (signature on file) Leroy Dugan MD 04/13/242053 -------- Specimen: [id number] Received: 04/11/24 Status: CHANDLER Arauz Num: [id number] Spec Type: Surgical Subm Dr: Paul Jiang Tissues: A Placenta - 3rd Trimester (Greater than 28 weeks) (PLACENTA) Procedures: AIYANACinthia Wu/Amaris L5 -------- Patient: Sruthi Funk [id number] (Continued) -------- Specimen: [id number] Received: 04/11/24-1216 (Continued) Gross Description Received in [...] section A4?A5: jeffries-yellow nodules TW CPT Codes 80368 -------- -------- Specimen: [id number] Received: 04/11/24 Status: CHANDLER Arauz Num: [id number] Spec Type: Surgical Subm Dr: Paul Jiang Tissues: A Placenta - 3rd Trimester (Greater than 28 weeks) (PLACENTA) Procedures: HE/Jazmin, Gross/Micro L5 -------- Patient: Sruthi Funk [id number] (Continued) -------- Signed (signature on fi (more content not included)... Normal [facility] CBC AND AUTO DIFFon 02-01-20 ABSOLUTE BASOPHIL 0.0 X10E9/L Normal 0.0-0.2 [facility] Comment on above: Performed By: #### C BCA, 1504-0, 5196-1, 37007-3, 55092-9, 8014-3, 65527-6 #### [facility] ([id number]) [address], [address] [place] [address] ABSOLUTE NEUTROPHIL 6.0 X10E9/L Normal 1.5-6.6 [facility] Comment on above: Performed By: #### C BCA, 1504-0, 5196-1, 77372-1, 78522-6, 8014-3, 58010-0 #### [facility] ([id number]) [address], [address] [place] [address] Basophils/100 WBC (Bld) 0.3 % Normal [facility] Comment on above: Performed By: #### C LAUREEN, 1504-0, 5196-1, 94688-4, 39329-9, 8014-3, 03182-9 #### [facility] ([id number]) [address], [address] [place] [address] Eosinophils (Bld) [#/Vol] 0.0 10*3/uL Normal 0.0-0.4 [facility] Comment on above: Performed By: #### C LAUREEN, 1504-0, 5196-1, 59265-8, 26432-4, 8014-3, 61678-4 #### [facility] ([id number]) [address], [address] [place] [address] Eosinophils/100 WBC (Bld) 0.5 % Normal [facility] Comment on above: Performed By: #### C BCA, 1504-0, 5196-1, 65671-9, 72861-4, 8014-3, 79302-5 #### [facility] ([id number]) [address], [address] [place] [address] Erythrocyte distribution width (RBC) [Ratio] 13.9 % Normal 11.5-15.0 [facility] Comment on above: Performed By: #### C LAUREEN, 1504-0, 5196-1, 02485-0, 89238-2, 8014-3, 17120-9 #### [facility] ([id number]) [address], [address] [place] [address] Hematocrit (Bld) [Volume fraction] 30.7 % Low 35-47 [facility] Comment on above: Performed By: #### Layton GARDUNO, 1504-0, 5196-1, 27705-8, 38306-9, 8014-3, 56495-3 #### [facility] ([id number]) [address], [facility] [address] [place] [address] Hemoglobin (Bld) [Mass/Vol] 10.4 g/dL Low 11.7-15.5 [facility] Comment on above: Performed By: #### C LAUREEN, 1504-0, 5196-1, 60298-4, 79034-8, 8014-3, 71516-6 #### [facility] ([id number]) [address] [address] [place] [address] Lymphocytes (Bld) [#/Vol] 1.9 10*3/uL Normal 1.0-3.5 [facility] Comment on above: Performed By: #### Layton GARDUNO, 1504-0, 5196-1, 28860-8, 20795-6, 8014-3, 82681-8 #### [facility] ([id number]) [address] [address] [place] [address] Lymphocytes/100 WBC (Bld) 22.7 % Normal [facility] Comment on above: Performed By: #### Layton BCA, 1504-0, 5196-1, 47042-2, 91573-5, 8014-3, 36815-6 #### [facility] ([id number]) [address], [facility] [address] [place] [address] MCH (RBC) [Entitic mass] 30.3 pg Normal 27-34 [facility] Comment on above: Performed By: #### C LAUREEN, 1504-0, 5196-1, 73659-5, 42264-6, 8014-3, 74361-2 #### [facility] ([id number]) [address], [address] [place] [address] MCHC (RBC) [Mass/Vol] 33.8 g/dL Normal 32-36 [facility] Comment on above: Performed By: #### C LAUREEN, 1504-0, 5196-1, 97185-3, 74812-2, 8014-3, 95572-5 #### [facility] ([id number]) [address], [facility] [address] [place] [address] MCV (RBC) [Entitic vol] 90 fL Normal 80-100 [facility] Comment on above: Performed By: #### Layton GARDUNO, 1504-0, 5196-1, 60108-7, 65466-0, 8014-3, 00973-1 #### [facility] ([id number]) [address], [facility] [address] [place] [address] Monocytes (Bld) [#/Vol] 0.3 10*3/uL Normal 0-0.9 [facility] Comment on above: Performed By: #### Layton BCA, 1504-0, 5196-1, 15646-9, 80558-4, 8014-3, 04136-7 #### [facility] ([id number]) [address] [address] [place] [address] Monocytes/100 WBC (Bld) 4.1 % Normal [facility] Comment on above: Performed By: #### Layton BCA, 1504-0, 5196-1, 80401-5, 50763-3, 8014-3, 38211-6 #### [facility] ([id number]) [address], [address] [place] [address] Neutrophils/100 WBC (Bld) 72.4 % Normal [facility] Comment on above: Performed By: #### Layton BCA, 1504-0, 5196-1, 07754-6, 01913-1, 8014-3, 47871-7 #### [facility] ([id number]) [address], [address] [place] [address] Platelet mean volume (Bld) [Entitic vol] 8.7 fL Normal 7-12 [facility] Comment on above: Performed By: #### Layton GARDUNO, 1504-0, 5196-1, 57617-4, 59729-2, 8014-3, 39700-0 #### [facility] ([id number]) [address], [address] [place] [address] Platelets (Bld) [#/Vol] 334 10*3/uL Normal 150-450 [facility] Comment on above: Performed By: #### Layton GARDUNO, 1504-0, 5196-1, 10638-5, 95284-4, 8014-3, 38308-7 #### [facility] ([id number]) [address], [address] [place] [address] RBC COUNT 3.43 X10E12/L Low 3.80-5.20 [facility] Comment on above: Performed By: #### Layton BCA, 1504-0, 5196-1, 42008-2, 42853-5, 8014-3, 29197-1 #### [facility] ([id number]) [address], [address] [place] [address] WBC (Bld) [#/Vol] 8.2 10*3/uL Normal 4.0-11.0 [facility] Comment on above: Performed By: #### Layton BCA, 1504-0, 5196-1, 94590-8, 08780-6, 8014-3, 48296-5 #### [facility] ([id number]) [address] [facility], [address] [place] [address] Glucose 1 Hr post 50 g gluco se PO [Mass/Vol]on 02-01-2024 GLU 1H POST 50G LOAD 112 mg/dL Normal 65-139 [facility] Comment on above: Performed By: #### C BCA, 1504-0, 5196-1, 57284-2, 46437-0, 8014-3, 80787-3 #### [facility] ([id number]) [address] [facility], [address] [place] [address] HBV surface Ag IA Qlon 01-31 HEPATITIS B SURF AG Negative Normal NEG [facility] Comment on above: Performed By: #### C BCA, 1504-0, 5196-1, 15331-8, 70274-3, 8014-3, 65522-7 #### [facility] ([id number]) [address] [facility], [address] [place] [address] HCV Ab IA on 02-01-2024 ANTI HCV W/PCR REFLX Non-Reactive Normal NRCT Pr [facility] Comment on above: Result Comment: If recent infection suspected, recommend repeat testing (>2 months). Jaiivv-ft-bejmze ratio is <0.80. Performed By: #### C BCA, 1504-0, 5196-1, 62142-0, 70615-8, 8014-3, 03496-9 #### [facility] ([id number]) [address] [facility], [address] [place] [address] HGB A1C (GLYCO-HGB)on 2023 Glucose [Mass/Vol] 94 mg/dL Normal [facility] Comment on above: Performed By: #### C BCA, 1504-0, 5196-1, 87442-1, 88911-0, 8014-3, 28323-9 #### [facility] ([id number]) [address] [facility], [address] [place] [address] HbA1c (Bld) [Mass fraction] 4.9 % Normal 4.4-5.6 [facility] Comment on above: Result Comment: NOTE ADA Guidelines Result HgbA1c Normal : less than 5.7 % Prediabetes : 5.7 % to 6.4 % Diabetes : > 6.4 % Use with caution in patients with abnormal hemoglobin variants as the half-life of red blood cells and in vivo glycation rates are affected. Performed By: #### C BCA, 1504-0, 5196-1, 32324-2, 78043-0, 8014-3, 32959-3 #### [facility] ([id number]) [address] [place] [address], [address] [place] [address] HIV 1+2 Ab+HIV1 p24 Ag IA Ql on 02-01-2024 HIV 1 and 2 Ab/Ag Screen Non-Reactive Normal NRCT [facility] Comment on above: Result Comment: This [...] Performed By: #### C BCA, 1504-0, 5196-1, 14766-5, 19838-4, 8014-3, 81616-3 #### [facility] ([id number]) [address] [place] [address], [address] [place] [address] Rubella virus IgG Qn (S)on 0 02-01-2024 RUBELLA IgG 11 IU/mL Normal [facility] Comment on above: Result Comment: Interpretation-------- <8 NEGATIVE-considered Not Immune 8-9 EQUIVOCAL-consider retesting with new specimen >9 POSITIVE-considered Immune Performed By: #### C BCA, 1504-0, 5196-1, 67962-0, 27646-9, 8014-3, 75371-0 #### [facility] ([id number]) [address], [facility] [address] [place] [address] T. pallidum IgG+IgM IA Ql (S )on 02-01-2024 Syphilis Total <0.2 Normal 0.0-0.8 [facility] Comment on above: Result Comment: NON REACTIVE No serologic evidence of infection to Treponema pallidum (syphilis). Repeat testing may be considered in patients with suspected acute or primary syphilis in 2 to 4 weeks. Performed By: #### C BCA, 1504-0, 5196-1, 18792-4, 37686-3, 8014-3, 87235-6 #### [facility] ([id number]) [address] [facility], [facility] [address] [place] [address] URINE CULTUREon 02-01-2024 Bacteria identified Cx Nom (U) CULTURE RESULTS 10-50,000 ORGANISMS/mL NORMAL UROGENITAL MAYKEL Normal [facility] Comment on above: Performed By: #### 6 30-4 #### [facility] ([id number]) [address], [address] [place] [address] Urinalysis macro (dipstick) panel (U)on 01-06-2024 Bilirubin, UA Negative Negative - 4(70) +++ mg/dL [facility] Blood, UA Negative Negative - 50 Parker/mcL [facility] Clarity, UA Clear [facility] Color, UA Yellow [facility] Glucose, UA Negative Negative - 2000(110) ++++ mg/dL [facility] Interpretation and review of laboratory results Normal [facility] Ketones, UA Negative Negative - 160(16) ++++ mg/dL [facility] Leukocytes, UA Negative Negative - 500+++ Aicha/mcL [facility] Nitrite, UA Negative Negative - Positive [facility] pH, UA 7.5 5 - 9 [facility] Protein, UA Negative Negative - 1999(20) ++++ mg/dL [facility] Spec Grav, UA 1.025 1 - 1.03 [facility] Urobilinogen, UA 0.2 0.2 - 12 mg/dL [facility] US PREG GROWTHon 04-20-2023 US PREG GROWTH [...] SIMON GAMEZ Date: 2023-04-20 15:39 Normal [facility] GTT 3 HR PREGon 03-17-2023 Glucose [Mass/Vol] 81 mg/dL Normal 74-106 [facility] Comment on above: Performed By: #### G TT3P #### [facility] [address] [address] [address] Makayla Dugan Glucose [Mass/Vol] 159 mg/dL Normal [facility] Comment on above: Performed By: #### G TT3P #### [facility] [address] [address] [address] Makayla Dugan Glucose [Mass/Vol] 127 mg/dL Normal [facility] Comment on above: Performed By: #### G TT3P #### [facility] [address] [address] [address] Makayla Dugan Glucose [Mass/Vol] 100 mg/dL Normal [facility] Comment on above: Performed By: #### G TT3P #### [facility] [address] [address] [address] Makayla Dugan CBC AUTO DIFFon 02-09-2023 BASO # 0.0 103/ul Normal 0.0-0.1 [facility] Comment on above: Performed By: #### C BC #### [facility] [address] [place] [address] Dr. Makayla Dugan Basophils/100 WBC (Bld) 0.2 % Normal 0.2-2.0 [facility] Comment on above: Performed By: #### C BC #### [facility] [address] [place] [address] Dr. Makayla Dugan EO # 0.1 103/ul Normal 0.0-0.7 [facility] Comment on above: Performed By: #### C BC #### [facility] [address] [place] [address] Dr. Makayla Dugan Eosinophils/100 WBC (Bld) 0.5 % Critically low 0.9-7.0 [facility] Comment on above: Performed By: #### C BC #### [facility] [address] [place] [address] Dr. Makayla Dugan Erythrocyte distribution width (RBC) [Ratio] 13.2 % Normal 11.0-15.0 [facility] Comment on above: Performed By: #### C BC #### [facility] [address] [place] [address] Dr. Makayla Dugan Hematocrit (Bld) [Volume fraction] 32.7 % Critically low 36.0-48.0 [facility] Comment on above: Performed By: #### C BC #### [facility] [address] [place] [address] Dr. Makayla Dugan Hemoglobin (Bld) [Mass/Vol] 10.5 g/dL Critically low 12.0-16.0 [facility] Comment on above: Performed By: #### C BC #### [facility] [address] [place] [address] Dr. Makayla Dugan IG # 0.09 10e3/ul Critically high 0.00-0.03 [facility] Comment on above: Performed By: #### C BC #### [facility] [address] [place] [address] Dr. Makayla Dugan IG % 0.9 % Critically high 0.0-0.5 [facility] Comment on above: Performed By: #### C BC #### [facility] [address] [place] [address] Dr. Makayla Dugan LYMPH # 1.7 103/ul Normal 1.2-3.8 [facility] Comment on above: Performed By: #### C BC #### [facility] [address] [place] [address] Dr. Makayla Dugan Lymphocytes/100 WBC (Bld) 16.6 % Critically low 20.5-60.0 [facility] Comment on above: Performed By: #### C BC #### [facility] [address] [place] [address] Dr. Makayla Dugan MANUAL DIFF REQ NO Normal [facility] Comment on above: Performed By: #### C BC #### [facility] [address] [place] [address] Dr. Makayla Dugan MCH (RBC) [Entitic mass] 29.7 pg Normal 26.7-34.0 [facility] Comment on above: Performed By: #### C BC #### [facility] [address] [place] [address] Dr. Makayla Dugan MCHC (RBC) [Mass/Vol] 32.1 g/dL Normal 29.9-35.2 [facility] Comment on above: Performed By: #### C BC #### [facility] [address] [place] [address] Dr. Makayla Dugan MCV (RBC) [Entitic vol] 92.6 fL Normal 81.0-99.0 [facility] Comment on above: Performed By: #### C BC #### [facility] [address] [address] [address] Makayla Dugan MONO # 0.5 103/ul Normal 0.3-0.8 [facility] Comment on above: Performed By: #### C BC #### [facility] [address] [address] [address] Makayla Dugan Monocytes/100 WBC (Bld) 4.8 % Normal 1.7-12.0 [facility] Comment on above: Performed By: #### C BC #### [facility] [address] [place] [address] Dr. Makayla Dugan NEUT # 7.8 103/ul Critically high 1.4-6.5 [facility] Comment on above: Performed By: #### C BC #### [facility] [address] [place] [address] Dr. Makayla Dugan Neutrophils/100 WBC (Bld) 77.0 % Critically high 43.0-75.0 [facility] Comment on above: Performed By: #### C BC #### [facility] [address] [place] [address] Dr. Makayla Dugan Platelet mean volume (Bld) [Entitic vol] 10.7 fL Normal 9.5-13.5 [facility] Comment on above: Performed By: #### C BC #### [facility] [address] [place] [address] Dr. Makayla Dugan PLT 337 103/ul Normal 150-450 [facility] Comment on above: Performed By: #### C BC #### [facility] [address] [place] [address] Dr. Makayla Dugan RBC 3.53 106/ul Critically low 4.20-5.40 [facility] Comment on above: Performed By: #### C BC #### [facility] [address] [place] [address] Dr. Makayla Dugan WBC 10.1 103/ul Normal 4.0-11.0 [facility] Comment on above: Performed By: #### C BC #### [facility] [address] [place] [address] Dr. Makayla Dugan GLUCOSE - 1HRon 02-09-2023 Glucose [Mass/Vol] 153 mg/dL Critically high 74-106 T [facility] Comment on above: Performed By: #### G LU1HR #### [facility] [address] [address] [address] Makayla Dugan US PREG INCOMPLETE ANATOMYon [...] BENIGNO DIAZ Date: 2023-01-15 15:27 Normal [facility] US PREG ANATOMY SINGLEon US PREG ANATOMY [...] authenticated by: BENIGNO DIAZ Date: 2023-01-05 15:19 [facility] PAP ACOG PANEL 2: 21 to 29on 01-04-2023 . . Normal [facility] Comment on above: Performed By: #### 4 [id number] #### [facility] [address] [place] [address] Dr. Makayla Dugan Age Gdln ACOG Testing - [facility] Comment on above: Performed By: #### 4 [id number] #### [facility] [address] [place] [address] Dr. Makayla Dugan DIAGNOSIS: Comment [facility] Comment on above: Result Comment: NEGA TIVE FOR INTRAEPITHELIAL LESION OR MALIGNANCY. Performed By: #### 4 [id number] #### [facility] [address] [place] [address] Dr. Makayla Dugan Methodology: Comment [facility] Comment on above: Result Comment: This liquid based ThinPrep(R) pap test was screened with the use of an image guided system. Performed By: #### 4 [id number] #### [facility] [address] [place] [address] Dr. Makayla Dugan Note: Comment [facility] Comment on above: Result Comment: The Pap smear is a screening test designed to aid in the detection of premalignant and malignant conditions of the uterine cervix. It is not a diagnostic procedure and should not be used as the sole means of detecting cervical cancer. Both false-positive and false-negative reports do occur. . Performed By: #### 4 [id number] #### [facility] [address] [place] [address] Dr. Makayla Dugan Performed by: Comment Normal [facility] Comment on above: Result Comment: Odalys Dillard, Crm Coordinator (ASCP) Performed By: #### 4 [id number] #### [facility] [address] [address] [address] Makayla Dugan Reflex Criteria: Comment Normal [facility] Comment on above: Result Comment: The HPV DNA reflex criteria were not met with this specimen result therefore, no HPV testing was performed. . Performed By: #### 4 [id number] #### [facility] [address] [address] [address] Makayla Dugan Specimen adequacy: Comment Normal [facility] Comment on above: Result Comment: Sati sfactory for evaluation. No endocervical component is identified. Performed By: #### 4 [id number] #### [facility] [address] [address] [address] Makayla Dugan AFP MATERNAL FOR SPINA BIFID Aon 12-31-2022 AFP MoM 1.30 Normal [facility] Comment on above: Performed By: #### A FPMAT #### [facility] [address] [address] [address] Makayla Dugan AFP Value 52.2 ng/mL Normal [facility] Comment on above: Performed By: #### A FPMAT #### [facility] [address] [address] [address] Makayla Dugan AFP, Serum for Spina Bifida Report Normal [facility] Comment on above: Performed By: #### A FPMAT #### [facility] [address] [address] [address] Makayla Dugan Comment Comment Normal [facility] Comment on above: Result Comment: Leonardo Lechuga, Ph.D., [facility] Director . References: Available Upon Request. . Multiples Of Median Cutoffs For AFP Elevations Lyles 2.5 Black 2.8 IDD 2.0 Twins 4.5 Abbreviation Definitions IDD - Insulin Dep Diabetes OSBR - Open Spina Bifida Risk . For further inquiries contact [employer] Services at [phone]. . This test was developed and its performance characteristics determined by [employer]. It has not been cleared or approved by the Food and Drug Administration. Performed By: #### A FPMAT #### [facility] [address] [place] [address] Dr. Makayla Melton Age Collection Date 18.6 weeks Normal [facility] Comment on above: Performed By: #### A FPMAT #### [facility] [address] [place] [address] Dr. Makayla Dugan Gestat, Age Based on Ultrasound Normal [facility] Comment on above: Result Comment: 18.6 on 12/29/2022 Recalculations are not recommended when gestational dating by LMP and ultrasound are within 10 days. Performed By: #### A FPMAT #### [facility] [address] [place] [address] Dr. Makayla Dugan Insulin Dep Diabetes No Normal [facility] Comment on above: Performed By: #### A FPMAT #### [facility] [address] [place] [address] Dr. Makayla Dugan Interpretation Comment Normal [facility] Comment on above: Result Comment: Inte [...] Customer Services to discuss available options. The [employer] recommends amniocentesis be offered to women age 35 and older. Performed By: #### A FPMAT #### [facility] [address] [place] [address] Dr. Makayla Dugan [age][place] [age] Normal [facility] Comment on above: Performed By: #### A FPMAT #### [facility] [address] [place] [address] Dr. Makayla Dugan Multiple Gestation No Normal [facility] Comment on above: Performed By: #### A FPMAT #### [facility] [address] [address] [address] Makayla Dugan OSBR Risk 1 [place] 9606 Normal [facility] Comment on above: Performed By: #### A FPMAT #### [facility] [address] [address] [address] Makayla Dugan PDF . Normal [facility] Comment on above: Performed By: #### A FPMAT #### [facility] [address] [address] [address] Makayla Dugan Race Black Normal [facility] Comment on above: Performed By: #### A FPMAT #### [facility] [address] [place] [address] Dr. Makayla Dugan Test Results: Negative Normal [facility] Comment on above: Performed By: #### A FPMAT #### [facility] [address] [place] [address] Dr. Makayla Dugan CHLAMYDIA/GONOCOCCUS DOMINIC ( AB/URINE/PAPon 12-31-2022 Chlamydia trachomatis, DOMINIC Negative Normal Negative [facility] Comment on above: Performed By: #### A FPMAT #### [facility] [address] [place] [address] Dr. Makayla Dugan Neisseria gonorrhoeae, DOMINIC Negative Normal Negative [facility] Comment on above: Performed By: #### A FPMAT #### [facility] [address] [place] [address] Dr. Makayla Dugan VAGINITIS/VAGINOSIS DNA PROB Jack 12-30-2022 Tatiana species Negative Normal Negative [facility] Comment on above: Performed By: #### A FPMAT #### [facility] [address] [place] [address] Dr. Makayla Dugan Gardnerella vaginalis Negative Normal Negative [facility] Comment on above: Performed By: #### A FPMAT #### [facility] [address] [place] [address] Dr. Makayla Dugan Trichomonas vaginalis Negative Normal Negative [facility] Comment on above: Performed By: #### A FPMAT #### [facility] [address] [place] [address] Dr. Makayla Dugan HEP B SURFACE ANTIGEN SCREEN on 11-04-2022 HBsAg Screen Negative Normal Negative [facility] Comment on above: Performed By: #### H BSANS #### [facility] [address] [place] [address] Dr. Makayla Dugan HEPATITIS C VIRUS AB W/ REFL EX QUANTon 11-04-2022 HCV AB <0.1 Normal 0.0-0.9 [facility] Comment on above: Performed By: #### H CVPCRR #### [facility] [address] [place] [address] Dr. Makayla Dugan Interpretation: Comment Normal [facility] Comment on above: Result Comment: Nega tive Not infected with HCV, unless recent infection is suspected or other evidence exists to indicate HCV infection. Performed By: #### H CVPCRR #### [facility] [address] [place] [address] Dr. Makayla Dugan HIV 1 AND 2 WITH REFLEXon HIV Screen 4th Generation wRfx Non-Reactive Normal Non Reactive [facility] Comment on above: Result Comment: HIV Negative HIV-1/HIV-2 antibodies and HIV-1 p24 antigen were NOT detected. There is no laboratory evidence of HIV infection. Performed By: #### A FPMAT #### [facility] [address] [place] [address] Dr. Makayla Dugan RPR QUANTon 11-04-2022 Rapid Plasma Reagin, Quant Non-Reactive Normal NonRea<1:1 [facility] Comment on above: Result Comment: Plea se Note: This test does not meet current guidelines for screening and diagnosis of syphilis. This test is intended for following treatment response in patients being treated for syphilis infection. To screen for syphilis infection, a reflex cascade that includes both RPR and a treponema-specific assay should be utilized, such as Treponema pallidum (Syphilis) Screening [place] (642404) or Rapid Plasma Reagin (RPR) Test With Reflex to Quantitative RPR and Confirmatory Treponema pallidum Antibodies (809186). Performed By: #### R PRQ #### [facility] [address] [place] [address] Dr. Makayla Dugan RUBELLA AB IGGon 11-04-2022 Rubella Antibodies, IgG 1.35 index Normal Immune >0.99 [facility] Comment on above: Result Comment: Non- immune <0.90 Equivocal 0.90 - 0.99 Immune >0.99 Performed By: #### R UBIGG #### [facility] [address] [place] [address] Dr. Makayla Dugan CBC AUTO DIFFon 11-03-2022 BASO # 0.0 103/ul Normal 0.0-0.1 [facility] Comment on above: Performed By: #### C BC #### [facility] [address] [place] [address] Dr. Makayla Dugan Basophils/100 WBC (Bld) 0.3 % Normal 0.2-2.0 [facility] Comment on above: Performed By: #### C BC #### [facility] [address] [place] [address] Dr. Makayla Dugan EO # 0.1 103/ul Normal 0.0-0.7 [facility] Comment on above: Performed By: #### C BC #### [facility] [address] [place] [address] Dr. Makayla Dugan Eosinophils/100 WBC (Bld) 0.9 % Normal 0.9-7.0 [facility] Comment on above: Performed By: #### C BC #### [facility] [address] [place] [address] Dr. Makayla Dugan Erythrocyte distribution width (RBC) [Ratio] 13.1 % Normal 11.0-15.0 [facility] Comment on above: Performed By: #### C BC #### [facility] [address] [place] [address] Dr. Makayla Dugan Hematocrit (Bld) [Volume fraction] 38.8 % Normal 36.0-48.0 [facility] Comment on above: Performed By: #### C BC #### [facility] [address] [place] [address] Dr. Makayla Dugan Hemoglobin (Bld) [Mass/Vol] 12.7 g/dL Normal 12.0-16.0 [facility] Comment on above: Performed By: #### C BC #### [facility] [address] [place] [address] Dr. Makayla Dugan IG # 0.04 10e3/ul Critically high 0.00-0.03 [facility] Comment on above: Performed By: #### C BC #### [facility] [address] [place] [address] Dr. Makayla Dugan IG % 0.6 % Critically high 0.0-0.5 [facility] Comment on above: Performed By: #### C BC #### [facility] [address] [place] [address] Dr. Makayla Dugan LYMPH # 1.9 103/ul Normal 1.2-3.8 [facility] Comment on above: Performed By: #### C BC #### [facility] [address] [place] [address] Dr. Makayla Dugan Lymphocytes/100 WBC (Bld) 29.8 % Normal 20.5-60.0 [facility] Comment on above: Performed By: #### C BC #### [facility] [address] [place] [address] Dr. Makayla Dugan MANUAL DIFF REQ NO Normal [facility] Comment on above: Performed By: #### C BC #### [facility] [address] [place] [address] Dr. Makayla Dugan MCH (RBC) [Entitic mass] 29.5 pg Normal 26.7-34.0 [facility] Comment on above: Performed By: #### C BC #### [facility] [address] [place] [address] Dr. Makayla Dugan MCHC (RBC) [Mass/Vol] 32.7 g/dL Normal 29.9-35.2 [facility] Comment on above: Performed By: #### C BC #### [facility] [address] [place] [address] Dr. Makayla Dugan MCV (RBC) [Entitic vol] 90.2 fL Normal 81.0-99.0 [facility] Comment on above: Performed By: #### C BC #### [facility] [address] [place] [address] Dr. Makayla Dugan MONO # 0.4 103/ul Normal 0.3-0.8 [facility] Comment on above: Performed By: #### C BC #### [facility] [address] [place] [address] Dr. Makayla Dugan Monocytes/100 WBC (Bld) 6.3 % Normal 1.7-12.0 [facility] Comment on above: Performed By: #### C BC #### [facility] [address] [place] [address] Dr. Makayla Dugan NEUT # 3.9 103/ul Normal 1.4-6.5 [facility] Comment on above: Performed By: #### C BC #### [facility] [address] [place] [address] Dr. Makayla Dugan Neutrophils/100 WBC (Bld) 62.1 % Normal 43.0-75.0 [facility] Comment on above: Performed By: #### C BC #### [facility] [address] [place] [address] Dr. Makayla Dugan Platelet mean volume (Bld) [Entitic vol] 10.4 fL Normal 9.5-13.5 [facility] Comment on above: Performed By: #### C BC #### [facility] [address] [place] [address] Dr. Makayla Dugan PLT 276 103/ul Normal 150-450 [facility] Comment on above: Performed By: #### C BC #### [facility] [address] [place] [address] Dr. Makayla Dugan RBC 4.30 106/ul Normal 4.20-5.40 [facility] Comment on above: Performed By: #### C BC #### [facility] [address] [place] [address] Dr. Makayla Dugan WBC 6.3 103/ul Normal 4.0-11.0 [facility] Comment on above: Performed By: #### C BC #### [facility] [address] [address] [address] Makayla Dugan CULTURE URINEon 11-03-2022 CULTURE URINE Culture Observations : MODERATE GROWTH OF MIXED GENITAL MAYKEL. NO POTENTIAL PATHOGENS SEEN. Normal [facility] Comment on above: Performed By: #### A FPMAT #### [facility] [address] [place] [address] Dr. Makayla Duagn GLYCOHEMOGLOBIN A1Con 2021 ADA RECOMMENDATION SEE BELOW Normal [facility] Comment on above: Result Comment: ADA RECOMMENDED LIMIT 4.0 - 6.0 ADA THERAPEUTIC TARGET < 7.0 ACTION SUGGESTED > 7.0 Performed By: #### A FPMAT #### [facility] [address] [place] [address] Dr. Makayla Dugan Glucose [Mass/Vol] 97 mg/dL Normal [facility] Comment on above: Performed By: #### A FPMAT #### [facility] [address] [place] [address] Dr. Makayla Dugan HbA1c (Bld) [Mass fraction] 5.0 % Normal 4.5-6.2 [facility] Comment on above: Performed By: #### A FPMAT #### [facility] [address] [place] [address] Dr. Makayla Dugan LEIA BOX TEST PT SEND OUTo n 11-03-2022 SENT TO REF LAB 11/03/2022 Normal [facility] Comment on above: Performed By: #### G LU1HR #### [facility] [address] [place] [address] Dr. Makayla Dugan TYPE AND SCREENon 11-03-2022 TYPE AND SCREEN Negative Normal [facility] Comment on above: Performed By: #### A FPMAT #### [facility] [address] [place] [address] Dr. Makayla Dugan US PREG TVon 10-20-2022 [...] by: BENIGNO DIAZ Date: 2022-10-20 16:29 Normal [facility] Vital Signs Date Time Vital Sign Value Performing Clinician Facility 01-06-2024 10:04-0500 Body mass index (BMI) [Ratio] 35.51 kg/m2 Paul Deidre DO Work Phone: [facility] 01-06-2024 10:04-0500 Body weight 107.5 kg Paul Deidre DO Work Phone: [facility] 01-06-2024 10:04-0500 Diastolic blood pressure 72 mm[Hg] Paul Deidre DO Work Phone: [facility] 01-06-2024 10:04-0500 Systolic blood pressure 120 mm[Hg] Paul Deidre DO Work Phone: [facility] 12-31-2022 04:06-0500 Body weight 112.[address] PAUL JIANG . [facility] Comment on above: Performed By: #### AFPMAT #### [facility] [address] [place] [address] Dr. Makayla Dugan Encounters Encounter Date Encounter Type Care Provider Facility Start: 05-23-2024 End: 05-23-2024 ambulatory PAUL DEIDRE Not Available Start: 05-09-2024 End: 05-09-2024 ambulatory PAUL DEIDRE Not Available Start: 04-10-2024 End: 04-10-2024 ambulatory Paul Deidre Facility:[facility] Start: 04-10-2024 End: 04-10-2024 ambulatory MD Stiven Pollard Work Phone: [facility] Work Phone: Start: 04-10-2024 End: 04-10-2024 Departed Referred MD Stiven Pollard Work Phone: [facility] Start: 03-22-2024 End: 03-22-2024 ambulatory PAUL DEIDRE Not Available Start: 03-15-2024 End: 03-15-2024 ambulatory HEAVEN SONALI Not Available Start: 03-08-2024 End: 03-08-2024 ambulatory PAUL DEIDRE Not Available Start: 02-23-2024 End: 02-23-2024 ambulatory HEAVEN SONALI Not Available Start: 02-09-2024 End: 02-09-2024 ambulatory PAUL DEIDRE Not Available Start: 02-01-2024 End: 2024 ambulatory [facility] Start: 01-20-2024 End: 01-20-2024 ambulatory HEAVEN SONALI [...] Start: 11-28-2023 End: 11-28-2023 ambulatory NICHOLAS MONTENEGRO [facility] Start: 04-20-2023 End: 04-21-[address] [...] encounter procedure 01/20/2024 2:30 PM EST Routine [facility] [address] [place] [id number] Heaven Pleitez PA [address] [place] [address] [facility] Start: 01-06-2024 End: 01-06-2025 CBC panel - Blood by Automated count CBC Lab Routine Diabetes mellitus screening Expected: 01/06/2024 (Approximate), Expires: 01/06/2025 [facility] Work Phone: Comment on above: Expected: 01/06/2024 (Approximate), Expires: 01/06/2025 Start: 01-06-2024 End: 01-06-2025 Measurement of glucose 1 hour after glucose challenge for glucose tolerance test Glucose tolerance, 1 hour Lab Routine Diabetes mellitus screening Expected: 01/06/2024 (Approximate), Expires: 01/06/2025 [facility] Comment on above: Expected: 01/06/2024 (Approximate), Expires: 01/06/2025 Start: 07-23-2023 Influenza vaccination Influenz a Vaccine (#1) [facility] Immunizations Immunization Date Immunization Notes Care Provider Fa verena 08-15-2018 Meningococcal, MCV4, unspecified conjugate formulation(groups A, C, Y and W-135) Paul Deidre DO Work Phone: [facility] 08-15-2018 tuberculin skin test ; purified protein derivative solution, intradermal [facility] DO Work Phone: [facility] 08-14-2013 tetanus toxoid, redu niurka diphtheria toxoid, and acellular pertussis vaccine, adsorbed [facility] DO Work Phone: [facility] 05-19-2005 Diphtheria, tetanus toxoids and acellular pertussis vaccine, and poliovirus vaccine, inactivated Paul Deidre DO Work Phone: [facility] 05-19-2005 DTaP-hepatitis B and poliovirus vaccine Paul Deidre DO Work Phone: [facility] 05-19-2005 measles, mumps and rubella virus vaccine Paul Deidre DO Work Phone: [facility] 05-19-2005 pneumococcal conjuga te vaccine, 7 valent [facility] DO Work Phone: [facility] 06-28-2002 diphtheria, tetanus toxoids and acellular pertussis vaccine, unspecified formulation Paul Deidre DO Work Phone: [facility] 06-28-2002 tetanus toxoid, redu niurka diphtheria toxoid, and acellular pertussis vaccine, adsorbed [facility] DO Work Phone: [facility] 06-28-2002 varicella virus vaccine [facility] y Deidre DO Work Phone: [facility] 02-10-2002 haemophilus influenz ae type b vaccine, conjugate unspecified formulation Paul Deidre DO Work Phone: [facility] 02-10-2002 measles, mumps and rubella virus vaccine Paul Deidre DO Work Phone: [facility] 02-03-2002 measles, mumps and rubella virus vaccine Paul Deidre DO Work Phone: [facility] 2001 hepatitis B vaccine, pediatric or pediatric/adolescent dosage Paul Deidre DO Work Phone: [facility] 2001 pneumococcal conjuga te vaccine, 7 valent Paul Deidre DO Work Phone: [facility] 2001 diphtheria, tetanus toxoids and acellular pertussis vaccine, Haemophilus influenzae type b conjugate, and poliovirus vaccine, inactivated ([id number]) Paul Deidre DO Work Phone: [facility] 2001 diphtheria, tetanus toxoids and acellular pertussis vaccine, unspecified formulation Paul Deidre DO Work Phone: [facility] 2001 haemophilus influenz ae type b vaccine, conjugate unspecified formulation Paul Deidre DO Work Phone: [facility] 2001 pneumococcal conjuga te vaccine, 7 valent Paul Deidre DO Work Phone: [facility] 2001 poliovirus vaccine, unspecified formulation Paul Deidre DO Work Phone: [facility] 2001 diphtheria, tetanus toxoids and acellular pertussis vaccine, Haemophilus influenzae type b conjugate, and poliovirus vaccine, inactivated ([id number]) Paul Deidre DO Work Phone: [facility] 2001 diphtheria, tetanus toxoids and acellular pertussis vaccine, unspecified formulation Paul Deidre DO Work Phone: [facility] 2001 haemophilus influenz ae type b vaccine, conjugate unspecified formulation Paul Deidre DO Work Phone: [facility] 2001 poliovirus vaccine, unspecified formulation Paul Deidre DO Work Phone: [facility] 2001 Diphtheria, tetanus toxoids and acellular pertussis vaccine, and poliovirus vaccine, inactivated Paul Deidre DO Work Phone: [facility] 2001 diphtheria, tetanus toxoids and acellular pertussis vaccine, unspecified formulation Paul Deidre DO Work Phone: [facility] 2001 hepatitis B vaccine, pediatric or pediatric/adolescent dosage Paul Deidre DO Work Phone: [facility] 2001 poliovirus vaccine, inactivated Paul Deidre DO Work Phone: [facility] 2001 diphtheria, tetanus toxoids and acellular pertussis vaccine, Haemophilus influenzae type b conjugate, and poliovirus vaccine, inactivated ([id number]) Paul Deidre DO Work Phone: [facility] 2001 diphtheria, tetanus toxoids and acellular pertussis vaccine, unspecified formulation Paul Deidre DO Work Phone: [facility] 2001 haemophilus influenz ae type b vaccine, conjugate unspecified formulation Paul Deidre DO Work Phone: [facility] 2001 hepatitis B vaccine, pediatric or pediatric/adolescent dosage Paul Deidre DO Work Phone: [facility] 2001 poliovirus vaccine, unspecified formulation Paul Deidre DO Work Phone: [facility] 2001 hepatitis B vaccine, pediatric or pediatric/adolescent dosage Paul Deidre DO Work Phone: [facility] Payers Date Payer Category Payer Self-pay 2023 Medicaid [id number] 2001 Unknown [id number] 2.16.84 [id number] 2001 Unknown [id number] 2.16.84 0.1.367440.3.579.2.593 2001 Unknown [id number] 2.16.84 0.1.980998.3.579.2.593 2001 Unknown [id number] 2.16.84 0.1.859253.3.579.2.593 2001 Unknown [id number] 2.16.84 0.1.899048.3.579.2.593 2001 Unknown [id number] 2.16.84 0.1.478556.3.579.2.593 2001 Unknown [id number] 2.16.84 0.1.790506.3.579.2.593 2001 Unknown [id number] 2.16.84 0.1.718291.3.579.2.593 2001 Unknown [id number] 2.16.84 0.1.414878.3.579.2.593 2001 Unknown [id number] 2.16.8 40.1.675799.3.579.2.1286 2001 Unknown [id number] 2.16.84 0.1.657103.3.579.2.1286 2001 Unknown [id number] 2.16.84 0.1.915152.3.579.2.1259 2001 Unknown [id number] 2.16.84 0.1.259520.3.579.2.1259 2001 Unknown [id number] 2.16.84 0.1.275005.3.579.2.1259 2001 Unknown [id number] 2.16.84 0.1.273915.3.579.2.1259 2001 Unknown [id number] 2.16.84 0.1.649672.3.579.2.1259 2001 Unknown [id number] 2.16.84 0.1.649424.3.579.2.1259 2001 Unknown [id number] 2.16.84 0.1.238972.3.579.2.1258 2001 Unknown [id number] 2.16.84 0.1.418528.3.579.2.1259 2001 Unknown [id number] 2.16.84 0.1.182319.3.579.2.1258 2001 Unknown [id number] 2.16.84 0.1.163722.3.579.2.1259 2001 Unknown [id number] 2.16.84 0.1.821378.3.579.2.1259 1959 Unknown [id number] Unknown [id number] 2.16.84 0.1.510017.3.579.2.593 Social History Date Type Detail Facility Start: [...] Start: 2000 Sex Assigned At Female F [facility] History of Present illness Narrative 01-06-2024 [...] Facility Evaluation note No assessment information availa [facility] Work Phone: Summary Purpose Family History No Family History Records Found Relationship Condition Age at Onset Recorded Date/T beti Not Specified Hypertension Unknown Advance Directives No Advanced Directives Records FoundNo Advanced Directives Records FoundNo Advanced Directives Records FoundNo Advanced Directives Records Found Additional Source Comments INFORMATION SOURCE (unrecogn ized section and content) DATE CREATED AUTHOR 04/30/2023 [facility] DATE CREATED AUTHOR AUTHOR'S ORGANIZ ATION 2024 [facility] DATE CREATED AUTHOR AUTHOR'S ORGANIZ ATION 04/16/2024 [facility] DATE CREATED AUTHOR AUTHOR'S ORGANIZ ATION 05/24/2024 [facility] EPIC Reason for Visit (unrecogniz ed section and content) Reason Comments Routine Visit Care Teams (unrecognized sec tion and content) Administrative Personal Assistant Relationship Specialty Start Date End Date Oanh Anderson NP [address] [place] [address] PCP - [facility] 05/22/23 Tawana Brownlee MD [address] [place] [address] PCP - General Family Medicine 03/30/23 Team [...] BE BASED ON THE PRIMARY CLINICAL RECORDS. [facility] [facility]. provides no warranty or guarantee of the accuracy or completeness of information in this document.
[2024-07-05] MEDS: MORPHINE SULFATE 2 MG/ML SYRINGE IV ×3 (05:40→15:45)
[2024-07-05 06:09] LABS: Basophils Percent Auto 0.3 % (0.2-2.0); Eosinophils Percent Auto 0.1 % (0.9-7.0); Hematocrit 37.9 % (36.0-48.0); Hemoglobin 11.9 g/dL (12.0-16.0); Immature Granulocytes Abs Auto 0.04 10^3/uL (0.00-0.03); Immature Granulocytes Pct Auto 0.3 % (0.0-0.5); Lymphocytes Absolute Auto 2.1 10^3/uL (1.2-3.8); Lymphocytes Percent Auto 18.3 % (20.5-60.0); Mean Corpuscular HGB Conc 31.4 g/dL (29.9-35.2); Mean Corpuscular Hemoglobin 29.2 pg (26.7-34.0); Mean Corpuscular Volume 93.1 fL (81.0-99.0); Mean Platelet Volume 10.4 fL (9.5-13.5); Monocytes Absolute Auto 0.7 10^3/uL (0.3-0.8); Monocytes Percent Auto 6.2 % (1.7-12.0); Neutrophils Absolute Auto 8.6 10^3/uL (1.4-6.5); Neutrophils Percent Auto 74.8 % (43.0-75.0); Platelet Count 295 10^3/uL (150-450); Red Blood Count 4.07 10^6/uL (4.20-5.40); Red Cell Distribution Width 14.6 % (11.0-15.0); White Blood Count 11.6 10^3/uL (4.0-11.0)
[2024-07-05 06:33] LABS: Alanine Aminotransferase 30 U/L (14-59); Albumin Level 3.4 g/dL (3.4-5.0); Alkaline Phosphatase 82 U/L (46-116); Anion Gap 13.9; Aspartate Amino Transferase 22 U/L (15-37); Bilirubin Total 0.6 mg/dL (0.2-1.0); Carbon Dioxide 22.9 mmol/L (21.0-32.0); Chloride 106 mmol/L (98-107); Estimated GFR (African America >60 (>=60); Estimated GFR (Non-African Ame >60 (>=60); Globulin 3.3 g/dL; Glucose 95 mg/dL (74-106); Magnesium 1.8 mg/dL (1.8-2.4); Potassium 3.8 mmol/L (3.5-5.1); Sodium 139 mmol/L (136-145); Total Protein 6.7 g/dL (6.4-8.2)
[2024-07-05] MEDS: LIDOCAINE HCL 1% PF 20 MG/2 ML VIAL 10 ML INJ (06:42)
[2024-07-05] MEDS: LIDOCAINE HCL 1% PF 50 MG/5 ML VIAL 40 ML INJ (06:42)
[2024-07-05] MEDS: LEVOFLOXACIN IN DEXTROSE 5 % 750 MG/150 ML PREMIX 100 MG IV (08:47)
[2024-07-05] MEDS: CLINDAMYCIN PHOSPHATE/D5W 600 MG/50 ML PREMIX 100 MG IV ×3 (08:47→21:00)
[2024-07-05] MEDS: KETOROLAC TROMETHAMINE 30 MG/ML VIAL IVP ×3 (08:47→21:00)
[2024-07-05] MEDS: LACTATED RINGER'S SOLUTION 1,000 ML 50 ML IV (08:47)
--- NOTE | 2024-07-05 08:55 | CM.NOTE ---
Rounds made with Dr. White. Dr. White discussed treatment plan with IV antibiotics and surgery consult. Isabella verbalized understanding. Currently awaiting surgery consult. No discharge planned at present.
--- NOTE | 2024-07-05 08:56 | P.HP_ITS ---
HPI H&P: HPI History of Present Illness Chief complaint: DOG BITE FLANK LACERATION Narrative: Patient startled her own dog, sustaining multiple dog bites. Evaluation emergency room felt with the subcutaneous air and depth of the wounds would be best to watch her overnight for IV antibiotics and surgical evaluation When I saw patient up on the medical surgical floor, resting comfortably, significant pain that with any motion. Opioid HPI Opioid Management Most Recent Pain and Opioid Data: Last Pain Scale 5 07/05/24 09:52 Last Pain Assessment 07/05/24 10:05 Last MAR Pain Assessment 07/05/24 08:47 Last ORT Total Score 1 07/05/24 05:17 Last ORT Risk Category Low Risk 07/05/24 05:17 Urine Cannabinoids Positive (.) A 04/10/24 07:25 Ur Phencyclidine Scrn Negative (NEGATIVE) 04/10/24 07:25 Review of Systems ROS Status of ROS 10 or more systems reviewed and unremark able except as noted in history and below [facility] Medical History (Updated 07/05/24 @ 05:16 by Nancy Steen RN) Asthma ?J45.909 - Unspecified asthma, uncomplicated (ICD-10) Family History (Updated 07/05/24 @ 05:20 by Ly Ma) Other Family history of hypertension Social History (Updated 07/05/24 @ 05:17 by Nancy Steen RN) Within the past year, how often did you have a drink containing alcohol: 2-4 times a month Within the past year, how many standard drinks containing alcohol did you have on a typical day: 1 or 2 Within the past year, how often did you have six or more drinks on one occasion: never Total score: 0 Score interpretation: A score less than 3 is consistent with normal alcohol consumption. Smoking status: Current some day smoker Non-prescribed substance use: denies use Highest level of school completed/degree received: some college, no degree In a typical week, how many times do you talk on the telephone with family, friends, or neighbors: 3 or more times per week How often do you get together with friends or relatives: 3 or more times per week Little interest or pleasure in doing things: several days Feeling down, depressed, or hopeless: several days Feel stressed/tense/nervous/anxious/difficulty sleeping: rather much Do you think of yourself as: straight/heterosexual Gender Identity: female Meds Home Medications and Allergies Home Medications ?Medication ?Instructions ?Recorded ?Confirmed ?Type ibuprofen 800 mg tablet 800 mg PO Q8H PRN Moderate Pain 30 04/11/24 07/05/24 Rx days #60 tabs Allergies Allergy/AdvReac Type Severity Reaction Status Date / Time Penicillins Allergy Severe Hives Verified 07/04/24 23:06 cephalexin [From Keflex] Allergy Intermediate Hives Verified 07/04/24 23:06 iodine Allergy Intermediate Swelling Verified 07/04/24 23:06 of Lip/Tongue/Throat amoxicillin AdvReac Mild Hives Verified 07/04/24 23:06 Exam Constitutional Vital Signs, click to edit/add: Last Vital Signs Temp 97.9 F 07/05/24 07:19 Pulse 60 07/05/24 07:19 Resp 16 07/05/24 07:19 BP 120/72 07/05/24 07:19 Pulse Ox 94 L 07/05/24 07:19 O2 Del Method Room Air 07/05/24 07:19 Documenting provider has reviewed patient's vital signs: yes Common normals: apparent distress (Moderate painful distress) Chest Common normals: inspection of chest normal Respiratory Common normals: normal respiratory effort Cardio Common normals: regular rate and regular rhythm GI Common normals: negative for Normal to inspection, nondistended, normoactive bowel sounds present (Left flank with dog bite) Extremity Common normals: abnormal to inspection (Left calf with dog bite dressing in pl [place]) Results Labs Labs: Short CBC 07/05/24 Range/Units 05:40 WBC 11.6 H (4.0-11.0) 10^3/uL Hgb 11.9 L (12.0-16.0) g/dL Hct 37.9 (36.0-48.0) % Plt Count 295 (150-450) 10^3/uL BMP 07/05/24 05:40 Sodium 139 Potassium 3.8 Chloride 106 Carbon Dioxide 22.9 BUN 15.0 Creatinine 0.88 Glucose 95 Calcium 9.0 Liver Function 07/05/24 Range/Units 05:40 Total Bilirubin 0.6 (0.2-1.0) mg/dL AST 22 (15-37) U/L ALT 30 (14-59) U/L Alkaline Phosphatase 82 (46-116) U/L Albumin 3.4 (3.4-5.0) g/dL Assessment and Plan Assessment and Plan (1) Laceration of multiple sites: (2) Bite by animal: (3) Asthma: Plan Respiratory distress, mild sinus tachycardia, sick leukocytosis, secondary to several dog bites. Will severe left flank and left lower extremity. Plan is to have surgical evaluation today. If no surgical intervention necessary, will advance diet and if pain is controlled discharge to home later today. Medications see list. Follow-up with PCP within the next week. Maintain current antibiotics History of asthma-will use as needed Ventolin.
[2024-07-05] MEDS: ADACEL DIPH,PERTUSS(ACELL),TET VAC/PF 0.5 ML ADULT SYRINGE IM (09:56)
--- NOTE | 2024-07-05 10:34 | P.DS_ITS ---
DS: Providers Provider Date of admission: 07/05/24 05:01 Primary care physician: KOMAL MATSON Consults: 07/05/24 Consult to General Surgeon Routine Consulting Provider: Harjeet Almazan Reason for consultation: wound/dog bite DS: Diagnosis Discharge Diagnosis (1) Laceration of multiple sites: (2) Bite by animal: (3) Asthma: DS: Summary Time Spent with Patient Time attestation: Total time spent providing and/or coordinating discharge services: Exam Constitutional Vital Signs, click to edit/add: Last Vital Signs Temp 97.9 F 07/05/24 07:19 Pulse 60 07/05/24 07:19 Resp 16 07/05/24 07:19 BP 120/72 07/05/24 07:19 Pulse Ox 94 L 07/05/24 07:19 O2 Del Method Room Air 07/05/24 07:19 DS: Data Data Completed and Pending Labs on day of discharge: Labs from last 24 hours 07/05/24 05:40 WBC 11.6 H RBC 4.07 L Hgb 11.9 L Hct 37.9 MCV 93.1 MCH 29.2 MCHC 31.4 RDW 14.6 Plt Count 295 MPV 10.4 Neut % (Auto) 74.8 Lymph % (Auto) 18.3 L [place] % (Auto) 6.2 Eos % (Auto) 0.1 L Baso % (Auto) 0.3 Neut # (Auto) 8.6 H Lymph # (Auto) 2.1 [place] # (Auto) 0.7 Eos # (Auto) 0.0 Baso # (Auto) 0.0 Abs Immat Gran (auto) 0.04 H Imm/Tot Granulo (auto) 0.3 Sodium 139 Potassium 3.8 Chloride 106 Carbon Dioxide 22.9 Anion Gap 13.9 BUN 15.0 Creatinine 0.88 Est GFR ( Amer) >60 Est GFR (Non-Af Amer) >60 BUN/Creatinine Ratio 17.0 Glucose 95 Calcium 9.0 Magnesium 1.8 Total Bilirubin 0.6 AST 22 ALT 30 Alkaline Phosphatase 82 Total Protein 6.7 Albumin 3.4 Globulin 3.3 Albumin/Globulin Ratio 1.0 Discharge Plan Discharge Condition: Fair Discharge Medications: No Action ibuprofen 800 mg tablet 800 mg PO Q8H PRN (Reason: Moderate Pain) 30 Days Qty: 60 0RF Print Language: [place]an
--- NOTE | 2024-07-05 15:18 | P.GSCN_ITS ---
History of Present Illness Consult details Consult date: 07/05/24 Reason for consult: wound care Requesting physician: Chasity Raman Narrative: 24 yo female previously healthy presents for evaluation of multiple dog bite wounds. Patient was initially seen in the ER yesterday evening after being attacked by her pet dog at home. Patient states the dog initially bit her lateral left flank and she fell to the ground. The dog then proceeded to bite her arms and legs. ER workup included CT Abdomen/pelvis without contrast, which demonstrated fat stranding in the lateral left flank. The patient had some of her bite wounds sutured in the ER and was admitted for observation and surgical consult of the lateral left flank wound today. Patient started on IV Clindamycin and Levofloxacin, received updated Tetanus immunization in the ER. Upon evaluation today, Mother and friend are present at bedside. Patient states that she is in significant pain, and states she is hungry, as she has been NPO since last night prior to surgical consult. Patient states that the dog is currently with animal control and is being quarantined for 10 days, per rabies monitoring protocol. Review of Systems 2 ROS0 Status of ROS 10 or more systems reviewed and unremark able except as noted in history and below Constitutional Denies: fever or chills Ears, nose, mouth, and throat Denies: difficulty swallowing Cardiovascular Denies: chest pain Respiratory Denies: shortness of breath Gastrointestinal Denies: nausea, vomiting, diarrhea, constipation or blood in stool [facility] Medical History (Updated 07/05/24 @ 16:06 by Harjeet Almazan MD) Asthma ?J45.909 - Unspecified asthma, uncomplicated (ICD-10) Family History Other Family history of hypertension Social History Within the past year, how often did you have a drink containing alcohol: 2-4 times a month Within the past year, how many standard drinks containing alcohol did you have on a typical day: 1 or 2 Within the past year, how often did you have six or more drinks on one occasion: never Total score: 0 Score interpretation: A score less than 3 is consistent with normal alcohol consumption. Smoking status: Current some day smoker Non-prescribed substance use: denies use Highest level of school completed/degree received: some college, no degree In a typical week, how many times do you talk on the telephone with family, friends, or neighbors: 3 or more times per week How often do you get together with friends or relatives: 3 or more times per week Little interest or pleasure in doing things: several days Feeling down, depressed, or hopeless: several days Feel stressed/tense/nervous/anxious/difficulty sleeping: rather much Do you think of yourself as: straight/heterosexual Gender Identity: female Meds Home Medications and Allergies Home Medications ?Medication ?Instructions ?Recorded ?Confirmed ?Type ibuprofen 800 mg tablet 800 mg PO Q8H PRN Moderate Pain 30 04/11/24 07/05/24 Rx days #60 tabs Allergies Allergy/AdvReac Type Severity Reaction Status Date / Time Penicillins Allergy Severe Hives Verified 07/04/24 23:06 cephalexin [From Keflex] Allergy Intermediate Hives Verified 07/04/24 23:06 iodine Allergy Intermediate Swelling Verified 07/04/24 23:06 of Lip/Tongue/Throat amoxicillin AdvReac Mild Hives Verified 07/04/24 23:06 Exam Constitutional Vital Signs, click to edit/add: Last Vital Signs Temp 98.9 F 07/05/24 11:21 Pulse 79 07/05/24 11:21 Resp 16 07/05/24 11:21 BP 102/63 07/05/24 11:21 Pulse Ox 97 07/05/24 12:00 O2 Del Method Room Air 07/05/24 11:21 Documenting provider has reviewed patient's vital signs: yes Common normals: alert and well nourished General appearance: cooperative, well developed and in distress mild HENMT Common normals: normocephalic, head/scalp atraumatic, hearing grossly normal bilaterally, external ears normal and external nose normal Neck & C-Spine Common normals: full ROM and no JVD Chest Common normals: inspection of chest normal Chest: symmetrical chest wall rise Respiratory Common normals: normal respiratory effort and no use of accessory muscles Cardio Common normals: regular rate, regular rhythm and no murmurs GI Common normals: soft to palpation, non-tender, no hepatosplenomegaly, no masses and no bruits Inspection: edema findings Laterality: left edema details: non-pitting, striae, laceration and erythema Auscultation: normoactive bowel sounds Palpation: soft and no hepatosplenomegaly; no rebound tenderness present Percussion: normal to percussion GI image (female): 2 1. 8 cm by 10 cm area of erythema, edema, and multiple bite bales localized to the left lateral flank just superior to the ASIS. Two linear lacerations running horizontally with subcutaneous involvement present towards the middle of the region. The superior laceration is roughly 1 1/2 cm in length. The inferior laceration measures roughly 2 cm in length and demonstrates persistent serosanguinous drainage. No crepitus noted to palpation. No obvious debris noted on inspection. Extremity Common normals: no clubbing, cyanosis or edema General: other findings Other: Multiple bite bales noted to the bilateral forearms, right medial thigh, and left anterior medial duong. Non-absorbing sutures placed in simple interrupted fashion approximating all bites except one on the posterior aspect of the left forearm, which demonstrates serosanguinous drainage. Psych Mood and affect: depressed mood and anxious Results Labs Labs: Abnormal lab results 07/05/24 Range/Units 05:40 WBC 11.6 H (4.0-11.0) 10^3/uL RBC 4.07 L (4.20-5.40) 10^6/uL Hgb 11.9 L (12.0-16.0) g/dL Lymph % (Auto) 18.3 L (20.5-60.0) % Eos % (Auto) 0.1 L (0.9-7.0) % Neut # (Auto) 8.6 H (1.4-6.5) 10^3/uL Abs Immat Gran (auto) 0.04 H (0.00-0.03) 10^3/uL Diabetes panel 07/05/24 Range/Units 05:40 Sodium 139 (136-145) mmol/L Potassium 3.8 (3.5-5.1) mmol/L Chloride 106 (98-107) mmol/L Carbon Dioxide 22.9 (21.0-32.0) mmol/L BUN 15.0 (7.0-18.0) mg/dL Creatinine 0.88 (0.55-1.02) mg/dL Glucose 95 (74-106) mg/dL Calcium 9.0 (8.5-10.1) mg/dL AST 22 (15-37) U/L ALT 30 (14-59) U/L Alkaline Phosphatase 82 (46-116) U/L Total Protein 6.7 (6.4-8.2) g/dL Albumin 3.4 (3.4-5.0) g/dL Calcium panel 07/05/24 Range/Units 05:40 Calcium 9.0 (8.5-10.1) mg/dL Albumin 3.4 (3.4-5.0) g/dL Pituitary panel 07/05/24 Range/Units 05:40 Sodium 139 (136-145) mmol/L Potassium 3.8 (3.5-5.1) mmol/L Chloride 106 (98-107) mmol/L Carbon Dioxide 22.9 (21.0-32.0) mmol/L BUN 15.0 (7.0-18.0) mg/dL Creatinine 0.88 (0.55-1.02) mg/dL Glucose 95 (74-106) mg/dL Calcium 9.0 (8.5-10.1) mg/dL Adrenal panel 07/05/24 Range/Units 05:40 Sodium 139 (136-145) mmol/L Potassium 3.8 (3.5-5.1) mmol/L Chloride 106 (98-107) mmol/L Carbon Dioxide 22.9 (21.0-32.0) mmol/L BUN 15.0 (7.0-18.0) mg/dL Creatinine 0.88 (0.55-1.02) mg/dL Glucose 95 (74-106) mg/dL Calcium 9.0 (8.5-10.1) mg/dL Total Bilirubin 0.6 (0.2-1.0) mg/dL AST 22 (15-37) U/L ALT 30 (14-59) U/L Alkaline Phosphatase 82 (46-116) U/L Total Protein 6.7 (6.4-8.2) g/dL Albumin 3.4 (3.4-5.0) g/dL All other labs normal. Imaging Abdomen CT scan report/results: report reviewed Assessment and Plan Assessment and Plan (1) Laceration of multiple sites: Onset Date: ~07/04/24 (2) Bite by animal: Onset Date: ~07/04/24 Plan 1. Nonsurgical wound care of multiple dog bites. Wounds are draining well and should be kept open to prevent worsening infection. Continue wound care with soap and water with dressing changes. 2. Observation overnight with continued IV Clindamycin and Metronidazole. PO diet, patient directed TID. 3. Plan to discharge with 5 days of oral antibiotics 4. Follow-up in 10 days to reassess wound healing and confirm rabies status of dog. If positive, initiate PEP.
[2024-07-06] MEDS: CLINDAMYCIN PHOSPHATE/D5W 600 MG/50 ML PREMIX 100 MG IV ×2 (03:24→08:04)
[2024-07-06] MEDS: KETOROLAC TROMETHAMINE 30 MG/ML VIAL IVP ×2 (03:24→08:26)
[2024-07-06 03:30] VITALS: BP 120/62; PULSE 63; TEMP 36.6; O2SAT 98
[2024-07-06 07:11] LABS: Basophils Percent Auto 0.8 % (0.2-2.0); Eosinophils Absolute Auto 0.1 10^3/uL (0.0-0.7); Eosinophils Percent Auto 2.3 % (0.9-7.0); Hematocrit 36.2 % (36.0-48.0); Hemoglobin 11.4 g/dL (12.0-16.0); Immature Granulocytes Abs Auto 0.02 10^3/uL (0.00-0.03); Immature Granulocytes Pct Auto 0.4 % (0.0-0.5); Lymphocytes Absolute Auto 1.3 10^3/uL (1.2-3.8); Lymphocytes Percent Auto 25.8 % (20.5-60.0); Mean Corpuscular HGB Conc 31.5 g/dL (29.9-35.2); Mean Corpuscular Hemoglobin 28.8 pg (26.7-34.0); Mean Corpuscular Volume 91.4 fL (81.0-99.0); Mean Platelet Volume 10.7 fL (9.5-13.5); Monocytes Absolute Auto 0.5 10^3/uL (0.3-0.8); Monocytes Percent Auto 10.1 % (1.7-12.0); Neutrophils Absolute Auto 3.1 10^3/uL (1.4-6.5); Neutrophils Percent Auto 60.6 % (43.0-75.0); Platelet Count 240 10^3/uL (150-450); Red Blood Count 3.96 10^6/uL (4.20-5.40); Red Cell Distribution Width 14.6 % (11.0-15.0); White Blood Count 5.2 10^3/uL (4.0-11.0)
[2024-07-06 07:25] VITALS: BP 123/69; PULSE 54; TEMP 36.6; O2SAT 98
[2024-07-06 07:29] LABS: BUN Creatinine Ratio 15.9; Chloride 106 mmol/L (98-107); Estimated GFR (African America >60 (>=60); Estimated GFR (Non-African Ame >60 (>=60); Glucose 83 mg/dL (74-106); Potassium 3.9 mmol/L (3.5-5.1); Sodium 140 mmol/L (136-145)
[2024-07-06 07:40] LABS: Anion Gap 15.7; Carbon Dioxide 22.2 mmol/L (21.0-32.0)
[2024-07-06] MEDS: LEVOFLOXACIN IN DEXTROSE 5 % 750 MG/150 ML PREMIX 100 MG IV (08:26)
--- NOTE | 2024-07-06 09:08 | P.DS_ITS ---
DS: Providers Provider Date of admission: 07/05/24 05:01 Primary care physician: KOMAL MATSON Consults: 07/05/24 Consult to General Surgeon Routine Consulting Provider: Harjeet Almazan Reason for consultation: wound/dog bite DS: Diagnosis Discharge Diagnosis (1) Laceration of multiple sites: Onset Date: ~07/04/24 (2) Bite by animal: Onset Date: ~07/04/24 Plan Respiratory distress, mild sinus tachycardia, sick leukocytosis, secondary to several dog bites. Will severe left flank and left lower extremity. Plan is to have surgical evaluation today. If no surgical intervention necessary, will adv ance diet and if pain is controlled discharge to home later today. Medications see list. Follow-up with PCP within the next week. Maintain current antibiotics History of asthma-will use as needed Ventolin. ? DS: Summary Hospital Course Hospital Course: Patient presented to the emergency room status post dog bite. Multiple lacerations. Several were sutured in the emergency room. Consultation to surgery, felt no further surgical intervention or wound debridement would be ne cessary. Just to continue with an additional day of IV antibiotics. That was yesterday. Patient feels like pain fairly well-controlled. Just painful with any movement. No fevers. White blood cell count is normal. At this point we will discharge patient to home in improving condition. Medications see this. Follow-up with PCP within the next week. Status at Discharge Overall status at discharge: patient is not back to baseline Time Spent with Patient Time attestation: Total time spent providing and/or coordinating discharge services: Time spent: greater than 30 minutes Exam Constitutional Vital Signs, click to edit/add: Last Vital Signs Temp 98 F 07/06/24 07:25 Pulse 54 L 07/06/24 07:25 Resp 20 07/06/24 07:25 BP 123/69 07/06/24 07:25 Pulse Ox 98 07/06/24 07:25 O2 Del Method Room Air 07/06/24 07:25 Documenting provider has reviewed patient's vital signs: yes Common normals: alert and well nourished General appearance: cooperative, well developed and in distress mild HENMT Common normals: normocephalic, head/scalp atraumatic, hearing grossly normal bilaterally, external ears normal and external nose normal Neck & C-Spine Common normals: full ROM and no JVD Chest Common normals: inspection of chest normal Chest: symmetrical chest wall rise Respiratory Common normals: normal respiratory effort and no use of accessory muscles Cardio Common normals: regular rate, regular rhythm and no murmurs GI Common normals: soft to palpation, non-tender, no hepatosplenomegaly, no masses and no bruits Inspection: edema findings Laterality: left edema details: non-pitting, striae, laceration and erythema Auscultation: normoactive bowel sounds Palpation: soft and no hepatosplenomegaly; no rebound tenderness present Percussion: normal to percussion Extremity Common normals: no clubbing, cyanosis or edema General: other findings Other: Multiple bite bales noted to the bilateral forearms, right medial thigh, and left anterior medial duong. Non-absorbing sutures placed in simple interrupted fashion approximating all bites except one on the posterior aspect of the left forearm, which demonstrates serosanguinous drainage. Psych Mood and affect: depressed mood and anxious DS: Data Data Completed and Pending Labs on day of discharge: Labs from last 24 hours 07/06/24 06:27 WBC 5.2 RBC 3.96 L Hgb 11.4 L Hct 36.2 MCV 91.4 MCH 28.8 MCHC 31.5 RDW 14.6 Plt Count 240 MPV 10.7 Neut % (Auto) 60.6 Lymph % (Auto) 25.8 [place] % (Auto) 10.1 Eos % (Auto) 2.3 Baso % (Auto) 0.8 Neut # (Auto) 3.1 Lymph # (Auto) 1.3 [place] # (Auto) 0.5 Eos # (Auto) 0.1 Baso # (Auto) 0.0 Abs Immat Gran (auto) 0.02 Imm/Tot Granulo (auto) 0.4 Sodium 140 Potassium 3.9 Chloride 106 Carbon Dioxide 22.2 Anion Gap 15.7 BUN 14.0 Creatinine 0.88 Est GFR ( Amer) >60 Est GFR (Non-Af Amer) >60 BUN/Creatinine Ratio 15.9 Glucose 83 Calcium 9.0 Discharge Plan Discharge Disposition: Home, Self-Care Condition: Fair Discharge Medications: New levofloxacin 750 mg tablet 750 mg PO DAILY 10 Days Qty: 10 0RF clindamycin HCl [Cleocin HCl] 300 mg capsule 300 mg PO Q6H 10 Days Qty: 40 0RF Continued ibuprofen 800 mg tablet 800 mg PO Q8H PRN (Reason: Moderate Pain) 30 Days Qty: 60 0RF Print Language: Yakut Patient Instructions: Clindamycin (By mouth), Levofloxacin (By mouth), Animal Bite (DC) Forms: Portal Instructions Follow Up Appointments: @ 11am with Dr. Matson [phone] Wed. @ 10:45am with Dr. Almazan (gen. surgery) Amelia Mroa [phone]
--- NOTE | 2024-07-06 09:21 | CM.NOTE ---
Rounds made with Dr. White, pt will discharge to home on oral antibiotics. Pt will f/u with primary care doctor.
[2024-07-06 10:14] VITALS: O2SAT 98
--- NOTE | 2024-07-07 14:38 | CM.DCFOLLOWU ---
Person spoke with: Isabella How are you feeling? Much better, walking better now that swelling is going down in my legs. How is your pain? Better Did you understand your discharge instructions? Yes Do you have any questions about your discharge instructions? No Were you given any prescriptions at discharge? Yes Were you able to get your prescriptions filled? Yes Do you understand how to take your medications as ordered? Yes Do you have any questions about your follow up appointment and do you plan to keep your follow up appointment? No questions, I will make sure I schedule and go to appt Is there anything else that you would like to discuss? No Questions/Comments/Concerns/Other:
== END 2024-07-06 11:50 | disposition home or self-care (01) ==
LOC: ER 07-05 04:55 → MS 07-05 05:03
PROVIDERS: Registered Nurse; Admitting Provider Family Medicine; Emergency Provider Emergency Medicine; PCP Family Medicine; Visit Provider Family Medicine
DX: S31.154A Open bite of abdominal wall, left lower quadrant without penetration into peritoneal cavity, initial encounter (principal); S51.852A Open bite of left forearm, initial encounter; S51.851A Open bite of right forearm, initial encounter; S71.151A Open bite, right thigh, initial encounter; S81.852A Open bite, left lower leg, initial encounter; W54.0XXA Bitten by dog, initial encounter; R00.0 Tachycardia, unspecified; D72.829 Elevated white blood cell count, unspecified; F41.9 Anxiety disorder, unspecified; J45.909 Unspecified asthma, uncomplicated; Z68.36 Body mass index [BMI] 36.0-36.9, adult; E66.9 Obesity, unspecified; Z23 Encounter for immunization
CPT/HCPCS: 11042; 12005; 36415; 73090; 73590; 74176; 80048; 80053; 82947; 83735; 85025; 90471; 90715; 94667; 94668; 94761; 96365; 96366; 96367; 96368; 96375; 96376; 99285; G0378; J0736; J0744; J1170; J1885; J2060; J2270; J2405